=== PATIENT | male | born 1960 | race Caucasian/White ===

== ENCOUNTER 2018-01-07 03:52 | Inpatient (IN) | payer MEDICARE ==
[2018-01-07] MEDS ORDERED: IPRATROPIUM 0.5 MG/2.5 ML NEBU INHALATION STA (03:54)
[2018-01-07] MEDS ORDERED: SODIUM CHLORIDE 0.9% 1,000 ML IV STA ×2 (03:54)
[2018-01-07] MEDS ORDERED: ALBUTEROL NEBULIZED 2.5 MG/3 ML INHALATION STA (03:54)
[2018-01-07] MEDS ORDERED: methylPREDNISolone SOD SUCCI 125 MG/2 ML VIAL IV STA (03:54)
--- NOTE | 2018-01-07 03:56 | ED ---
General Adult HPI - General Stated complaint: PIPE Time Seen by Provider: 01/07/18 03:54 Source: RN notes reviewed, old records reviewed - History of Present Illness Initial comments: This is a 57-year-old male to the ER for evaluation. Presents today for evaluation regards to severe shortness of breath. Patient comes from home today. EMS was called patient cannot breathe worsening felt the night. Oxygen sats below upon EMS arrival, patient poor strain secondary to clinical condition. EMS presented story. This is a hard time patient's oxygen levels. Nose remained low despite oxygen therapy, patient's placed on CPAP. Patient having hard time tolerating CPAP secondary severe shortness of breath - Related Data Previous Rx's Medication Instructions Recorded Naproxen [Naprosyn] 500 mg PO Q12HR #24 tab 11/02/14 traMADol HCl [Ultram] 50 mg PO Q4H PRN #20 tab 11/02/14 Allergies Allergy/AdvReac Type Severity Reaction Status Date / Time codeine Allergy Anaphylaxis Verified 01/07/18 04:01 Review of Systems ROS Statement: Those systems with pertinent positive or pertinent negative responses have been documented in the HPI. ROS Other: All systems not noted in ROS Statement are negative. Past Medical History Past Medical History: Myocardial Infarction ([place]) History of Any Multi-Drug Resistant Organisms: None Reported Additional Past Surgical History / Comment(s): HEART CATH WITH STENTS Past Psychological History: No Psychological Hx Reported Smoking Status: Former smoker Past Alcohol Use History: None Reported Past Drug Use History: None Reported General Exam General appearance: alert, anxious, in distress Head exam: Present: atraumatic, normocephalic, normal inspection Eye exam: Present: normal appearance, PERRL, EOMI. Absent: scleral icterus, conjunctival injection, periorbital swelling ENT exam: Present: normal exam, mucous membranes moist Neck exam: Present: normal inspection. Absent: tenderness, meningismus, lymphadenopathy Respiratory exam: Present: respiratory distress, wheezes, accessory muscle use. Absent: normal lung sounds bilaterally, rales, rhonchi, stridor Cardiovascular Exam: Present: normal rhythm, tachycardia, normal heart sounds. Absent: systolic murmur, diastolic murmur, rubs, gallop, clicks GI/Abdominal exam: Present: soft, normal bowel sounds. Absent: distended, tenderness, guarding, rebound, rigid Extremities exam: Present: normal inspection, full ROM, normal capillary refill. Absent: tenderness, pedal edema, joint swelling, calf tenderness Back exam: Present: normal inspection Neurological exam: Present: alert, oriented X3, CN II-XII intact Psychiatric exam: Present: normal affect, normal mood Skin exam: Present: warm, dry, intact, normal color. Absent: rash Course Vital Signs 01/07/18 01/07/18 01/07/18 03:57 04:00 04:12 Temperature 98.5 F Pulse Rate 104 H 93 99 Respiratory 40 H 24 Rate Blood Pressure 185/127 169/101 O2 Sat by Pulse 96 100 Oximetry 01/07/18 01/07/18 01/07/18 04:28 04:45 05:14 Temperature Pulse Rate 96 96 93 Respiratory Rate Blood Pressure O2 Sat by Pulse Oximetry 01/07/18 01/07/18 05:17 06:40 Temperature Pulse Rate 94 80 Respiratory 20 20 Rate Blood Pressure 144/75 149/77 O2 Sat by Pulse 98 98 Oximetry - Reevaluation(s) Reevaluation #1: 01/07/18 07:07 Significant improvement on BiPAP, diuresis for anxiolysis and prolonged breathing treatment EKG Findings - EKG Comments: EKG Findings:: EKG shows sinus tachycardia rate of 104, TX 134, QRS 100, QTC 489 Medical Decision Making - Medical Decision Making 57 male the ER for evaluation severe shortness of breath COPD exacerbation At bedtime. to be admitted to continue on BiPAP breathing treatments and diuresis - Lab Data Result diagrams: 01/07/18 03:54 01/07/18 03:54 Lab Results 01/07/18 01/07/18 01/07/18 Range/Units 03:54 03:54 03:54 WBC 7.2 (3.8-10.6) k/uL RBC 5.27 (4.30-5.90) m/uL Hgb 15.0 (13.0-17.5) gm/dL Hct 46.1 (39.0-53.0) % MCV 87.5 (80.0-100.0) fL MCH 28.5 (25.0-35.0) pg MCHC 32.6 (31.0-37.0) g/dL RDW 14.1 (11.5-15.5) % Plt Count 255 (150-450) k/uL Neutrophils % 39 % Lymphocytes % 44 % Monocytes % 8 % Eosinophils % 6 % Basophils % 1 % Neutrophils # 2.8 (1.3-7.7) k/uL Lymphocytes # 3.1 (1.0-4.8) k/uL Monocytes # 0.5 (0-1.0) k/uL Eosinophils # 0.4 (0-0.7) k/uL Basophils # 0.1 (0-0.2) k/uL PT (9.0-12.0) sec INR (<1.2) APTT (22.0-30.0) sec D-Dimer (<0.60) mg/L FEU Sodium 150 H (137-145) mmol/L Potassium 4.5 (3.5-5.1) mmol/L Chloride 109 H (98-107) mmol/L Carbon Dioxide 24 (22-30) mmol/L Anion Gap 17 mmol/L BUN 14 (9-20) mg/dL Creatinine 1.10 (0.66-1.25) mg/dL Est GFR (CKD-EPI)AfAm 86 (>60 ml/min/1.73 sqM) Est GFR (CKD-EPI)NonAf 74 (>60 ml/min/1.73 sqM) Glucose 110 H (74-99) mg/dL POC Glucose (mg/dL) (75-99) mg/dL POC Glu [employer] Supervisor ID Calcium 9.6 (8.4-10.2) mg/dL Magnesium 2.2 (1.6-2.3) mg/dL Total Bilirubin 0.4 (0.2-1.3) mg/dL AST 20 (17-59) U/L ALT 22 (21-72) U/L Alkaline Phosphatase 77 (38-126) U/L Total Creatine Kinase 81 (55-170) U/L CK-MB (CK-2) 0.6 (0.0-2.4) ng/mL CK-MB (CK-2) Rel Index 0.7 Troponin I <0.012 (0.000-0.034) ng/mL NT-Pro-B Natriuret Pep pg/mL Total Protein 7.8 (6.3-8.2) g/dL Albumin 4.6 (3.5-5.0) g/dL 0501/07/18 01/07/18 Range/Units 03:54 03:54 03:58 WBC (3.8-10.6) k/uL RBC (4.30-5.90) m/uL Hgb (13.0-17.5) gm/dL Hct (39.0-53.0) % MCV (80.0-100.0) fL MCH (25.0-35.0) pg MCHC (31.0-37.0) g/dL RDW (11.5-15.5) % Plt Count (150-450) k/uL Neutrophils % % Lymphocytes % % Monocytes % % Eosinophils % % Basophils % % Neutrophils # (1.3-7.7) k/uL Lymphocytes # (1.0-4.8) k/uL Monocytes # (0-1.0) k/uL Eosinophils # (0-0.7) k/uL Basophils # (0-0.2) k/uL PT 10.8 (9.0-12.0) sec INR 1.1 (<1.2) APTT 23.3 (22.0-30.0) sec D-Dimer 0.67 H (<0.60) mg/L FEU Sodium (137-145) mmol/L Potassium (3.5-5.1) mmol/L Chloride (98-107) mmol/L Carbon Dioxide (22-30) mmol/L Anion Gap mmol/L BUN (9-20) mg/dL Creatinine (0.66-1.25) mg/dL Est GFR (CKD-EPI)AfAm (>60 ml/min/1.73 sqM) Est GFR (CKD-EPI)NonAf (>60 ml/min/1.73 sqM) Glucose (74-99) mg/dL POC Glucose (mg/dL) 107 H (75-99) mg/dL POC Glu [employer] Supervisor ID Samantha Appiah Calcium (8.4-10.2) mg/dL Magnesium (1.6-2.3) mg/dL Total Bilirubin (0.2-1.3) mg/dL AST (17-59) U/L ALT (21-72) U/L Alkaline Phosphatase (38-126) U/L Total Creatine Kinase (55-170) U/L CK-MB (CK-2) (0.0-2.4) ng/mL CK-MB (CK-2) Rel Index Troponin I (0.000-0.034) ng/mL NT-Pro-B Natriuret Pep 1480 pg/mL Total Protein (6.3-8.2) g/dL Albumin (3.5-5.0) g/dL - Radiology Data Radiology results: report reviewed (Chest x-ray significant for diffuse pulmonary edema), image reviewed Critical Care Time Critical Care Time: Yes Total Critical Care Time: 31 Disposition Clinical Impression: Congestive heart failure, Acute pulmonary edema, Acute exacerbation of chronic obstructive airways disease Disposition: ADMITTED IP TO THIS [facility] Condition: Serious Is patient prescribed a controlled substance at d/c from ED?: No Referrals: None,Stated [Primary Care Provider] - 1-2 days
[2018-01-07] MEDS: LORazepam 2 MG/ML INJ IV STA ×2 (04:03→08:07)
[2018-01-07] MEDS ORDERED: MORPHINE SULFATE 4 MG/ML SYRINGE IVP STA (04:03)
[2018-01-07 04:09] LABS: Glucose,Whole Blood 107 mg/dL (75-99)
[2018-01-07 04:14] LABS: Basophils # (A) 0.1 k/uL (0-0.2); Basophils % (A) 1 %; Eosinophils # (A) 0.4 k/uL (0-0.7); Eosinophils % (A) 6 %; HCT 46.1 % (39.0-53.0); Lymphocytes # (A) 3.1 k/uL (1.0-4.8); Lymphocytes % (A) 44 %; MCH 28.5 pg (25.0-35.0); MCHC 32.6 g/dL (31.0-37.0); MCV 87.5 fL (80.0-100.0); Mean Platelet Volume 8.2; Monocytes # (A) 0.5 k/uL (0-1.0); Monocytes % (A) 8 %; Neutrophils # (A) 2.8 k/uL (1.3-7.7); Neutrophils % (A) 39 %; Platelet Count 255 k/uL (150-450); RBC 5.27 m/uL (4.30-5.90); RDW 14.1 % (11.5-15.5); WBC 7.2 k/uL (3.8-10.6)
[2018-01-07 04:25] LABS: Albumin 4.6 g/dL (3.5-5.0); Calcium 9.6 mg/dL (8.4-10.2); Magnesium 2.2 mg/dL (1.6-2.3); Potassium 4.5 mmol/L (3.5-5.1); Total Bilirubin 0.4 mg/dL (0.2-1.3); Total Protein 7.8 g/dL (6.3-8.2)
[2018-01-07 04:27] LABS: Creatine Kinase 81 U/L (55-170)
--- NOTE | 2018-01-07 04:27 | XR ---
EXAM: XR Chest, 1 View CLINICAL HISTORY: Shortness of breath TECHNIQUE: Frontal view of the chest. COMPARISON: No relevant prior studies available. FINDINGS: Lungs: Diffuse bilateral interstitial opacities. No consolidation. Pleural space: Unremarkable. No pneumothorax. Heart: Borderline sized cardiomediastinal silhouette. Mediastinum: See above. Bones/joints: No acute osseous abnormality. IMPRESSION: Diffuse bilateral interstitial opacities are concerning for interstitial edema.
[2018-01-07 04:30] LABS: INR 1.1 (<1.2); Partial Thromboplastin Time 23.3 sec (22.0-30.0); Prothrombin Time 10.8 sec (9.0-12.0)
[2018-01-07 04:35] LABS: D-Dimer 0.67 mg/L FEU (<0.60)
[2018-01-07 04:41] LABS: Creatine Kinase MB 0.6 ng/mL (0.0-2.4); Troponin I <0.012 ng/mL (0.000-0.034)
[2018-01-07] MEDS ORDERED: FUROSEMIDE 10 MG/ML 4 ML VIAL IV STA (05:54)
[2018-01-07] MEDS: IPRATROPIUM-ALBUTEROL 3 ML NEB INHALATION SCH ×5 (07:51→18:58)
[2018-01-07] MEDS: FUROSEMIDE 10 MG/ML 4 ML VIAL IV SCH ×2 (08:01→20:51)
[2018-01-07 09:53] VITALS: BMI 25.7
[2018-01-07] MEDS ORDERED: RX INFO: IV CONTRAST WAS GIVEN 1 EACH MISC MISCELLANE PRN (11:02)
--- NOTE | 2018-01-07 11:02 | P.CRDCN ---
History of Present Illness Consult date: 01/07/18 Requesting physician: Whit Mendiola Consult reason: congestive heart failure Chief complaint: Shortness of breath History of present illness: This is a 57-year-old gentleman who appears older than his stated age , he follows with Dr. Woods in the office. Patient has history of hypertension, hyperlipidemia, diabetes, complains of significant severe diabetic neuropathy, patient also has history of coronary artery disease with prior multivessel angioplasty, history of mitral regurgitation and also history of noncompliance with taking his medications. The last time he was seen by Dr. Espinoza was in December of last year. He presents to the hospital on this occasion with symptoms of one week duration of worsening shortness of breath, he also states that he has been coughing a significant amount at home, sometimes clear sometimes yellow in color. Chest x-ray on admission reveals severe bilateral interstitial [place] concerning for interstitial edema. EKG on admission showed sinus tachycardia with no acute changes. Blood pressure on admission 185/127, heart rate in the 100s, respiratory rate 40, 96% on BiPAP. CBC is normal, d-dimer 0.67, sodium 150, potassium 4.5, BUN 14, creatinine 1.1. Magnesium level 2.2. Troponin 0.012. BNP level 1480. Patient was initiated on IV Lasix in the emergency room , he states that he's been putting out a significant amount of urine through the night last night. This morning the patient still complains of some shortness of breath, however improved from his admission. His main complaint is pain from his feet up to his neck with sharp pains and at times jerking pains , which she attributes to his neuropathy. Past Medical History Past Medical History: Myocardial Infarction ([place]) History of Any Multi-Drug Resistant Organisms: None Reported Additional Past Surgical History / Comment(s): HEART CATH WITH STENTS Past Psychological History: No Psychological Hx Reported Smoking Status: Former smoker Past Alcohol Use History: None Reported Past Drug Use History: None Reported Medications and Allergies Home Medications Medication Instructions Recorded Confirmed Type Lisinopril(Unknown Dose) 1 tab PO DAILY 01/07/18 01/07/18 History Ranitidine HCl [Zantac] 150 mg PO QID 01/07/18 01/07/18 History Allergies Allergy/AdvReac Type Severity Reaction Status Date / Time codeine Allergy Anaphylaxis Verified 01/07/18 07:12 Physical Exam Vitals: Vital Signs Temp Pulse Pulse Resp BP BP Pulse Ox 01/07/18 08:35 96.9 F L 90 30 H 162/112 97 01/07/18 08:10 94 01/07/18 08:00 98.9 F 81 24 160/92 100 01/07/18 07:51 94 01/07/18 07:26 97.9 F 81 24 152/87 99 01/07/18 06:40 80 20 149/77 98 01/07/18 05:17 94 20 144/75 98 01/07/18 05:14 93 01/07/18 04:45 96 01/07/18 04:28 96 01/07/18 04:12 98.5 F 99 24 169/101 100 01/07/18 04:00 93 01/07/18 03:57 104 H 40 H 185/127 96 Intake and Output 01/06/18 01/07/18 01/07/18 22:59 06:59 14:59 Output Total 700 Balance -700 Output: Urine 700 Other: Weight 90.718 kg 90.718 kg PHYSICAL EXAMINATION: HEENT: Head is atraumatic, normocephalic. Pupils equal, round. Neck is supple. There is no elevated jugular venous pressure. HEART EXAMINATION: Heart S1 and S2 systolic murmur is heard. CHEST EXAMINATION: And circumflex clear with diminished air entry to bilateral bases. ABDOMEN: Soft, nontender. Bowel sounds are heard. No organomegaly noted. EXTREMITIES: 2+ peripheral pulses with no evidence of peripheral edema and no calf tenderness noted. NEUROLOGIC patient is awake, alert and oriented -3. . Results 01/07/18 03:54 01/07/18 03:54 Cardiac Enzymes 01/07/18 01/07/18 Range/Units 03:54 03:54 AST 20 (17-59) U/L CK-MB (CK-2) 0.6 (0.0-2.4) ng/mL Troponin I <0.012 (0.000-0.034) ng/mL Coagulation 01/07/18 Range/Units 03:54 PT 10.8 (9.0-12.0) sec APTT 23.3 (22.0-30.0) sec CBC 01/07/18 Range/Units 03:54 WBC 7.2 (3.8-10.6) k/uL RBC 5.27 (4.30-5.90) m/uL Hgb 15.0 (13.0-17.5) gm/dL Hct 46.1 (39.0-53.0) % Plt Count 255 (150-450) k/uL Comprehensive Metabolic Panel 01/07/18 Range/Units 03:54 Sodium 150 H (137-145) mmol/L Potassium 4.5 (3.5-5.1) mmol/L Chloride 109 H (98-107) mmol/L Carbon Dioxide 24 (22-30) mmol/L BUN 14 (9-20) mg/dL Creatinine 1.10 (0.66-1.25) mg/dL Glucose 110 H (74-99) mg/dL Calcium 9.6 (8.4-10.2) mg/dL AST 20 (17-59) U/L ALT 22 (21-72) U/L Alkaline Phosphatase 77 (38-126) U/L Total Protein 7.8 (6.3-8.2) g/dL Albumin 4.6 (3.5-5.0) g/dL Current Medications Generic Name Dose Route Start Last Admin Trade Name Freq PRN Reason Stop Dose Admin Albuterol/Ipratropium 3 ml 01/07/18 08:00 01/07/18 07:51 Duoneb 0.5 Mg-3 Mg/3 Ml Soln INHALATION 3 ml RT-QID EVETTE Administration Furosemide 40 mg 01/07/18 08:00 01/07/18 08:01 Lasix IV Not Given Q12H EVETTE Sodium Chloride 1,000 mls @ 100 mls/hr 01/07/18 03:54 01/07/18 04:05 Saline 0.9% IV 01/07/18 13:53 100 mls/hr .Q10H STA Administration Methylprednisolone Sodium Succinate 60 mg 01/07/18 12:00 Solu-Medrol IV Q6HR EVETTE Intake and Output 01/06/18 01/07/18 01/07/18 22:59 06:59 14:59 Output Total 700 Balance -700 Output: Urine 700 Other: Weight 90.718 kg 90.718 kg Patient Weight 01/08/18 06:59 Weight 90.718 kg 01/07/18 03:54 01/07/18 03:54 EKG Interpretations (text) EKG on admission shows a sinus tachycardia Assessment and Plan Plan: Assessment and plan #1 symptoms of progressively worsening shortness of breath, significant hypoxia , secondary to mild congestive cardiac failure, systolic acute on chronic. Abnormal d-dimer. #2 known history of coronary artery disease with prior PTCA #3 hypertension #4 hyperlipidemia #5 diabetes #6 prior history of smoking Plan We will obtain an echocardiogram with Doppler study. Continue current dose of IV Lasix. Presentation, patient was quite hypoxic, tachycardic, d-dimer mildly abnormal, we would recommend CTA of the chest to rule out the possibility of pulmonary embolism. We will also start the patient on a low-dose of beta jewels and CHAN inhibitor. He has not been taking any medications at home and is quite hypertensive with a blood pressure this morning of 162/112. Further recommendations will be based on these findings and patient's clinical course. DNP note has been reviewed, I agree with a documented findings and plan of care. Patient was seen and examined.
[2018-01-07] MEDS: LISINOPRIL 5 MG TAB PO SCH (12:23)
[2018-01-07] MEDS: methylPREDNISolone SOD SUCCI 125 MG/2 ML VIAL IV SCH ×3 (12:23→23:13)
[2018-01-07] MEDS: METOPROLOL TARTRATE 25 MG TAB PO SCH ×2 (12:23→20:52)
[2018-01-07 12:28] LABS: Glucose,Whole Blood 143 mg/dL (75-99)
--- NOTE | 2018-01-07 12:33 | CT ---
EXAMINATION TYPE: CT angio chest DATE OF EXAM: 01/07/2018 COMPARISON: NONE HISTORY: Hypoxia and CHF CT DLP: 313.10 mGycm CONTRAST: CT chest with contrast and 3D reconstruction with MIP imaging is performed with IV Contrast, patient injected with 100 ml mL of Isovue 370. Contrast-enhanced CT of the chest was performed through the course of the pulmonary arteries with isabel g and mediastinal window settings submitted. 3D reconstruction with MIP imaging was also performed. PULMONARY ARTERIES: The pulmonary arteries and their major tributaries are patent. I do not see bessy dence for sizable filling defect to suggest pulmonary embolic process. LUNGS: Small basilar effusions and compressive atelectasis. MEDIASTINUM: Thoracic aorta is of normal caliber,however, evaluation is limited given timing of the contrast bolus. If there is concern for thoracic aortic pathology consider CORDELL. Correlate clinicall y . The heart is not enlarged. No evidence for mediastinal mass. No mediastinal lymph nodes greater than 1cm. HILAR STRUCTURES: No evidence for mass. No hilar lymph nodes greater than 1 cm. UPPER ABDOMEN: No significant abnormality is seen. IMPRESSION: 1. No evidence for Pulmonary embolism at this time.
--- NOTE | 2018-01-07 12:44 | P.HPIM ---
History of Present Illness This is a pleasant 57 years old male with past medical history of [place], hypertension, hyperlipidemia, DM, diabetic neuropathy, status post cardiac cath and stents, mitral regurgitation, nonadherence to treatment who presents with dyspnea for 1 week and duration which was progressively worse associated with mild intermittent coughing with no phlegm. On admission he has some chest pain which is resolved now. 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 Espinoza, he doesn't have primary care doctor to follow up with for financial reasons although he confirmed to me have insurance. Patient complaining of from abdominal wall lump which she says it's getting Review of Systems REVIEW OF SYSTEMS: CONSTITUTIONAL: No fever, no malaise, no fatigue. HEENT: No recent visual problems or hearing problems. Denied any sore throat. CARDIOVASCULAR: No orthopnea, PND, no palpitations, no syncope. PULMONARY: No shortness of breath, no cough, no hemoptysis. GASTROINTESTINAL: No diarrhea, no nausea, no vomiting, no abdominal pain. Normoactive bowel sounds. NEUROLOGICAL: No headaches, no weakness, no numbness. HEMATOLOGICAL: Denies any bleeding or petechiae. GENITOURINARY: Denies any burning micturition, frequency, or urgency. MUSCULOSKELETAL/RHEUMATOLOGICAL: Denies any joint pain, swelling, or any muscle pain. ENDOCRINE: Denies any polyuria or polydipsia. Past Medical History Past Medical History: Myocardial Infarction ([place]) History of Any Multi-Drug Resistant Organisms: None Reported Additional Past Surgical History / Comment(s): HEART CATH WITH STENTS Past Psychological History: No Psychological Hx Reported Smoking Status: Former smoker Past Alcohol Use History: None Reported Past Drug Use History: None Reported Medications and Allergies Home Medications Medication Instructions Recorded Confirmed Type Lisinopril [Zestril] 20 mg PO DIRECTED 01/07/18 01/07/18 History Ranitidine HCl [Zantac] 150 mg PO QID 01/07/18 01/07/18 History Allergies Allergy/AdvReac Type Severity Reaction Status Date / Time codeine Allergy Anaphylaxis Verified 01/07/18 07:12 Physical Exam Vitals: Vital Signs Temp Pulse Pulse Resp BP BP Pulse Ox 01/07/18 08:35 96.9 F L 90 30 H 162/112 97 01/07/18 08:10 94 01/07/18 08:00 98.9 F 81 24 160/92 100 01/07/18 07:51 94 01/07/18 07:26 97.9 F 81 24 152/87 99 01/07/18 06:40 80 20 149/77 98 01/07/18 05:17 94 20 144/75 98 01/07/18 05:14 93 01/07/18 04:45 96 01/07/18 04:28 96 01/07/18 04:12 98.5 F 99 24 169/101 100 01/07/18 04:00 93 01/07/18 03:57 104 H 40 H 185/127 96 Intake and Output 01/06/18 01/07/18 01/07/18 22:59 06:59 14:59 Output Total 700 Balance -700 Output: Urine 700 Other: Weight 90.718 kg 90.718 kg GENERAL: The patient is alert and oriented x3, not in any acute distress. Well developed, well nourished. HEENT: Pupils are round and equally reacting to light. EOMI. No scleral icterus. No conjunctival pallor. Normocephalic, atraumatic. No pharyngeal erythema. No thyromegaly. CARDIOVASCULAR: S1 and S2 present. No murmurs, rubs, or gallops. PULMONARY: Chest is clear to auscultation, no wheezing or crackles. ABDOMEN: Soft, nontender, nondistended, normoactive bowel sounds. No palpable organomegaly. Small abdominal wall lump close to the umbilicus with a smooth borders and mobile, nontender MUSCULOSKELETAL: No joint swelling or deformity. EXTREMITIES: No cyanosis, clubbing, or pedal edema. NEUROLOGICAL: Gross neurological examination did not reveal any focal deficits. SKIN: No rashes. Results CBC & Chem 7: 01/07/18 03:54 01/07/18 03:54 Labs: Abnormal Lab Results - Last 24 Hours (Table) 01/07/18 01/07/18 01/07/18 Range/Units 03:54 03:54 03:58 D-Dimer 0.67 H (<0.60) mg/L FEU Sodium 150 H (137-145) mmol/L Chloride 109 H (98-107) mmol/L Glucose 110 H (74-99) mg/dL POC Glucose (mg/dL) 107 H (75-99) mg/dL Assessment and Plan Plan: -Acute and systolic chronic CHF, cardiology evaluation is appreciated, continue with IV Lasix, lisinopril, and metoprolol. Positive troponin -Positive d-dimer, CTPA was done and result is negative for PE -Hypertension, continue with same medication -Hyperlipidemia, continue with same medication -Hypernatremia,, encourage hydration DVT prophylaxis on heparin GI prophylaxis on Pepcid Patient is counseled about compliance medication and follow up with physician. Patient states he is going to try to find a new PCP
[2018-01-07 17:02] LABS: Glucose,Whole Blood 168 mg/dL (75-99)
[2018-01-07 20:08] LABS: Hemoglobin A1C 5.3 % (4.0-6.0)
[2018-01-07 20:45] LABS: Glucose,Whole Blood 188 mg/dL (75-99)
[2018-01-07] MEDS: HEPARIN SODIUM,PORCINE 5,000 UNIT/ML 1 ML VIAL SQ SCH (20:52)
[2018-01-07] MEDS: FAMOTIDINE 20 MG/2 ML VIAL IV SCH (20:52)
[2018-01-08 06:20] LABS: Anion Gap 17 mmol/L; Blood Urea Nitrogen 18 mg/dL (9-20); Calcium 9.5 mg/dL (8.4-10.2); Carbon Dioxide 21 mmol/L (22-30); Chloride 106 mmol/L (98-107); Glucose 141 mg/dL (74-99); Sodium 144 mmol/L (137-145)
[2018-01-08] MEDS: INSULIN ASPART 100 UNIT/ML 1 ML 10 ML VIAL SQ SCH ×2 (06:30→12:03)
[2018-01-08 06:31] LABS: Glucose,Whole Blood 145 mg/dL (75-99)
[2018-01-08] MEDS: methylPREDNISolone SOD SUCCI 125 MG/2 ML VIAL IV SCH ×2 (06:31→12:03)
[2018-01-08] MEDS: METOPROLOL TARTRATE 25 MG TAB PO SCH (07:48)
[2018-01-08] MEDS: FUROSEMIDE 10 MG/ML 4 ML VIAL IV SCH (07:48)
[2018-01-08] MEDS: FAMOTIDINE 20 MG/2 ML VIAL IV SCH (07:48)
[2018-01-08] MEDS: LISINOPRIL 5 MG TAB PO SCH (07:48)
[2018-01-08] MEDS: HEPARIN SODIUM,PORCINE 5,000 UNIT/ML 1 ML VIAL SQ SCH (07:49)
[2018-01-08] MEDS: IPRATROPIUM-ALBUTEROL 3 ML NEB INHALATION SCH ×3 (07:50→15:40)
[2018-01-08 08:33] VITALS: TEMP 97
[2018-01-08 11:46] VITALS: BP 167/73; PULSE 84; RESP 16
[2018-01-08 12:17] LABS: Glucose,Whole Blood 153 mg/dL (75-99)
--- NOTE | 2018-01-08 13:48 | P.PN ---
Subjective Progress Note Date: 01/08/18 This is a 57-year-old gentleman who appears older than his stated age , he follows with Dr. Woods in the office. Patient has history of hypertension, hyperlipidemia, diabetes, complains of significant severe diabetic neuropathy, patient also has history of coronary artery disease with prior multivessel angioplasty, history of mitral regurgitation and also history of noncompliance with taking his medications. The last time he was seen by Dr. Espinoza was in December of last year. He presents to the hospital on this occasion with symptoms of one week duration of worsening shortness of breath, he also states that he has been coughing a significant amount at home, sometimes clear sometimes yellow in color. Chest x-ray on admission reveals severe bilateral interstitial [place] concerning for interstitial edema. EKG on admission showed sinus tachycardia with no acute changes. Blood pressure on admission 185/127, heart rate in the 100s, respiratory rate 40, 96% on BiPAP. CBC is normal, d-dimer 0.67, sodium 150, potassium 4.5, BUN 14, creatinine 1.1. Magnesium level 2.2. Troponin 0.012. BNP level 1480. Patient was initiated on IV Lasix in the emergency room , he states that he's been putting out a significant amount of urine through the night last night. This morning the patient still complains of some shortness of breath, however improved from his admission. His main complaint is pain from his feet up to his neck with sharp pains and at times jerking pains , which she attributes to his neuropathy. 01/08/2018 Patient was seen and examined this morning, diuresed well with IV Lasix through the night, his weight is down 4 kg today. He has been ambulating in the hallway most of the morning without any symptoms. Let pressure 158/60 with a heart rate in the 80s, 97% on room air. Sodium 144, potassium 4.0, BUN 18, creatinine 0.9. We will discontinue his IV Lasix and start him on oral diuretics today. Objective - Vital Signs Vital signs: Vital Signs Temp 97.0 F L 01/08/18 08:00 Pulse 84 01/08/18 11:45 Resp 16 01/08/18 11:45 BP 167/73 01/08/18 11:45 Pulse Ox 97 01/08/18 11:45 Intake & Output 01/07/18 01/08/18 01/08/18 18:59 06:59 18:59 Intake Total 960 240 Output Total 1500 700 Balance -1500 260 240 Weight 90.718 kg 86.4 kg Intake: Intake, IV Titration 960 Amount Sodium Chloride 0.9% 1, 960 000 ml @ 100 mls/hr IV . Q10H STA Rx#:[id number] Oral 240 Output: Urine 1500 700 Other: Voiding Method Urinal - Exam PHYSICAL EXAMINATION: GENERAL: HEENT: Head is atraumatic, normocephalic. Pupils equal, round. Sclera anicteric. Conjunctiva are clear. Mucous membranes of the mouth are moist. Neck is supple. There is no elevated jugular venous pressure.] bruit is heard. HEART EXAMINATION: Heart S1, S2 systolic murmur heard. CHEST EXAMINATION: Lungs are clear to auscultation and precussion. No chest wall tenderness is noted on palpation or with deep breathing. ABDOMEN: Soft, nontender. Bowel sounds are heard. No organomegaly noted. EXTREMITIES: 2+ peripheral pulses with no evidence of peripheral edema and no calf tenderness noted. NEUROLOGIC patient is awake, alert and oriented -3. . - Labs CBC & Chem 7: 01/07/18 03:54 01/08/18 05:39 Labs: Abnormal Lab Results - Last 24 Hours (Table) 01/07/18 01/07/18 01/07/18 Range/Units 15:04 16:56 20:34 Carbon Dioxide (22-30) mmol/L Glucose (74-99) mg/dL POC Glucose (mg/dL) 168 H 188 H (75-99) mg/dL Troponin I 0.620 H* (0.000-0.034) ng/mL 01/08/18 01/08/18 01/08/18 Range/Units 05:39 06:28 11:57 Carbon Dioxide 21 L (22-30) mmol/L Glucose 141 H (74-99) mg/dL POC Glucose (mg/dL) 145 H 153 H (75-99) mg/dL Troponin I (0.000-0.034) ng/mL Assessment and Plan Plan: Assessment and plan #1 symptoms of progressively worsening shortness of breath, significant hypoxia , secondary to mild congestive cardiac failure, systolic acute on chronic. Abnormal d-dimer. CTA of the chest negative for pulmonary embolism #2 known history of coronary artery disease with prior PTCA #3 hypertension #4 hyperlipidemia #5 diabetes #6 prior history of smoking Plan From cardiology's perspective we will discontinue the IV Lasix today and start the patient on oral diuretics. He may be able to be discharged home once cleared by primary and we'll make him a follow-up appointment in the office post discharge. DNP note has been reviewed, I agree with a documented findings and plan of care. Patient was seen and examined.
[2018-01-08] MEDS ORDERED: FUROSEMIDE 40 MG TAB PO SCH (16:00)
--- NOTE | 2018-01-08 17:56 | P.DS ---
Providers Date of admission: 01/07/18 07:07 This is a pleasant 57 years old male with past medical history of ND, hypertension, hyperlipidemia, DM, diabetic neuropathy, status post cardiac cath and stents, mitral regurgitation, nonadherence to treatment who presents with dyspnea for 1 week and duration which was progressively worse associated with mild intermittent coughing with no phlegm. In the ED patient has chest x-ray which was suspicious for interstitial edema, patient had mildly elevated troponin patient was evaluated by minor league baseball player, mostly the patient with hypoxia secondary to mild acute on chronic systolic congestive heart failure, patient also found to have abnormal D-dimer, CTPA was negative for PE. Patient was treated with IV Lasix and he showed interval improvement in his symptoms, his weight is down 4 kg on discharge day. He has been ambulating in the hallway most of the morning without any symptoms. Patient was cleared by cardiology for discharge with outpatient follow-up. Patient sees Dr. Espinoza as his minor league baseball player, I called the office and to make appointment for the patient upon his request. The office informed name the going to call the patient to make appointment. Patient provided phone #[phone] provided to the cardiology office staff. Patient was starts on new medication for his hypertension. His hemoglobin A1c is 5.3%, patient informed Patient also complaining of from a chronic nodule in the abdominal wall close to the umbilicus, the nodules is mobile with a small surface and no tenderness and no signs symptoms of inflammation. Patient refused to wait for surgical evaluation. Risks benefits and alternatives are explained for the patient including but not limited to the risk of cancer and he verbalized understanding and he agreed to alternatives to make an appointment with the surgeon office. Originally appointment was made on January 14, 2018 however patient doesn't want this appointment and referred with till after 03 of February. Appointment was made on 02/04/2018 and patient he verbalized understanding and agreement with this appointment said he will do the follow-up Also I counseled patient to follow-up with his PCP in one week and repeat his blood test, patient informed me that he doesn't have PCP, however he wants to follow up with Dr. Sheehan, the office todays closed, patient informed and he told me he is going to make Make appointment in one week as recommended Problem list and management plan was discussed with the patient and he verbalized understanding and acceptance Patient health information was not discussed with family as per patient's request Patient is found stable and can be discharged home however he needs follow-up as an outpatient. Patient has capacity to make medical decision upon my evaluation Physical examination Gen. AAOX3, not in distress CVS: S1-S2, RRR, no murmur Lungs: B/L CTA, no wheezing, not in respiratory distress Abdomen: soft, no distention, no tenderness, positive bowel sounds. Abdominal nodule on the superior part of the umbilicus, with a small margin and about 1 inch in diameter, with smooth surface and mobile. No signs symptoms of inflammation Extremities: no edema or induration, palpable peripheral pulses Attending physician: Whit Mendiola Consults: 01/07/18 07:04 Consult Physician Routine Consulting Provider: Sonia Hubbard Consult Reason/Comments: chf Do you want consulting provider notified?: Yes 01/08/18 14:00 Consult Physician Routine Consulting Provider: Farhat Brice Consult Reason/Comments: abd mass Do you want consulting provider notified?: Yes Primary care physician: Stated None Patient Condition at Discharge: Serious Plan - Discharge Summary Discharge Rx Participant: Yes New Discharge Prescriptions: New Furosemide [Lasix] 40 mg PO BID@0900,1600 #30 tab Lisinopril [Zestril] 5 mg PO DAILY #30 tab Metoprolol Tartrate [Lopressor] 25 mg PO BID #30 tab Continue Ranitidine HCl [Zantac] 150 mg PO QID Lisinopril [Zestril] 20 mg PO DIRECTED Discharge Medication List Lisinopril [Zestril] 20 mg PO DIRECTED 01/07/18 [History] Ranitidine HCl [Zantac] 150 mg PO QID 01/07/18 [History] Furosemide [Lasix] 40 mg PO BID@0900,1600 #30 tab 01/08/18 [Rx] Lisinopril [Zestril] 5 mg PO DAILY #30 tab 01/08/18 [Rx] Metoprolol Tartrate [Lopressor] 25 mg PO BID #30 tab 01/08/18 [Rx] Follow up Appointment(s)/Referral(s): Albert Sheehan MD [STAFF PHYSICIAN] - 1 Week (for all your health problems we recommend you check your blood test with your doctor in 1 week ) Braulio Espinoza MD [STAFF PHYSICIAN] - 1 Week (for your heart disease they will call you on your phone ) Farhat Brice MD [STAFF PHYSICIAN] - 02/04/18 1:45 pm (for your abdominal nodule/mass ) Patient Instructions/Handouts: Heart Failure (DC), Heart Healthy Diet (DC) Activity/Diet/Wound Care/Special Instructions: diet: cardiac diet activity: as tolerated Discharge Disposition: HOME SELF-CARE
== END 2018-01-08 16:46 | disposition home or self-care (01) | DRG 292 ==
LOC: EC 03:52 → 6SEL 07:07
PROVIDERS: ADMIT Hospitalist; ATTEND Hospitalist
DX: I11.0 Hypertensive heart disease with heart failure (principal); E87.0 Hyperosmolality and hypernatremia; J44.1 Chronic obstructive pulmonary disease with (acute) exacerbation; E11.40 Type 2 diabetes mellitus with diabetic neuropathy, unspecified; E78.5 Hyperlipidemia, unspecified; I25.10 Atherosclerotic heart disease of native coronary artery without angina pectoris; I25.2 Old myocardial infarction; I34.0 Nonrheumatic mitral (valve) insufficiency; I50.23 Acute on chronic systolic (congestive) heart failure; R09.02 Hypoxemia; R79.1 Abnormal coagulation profile; R19.00 Intra-abdominal and pelvic swelling, mass and lump, unspecified site; R77.9 Abnormality of plasma protein, unspecified; Z79.899 Other long term (current) drug therapy; Z87.891 Personal history of nicotine dependence; Z98.61 Coronary angioplasty status; Z91.19 Patient's noncompliance with other medical treatment and regimen; Z88.5 Allergy status to narcotic agent
CPT/HCPCS: 36415; 71045; 71275; 80048; 80053; 82550; 82553; 83036; 83735; 83880; 84484; 85025; 85379; 85610; 85730; 93005; 94640; 94645; 94660; 96361; 96374; 96375; 99291

== ENCOUNTER 2018-01-11 08:09 | Inpatient (IN) | payer MEDICARE ==
[2018-01-11] MEDS ORDERED: IPRATROPIUM-ALBUTEROL 3 ML NEB INHALATION STA ×2 (08:25→08:40)
[2018-01-11] MEDS ORDERED: FUROSEMIDE 10 MG/ML 4 ML VIAL IV STA (08:25)
[2018-01-11] MEDS ORDERED: NITROGLYCERIN OINT 1 INCH/GM PACKET TOPICAL STA (08:25)
--- NOTE | 2018-01-11 08:28 | ED ---
General Adult HPI - General Chief complaint: Shortness of Breath Stated complaint: Dyspnea Time Seen by Provider: 01/11/18 08:18 Source: patient, RN notes reviewed Mode of arrival: wheelchair Limitations: no limitations - History of Present Illness Initial comments: Patient is a pleasant 57-year-old male presenting to the emergency Department with shortness of breath. Patient is anxious and has a difficult time helping provide history. Patient states his difficulty breathing just started. Patient does have some chest discomfort as well. Patient states the discomfort does radiate to his left arm. Patient unable to further describe discomfort. Symptoms are similar to previous admission several days ago where he had fluid on his lungs. Patient is unclear if he has any history of prior lung disease. Patient does have a history of prior cardiac disease. - Related Data Home Medications Medication Instructions Recorded Confirmed Lisinopril [Zestril] 20 mg PO DIRECTED 01/07/18 01/07/18 Ranitidine HCl [Zantac] 150 mg PO QID 01/07/18 01/07/18 Previous Rx's Medication Instructions Recorded Furosemide [Lasix] 40 mg PO BID@0900,1600 #30 tab 01/08/18 Lisinopril [Zestril] 5 mg PO DAILY #30 tab 01/08/18 Metoprolol Tartrate [Lopressor] 25 mg PO BID #30 tab 01/08/18 Allergies Allergy/AdvReac Type Severity Reaction Status Date / Time codeine Allergy Anaphylaxis Verified 01/11/18 08:16 Review of Systems ROS Statement: Those systems with pertinent positive or pertinent negative responses have been documented in the HPI. ROS Other: All systems not noted in ROS Statement are negative. Constitutional: Denies: fever Eyes: Denies: eye pain ENT: Denies: ear pain Respiratory: Reports: dyspnea Cardiovascular: Reports: chest pain Endocrine: Reports: fatigue Gastrointestinal: Denies: abdominal pain Genitourinary: Denies: dysuria Musculoskeletal: Denies: back pain Skin: Denies: rash Neurological: Denies: weakness Past Medical History Past Medical History: Myocardial Infarction (NM) Additional Past Medical History / Comment(s): Multiple NM's History of Any Multi-Drug Resistant Organisms: None Reported Additional Past Surgical History / Comment(s): HEART CATH WITH STENTS Past Anesthesia/Blood Transfusion Reactions: No Reported Reaction Past Psychological History: No Psychological Hx Reported Smoking Status: Former smoker Past Alcohol Use History: None Reported Past Drug Use History: None Reported - Past Family History Father Additional Family Medical History / Comment(s): tumor in stomach Mother Family Medical History: CVA/TIA General Exam Limitations: no limitations General appearance: alert, anxious, other (Patient does appear short of breath however speaks in full sentences) Head exam: Present: atraumatic Eye exam: Present: normal appearance, PERRL ENT exam: Present: normal oropharynx Neck exam: Present: normal inspection Respiratory exam: Present: respiratory distress (Patient is in mild respiratory distress), rales, accessory muscle use Cardiovascular Exam: Present: tachycardia GI/Abdominal exam: Present: soft. Absent: tenderness Extremities exam: Present: normal inspection. Absent: pedal edema, calf tenderness Neurological exam: Present: alert Psychiatric exam: Present: anxious Skin exam: Present: normal color Course Vital Signs 01/11/18 01/11/18 01/11/18 08:13 08:42 08:51 Temperature 97.0 F L Pulse Rate 111 H 118 H 99 Respiratory 30 H Rate Blood Pressure 232/120 O2 Sat by Pulse 90 L Oximetry 01/11/18 09:04 Temperature Pulse Rate Respiratory 20 Rate Blood Pressure O2 Sat by Pulse Oximetry EKG Findings - EKG Comments: EKG Findings:: Sinus tachycardia 108. [place] 158. QRS 100. QT 340. QTc 455. Normal axis. LVH with repolarization change. Medical Decision Making - Medical Decision Making Patient reevaluated and significantly improved with BiPAP. Patient updated on results and plan. Case was discussed with Dr. brink, who will admit patient was recently discharged from their service. - Lab Data Result diagrams: 01/11/18 08:28 01/11/18 08:28 Lab Results 01/11/18 01/11/18 01/11/18 Range/Units 08:28 08:28 08:28 WBC 8.2 (3.8-10.6) k/uL RBC 4.72 (4.30-5.90) m/uL Hgb 13.8 (13.0-17.5) gm/dL Hct 42.2 (39.0-53.0) % MCV 89.3 (80.0-100.0) fL MCH 29.2 (25.0-35.0) pg MCHC 32.7 (31.0-37.0) g/dL RDW 13.9 (11.5-15.5) % Plt Count 208 (150-450) k/uL PT (9.0-12.0) sec INR (<1.2) APTT (22.0-30.0) sec Sodium 147 H (137-145) mmol/L Potassium 4.6 (3.5-5.1) mmol/L Chloride 109 H (98-107) mmol/L Carbon Dioxide 22 (22-30) mmol/L Anion Gap 16 mmol/L BUN 20 (9-20) mg/dL Creatinine 0.90 (0.66-1.25) mg/dL Est GFR (CKD-EPI)AfAm >90 (>60 ml/min/1.73 sqM) Est GFR (CKD-EPI)NonAf >90 (>60 ml/min/1.73 sqM) Glucose 103 H (74-99) mg/dL Calcium 8.5 (8.4-10.2) mg/dL Total Bilirubin 0.5 (0.2-1.3) mg/dL AST 26 (17-59) U/L ALT 28 (21-72) U/L Alkaline Phosphatase 73 (38-126) U/L Total Creatine Kinase 131 (55-170) U/L CK-MB (CK-2) 0.9 (0.0-2.4) ng/mL CK-MB (CK-2) Rel Index 0.7 Troponin I 0.064 H* (0.000-0.034) ng/mL NT-Pro-B Natriuret Pep pg/mL Total Protein 7.2 (6.3-8.2) g/dL Albumin 4.3 (3.5-5.0) g/dL 01/11/18 01/11/18 Range/Units 08:28 08:28 WBC (3.8-10.6) k/uL RBC (4.30-5.90) m/uL Hgb (13.0-17.5) gm/dL Hct (39.0-53.0) % MCV (80.0-100.0) fL MCH (25.0-35.0) pg MCHC (31.0-37.0) g/dL RDW (11.5-15.5) % Plt Count (150-450) k/uL PT 10.4 (9.0-12.0) sec INR 1.1 (<1.2) APTT 23.4 (22.0-30.0) sec Sodium (137-145) mmol/L Potassium (3.5-5.1) mmol/L Chloride (98-107) mmol/L Carbon Dioxide (22-30) mmol/L Anion Gap mmol/L BUN (9-20) mg/dL Creatinine (0.66-1.25) mg/dL Est GFR (CKD-EPI)AfAm (>60 ml/min/1.73 sqM) Est GFR (CKD-EPI)NonAf (>60 ml/min/1.73 sqM) Glucose (74-99) mg/dL Calcium (8.4-10.2) mg/dL Total Bilirubin (0.2-1.3) mg/dL AST (17-59) U/L ALT (21-72) U/L Alkaline Phosphatase (38-126) U/L Total Creatine Kinase (55-170) U/L CK-MB (CK-2) (0.0-2.4) ng/mL CK-MB (CK-2) Rel Index Troponin I (0.000-0.034) ng/mL NT-Pro-B Natriuret Pep 927 pg/mL Total Protein (6.3-8.2) g/dL Albumin (3.5-5.0) g/dL - Radiology Data Radiology results: image reviewed (Chest x-ray has concern for pulmonary edema) Disposition Clinical Impression: Acute pulmonary edema Disposition: ADMITTED IP TO THIS HOSP Is patient prescribed a controlled substance at d/c from ED?: No Referrals: Nonstaff,Physician [Primary Care Provider] - 1-2 days Decision Time: 10:00
[2018-01-11 08:44] LABS: HCT 42.2 % (39.0-53.0); HGB 13.8 gm/dL (13.0-17.5); MCH 29.2 pg (25.0-35.0); MCHC 32.7 g/dL (31.0-37.0); MCV 89.3 fL (80.0-100.0); Mean Platelet Volume 8.6; Platelet Count 208 k/uL (150-450); RBC 4.72 m/uL (4.30-5.90); RDW 13.9 % (11.5-15.5); WBC 8.2 k/uL (3.8-10.6)
[2018-01-11] MEDS ORDERED: FUROSEMIDE 10 MG/ML 4 ML VIAL ONE (08:50)
[2018-01-11] MEDS ORDERED: NITROGLYCERIN OINT 1 INCH/GM PACKET TOPICAL ONE (08:50)
[2018-01-11] MEDS ORDERED: IPRATROPIUM-ALBUTEROL 3 ML NEB ONE (08:50)
[2018-01-11 08:53] LABS: INR 1.1 (<1.2); Partial Thromboplastin Time 23.4 sec (22.0-30.0); Prothrombin Time 10.4 sec (9.0-12.0)
[2018-01-11 08:55] LABS: ALT 28 U/L (21-72); AST 26 U/L (17-59); Albumin 4.3 g/dL (3.5-5.0); Alkaline Phosphatase 73 U/L (38-126); Anion Gap 16 mmol/L; Blood Urea Nitrogen 20 mg/dL (9-20); Calcium 8.5 mg/dL (8.4-10.2); Carbon Dioxide 22 mmol/L (22-30); Chloride 109 mmol/L (98-107); Glucose 103 mg/dL (74-99); Potassium 4.6 mmol/L (3.5-5.1); Sodium 147 mmol/L (137-145); Total Bilirubin 0.5 mg/dL (0.2-1.3); Total Protein 7.2 g/dL (6.3-8.2)
[2018-01-11 09:16] LABS: Creatine Kinase MB 0.9 ng/mL (0.0-2.4)
--- NOTE | 2018-01-11 09:16 | XR ---
EXAMINATION TYPE: XR chest 1V portable DATE OF EXAM: 01/11/2018 COMPARISON: 01/07/2018 HISTORY: Shortness of breath with history of COPD. TECHNIQUE: Single frontal view of the chest is obtained. FINDINGS: There is a new right basilar opacity in comparison to the prior exams. Remainder the lungs are clear other than scattered areas of linear platelike subsegmental atelectasis and Ana B lines . Heart is enlarged. Lung apices are well aerated. Osseous structures are intact. No sizable pneumoth orax or pleural effusion. IMPRESSION: New right basilar opacity is seen, however additionally there is cardiomegaly and Ana B lines suggesting pulmonary edema on a cardiogenic basis rather than pneumonia. Pneumonia remains a possibility in the appropriate clinical setting.
[2018-01-11 09:17] LABS: Troponin I 0.064 ng/mL (0.000-0.034)
[2018-01-11] MEDS ORDERED: ASPIRIN 325 MG TAB PO STA (10:00)
[2018-01-11] MEDS ORDERED: LISINOPRIL 20 MG TAB PO SCH (10:30)
[2018-01-11] MEDS ORDERED: ASPIRIN 325 MG TAB ONE (13:37)
[2018-01-11] MEDS: NITROGLYCERIN OINT 1 INCH/GM PACKET TOPICAL SCH ×3 (13:53→19:59)
[2018-01-11] MEDS: FUROSEMIDE 10 MG/ML 4 ML VIAL IV SCH ×2 (13:53→21:02)
[2018-01-11] MEDS: PANTOPRAZOLE 40 MG/10 ML VIAL IVP SCH ×2 (14:57→20:07)
[2018-01-11 15:59] LABS: Creatine Kinase MB 1.2 ng/mL (0.0-2.4)
[2018-01-11 16:15] LABS: Troponin I 0.122 ng/mL (0.000-0.034)
[2018-01-11] MEDS ORDERED: IBUPROFEN 600 MG TAB PO PRN (17:54)
[2018-01-11] MEDS: METOPROLOL TARTRATE 25 MG TAB PO SCH (20:09)
[2018-01-11] MEDS: HEPARIN SODIUM,PORCINE 5,000 UNIT/ML 1 ML VIAL SQ SCH (20:09)
[2018-01-11 20:25] LABS: Troponin I 0.123 ng/mL (0.000-0.034)
--- NOTE | 2018-01-11 20:57 | HP ---
HISTORY AND PHYSICAL DATE OF SERVICE: 01/11/2018 CHIEF COMPLAINT: Shortness of breath. HISTORY OF PRESENT ILLNESS: This 57-year-old gentleman with a past history of GERD, hypertension, history of pneumonia, multiple myocardial infarctions, peripheral neuropathy is now being followed by no primary care physician in the outpatient setting. The patient was recently admitted with shortness of breath and was treated for CHF acute exacerbation. The patient apparently because of increased shortness the patient came back to [facility] and admitted for further evaluation and treatment. A chest x-ray was done from the ER which showed bilateral opacities suggestive of CHF and EKG showed sinus tachycardia with ST-T changes. There is no history of any fever, rigors or chills. No history of headache, loss of consciousness or seizures at this time. PAST MEDICAL HISTORY: History of CHF, hypertension, history of DJD, history of pneumonia, multiple myocardial infarctions. MEDICATIONS ARE: 1. Zantac 150 mg q.i.d. p.r.n. 2. Motrin 200-400 mg q.6h p.r.n. 3. Lasix 40 mg p.o. b.i.d. 4. Lopressor 25 mg p.o. b.i.d. 5. Zestril 5 mg p.o. daily. ALLERGIES: CODEINE. FAMILY HISTORY: History of CVA, TIA, history of tumor in the stomach. SOCIAL HISTORY: Previous history of smoking. No history of alcohol intake. REVIEW OF SYSTEMS: ENT: Diminished vision, diminished hearing. Cardiovascular: As mentioned earlier. Respiratory: As mentioned earlier. GI no nausea or vomiting. : No dysuria or retention. Nervous system: No numbness or weakness. Allergy/Immunology: No asthma or hayfever. Musculoskeletal as mentioned earlier. Hematology/Oncology: No history of anemia. Endocrine: No history of diabetes or hypothyroidism. Constitutional: As mentioned earlier. Dermatology negative. Rheumatology Negative. Psychiatric: As mentioned earlier. PHYSICAL EXAMINATION: Alert oriented x3. Pulse 84, blood pressure 130/91, respirations 16, temperature 98.4, pulse ox 98% on 2 L. HEENT: Conjunctivae normal. Oral mucosa moist. NECK is no jugular venous distention. No carotid bruit. No lymph node enlargement. CARDIOVASCULAR SYSTEM: S1, S2. No S3, no S4. RESPIRATORY: Breath sounds diminished in the bases. A few scattered rhonchi and basal crackles. ABDOMEN: Soft, nontender. LEGS: Minimal edema NERVOUS SYSTEM: Higher functions as mentioned earlier. Moves all 4 limbs. No focal motor or sensory deficits. LYMPHATICS: No lymph nodes palpable in the neck, axillae or groin. SKIN no ulcer, rashes or bleeding. LABS: CBC within normal limits. Sodium 147, glucose 103. Troponin 0.064 and 0.122. ASSESSMENT: 1. Congestive heart failure acute exacerbation. 2. Troponin 0.[address] elevation myocardial infarction. 3. History of gastroesophageal reflux disease. 4. Hypertension. 5. History of myocardial infarction, coronary artery disease. 6. History of peripheral neuropathy. 7. History of hernia. 8. History of anxiety. 9. Remote history of nicotine dependence. RECOMMENDATIONS AND DISCUSSION: In this 57-year-old gentleman who presented with multiple complex medical issues, we will monitor the patient closely. Continue the current medications, management and symptomatic treatment. IV diuretics. Otherwise 2D echo will be requested and repeat labs. Resume the home medications. Monitor fluid and electrolytes balance closely and fluid restriction 1500 mL. Guarded prognosis because of the multiple complex medical issues and further recommendations to follow. Pulmonary consultation also has been sought. The medication reconciliation has been done. I would also recommend DVT prophylaxis also and proton pump inhibitors as well. The prognosis is extremely guarded because of multiple complex medical issues. No added salt and cardiac diet is also being recommended. MMODL / IJN: [id number] /
[2018-01-12 04:36] LABS: Basophils % (A) 0 %; Eosinophils # (A) 0.5 k/uL (0-0.7); Eosinophils % (A) 7 %; HCT 45.9 % (39.0-53.0); Lymphocytes # (A) 2.6 k/uL (1.0-4.8); Lymphocytes % (A) 34 %; MCH 28.9 pg (25.0-35.0); MCHC 32.6 g/dL (31.0-37.0); MCV 88.7 fL (80.0-100.0); Mean Platelet Volume 8.1; Monocytes # (A) 0.4 k/uL (0-1.0); Monocytes % (A) 6 %; Neutrophils % (A) 52 %; Platelet Count 211 k/uL (150-450); RBC 5.18 m/uL (4.30-5.90); RDW 13.8 % (11.5-15.5); WBC 7.8 k/uL (3.8-10.6)
[2018-01-12 04:47] LABS: Potassium 3.9 mmol/L (3.5-5.1)
[2018-01-12] MEDS: FUROSEMIDE 10 MG/ML 4 ML VIAL IV SCH ×2 (06:11→20:03)
[2018-01-12] MEDS: METOPROLOL TARTRATE 25 MG TAB PO SCH ×2 (09:39→20:04)
[2018-01-12] MEDS: LISINOPRIL 5 MG TAB PO SCH (09:39)
[2018-01-12] MEDS: ASPIRIN 325 MG TAB PO SCH (09:39)
[2018-01-12] MEDS: PANTOPRAZOLE 40 MG/10 ML VIAL IVP SCH ×2 (09:39→20:04)
[2018-01-12] MEDS: NITROGLYCERIN OINT 1 INCH/GM PACKET TOPICAL SCH ×4 (09:40→22:33)
[2018-01-12] MEDS: HEPARIN SODIUM,PORCINE 5,000 UNIT/ML 1 ML VIAL SQ SCH ×2 (09:40→20:04)
[2018-01-12] MEDS: SPIRONOLACTONE 25 MG TAB PO SCH (10:17)
[2018-01-12] MEDS ORDERED: RX INFO: IV CONTRAST WAS GIVEN 1 EACH MISC MISCELLANE PRN (10:52)
[2018-01-12] MEDS: IOPAMIDOL-300 CONTRAST 30 ML VIAL (ORAL USE) PO PRN ×2 (11:35→12:28)
--- NOTE | 2018-01-12 12:03 | ECHOF ---
Referral Reason:chf MEASUREMENTS -------- HEIGHT: 188.0 cm WEIGHT: 83.9 kg BP: 127/74 RVIDd: 2.8 cm (< 3.3) IVSd: 1.2 cm (0.6 - 1.1) LVIDd: 5.6 cm (3.9 - 5.3) LVPWd: 1.3 cm (0.6 - 1.1) IVSs: 1.4 cm LVIDs: 4.6 cm LVPWs: 1.4 cm LAESV Index (A-L): 30.01 ml/m Ao Diam: 2.8 cm (2.0 - 3.7) AV Cusp: 1.7 cm (1.5 - 2.6) LA Diam: 4.0 cm (2.7 - 3.8) EPSS: 0.9 cm MV E Malcom: 0.85 m/s MV DecT: 178 ms MV A Malcom: 0.58 m/s MV E/A Ratio: 1.46 RAP: 5.00 mmHg RVSP: 7.72 mmHg MV EF SLOPE: 115.73 mm/s (70 - 150) MV EXCURSION: 1.47 cm (> 18.000) FINDINGS -------- Sinus rhythm. This was a technically adequate study. The left ventricular size is normal. There is mild concentric left ventricular hypertrophy. There is moderate global hypokinesis of LV . Overall left ventricular systolic function is moderately im paired with, an EF between 35 - 40 %. Inferior Hypokinesis The right ventricle is normal in size and function. LA is midly dilated 29-33ml/m2. The right atrium is normal in size. Aortic valve is trileaflet and is mildly thickened. There is no evidence of aortic regurgitation. There is no evidence of aortic stenosis. The mitral valve leaflets are mildly thickened. Moderate mitral regurgitation is present. Trace tricuspid regurgitation present. Right ventricular systolic pressure is normal at < 35 mmHg. There is no evidence of pulmonary hypertension. The pulmonic valve was not well visualized. The aortic root size is normal. Normal inferior vena cava with normal inspiratory collapse consistent with estimated right atrial pre ssure of 5 mmHg. There is no pericardial effusion. CONCLUSIONS -------- 1. Sinus rhythm. 2. This was a technically adequate study. 3. The left ventricular size is normal. 4. There is mild concentric left ventricular hypertrophy. 5. There is moderate global hypokinesis of LV . 6. Overall left ventricular systolic function is moderately impaired with, an EF between 35 - 40 %. 7. Inferior Hypokinesis 8. LA is midly dilated 29-33ml/m2. 9. Aortic valve is trileaflet and is mildly thickened. 10. The mitral valve leaflets are mildly thickened. 11. Moderate mitral regurgitation is present. 12. Trace tricuspid regurgitation present. 13. Right ventricular systolic pressure is normal at < 35 mmHg. 14. There is no evidence of pulmonary hypertension. 15. The pulmonic valve was not well visualized. 16. The aortic root size is normal. 17. There is no pericardial effusion. COMPENSATION SPECIALIST: Prince Ochoa RDCS
--- NOTE | 2018-01-12 12:48 | P.CNPUL ---
History of Present Illness Consult date: 01/12/18 Reason for consult: dyspnea, chest pain History of present illness: A pleasant 57-year-old male patient was brought into the hospital yesterday because of shortness of breath and pain across the anterior chest moving to his shoulder and neck area since with some sweating. This patient is known to have coronary artery disease. He has undergone previous cardiac catheterization and stenting in the past. His previous echocardiogram also showed mitral regurgitation. He has also multiple medical problems including hypertension, hyperlipidemia, diabetes mellitus, diabetic neuropathy and a painful growth over the periumbilical area which was supposed to be followed up on outpatient basis and the patient was given appropriate surgical follow-up yet he did not have the chance to make this appointment. The patient was hospitalized for the above-mentioned reasons. Note that his recent echocardiogram shows also congestion heart failure with an ejection fraction of 35-40%, inferior hypokinesis, mild concentric left ventricular hypertrophy, moderate degree of mitral regurgitation, no evidence of any significant pulmonary hypertension. The patient is free of any chest pain for now. He was diuresed during his most hospitalization and he has limited edema in his lower extremity. He has some limited troponin leak during this current admission. His troponins have been 0.06, 0.12 and 0.12 respectively 3. Renal function is within normal limits. His EKG showing sinus tachycardia with LVH changes. In regards to the painful abdomen, the patient has a bulge/periumbilical growth which is quite tender to palpation. This may potentially represent an incarcerated hernia. He is still having regular bowel movements. No melanotic stools. No nausea vomiting. Chest x-ray from this current admission shows a new right basilar opacity with some cardiomegaly and curly B-lines to suggest CHF. Review of Systems Constitutional: Denies chills, Denies fever Eyes: denies blurred vision, denies bulging eye, denies decreased vision Ears: deny: decreased hearing, ear discharge, earache, tinnitus Ears, nose, mouth and throat: Denies headache, Denies sore throat Cardiovascular: Reports chest pain, Reports dyspnea on exertion Respiratory: Reports dyspnea, Denies cough Gastrointestinal: Reports abdominal pain Genitourinary: Reports as per HPI Musculoskeletal: Reports as per HPI Musculoskeletal: absent: ankle pain, ankle stiffness, ankle swelling Integumentary: Denies pruritus, Denies rash Neurological: Reports as per HPI Psychiatric: Denies anxiety, Denies depression Endocrine: Denies fatigue, Denies weight change Hematologic/Lymphatic: Reports as per HPI Allergic/Immunologic: Reports as per HPI Past Medical History Past Medical History: Heart Failure, GERD/Reflux, Hypertension, Myocardial Infarction ([place]), Osteoarthritis (OA), Pneumonia Additional Past Medical History / Comment(s): Coronary artery disease, previous myocardial infarction, previous coronary intervention and stenting, congestion heart failure with an ejection fraction of 35-40%, moderate global hypokinesis, mild concentric LVH, moderate degree of mitral regurgitation, peripheral neuropathy, hypertension, osteoarthritis Last Myocardial Infarction Date:: unk History of Any Multi-Drug Resistant Organisms: None Reported Additional Past Surgical History / Comment(s): HEART CATH WITH STENTS Past Anesthesia/Blood Transfusion Reactions: No Reported Reaction Past Psychological History: Anxiety Smoking Status: Former smoker Past Alcohol Use History: None Reported Past Drug Use History: None Reported - Past Family History Father Additional Family Medical History / Comment(s): tumor in stomach Mother Family Medical History: CVA/TIA Medications and Allergies Home Medications Medication Instructions Recorded Confirmed Type Ranitidine HCl [Zantac] 150 mg PO QID PRN 01/07/18 01/11/18 History Furosemide [Lasix] 40 mg PO BID@0900,1600 #30 tab 01/08/18 01/11/18 Rx Lisinopril [Zestril] 5 mg PO DAILY #30 tab 01/08/18 01/11/18 Rx Metoprolol Tartrate [Lopressor] 25 mg PO BID #30 tab 01/08/18 01/11/18 Rx Ibuprofen [Motrin Ib] 200 - 400 mg PO Q6H PRN 01/11/18 01/11/18 History Allergies Allergy/AdvReac Type Severity Reaction Status Date / Time codeine Allergy Anaphylaxis Verified 01/11/18 11:17 Physical Exam Vitals: Vital Signs Temp Pulse Pulse Resp BP BP Pulse Ox 01/12/18 12:00 98.2 F 77 18 121/73 94 L 01/12/18 08:00 91 18 120/81 97 01/12/18 03:41 71 18 01/12/18 03:37 97.8 F 71 18 127/74 01/11/18 23:36 74 17 01/11/18 23:33 97.9 F 74 17 111/65 01/11/18 20:00 98.3 F 88 18 126/81 97 01/11/18 16:00 16 01/11/18 14:58 98.4 F 84 16 138/91 96 01/11/18 13:13 97.5 F L 78 16 167/97 100 01/11/18 12:45 98 16 164/87 100 Intake and Output 01/11/18 01/12/18 01/12/18 22:59 06:59 14:59 Intake Total 240 Output Total 578 [id number] [id number] Balance -900 -550 -760 Intake: Oral 240 Output: Urine [phone] Other: Voiding Method Toilet # Voids 2 # Bowel Movements 0 Weight 81.647 kg 84.3 kg Appearance the patient is calm comfortable likely distress. Head exam was generally normal. There was no scleral icterus or corneal arcus. Mucous membranes were moist. Neck was supple and without jugular venous distension, thyromegaly, or carotid bruits. Carotids were easily palpable bilaterally. There was no adenopathy. Lungs were clear to auscultation and percussion, and with normal diaphragmatic excursion. No wheezes or rales were noted. Breath sounds are diminished in lung bases bilaterally. Cardiac exam revealed the PMI to be normally situated and sized. The rhythm was regular and no extrasystoles were noted during several minutes of auscultation. The first and second heart sounds were normal and physiologic splitting of the second heart sound was noted. There were no murmurs, rubs, clicks, or gallops. Abdomen shows a small bulge approximately 1 x 2 cm in size in the right periumbilical area which is extremely tender to palpation. Unable to reduce this fracture because of the pain. When on touch, the patient is not experiencing any pain. Abdomen itself is soft. No hepatomegaly. No splenomegaly. Bowel sounds are hypoactive at the present. Extremities shows trace edema and there is no cyanosis or clubbing. Examination of the skin revealed no evidence of significant rashes, suspicious appearing nevi or other concerning lesions. Neurologically patient is awake and alert and is no focal neurological deficit. Results - Laboratory Findings CBC and BMP: 01/12/18 04:21 01/12/18 04:21 PT/INR, D-dimer PT 10.4 sec (9.0-12.0) 01/11/18 08:28 INR 1.1 (<1.2) 01/11/18 08:28 Abnormal lab findings: Abnormal Labs 01/11/18 01/11/18 01/11/18 08:28 08:28 14:55 Sodium 147 H Chloride 109 H BUN Glucose 103 H Troponin I 0.064 H* 0.122 H* 01/11/18 01/12/18 19:37 04:21 Sodium Chloride BUN 24 H Glucose 112 H Troponin I 0.123 H* - Diagnostic Findings Chest x-ray: image reviewed Assessment and Plan Plan: Assessment 1 shortness of breath, likely secondary to CHF. Patient is an ejection fraction of 35% along with mitral regurgitation which is moderate in severity 2 acute non-ST segment elevation myocardial infarctions/troponin leak 3 coronary artery disease with previous coronary intervention and stenting 4 hypertension 5 hyperlipidemia 6 diabetes mellitus 7 incarcerated abdominal wall hernia, periumbilical that needs surgical evaluation 8 concentric left ventricular hypertrophy based on EKG findings Plan Patient is currently on diuretics and the patient is sitting for any grams IV Lasix every 12 hours. Repeat chest x-ray in the morning to make sure the CHF findings have improved and subsided. Patient is also on metoprolol and Aldactone which will be continued. Meanwhile, the patient will need a CAT scan of the abdomen and pelvis, contrast-enhanced to investigate the right abdominal pain and the growth. We'll obtain a surgical consultation. Suspecting incarcerated abdominal wall hernia. We'll continue to follow.
--- NOTE | 2018-01-12 14:27 | CT ---
EXAMINATION TYPE: CT abdomen pelvis w con DATE OF EXAM: 01/12/2018 COMPARISON: CT abdomen pelvis April 26, 2012 HISTORY: Abdominal pain, painful bulge right periumbilical region. CT DLP: 1536 mGycm, Automated Exposure Control for Dose Reduction was Utilized. CONTRAST: CT scan of the abdomen and pelvis is performed with oral and with IV Contrast, patient injected with 100 mL of Isovue 300. FINDINGS: LUNG BASES: Coronary artery calcification is present left circumflex distribution which is noted guadalupe er for coronary artery disease. There is small fat-containing hiatal hernia redemonstrated with small mesenteric vessels again seen. LIVER/GB: Liver remains low dense relative to spleen suggesting fatty infiltration. There are subcent imeter low dense lesion right hepatic lobe axial image 36 too small to further characterize but presu med benign. PANCREAS: No significant abnormality is seen. SPLEEN: Subcentimeter splenule posterior to spleen seen best coronal image 85 is unchanged from prior . ADRENALS: No significant abnormality is seen. KIDNEYS: Some new cortical thinning medially in right kidney could reflect areas of infarct. There is symmetric cortical medullary uptake and excretion from both kidneys without hydronephrosis seen bila terally. BOWEL: The oral contrast reaches level of cecum. There is no suspicious small or large bowel dilatati on there are diverticula in the colon most prominent in the sigmoid colon. There is no CT evidence fo r acute diverticulitis. Gas prominence and rectum is incidentally seen on current study. PROSTATE/SEMINAL VESICLES: No gross abnormality seen. LYMPH NODES: No greater than 1cm abdominal or pelvic lymph nodes are appreciated. OSSEOUS STRUCTURES: There is multilevel facet arthropathy lower lumbar spine. Slight scoliotic curvat ure thoracolumbar spine is seen. OTHER: There is further progression in abdominal aortic aneurysm measuring up to 4.4 cm transversely by 5.1 cm AP diameter axial image 48. There is moderate to severe noncalcified and calcified plaque i n the abdominal aorta with more prominent noncalcified plaque seen distally axial image 50. No aneury smal extension into common iliac arteries is seen. Length of aneurysm is roughly 11 cm. There is small fat-containing umbilical hernia. Subcutaneous air left midabdomen anterior abdominal w all axial image 56 is likely product of subcutaneous medicine injection. Correlate clinically. There is suspected scarring anterior abdominal wall above the umbilicus axial image 45. IMPRESSION: 1. No suspicious new or acute finding is seen to account for patient's symptoms of painful right chandni umbilical bulge. 2. Interval progression of abdominal aortic aneurysm now measuring up to 5.1 cm in size. At minimum c ontinued imaging follow-up in 3-6 months time is advised. Also consider surgical or endovascular refe rral.
--- NOTE | 2018-01-12 15:12 | P.GSCN ---
History of Present Illness Consult date: 01/12/18 Reason for Consult: Abdominal pain History of present illness: 57-year-old male being seen at the request of the attending for a surgical eval in a patient who is experiencing painful lower abdominal pain. Patient is very talkative states that he was just discharged from the hospital last Thursday got home states that he developed pain in his abdomen. Patient points to the lower abdominal wall which is tender to the touch. Patient states he noted that he had a bulge in the Umbilical area. "It's been like that for at least 6 months seems to be getting larger in size stated this area was tender to the touch last week when he was hospitalized patient reports that when he was discharged last Thursday he was to follow-up with Dr. faustin in the outpatient setting to have eval for possible surgery on this area he stated that he was not able to make the appointment yet returned to the hospital with similar symptoms that he was experiencing last week it's noted that the patient stands up or bears down there is a soft bulge mid abdomen Patient had a CAT scan this admission in the emergency room report reviewed indicated no suspicious new or acute findings to explain patient's clinical presentation of experiencing pain in the right periUmbilical area. Additionally abdominal aortic aneurysm measuring 5.1 cm. was noted Review of Systems Essentially unremarkable except as mentioned in the present Past Medical History Past Medical History: Heart Failure, GERD/Reflux, Hypertension, Myocardial Infarction ([place]), Osteoarthritis (OA), Pneumonia Additional Past Medical History / Comment(s): Coronary artery disease, previous myocardial infarction, previous coronary intervention and stenting, congestion heart failure with an ejection fraction of 35-40%, moderate global hypokinesis, mild concentric LVH, moderate degree of mitral regurgitation, peripheral neuropathy, hypertension, osteoarthritis Last Myocardial Infarction Date:: unk History of Any Multi-Drug Resistant Organisms: None Reported Additional Past Surgical History / Comment(s): HEART CATH WITH STENTS Past Anesthesia/Blood Transfusion Reactions: No Reported Reaction Past Psychological History: Anxiety Smoking Status: Former smoker Past Alcohol Use History: None Reported Past Drug Use History: None Reported - Past Family History Father Additional Family Medical History / Comment(s): tumor in stomach Mother Family Medical History: CVA/TIA Medications and Allergies Home Medications Medication Instructions Recorded Confirmed Type Ranitidine HCl [Zantac] 150 mg PO QID PRN 01/07/18 01/11/18 History Furosemide [Lasix] 40 mg PO BID@0900,1600 #30 tab 01/08/18 01/11/18 Rx Lisinopril [Zestril] 5 mg PO DAILY #30 tab 01/08/18 01/11/18 Rx Metoprolol Tartrate [Lopressor] 25 mg PO BID #30 tab 01/08/18 01/11/18 Rx Ibuprofen [Motrin Ib] 200 - 400 mg PO Q6H PRN 01/11/18 01/11/18 History Allergies Allergy/AdvReac Type Severity Reaction Status Date / Time codeine Allergy Anaphylaxis Verified 01/11/18 11:17 Surgical - Exam Vital Signs Temp Pulse Resp BP Pulse Ox 97.0 F L 111 H 30 H 232/120 90 L 01/11/18 08:13 01/11/18 08:13 01/11/18 08:13 01/11/18 08:13 01/11/18 08:13 GENERAL APPEARANCE: Talkative 57-year-old male patient is alert, oriented, in no acute distress. VITAL SIGNS: Reviewed HEENT: Head is normocephalic and atraumatic. Pupils are equal and reactive. The nares are patent. Oropharynx is clear without lesions. NECK: Supple without lymphadenopathy. Traches midline. HEART: S1, S2. Regular rate and rhythm. No murmur noted LUNGS: No crackles or wheezes are heard. Adequate air movement bilaterally on room air ABDOMEN: Soft, flat with a small palpable nodule in the right periumbilical area positive tenderness to the touch nondistended few hypoactive bowel sounds. No peritoneal signs. No palpable organomegaly or masses states had a bowel movement this morning no blood noted in stool urinating no difficulty reports no nausea vomiting reports that the tenderness to the right Umbilical area unchanged from last week EXTREMITIES: Normal skin color and turgor. No cyanosis, rash, ulceration, clubbing or edema. Radial pedal pulses are 2/4 bilaterally. NEUROLOGICAL: No focal deficits. Strength and sensation are grossly intact. Results - Labs 01/13/18 05:50 01/13/18 05:50 Abnormal Lab Results - Last 24 Hours (Table) 01/11/18 01/11/18 01/12/18 Range/Units 14:55 19:37 04:21 BUN 24 H (9-20) mg/dL Glucose 112 H (74-99) mg/dL Troponin I 0.122 H* 0.123 H* (0.000-0.034) ng/mL Diabetes panel 01/12/18 Range/Units 04:21 Sodium 143 (137-145) mmol/L Potassium 3.9 (3.5-5.1) mmol/L Chloride 100 (98-107) mmol/L Carbon Dioxide 28 (22-30) mmol/L BUN 24 H (9-20) mg/dL Creatinine 1.07 (0.66-1.25) mg/dL Glucose 112 H (74-99) mg/dL Calcium 9.0 (8.4-10.2) mg/dL Calcium panel 01/12/18 Range/Units 04:21 Calcium 9.0 (8.4-10.2) mg/dL Pituitary panel 01/12/18 Range/Units 04:21 Sodium 143 (137-145) mmol/L Potassium 3.9 (3.5-5.1) mmol/L Chloride 100 (98-107) mmol/L Carbon Dioxide 28 (22-30) mmol/L BUN 24 H (9-20) mg/dL Creatinine 1.07 (0.66-1.25) mg/dL Glucose 112 H (74-99) mg/dL Calcium 9.0 (8.4-10.2) mg/dL Adrenal panel 01/12/18 Range/Units 04:21 Sodium 143 (137-145) mmol/L Potassium 3.9 (3.5-5.1) mmol/L Chloride 100 (98-107) mmol/L Carbon Dioxide 28 (22-30) mmol/L BUN 24 H (9-20) mg/dL Creatinine 1.07 (0.66-1.25) mg/dL Glucose 112 H (74-99) mg/dL Calcium 9.0 (8.4-10.2) mg/dL Assessment and Plan Assessment: Impression Present on admission abdominal discomfort with a small palpable bulge in the periumbilical area Known coronary artery disease with prior coronary stenting Computed tomography scan abdomen pelvis show no suspicious new or acute findings CAT scan abdomen and pelvis show progression abdominal aortic aneurysm measuring 5.1 Acute non-ST elevated myocardial infarction with a troponin leak Echocardiogram shows an ejection fraction 35% Plan No evidence of an acute surgical abdomen at this time Will have patient follow-up in the outpatient setting to address the umbilical wall hernia in the periumbilical area once patient is medically stable Will follow with you Defer to the attending and cardiology for further medical issues Surgical consultation note dictated for The above impression and plan of care have been discussed and directed by signing physician. Talita Alas nurse practitioner acting as scribe for signing physician.
--- NOTE | 2018-01-12 17:55 | PN ---
PROGRESS NOTE DATE OF SERVICE: 01/12/2018 This 57-year-old gentleman who was admitted with CHF acute exacerbation also had elevated troponin. Cardiology is following the patient closely. The patient also had an abdominal-pelvis CAT scan which showed some progression of the abdominal aortic aneurysm measuring up to 5.1 cm in size. Continued imaging was advised and a 2D echo with Doppler showed ejection fraction of 35%-40%. The patient is being closely monitored. PAST MEDICAL HISTORY: Reviewed. REVIEW OF SYSTEMS: CARDIOVASCULAR: No angina. Otherwise as mentioned earlier. RESPIRATORY: As mentioned earlier. GI: No nausea or vomiting. : No dysuria. NERVOUS: No numbness or weakness. ALLERGY/IMMUNOLOGY: No asthma or hay fever. MUSCULOSKELETAL: As mentioned earlier. HEMATOLOGY/ONCOLOGY: No history of anemia. ENDOCRINE: As mentioned earlier. CONSTITUTIONAL: As mentioned earlier. CURRENT MEDICATIONS: Reviewed, include: 1. Aspirin 320 mg. 2. Lasix 40 mg IV b.i.d. 3. Heparin 5 subcu b.i.d. 4. Zestril,. 5. Lopressor. 6. Nitro-Bid ointment. 7. Aldactone. PHYSICAL EXAM: Patient is alert and oriented x3. Pulse 77, blood pressure 131/70, respirations 18, temperature 98.2, pulse ox 94% on room air. HEENT: Conjunctivae normal. Oral mucosa moist. NECK: No jugular venous distention. No carotid bruits. No lymph node enlargement. CARDIOVASCULAR: S1, S2 muffled. RESPIRATORY: Breath sounds diminished in the bases. No rhonchi. No crackles. ABDOMEN: Soft, nontender. No mass palpable. LEGS: No edema. No swelling. NERVOUS SYSTEM: Nonfocal. LABS: CBC within normal limits and glucose 112. Troponin 0.123. ASSESSMENT: 1. Congestive heart failure acute exacerbation with acute on chronic systolic dysfunction, ejection fraction 30%-35%. 2. Troponin 0.122, possibly acute non ST elevation myocardial infarction. 3. Abdominal aortic aneurysm up to 5.1 cm. 4. History of gastroesophageal reflux disease. 5. Hypertension. 6. History of myocardial infarction, coronary artery disease. 7. History of peripheral neuropathy. 8. History of hernia. 9. History of anxiety. 10.Remote history of nicotine dependence. RECOMMENDATIONS AND DISCUSSION: Recommend to continue current medication, continue to monitor, symptomatic treatment. Otherwise at this time, I would recommend continue with the diuretics, monitor fluid- electrolyte balance closely. Continue with evaluation by Cardiology and Pulmonology. Guarded prognosis because of multiple complex medical issues. Further recommendations to follow. MMODL / IJN: [id number] /
--- NOTE | 2018-01-12 23:00 | CONS ---
CONSULTATION This is a 57-year-old gentleman with a known history of ischemic cardiomyopathy. He has had previous PCI's details of which are not available at this time. He came into the hospital with shortness of breath and discomfort across his chest and shoulder. The quality of the pain raises the possibility of angina. His troponins are elevated at 0.06, 0.12 and 0.12. He is known to have a decreased ejection fraction in the 40% range. He usually sees Dr. Espinoza in the outpatient setting. After arrival to the hospital, he is more comfortable. Denies any chest discomfort at the time of my evaluation, and he feels somewhat better. He did receive a dose of Lasix. He has no chest pain at this time. PAST MEDICAL HISTORY: 1. Ischemic cardiomyopathy with PCI details are unavailable. 2. Hypertension. 3. Osteoarthritis. 4. Pneumonia. 5. Patient has noticed some pain and swelling above his umbilical area with an area of tenderness and probably could be a localized hematoma are an infected cyst. It is warm, but there is evidence of some inflammation. 6. The patient is status post PCI details unavailable. MEDICATIONS: At home include Zantac, Lasix, lisinopril metoprolol, ibuprofen. ALLERGIES: HE IS ALLERGIC TO CODEINE. EXAMINATION: Blood pressure is 120/70, pulse rate is 80 per minute and regular. HEENT: Unremarkable. Fundus was not examined by me. NECK: Supple. There is JVD of 1 cm. No carotid bruit. Heart exam reveals S1, S2 heard normally. There is a short systolic murmur. LUNGS reveal decent air entry. ABDOMEN is soft. There is exquisitely tender area just above his umbilicus with possibility of this being either an infected cyst or a small hematoma. No organomegaly. EXTREMITIES: Lower extremities revealed diminished pulses. No edema. CENTRAL NERVOUS SYSTEM: Normal. EKG revealed a sinus mechanism with a voltage criteria for LVH. Nonspecific ST changes. LABORATORY DATA: Lab data suggests the troponin is elevated from 0.06 to 0.122 and 0.123. BNP is mildly elevated. Rest of the labs are within normal limits. IMPRESSION: 1. Chest pain syndrome cannot exclude angina in a patient with known coronary artery disease. 2. Mild congestive heart failure with known ischemic cardiomyopathy, but no overt heart failure. 3. Elevated troponin suggestive of a mild non-ST elevation myocardial infarction. 4. Hypertension. 5. Hyperlipidemia. 6. Type 2 diabetes mellitus. 7. Evidence of an abdominal wall periumbilical area of tenderness. RECOMMENDATIONS: I am recommending that we obtain a surgical consult to evaluate his periumbilical area before we give him any heparin or antiplatelet agents. We will obtain echocardiogram to assess LV function. Based on clinical course, I will make further recommendations and we will review the old chart in the interim. I will initiate him on Lasix 40 mg q.12 hours, Aldactone and seek a surgical evaluation as well. Discussed my thoughts in detail with the patient. Thank you very much for the consult. MMODL / IJN: [id number] /
[2018-01-13 06:35] LABS: Basophils % (A) 1 %; Eosinophils # (A) 0.4 k/uL (0-0.7); Eosinophils % (A) 6 %; HGB 14.2 gm/dL (13.0-17.5); Lymphocytes % (A) 28 %; MCH 28.8 pg (25.0-35.0); MCHC 32.3 g/dL (31.0-37.0); MCV 89.2 fL (80.0-100.0); Mean Platelet Volume 8.3; Monocytes # (A) 0.6 k/uL (0-1.0); Monocytes % (A) 8 %; Neutrophils # (A) 3.8 k/uL (1.3-7.7); Neutrophils % (A) 54 %; Platelet Count 205 k/uL (150-450); RBC 4.93 m/uL (4.30-5.90); RDW 13.8 % (11.5-15.5)
[2018-01-13 06:48] LABS: Calcium 9.4 mg/dL (8.4-10.2); Potassium 4.3 mmol/L (3.5-5.1)
[2018-01-13] MEDS: LISINOPRIL 5 MG TAB PO SCH (08:01)
[2018-01-13] MEDS: ASPIRIN 325 MG TAB PO SCH (08:01)
[2018-01-13] MEDS: METOPROLOL TARTRATE 25 MG TAB PO SCH ×2 (08:01→20:10)
[2018-01-13] MEDS: NITROGLYCERIN OINT 1 INCH/GM PACKET TOPICAL SCH ×4 (08:01→21:02)
[2018-01-13] MEDS: SPIRONOLACTONE 25 MG TAB PO SCH (08:02)
[2018-01-13] MEDS: PANTOPRAZOLE 40 MG/10 ML VIAL IVP SCH (08:05)
[2018-01-13] MEDS: FUROSEMIDE 10 MG/ML 4 ML VIAL IV SCH ×2 (08:05→20:10)
[2018-01-13] MEDS: HEPARIN SODIUM,PORCINE 5,000 UNIT/ML 1 ML VIAL SQ SCH ×2 (08:06→20:10)
[2018-01-13] MEDS ORDERED: SODIUM CHLORIDE 0.9% 1,000 ML in EMPTY BAG 1 BAG IV ONE (11:24)
[2018-01-13] MEDS ORDERED: ASPIRIN 325 MG TAB PO STA (11:24)
[2018-01-13] MEDS ORDERED: ATORVASTATIN 80 MG TAB PO STA (11:24)
[2018-01-13] MEDS ORDERED: NITROGLYCERIN SL TABS 0.4 MG TAB SUBLINGUAL PRN (11:24)
[2018-01-13] MEDS ORDERED: ALPRAZolam 0.25 MG TAB PO PRN (11:24)
[2018-01-13] MEDS ORDERED: ALPRAZolam 0.5 MG TAB PO PRN (11:24)
--- NOTE | 2018-01-13 14:41 | P.PN ---
Subjective Progress Note Date: 01/13/18 57-year-old male ambulatory in the room patient states he is scheduled tomorrow to have a heart catheterization. Continues to report having tenderness to the lower mid abdomen below the umbilical area. Patient continues to have soft bulge to the mid lower abdomen when standing upright according to the patient he has had this "for at least 6 months concerned that it seems to be getting bigger" Objective - Vital Signs Vital signs: Vital Signs Temp 98.2 F 01/13/18 12:00 Pulse 71 01/13/18 12:00 Resp 18 01/13/18 12:00 BP 101/67 01/13/18 12:00 Pulse Ox 96 01/13/18 12:00 Intake & Output 01/12/18 01/13/18 01/13/18 18:59 06:59 18:59 Intake Total 480 240 Output Total 1000 625 Balance -520 -385 Weight 85.1 kg Intake: Oral 480 240 Output: Urine 1000 625 Other: Voiding Method Toilet Urinal # Voids 300 1 3 # Bowel Movements 0 - Exam Physical exam 57-year-old male up ambulating on the unit oriented 3 appears in no acute distress Lungs adequate air movement bilaterally no wheezing noted on room air no shortness of breath Heart S1-S2 audible regular denying chest pain no murmur Abdomen flat tenderness with a palpable firm area noted distal to the umbilicus. With standing notable soft bulge distal to the umbilicus area states urinating no difficulty stooling no difficulty no nausea no vomiting and tolerating Extremities no edema noted - Labs CBC & Chem 7: 01/13/18 05:50 01/13/18 05:50 Labs: Abnormal Lab Results - Last 24 Hours (Table) 01/13/18 Range/Units 05:50 Chloride 97 L (98-107) mmol/L Carbon Dioxide 31 H (22-30) mmol/L BUN 29 H (9-20) mg/dL Glucose 116 H (74-99) mg/dL Assessment and Plan Assessment: Impression Present on admission abdominal discomfort with a small palpable bulge in the periumbilical area Known coronary artery disease with prior coronary stenting Computed tomography scan abdomen pelvis show no suspicious new or acute findings CAT scan abdomen and pelvis show progression abdominal aortic aneurysm measuring 5.1 Acute non-ST elevated myocardial infarction with a troponin leak Echocardiogram shows an ejection fraction 35% Present on admission distal to the umbilicus pinpoint size firm area likely cyst Plan Continue recommendations by cardiology patient is scheduled tomorrow for heart catheterization No evidence of an acute surgical abdomen at this time Will have patient follow-up in the outpatient setting to address the umbilical wall tenderness pinpoint cyst in the periumbilical area once patient is medically stable Will follow with you The above impression and plan of care have been discussed and directed by signing physician. Talita Alas nurse practitioner acting as scribe for signing physician.
--- NOTE | 2018-01-13 14:59 | P.PN ---
Subjective Progress Note Date: 01/13/18 Principal diagnosis: Chest pain A pleasant 57-year-old male patient was brought into the hospital yesterday because of shortness of breath and pain across the anterior chest moving to his shoulder and neck area since with some sweating. This patient is known to have coronary artery disease. He has undergone previous cardiac catheterization and stenting in the past. His previous echocardiogram also showed mitral regurgitation. He has also multiple medical problems including hypertension, hyperlipidemia, diabetes mellitus, diabetic neuropathy and a painful growth over the periumbilical area which was supposed to be followed up on outpatient basis and the patient was given appropriate surgical follow-up yet he did not have the chance to make this appointment. The patient was hospitalized for the above-mentioned reasons. Note that his recent echocardiogram shows also congestion heart failure with an ejection fraction of 35-40%, inferior hypokinesis, mild concentric left ventricular hypertrophy, moderate degree of mitral regurgitation, no evidence of any significant pulmonary hypertension. The patient is free of any chest pain for now. He was diuresed during his most hospitalization and he has limited edema in his lower extremity. He has some limited troponin leak during this current admission. His troponins have been 0.06, 0.12 and 0.12 respectively 3. Renal function is within normal limits. His EKG showing sinus tachycardia with LVH changes. In regards to the painful abdomen, the patient has a bulge/periumbilical growth which is quite tender to palpation. This may potentially represent an incarcerated hernia. He is still having regular bowel movements. No melanotic stools. No nausea vomiting. Chest x-ray from this current admission shows a new right basilar opacity with some cardiomegaly and curly B-lines to suggest CHF. The patient is seen again today 01/13/2018 in follow-up on the selective care unit. He is currently up ambulating in his room. He is awake and alert in no acute distress. He denies any shortness of breath, cough or congestion. He admits to some lingering chest pressure that's been going on and off. Since his stay. He also has some continued soft tissue swelling and pain around his umbilicus. Surgical services if no plans for any surgical interventions in this regard. Radiology is on the case and is planning for cardiac catheterization in the morning. He is maintaining good O2 saturations in the 90s on room air. He's been afebrile. Hemodynamically stable. Objective - Vital Signs Vital signs: Vital Signs Temp 98.2 F 01/13/18 12:00 Pulse 71 01/13/18 12:00 Resp 18 01/13/18 12:00 BP 101/67 01/13/18 12:00 Pulse Ox 96 01/13/18 12:00 Intake & Output 01/12/18 01/13/18 01/13/18 18:59 06:59 18:59 Intake Total 480 240 Output Total 1000 625 Balance -520 -385 Weight 85.1 kg Intake: Oral 480 240 Output: Urine 1000 625 Other: Voiding Method Toilet Urinal # Voids 300 1 3 # Bowel Movements 0 - Exam Appearance the patient is calm comfortable likely distress. Head exam was generally normal. There was no scleral icterus or corneal arcus. Mucous membranes were moist. Neck was supple and without jugular venous distension, thyromegaly, or carotid bruits. Carotids were easily palpable bilaterally. There was no adenopathy. Lungs were clear to auscultation and percussion, and with normal diaphragmatic excursion. No wheezes or rales were noted. Breath sounds are diminished in lung bases bilaterally. Cardiac exam revealed the PMI to be normally situated and sized. The rhythm was regular and no extrasystoles were noted during several minutes of auscultation. The first and second heart sounds were normal and physiologic splitting of the second heart sound was noted. There were no murmurs, rubs, clicks, or gallops. Abdomen shows a small bulge approximately 1 x 2 cm in size in the right periumbilical area which is extremely tender to palpation. Unable to reduce this fracture because of the pain. When on touch, the patient is not experiencing any pain. Abdomen itself is soft. No hepatomegaly. No splenomegaly. Bowel sounds are hypoactive at the present. Extremities shows trace edema and there is no cyanosis or clubbing. Examination of the skin revealed no evidence of significant rashes, suspicious appearing nevi or other concerning lesions. Neurologically patient is awake and alert and is no focal neurological deficit. - Labs CBC & Chem 7: 01/13/18 05:50 01/13/18 05:50 Labs: Abnormal Lab Results - Last 24 Hours (Table) 01/13/18 Range/Units 05:50 Chloride 97 L (98-107) mmol/L Carbon Dioxide 31 H (22-30) mmol/L BUN 29 H (9-20) mg/dL Glucose 116 H (74-99) mg/dL Assessment and Plan Assessment: Assessment 1 shortness of breath, likely secondary to CHF. Patient is an ejection fraction of 35% along with mitral regurgitation which is moderate in severity 2 acute non-ST segment elevation myocardial infarctions/troponin leak 3 coronary artery disease with previous coronary intervention and stenting 4 hypertension 5 hyperlipidemia 6 diabetes mellitus 7 incarcerated abdominal wall hernia, periumbilical that needs surgical evaluation 8 concentric left ventricular hypertrophy based on EKG findings Plan: The patient was seen and evaluated by Dr. Peterson. He is stable from the pulmonary standpoint. Maintaining good O2 saturations in the 90s on room air. He continues to diurese well. The plan is for cardiac catheterization in the a.m. No plans for surgical interventions regarding the umbilical wall tenderness at this time. We will increase his activity as tolerated. We'll continue to follow. I, the cosigning physician, performed a history & physical examination of the patient. Lungs sounds are clear. Maintaining good O2 saturations in the 90s on room air. I discussed the assessment and plan of care with my nurse practitioner, Deborah Way. I attest to the above note as dictated by her.
--- NOTE | 2018-01-13 15:53 | P.PN ---
Progress Note - Text Progress Note Date: 01/13/18 The patient's abdomen was examined. Patient has a small umbilical hernia. Above this is a small subcutaneous bruise. On exam the patient's vital signs are stable. His abdomen is soft. There is some mild tenderness at the bruise above his umbilicus. The umbilical hernia small and reducible. The patient will follow-up as an outpatient for repair of his small umbilical hernia. He can undergo his cardiac cath tomorrow as planned. No surgical intervention is planned at this time.
--- NOTE | 2018-01-13 16:04 | P.PN ---
Subjective 57-year-old the male admitted for congestive heart failure exacerbation, patient was comparing of chest pain with minimally elevated troponin of 0.123 because of which cartilages recommending cardiac catheterization. Patient is presently fairly euvolemic. Patient has was in creatinine because of which I discontinued nonsteroidal antiplatelet medication patient also is on lisinopril and the Lasix which will be continued with close monitoring of kidney function. Patient will undergo a catheterization tomorrow. Patient can use to complain of chest pressure Constitutional: Denied any fatigue denied any fever. Cardio vascular: denied any palpitations Gastrointestinal denied any nausea vomiting Pulmonary: Denied any shortness of breath cough Neurologic denied any new focal deficits Objective - Vital Signs Vital signs: Vital Signs Temp 96.1 F L 01/13/18 15:30 Pulse 71 01/13/18 15:30 Resp 18 01/13/18 15:30 BP 102/63 01/13/18 15:30 Pulse Ox 95 01/13/18 15:30 Intake & Output 01/12/18 01/13/18 01/13/18 18:59 06:59 18:59 Intake Total 480 240 Output Total 1000 625 Balance -520 -385 Weight 85.1 kg Intake: Oral 480 240 Output: Urine 1000 625 Other: Voiding Method Toilet Urinal # Voids 300 1 3 # Bowel Movements 0 - Exam PHYSICAL EXAMINATION: GENERAL: The patient is alert and oriented x3, not in any acute distress. Well developed, well nourished. HEENT: Pupils are round and equally reacting to light. EOMI. No scleral icterus. No conjunctival pallor. Normocephalic, atraumatic. No pharyngeal erythema. No thyromegaly. CARDIOVASCULAR: S1 and S2 present. No murmurs, rubs, or gallops. PULMONARY: Chest is clear to auscultation, no wheezing or crackles. ABDOMEN: Soft, nontender, nondistended, normoactive bowel sounds. No palpable organomegaly. MUSCULOSKELETAL: No joint swelling or deformity. EXTREMITIES: No cyanosis, clubbing, or pedal edema. NEUROLOGICAL: Gross neurological examination did not reveal any focal deficits. SKIN: No rashes. - Labs CBC & Chem 7: 01/13/18 05:50 01/13/18 05:50 Labs: Abnormal Lab Results - Last 24 Hours (Table) 01/13/18 Range/Units 05:50 Chloride 97 L (98-107) mmol/L Carbon Dioxide 31 H (22-30) mmol/L BUN 29 H (9-20) mg/dL Glucose 116 H (74-99) mg/dL Assessment and Plan Plan: Assessment and Plan Assessment: Assessment 1 shortness of breath, likely secondary to CHF. Patient is an ejection fraction of 35% along with mitral regurgitation which is moderate in severity, patient is presently euvolemic is on IV Lasix which will be continued 2 acute non-ST segment elevation myocardial infarctions/troponin leak: Patient will undergo cardiac catheterization tomorrow 3 coronary artery disease with previous coronary intervention and stenting 4 hypertension 5 hyperlipidemia 6 diabetes mellitus 7 up little hernia which is not incarcerated surgery evaluated the patient.
--- NOTE | 2018-01-13 16:10 | PN ---
PROGRESS NOTE ADDENDUM: Mr. Calderon had a CT scan of the abdomen and there is evidence of a 5.1 cm abdominal aortic aneurysm. This appears to be a fairly long aneurysm. There is no extension into the iliac arteries. On reviewing the old record, apparently in 2011, his aneurysm size was 4.4 cm and now it has increased to 5.1. This needs to be followed noninvasively. His blood pressure control seems to be fairly optimal. I would recommend that we repeat another CT scan this time with an angiography in the next 3-4 months or so. I discussed this with the patient as well. MMODL / IJN: [id number] /
[2018-01-13] MEDS: PANTOPRAZOLE 40 MG TABLET PO SCH (17:13)
--- NOTE | 2018-01-13 17:55 | PN ---
PROGRESS NOTE Mr. Calderon is a gentleman with ischemic cardiomyopathy, known RCA occlusion, stenting of LAD and circumflex in 2006 and 2010. He came into the hospital yesterday with chest pain and troponin elevation. He also had tenderness over the abdominal area. The abdominal area tenderness appears to be more or less an inflammatory process and I am awaiting input from Dr. Brice. Coronary disease-dutton, given his known CAD, multivessel PCI and elevated troponin, I am recommending coronary angiography. Rationale, risks, benefits and options were explained to the patient. He understands all details and wishes to proceed with catheter and possible PCI and Dr. Espinoza will perform the procedure tomorrow. The patient understands all details and wishes to proceed. MMODL / IJN: [id number] /
[2018-01-14 06:05] LABS: Basophils # (A) 0.1 k/uL (0-0.2); Basophils % (A) 1 %; Eosinophils # (A) 0.4 k/uL (0-0.7); Eosinophils % (A) 6 %; HCT 44.1 % (39.0-53.0); HGB 14.6 gm/dL (13.0-17.5); Lymphocytes # (A) 2.3 k/uL (1.0-4.8); Lymphocytes % (A) 33 %; MCH 29.4 pg (25.0-35.0); MCHC 33.1 g/dL (31.0-37.0); Mean Platelet Volume 8.2; Monocytes # (A) 0.6 k/uL (0-1.0); Monocytes % (A) 8 %; Neutrophils # (A) 3.4 k/uL (1.3-7.7); Neutrophils % (A) 49 %; Platelet Count 213 k/uL (150-450); RBC 4.95 m/uL (4.30-5.90); RDW 13.9 % (11.5-15.5); WBC 6.9 k/uL (3.8-10.6)
[2018-01-14 06:19] LABS: Glucose,Whole Blood 107 mg/dL (75-99)
[2018-01-14 06:26] LABS: Calcium 9.4 mg/dL (8.4-10.2); Potassium 4.7 mmol/L (3.5-5.1)
[2018-01-14] MEDS: ASPIRIN 325 MG TAB PO SCH (06:30)
[2018-01-14] MEDS: PANTOPRAZOLE 40 MG TABLET PO SCH ×2 (06:30→17:25)
[2018-01-14] MEDS: NITROGLYCERIN OINT 1 INCH/GM PACKET TOPICAL SCH (06:31)
[2018-01-14] MEDS: METOPROLOL TARTRATE 25 MG TAB PO SCH ×2 (06:31→20:29)
[2018-01-14] MEDS: LISINOPRIL 5 MG TAB PO SCH (06:31)
[2018-01-14] MEDS ORDERED: LIDOCAINE 2% INJ 20 MG/ML (20 ML MDV) ONE ×2 (07:18→08:53)
[2018-01-14] MEDS ORDERED: IV FLUID CONTINUATION 1,000 ML IV ONE (07:31)
[2018-01-14] MEDS ORDERED: MIDAZOLAM 2 MG/2 ML VIAL ONE (07:40)
[2018-01-14] MEDS: MIDAZOLAM 2 MG/2 ML VIAL IV ONE ×2 (07:43→08:25)
[2018-01-14] MEDS ORDERED: fentaNYL (PF) 50 MCG/ML 2 ML AMP ONE (07:45)
[2018-01-14] MEDS ORDERED: LIDOCAINE 2% INJ 20 MG/ML SQ ONE (07:45)
[2018-01-14] MEDS: HEPARIN SODIUM,PORCINE 5,000 UNIT/ML 1 ML VIAL SQ SCH ×2 (07:46→20:29)
[2018-01-14] MEDS ORDERED: fentaNYL (PF) 50 MCG/ML 2 ML AMP IV ONE (07:47)
[2018-01-14] MEDS ORDERED: BIVALIRUDIN BOLUS 250 MG/50 ML IV ONE (08:09)
[2018-01-14] MEDS ORDERED: BIVALIRUDIN 250 MG in SODIUM CHLORIDE 0.9% 50 ML IV ONE (08:15)
[2018-01-14] MEDS: NITROGLYCERIN 1000MCG/10ML SYRINGE INTRACORON ONE ×2 (08:40→08:48)
[2018-01-14] MEDS ORDERED: IOPAMIDOL-370 125ML BTL INJ ONE (08:46)
[2018-01-14] MEDS ORDERED: MORPHINE SULFATE 4 MG/ML SYRINGE ONE (08:54)
[2018-01-14] MEDS ORDERED: IOPAMIDOL-370 50ML BTL INJ ONE (08:58)
[2018-01-14] MEDS ORDERED: MORPHINE SULFATE 4MG/4ML SYRG IV ONE (09:00)
[2018-01-14] MEDS ORDERED: TICAGRELOR 90 MG TAB ONE (09:01)
[2018-01-14] MEDS ORDERED: TICAGRELOR 90 MG TAB PO ONE (09:03)
[2018-01-14] MEDS ORDERED: MAG HYDROX/AL HYDROX/SIMETH 30 ML CUP PO PRN (09:12)
[2018-01-14] MEDS ORDERED: NITROGLYCERIN SL TABS 0.4 MG TAB SUBLINGUAL PRN (09:12)
[2018-01-14] MEDS ORDERED: ZOLPIDEM 5 MG TAB PO PRN (09:12)
[2018-01-14] MEDS ORDERED: RX INFO: IV CONTRAST WAS GIVEN 1 EACH MISC MISCELLANE PRN (09:12)
[2018-01-14] MEDS ORDERED: ATROPINE SULFATE 0.1 MG/ML 10ML SYRINGE IV PRN (09:12)
[2018-01-14] MEDS: SPIRONOLACTONE 25 MG TAB PO SCH (09:27)
[2018-01-14] MEDS: FUROSEMIDE 10 MG/ML 4 ML VIAL IV SCH (09:27)
[2018-01-14] MEDS: SODIUM CHLORIDE 0.9% 1,000 ML IV SCH ×2 (09:28→23:52)
[2018-01-14 09:33] VITALS: BMI 23.8
--- NOTE | 2018-01-14 09:47 | CC ---
CARDIAC CATHETERIZATION REPORT INDICATION: Non ST-segment elevation [place] in a patient with known CAD, status post multiple prior angioplasties. The patient has chronic renal insufficiency and understands the risk of contrast induced nephropathy. The patient has had elevated troponin and episodes of chest discomfort. PROCEDURE NOTE: After obtaining informed consent, left heart catheterization and coronary angiogram were performed via the right femoral artery using standard Suzie catheters. The patient tolerated the procedure well without any obvious immediate complications. A femoral angiogram was performed at the end of the procedure. Patient received moderate conscious sedation. Total sedation time was 15 minutes. We used a Glidewire to take the pigtail catheter across the aorta. Conscious sedation time was 15 minutes. FINDINGS: 1. HEMODYNAMICS: Left ventricular end-diastolic pressure is 6-8 mm. There is no significant gradient across the aortic valve. 2. LEFT VENTRICULOGRAM: Left ventriculogram is not performed. 3. ANGIOGRAPHIC DATA: Right Coronary Artery: Right coronary artery is chronically occluded in its midportion with [id number] and right to right collaterals. Left main coronary artery appears calcified but is free of significant stenosis. Divides into left anterior descending coronary artery and circumflex coronary artery. Circumflex coronary artery does not show significant stenosis. LAD was previously stented from proximal to midportion. In the mid LAD, there is in- stent restenoses which at its worst seems to be a 70% to 80% stenosis. CONCLUSIONS: 1. [place] 3-vessel coronary artery disease with patent stent within the circumflex coronary artery. 2. Chronic occlusion of the right coronary artery with [id number] and right to right collaterals. 3. In-stent restenosis within the left anterior descending artery. PLAN: Angiographic data was reviewed by Dr. Gasper Avila the on-call computer network and systems engineer, who will attempt angioplasty of the LAD. MMODL / IJN: [id number] /
--- NOTE | 2018-01-14 09:56 | PTCA ---
PERCUTANEOUSTRANS CORORONARY ANGIOGRAPHY DATE OF SERVICE: 01/14/2018. PROCEDURE: PTCA and stenting of mid left anterior descending coronary artery within a previously placed stent with in-stent restenosis. Two drug-eluting stents were used. PERFORMED BY: Dr. Gasper Avila. Moderate conscious sedation time was 39 minutes. The patient was administered Versed, morphine and Benadryl and he was monitored closely with oxygen saturation, hemodynamics and EKG. CLINICAL INFORMATION: Mr. Deborah Calderon is a 57-year-old gentleman with a known ischemic cardiomyopathy. He is known to have a total occlusion of RCA with collateralization of the left system. He has had stenting of proximal and mid LAD performed in 2004 and 2006 and in 2010, he had a complex circumflex stenting performed. He sees Dr. Espinoza in the outpatient setting. He came into the hospital with a [id number] [place], underwent cardiac cath which revealed that his LAD in the distal two-thirds of the stented segment had restenosis of nearly 70% or more. There was also some disease beyond the stented segment as well. Distally, also there was an additional 40% narrowing. Circumflex stent was widely patent with good flow. He was advised intervention of the LAD stent that was performed in the same setting. PROCEDURE NOTE: The existing 6-Syrian introducer in the right femoral artery was used to perform the procedure. I used a standard left Suzie type guide catheter to cannulate the left coronary artery. Using a Whisper wire I crossed the lesion in the LAD and wire was kept distally. Predilatation of the in-stent restenosis was performed using a 2.5 caliber 20 mm long NC Trek balloon. I then deployed a 23 mm long 3.0 caliber Xience stent into the distal two-thirds of the previously stented segment. Excellent angiographic result was achieved. Distal to it, there was an area of disease and this was addressed with a 2.75 caliber 15 mm long Xience stent that was telescoped into the previously placed stent distally. Excellent angiographic result was achieved. Patient had chest pain and anterior ST elevation. Excellent angiographic result without complication was achieved. He received Angiomax bolus and infusion as per protocol and he also received 180 mg of Brilinta. The sheath was taken out and a Perclose device used to secure hemostasis and he was sent to the room in a stable condition. Results were discussed with the patient and I spoke to his sister who works here at the hospital by phone. He should be on dual antiplatelet therapy for at least one year. He also has a 5.1 cm abdominal aortic aneurysm, which will be addressed by Dr. Morse at a later date. MMODL / IJN: [id number] /
--- NOTE | 2018-01-14 12:33 | P.PN ---
Subjective 57-year-old the male admitted for congestive heart failure exacerbation, patient was comparing of chest pain with minimally elevated troponin of 0.123 because of which cartilages recommending cardiac catheterization. Patient is presently fairly euvolemic. Patient has was in creatinine because of which I discontinued nonsteroidal antiplatelet medication patient also is on lisinopril and the Lasix which will be continued with close monitoring of kidney function. Patient will undergo a catheterization tomorrow. Patient can use to complain of chest pressure 01/14/2018 Patient had a cardiac catheterization and stenting of LAD Constitutional: Denied any fatigue denied any fever. Cardio vascular: denied any palpitations Gastrointestinal denied any nausea vomiting Pulmonary: Denied any shortness of breath cough Neurologic denied any new focal deficits Objective - Vital Signs Vital signs: Vital Signs Temp 97.4 F L 01/14/18 06:00 Pulse 61 01/14/18 11:59 Resp 18 01/14/18 11:59 BP 102/60 01/14/18 11:59 Pulse Ox 97 01/14/18 11:59 Intake & Output 01/13/18 01/14/18 01/14/18 18:59 06:59 18:59 Intake Total 180 720 182.8 Balance 180 720 182.8 Weight 84.2 kg 84.2 kg Intake: IV 182.8 Intake, IV Titration 480 Amount Sodium Chloride 0.9% 1, 480 000 ml In Empty Bag 1 bag @ 1 ML/KG/HR 85.1 mls/hr IV .[id number] ONE Rx#: [id number] Oral 180 240 Other: Voiding Method Toilet Urinal # Voids 3 2 - Exam PHYSICAL EXAMINATION: GENERAL: The patient is alert and oriented x3, not in any acute distress. Well developed, well nourished. HEENT: Pupils are round and equally reacting to light. EOMI. No scleral icterus. No conjunctival pallor. Normocephalic, atraumatic. No pharyngeal erythema. No thyromegaly. CARDIOVASCULAR: S1 and S2 present. No murmurs, rubs, or gallops. PULMONARY: Chest is clear to auscultation, no wheezing or crackles. ABDOMEN: Soft, nontender, nondistended, normoactive bowel sounds. No palpable organomegaly. MUSCULOSKELETAL: No joint swelling or deformity. EXTREMITIES: No cyanosis, clubbing, or pedal edema. NEUROLOGICAL: Gross neurological examination did not reveal any focal deficits. SKIN: No rashes. - Labs CBC & Chem 7: 01/14/18 05:50 01/14/18 05:50 Labs: Abnormal Lab Results - Last 24 Hours (Table) 01/14/18 01/14/18 Range/Units 05:50 06:17 BUN 36 H (9-20) mg/dL Creatinine 1.35 H (0.66-1.25) mg/dL Glucose 101 H (74-99) mg/dL POC Glucose (mg/dL) 107 H (75-99) mg/dL Assessment and Plan Plan: Assessment and Plan Assessment: Assessment 1 shortness of breath, likely secondary to CHF. Patient is an ejection fraction of 35% along with mitral regurgitation which is moderate in severity, patient is presently euvolemic is on IV Lasix which will be continued 2 acute non-ST segment elevation myocardial infarctions/troponin leak: Patient underwent cardiac catheterization and stenting of LAD today. 3 coronary artery disease with previous coronary intervention and stenting 4 hypertension 5 hyperlipidemia 6 diabetes mellitus 7 up little hernia which is not incarcerated surgery evaluated the patient.
--- NOTE | 2018-01-14 14:53 | P.PN ---
Subjective Progress Note Date: 01/14/18 57-year-old male seen at bedside currently had just undergone a heart catheterization with a drug-eluting stent placed to the LAD per Dr. Avila. Patient is awake and alert sitting up taking a diet. Discussed with the patient can be seen in the outpatient setting with Dr. faustin in the next couple weeks discuss with the patient since a drug-eluting stent was used patient would need to be on Plavix for at least a year. Cardiology indicated no surgical procedures for at least 4 months. Objective - Vital Signs Vital signs: Vital Signs Temp 97.4 F L 01/14/18 06:00 Pulse 61 01/14/18 11:59 Resp 18 01/14/18 11:59 BP 102/60 01/14/18 11:59 Pulse Ox 97 01/14/18 11:59 Intake & Output 01/13/18 01/14/18 01/14/18 18:59 06:59 18:59 Intake Total 180 720 182.8 Balance 180 720 182.8 Weight 84.2 kg 84.2 kg Intake: IV 182.8 Intake, IV Titration 480 Amount Sodium Chloride 0.9% 1, 480 000 ml In Empty Bag 1 bag @ 1 ML/KG/HR 85.1 mls/hr IV .[id number] ONE Rx#: [id number] Oral 180 240 Other: Voiding Method Toilet Urinal # Voids 3 2 - Exam Physical exam 57-year-old resting comfortably in bed just underwent a heart catheterization Lungs adequate air movement bilaterally on room air Heart S1-S2 audible regular Abdomen flat nondistended small umbilical hernia noted no nausea no vomiting Extremities no edema - Labs CBC & Chem 7: 01/14/18 05:50 01/14/18 05:50 Labs: Abnormal Lab Results - Last 24 Hours (Table) 01/14/18 01/14/18 Range/Units 05:50 06:17 BUN 36 H (9-20) mg/dL Creatinine 1.35 H (0.66-1.25) mg/dL Glucose 101 H (74-99) mg/dL POC Glucose (mg/dL) 107 H (75-99) mg/dL Assessment and Plan Assessment: Impression Present on admission abdominal discomfort with a small umbilical area Known coronary artery disease with prior coronary stenting Computed tomography scan abdomen pelvis show no suspicious new or acute findings CAT scan abdomen and pelvis show progression abdominal aortic aneurysm measuring 5.1 Acute non-ST elevated myocardial infarction with a troponin leak Echocardiogram shows an ejection fraction 35% Present on admission distal to the umbilicus pinpoint size firm area likely cyst Status post left heart catheterization drug-eluting stent 2 to the mid LAD on Plavix for 1 year Plan No surgical procedure while on Plavix for at least 4 months No evidence of an acute surgical abdomen at this time Will have patient follow-up in the outpatient setting to address the small umbilical hernia No surgical intervention planned at this time from a surgical perspective could be discharged and followed in the outpatient setting The above impression and plan of care have been discussed and directed by signing physician. Talita Alas nurse practitioner acting as scribe for signing physician.
--- NOTE | 2018-01-14 15:55 | P.PN ---
Subjective Progress Note Date: 01/14/18 A pleasant 57-year-old male patient was brought into the hospital yesterday because of shortness of breath and pain across the anterior chest moving to his shoulder and neck area since with some sweating. This patient is known to have coronary artery disease. He has undergone previous cardiac catheterization and stenting in the past. His previous echocardiogram also showed mitral regurgitation. He has also multiple medical problems including hypertension, hyperlipidemia, diabetes mellitus, diabetic neuropathy and a painful growth over the periumbilical area which was supposed to be followed up on outpatient basis and the patient was given appropriate surgical follow-up yet he did not have the chance to make this appointment. The patient was hospitalized for the above-mentioned reasons. Note that his recent echocardiogram shows also congestion heart failure with an ejection fraction of 35-40%, inferior hypokinesis, mild concentric left ventricular hypertrophy, moderate degree of mitral regurgitation, no evidence of any significant pulmonary hypertension. The patient is free of any chest pain for now. He was diuresed during his most hospitalization and he has limited edema in his lower extremity. He has some limited troponin leak during this current admission. His troponins have been 0.06, 0.12 and 0.12 respectively 3. Renal function is within normal limits. His EKG showing sinus tachycardia with LVH changes. In regards to the painful abdomen, the patient has a bulge/periumbilical growth which is quite tender to palpation. This may potentially represent an incarcerated hernia. He is still having regular bowel movements. No melanotic stools. No nausea vomiting. Chest x-ray from this current admission shows a new right basilar opacity with some cardiomegaly and curly B-lines to suggest CHF. The patient is seen again today 01/13/2018 in follow-up on the selective care unit. He is currently up ambulating in his room. He is awake and alert in no acute distress. He denies any shortness of breath, cough or congestion. He admits to some lingering chest pressure that's been going on and off. Since his stay. He also has some continued soft tissue swelling and pain around his umbilicus. Surgical services if no plans for any surgical interventions in this regard. Radiology is on the case and is planning for cardiac catheterization in the morning. He is maintaining good O2 saturations in the 90s on room air. He's been afebrile. Hemodynamically stable. On 01/14/2018, I'm seeing this patient for a follow-up. The patient's history of any chest pain he is laying down comfortably in bed. The patient was seen by cardiology again. The patient was taken to [facility] earlier this morning and the patient was found to have a in-stent stenosis. Note that he initially presented with non-ST segment elevation myocardial infarction. He was advised to undergo intervention to the LAD stent and he had 2 drug-eluting stents placed in the LAD successfully with good angiographic results. Currently is not having any chest pain. His hemodynamics is stable. Hemoglobin is stable at 14.6. The renal function is to be further monitored. Note that the morning creatinine was up to 1.35. The patient was also seen by general surgery regarding the painful small umbilical growth needs to be taking care of at a later stage on outpatient basis. No active respirator distress. No chest pain. No other complaints otherwise. Neurovascularly intact in lower extremities post cardiac catheterization. Objective - Vital Signs Vital signs: Vital Signs Temp 97.4 F L 01/14/18 06:00 Pulse 61 01/14/18 11:59 Resp 18 01/14/18 11:59 BP 102/60 01/14/18 11:59 Pulse Ox 97 01/14/18 11:59 Intake & Output 01/13/18 01/14/18 01/14/18 18:59 06:59 18:59 Intake Total 180 720 182.8 Balance 180 720 182.8 Weight 84.2 kg 84.2 kg Intake: IV 182.8 Intake, IV Titration 480 Amount Sodium Chloride 0.9% 1, 480 000 ml In Empty Bag 1 bag @ 1 ML/KG/HR 85.1 mls/hr IV .[id number] [facility] Rx#: [id number] Oral 180 240 Other: Voiding Method Toilet Urinal # Voids 3 2 - Exam Appearance the patient is calm comfortable likely distress. Head exam was generally normal. There was no scleral icterus or corneal arcus. Mucous membranes were moist. Neck was supple and without jugular venous distension, thyromegaly, or carotid bruits. Carotids were easily palpable bilaterally. There was no adenopathy. Lungs were clear to auscultation and percussion, and with normal diaphragmatic excursion. No wheezes or rales were noted. Breath sounds are diminished in lung bases bilaterally. Cardiac exam revealed the PMI to be normally situated and sized. The rhythm was regular and no extrasystoles were noted during several minutes of auscultation. The first and second heart sounds were normal and physiologic splitting of the second heart sound was noted. There were no murmurs, rubs, clicks, or gallops. Abdomen shows a small bulge approximately 1 x 2 cm in size in the right periumbilical area which is extremely tender to palpation. Unable to reduce this fracture because of the pain. When on touch, the patient is not experiencing any pain. Abdomen itself is soft. No hepatomegaly. No splenomegaly. Bowel sounds are hypoactive at the present. Extremities shows trace edema and there is no cyanosis or clubbing. Examination of the skin revealed no evidence of significant rashes, suspicious appearing nevi or other concerning lesions. Neurologically patient is awake and alert and is no focal neurological deficit. - Labs CBC & Chem 7: 01/14/18 05:50 01/14/18 05:50 Labs: Abnormal Lab Results - Last 24 Hours (Table) 01/14/18 01/14/18 Range/Units 05:50 06:17 BUN 36 H (9-20) mg/dL Creatinine 1.35 H (0.66-1.25) mg/dL Glucose 101 H (74-99) mg/dL POC Glucose (mg/dL) 107 H (75-99) mg/dL Assessment and Plan Plan: Assessment 1 shortness of breath, likely secondary to CHF. Patient is an ejection fraction of 35% along with mitral regurgitation which is moderate in severity. The patient is back to his baseline. No significant respiratory distress at this point in time. 2 acute non-ST segment elevation myocardial infarctions/troponin leak, status post cardiac catheterization the patient underwent coronary intervention and stenting of the LAD with 2 drug-eluting stents were placed. The patient in stent stenosis involving the LAD. 3 coronary artery disease with previous coronary intervention and stenting, please refer to results of the cardiac catheterization was done earlier this morning. 4 hypertension 5 hyperlipidemia 6 diabetes mellitus 7 incarcerated abdominal wall hernia, periumbilical that needs surgical evaluation 8 concentric left ventricular hypertrophy based on EKG findings 9 acute kidney injury, look for any contrast nephropathy post cardiac catheterization. Plan Stop the IV Lasix. Monitor renal function and watch for any contrast nephropathy. IV fluids with normal state rate of 75 mL an hour. Repeat chest x -ray in the morning. The patient's free of any chest pain. We'll continue to follow make further recommendations based on his progress.
--- NOTE | 2018-01-14 16:23 | PN ---
PROGRESS NOTE DATE OF SERVICE: 01/14/2018. HISTORY: Deborah Calderon is a gentleman who underwent cardiac cath by Dr. Espinoza and I went on to perform stenting of in-stent restenosis within the LAD with 2 drug-eluting stents. His vital signs are stable. He was doing well. 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 He had a vasovagal reaction, but the stimulus for vasovagal reaction is somewhat unclear except that he moved around in the bed and felt uncomfortable feeling in the groin. Groin is clean and dry. Pulse is good. He was given IV fluids and his pressure came back up. He feels well, has no symptoms. EKG was unremarkable. I came back and saw the patient a couple of times. He is doing well. We will keep him in the hospital until tomorrow and see how he does. Will perform the usual labs and then go from there. His right groin is clear. Blood pressure is back to 110/70. Patient is asymptomatic. Physical exam is unchanged. MMODL / IJN: [id number] /
[2018-01-14] MEDS ORDERED: traMADol 50 MG TAB PO PRN (20:25)
[2018-01-14] MEDS ORDERED: ATORVASTATIN 80 MG TAB PO SCH (21:00)
[2018-01-14] MEDS ORDERED: traMADol 50 MG TAB PO SCH (22:00)
[2018-01-14 23:46] VITALS: RESP 18
[2018-01-15 06:05] LABS: Basophils % (A) 0 %; Eosinophils # (A) 0.3 k/uL (0-0.7); Eosinophils % (A) 4 %; HCT 42.2 % (39.0-53.0); HGB 13.8 gm/dL (13.0-17.5); Lymphocytes % (A) 28 %; MCH 28.8 pg (25.0-35.0); MCHC 32.7 g/dL (31.0-37.0); MCV 88.2 fL (80.0-100.0); Mean Platelet Volume 8.6; Monocytes # (A) 0.6 k/uL (0-1.0); Monocytes % (A) 9 %; Neutrophils % (A) 56 %; Platelet Count 221 k/uL (150-450); RBC 4.79 m/uL (4.30-5.90); WBC 7.2 k/uL (3.8-10.6)
[2018-01-15 06:26] LABS: Calcium 9.2 mg/dL (8.4-10.2); Potassium 4.5 mmol/L (3.5-5.1)
[2018-01-15] MEDS: PANTOPRAZOLE 40 MG TABLET PO SCH (06:26)
[2018-01-15] MEDS: LISINOPRIL 5 MG TAB PO SCH (08:02)
[2018-01-15] MEDS: METOPROLOL TARTRATE 25 MG TAB PO SCH (08:02)
[2018-01-15] MEDS: SPIRONOLACTONE 25 MG TAB PO SCH (08:02)
[2018-01-15] MEDS: HEPARIN SODIUM,PORCINE 5,000 UNIT/ML 1 ML VIAL SQ SCH (08:02)
[2018-01-15 08:07] VITALS: TEMP 98
[2018-01-15] MEDS ORDERED: ASPIRIN 81 MG PO SCH (09:00)
[2018-01-15] MEDS ORDERED: TICAGRELOR 90 MG TAB PO SCH (09:00)
--- NOTE | 2018-01-15 09:12 | XR ---
EXAMINATION TYPE: XR chest 1V DATE OF EXAM: 01/15/2018 COMPARISON: Prior chest 01/11/2018 HISTORY: Congestive heart failure TECHNIQUE: Single frontal view of the chest is obtained. FINDINGS: There is no focal air space opacity, pleural effusion, or pneumothorax seen. The cardiac silhouette size is stable. There is improvement in aeration. Patient is rotated. The osseous structu res are intact. IMPRESSION: Improved volume status, aeration compared to prior
--- NOTE | 2018-01-15 12:41 | P.PN ---
Subjective Progress Note Date: 01/15/18 Principal diagnosis: Chest pain A pleasant 57-year-old male patient was brought into the hospital yesterday because of shortness of breath and pain across the anterior chest moving to his shoulder and neck area since with some sweating. This patient is known to have coronary artery disease. He has undergone previous cardiac catheterization and stenting in the past. His previous echocardiogram also showed mitral regurgitation. He has also multiple medical problems including hypertension, hyperlipidemia, diabetes mellitus, diabetic neuropathy and a painful growth over the periumbilical area which was supposed to be followed up on outpatient basis and the patient was given appropriate surgical follow-up yet he did not have the chance to make this appointment. The patient was hospitalized for the above-mentioned reasons. Note that his recent echocardiogram shows also congestion heart failure with an ejection fraction of 35-40%, inferior hypokinesis, mild concentric left ventricular hypertrophy, moderate degree of mitral regurgitation, no evidence of any significant pulmonary hypertension. The patient is free of any chest pain for now. He was diuresed during his most hospitalization and he has limited edema in his lower extremity. He has some limited troponin leak during this current admission. His troponins have been 0.06, 0.12 and 0.12 respectively 3. Renal function is within normal limits. His EKG showing sinus tachycardia with LVH changes. In regards to the painful abdomen, the patient has a bulge/periumbilical growth which is quite tender to palpation. This may potentially represent an incarcerated hernia. He is still having regular bowel movements. No melanotic stools. No nausea vomiting. Chest x-ray from this current admission shows a new right basilar opacity with some cardiomegaly and curly B-lines to suggest CHF. The patient is seen again today 01/13/2018 in follow-up on the selective care unit. He is currently up ambulating in his room. He is awake and alert in no acute distress. He denies any shortness of breath, cough or congestion. He admits to some lingering chest pressure that's been going on and off. Since his stay. He also has some continued soft tissue swelling and pain around his umbilicus. Surgical services if no plans for any surgical interventions in this regard. Radiology is on the case and is planning for cardiac catheterization in the morning. He is maintaining good O2 saturations in the 90s on room air. He's been afebrile. Hemodynamically stable. On 01/14/2018, I'm seeing this patient for a follow-up. The patient's history of any chest pain he is laying down comfortably in bed. The patient was seen by cardiology again. The patient was taken to [facility] earlier this morning and the patient was found to have a in-stent stenosis. Note that he initially presented with non-ST segment elevation myocardial infarction. He was advised to undergo intervention to the LAD stent and he had 2 drug-eluting stents placed in the LAD successfully with good angiographic results. Currently is not having any chest pain. His hemodynamics is stable. Hemoglobin is stable at 14.6. The renal function is to be further monitored. Note that the morning creatinine was up to 1.35. The patient was also seen by general surgery regarding the painful small umbilical growth needs to be taking care of at a later stage on outpatient basis. No active respirator distress. No chest pain. No other complaints otherwise. Neurovascularly intact in lower extremities post cardiac catheterization. Patient seen again today 01/15/2018 in follow-up on the selective care unit. He is currently up ambulating in the hallway. He is awake and alert in no acute distress. He denies any further chest discomfort, palpitations, lightheadedness or dizziness. No shortness of breath, cough or congestion. Maintaining good O2 saturations in the 90s on room air. His been afebrile. Hemodynamically stable. Objective - Vital Signs Vital signs: Vital Signs Temp 98 F 01/15/18 08:00 Pulse 77 01/15/18 08:00 Resp 18 01/15/18 08:00 BP 126/72 01/15/18 08:00 Pulse Ox 94 L 01/15/18 08:00 Intake & Output 01/14/18 01/15/18 01/15/18 18:59 06:59 18:59 Intake Total 642.8 300 240 Output Total 1600 Balance -957.2 300 240 Weight 84.2 kg 84.2 kg Intake: IV 182.8 300 Sodium Chloride 0.9% 1, 300 000 ml @ 75 mls/hr IV . [id number] [facility] Rx#:[id number] Oral 460 240 Output: Urine 1600 Other: # Voids 2 1 # Bowel Movements 0 - Exam Appearance the patient is calm comfortable likely distress. Head exam was generally normal. There was no scleral icterus or corneal arcus. Mucous membranes were moist. Neck was supple and without jugular venous distension, thyromegaly, or carotid bruits. Carotids were easily palpable bilaterally. There was no adenopathy. Lungs were clear to auscultation and percussion, and with normal diaphragmatic excursion. No wheezes or rales were noted. Breath sounds are diminished in lung bases bilaterally. Cardiac exam revealed the PMI to be normally situated and sized. The rhythm was regular and no extrasystoles were noted during several minutes of auscultation. The first and second heart sounds were normal and physiologic splitting of the second heart sound was noted. There were no murmurs, rubs, clicks, or gallops. Abdomen shows a small bulge approximately 1 x 2 cm in size in the right periumbilical area which is extremely tender to palpation. Unable to reduce this fracture because of the pain. When on touch, the patient is not experiencing any pain. Abdomen itself is soft. No hepatomegaly. No splenomegaly. Bowel sounds are hypoactive at the present. Extremities shows trace edema and there is no cyanosis or clubbing. Examination of the skin revealed no evidence of significant rashes, suspicious appearing nevi or other concerning lesions. Neurologically patient is awake and alert and is no focal neurological deficit. - Labs CBC & Chem 7: 01/15/18 05:33 01/15/18 05:33 Labs: Abnormal Lab Results - Last 24 Hours (Table) 01/15/18 Range/Units 05:33 Carbon Dioxide 21 L (22-30) mmol/L BUN 31 H (9-20) mg/dL Glucose 107 H (74-99) mg/dL Assessment and Plan Assessment: Assessment 1 shortness of breath, likely secondary to CHF. Patient is an ejection fraction of 35% along with mitral regurgitation which is moderate in severity. Chest x-ray improved. Clinically improved. 2 acute non-ST segment elevation myocardial infarction status post stenting of the mid LAD within the previously placed stent with in-stent restenosis. 2 drug -eluting stents were used. 3 coronary artery disease with previous coronary intervention and stenting to the LAD. 4 hypertension 5 hyperlipidemia 6 diabetes mellitus 7 incarcerated abdominal wall hernia, periumbilical that needs surgical evaluation 8 concentric left ventricular hypertrophy based on EKG findings Plan: The patient was seen and evaluated by Dr. Peterson. He is stable from the pulmonary standpoint. Maintaining good O2 saturations in the 90s on room air. Probable home today. I, the cosigning physician, performed a history & physical examination of the patient. Lungs sounds are clear. Maintaining good O2 saturations in the 90s on room air. I discussed the assessment and plan of care with my nurse practitioner, Deborah Way. I attest to the above note as dictated by her.
[2018-01-15 13:55] VITALS: BP 117/69; PULSE 79
--- NOTE | 2018-01-15 15:03 | PN ---
PROGRESS NOTE Mr. Calderon is a gentleman who underwent stenting of LAD yesterday in a restenotic lesion. He is doing well. Has no symptoms. EKG and labs are good. Right groin is clean and dry. Pulses are excellent. He has had no further issues after 1 vasovagal phenomena. Vital signs are stable. S1-S2 heard normally. Short systolic murmur noted. Lungs are clear. Abdomen and lower extremity exam is unchanged. Plan is to discharge the patient and he will see Dr. Espinoza in one week. MMODL / IJN: [id number] /
--- NOTE | 2018-01-15 16:50 | P.DS ---
Providers Date of admission: 01/11/18 10:01 Expected date of discharge: 01/15/18 Attending physician: MD Dr. Henrik Conti Consults: 01/11/18 10:02 Consult Physician Urgent Consulting Provider: Jennifer Avila Consult Reason/Comments: pulmonary edema Do you want consulting provider notified?: Yes 01/11/18 10:03 Consult Physician Urgent Consulting Provider: Eulogio Sarah Consult Reason/Comments: pulmonary edema Do you want consulting provider notified?: Yes 01/12/18 09:22 Consult Physician Urgent Consulting Provider: Farhat Brice Consult Reason/Comments: abdominal wall hematoma Do you want consulting provider notified?: Already Contacted 01/14/18 09:14 Consult Physician Routine Consulting Provider: [facility] Consult Reason/Comments: Post Interventional patient Do you want consulting provider notified?: Already Contacted Primary care physician: Physician Lordtafredrick good Hospital Course: Final Diagnoses: 1 shortness of breath, likely secondary to CHF. Patient is an ejection fraction of 35% along with mitral regurgitation which is moderate in severity, patient is presently euvolemic is on IV Lasix which will be continued 2 acute non-ST segment elevation myocardial infarctions/troponin leak: Patient underwent cardiac catheterization and stenting of LAD. 3 coronary artery disease with previous coronary intervention and stenting 4 hypertension 5 hyperlipidemia 6 diabetes mellitus 7 small abdominal hernia which is not incarcerated surgery evaluated the patient. 8. Abdominal aortic aneurysm, 5.1 cm Hospital COurse: This is a 57-year-old gentleman admitted with congestive heart failure exacerbation, chest pain with minimally elevated troponin of 0.123. Evaluated by cardiology, underwent cardiac catheterization with stenting of LAD. Tolerated procedure well. Significant clinical improvement. Denies chest pain, palpitations or increasing shortness of breath. Denies lightheadedness dizziness or focal deficits. Patient has been cleared for discharge by cardiology. Patient is being discharged home in stable condition with guarded prognosis. PHYSICAL EXAMINATION: GENERAL: alert and oriented x3, not in any acute distress CARDIOVASCULAR: S1 and S2 present. No murmurs, rubs, or gallops. PULMONARY: Chest is clear to auscultation, no wheezing or crackles. ABDOMEN: Soft, nontender, nondistended, normoactive bowel sounds. No palpable organomegaly. NEUROLOGICAL: Gross neurological examination did not reveal any focal deficits. The impression and plan of care has been dictated as directed. : I performed a history and examination of this patient, discussed the same with the dictator. I agree with the dictator's note ,documented as a scribe. Any additional findings or plans will be noted. Time taken: 35 minutes Patient Condition at Discharge: Stable Plan - Discharge Summary Discharge Rx Participant: Yes New Discharge Prescriptions: New Nitroglycerin Sl Tabs [Nitrostat] 0.4 mg SUBLINGUAL Q5M PRN #100 tab PRN Reason: Chest Pain Continue Furosemide [Lasix] 40 mg PO BID@0900,1600 #30 tab Lisinopril [Zestril] 5 mg PO DAILY #30 tab Metoprolol Tartrate [Lopressor] 25 mg PO BID #30 tab Aspirin 81 mg PO DAILY #30 chew Atorvastatin [Lipitor] 80 mg PO DAILY #30 tab Pantoprazole Sodium [Protonix] 40 mg PO DAILY #30 tablet. Spironolactone [Aldactone] 12.5 mg PO DAILY #30 tab Ticagrelor [Brilinta] 90 mg PO BID #60 tab Discontinued Ibuprofen [Motrin Ib] 200 - 400 mg PO Q6H PRN PRN Reason: Pain Discharge Medication List Furosemide [Lasix] 40 mg PO BID@0900,1600 #30 tab 01/08/18 [Rx] Lisinopril [Zestril] 5 mg PO DAILY #30 tab 01/08/18 [Rx] Metoprolol Tartrate [Lopressor] 25 mg PO BID #30 tab 01/08/18 [Rx] Aspirin 81 mg PO DAILY #30 chew 01/15/18 [Rx] Atorvastatin [Lipitor] 80 mg PO DAILY #30 tab 01/15/18 [Rx] Nitroglycerin Sl Tabs [Nitrostat] 0.4 mg SUBLINGUAL Q5M PRN #100 tab 01/15/18 [ Rx] Pantoprazole Sodium [Protonix] 40 mg PO DAILY #30 tablet. 01/15/18 [Rx] Spironolactone [Aldactone] 12.5 mg PO DAILY #30 tab 01/15/18 [Rx] Ticagrelor [Brilinta] 90 mg PO BID #60 tab 01/15/18 [Rx] Follow up Appointment(s)/Referral(s): Omid Good MD [STAFF PHYSICIAN] - 3 Days (Please call to make appointment) Braulio Espinoza MD [STAFF PHYSICIAN] - 1 Week (Please call to make appointment) Meghna Peterson MD [STAFF PHYSICIAN] - 2 Weeks (Please call to schedule appointment) Farhat Brice MD [STAFF PHYSICIAN] - 3 Weeks (Please call to schedule appopintment) Ambulatory/Diagnostic Orders: Complete Blood Count w/diff [LAB.AMB] Time Frame: 3 Days, Location: Determined By Patient Patient Instructions/Handouts: *Surgery [facility] - After Heart Catheterization - Video Editing Intern Instructions, Left Heart Catheterization (DC) Activity/Diet/Wound Care/Special Instructions: FREE 30 DAYS OF BRILINTA SUPPLIED. THIS WILL NEED TO BE SWITCHED TO PLAVIX AT CARDIOLOGY OFFICE PRIOR TO RUNNING OUT OF BRILINTA
== END 2018-01-15 17:31 | disposition home or self-care (01) | DRG 246 ==
LOC: EC 08:09 → 6SEL 10:01
PROVIDERS: ADMIT Internal Medicine; ATTEND Internal Medicine
PROC: B2111ZZ Fluoroscopy of Multiple Coronary Arteries using Low Osmolar Contrast (ICD-10-PCS; principal; 2018-01-14 07:30)
PROC: 4A023N7 Measurement of Cardiac Sampling and Pressure, Left Heart, Percutaneous Approach (ICD-10-PCS; principal; 2018-01-14 07:30)
PROC: 027035Z Dilation of Coronary Artery, One Artery with Two Drug-eluting Intraluminal Devices, Percutaneous Approach (ICD-10-PCS; principal; 2018-01-14 07:30)
DX: I13.0 Hypertensive heart and chronic kidney disease with heart failure and stage 1 through stage 4 chronic kidney disease, or unspecified chronic kidney disease (principal); I21.4 Non-ST elevation (NSTEMI) myocardial infarction; I50.23 Acute on chronic systolic (congestive) heart failure; T82.855A Stenosis of coronary artery stent, initial encounter; N17.9 Acute kidney failure, unspecified; E11.22 Type 2 diabetes mellitus with diabetic chronic kidney disease; E78.5 Hyperlipidemia, unspecified; I25.10 Atherosclerotic heart disease of native coronary artery without angina pectoris; I25.5 Ischemic cardiomyopathy; I34.0 Nonrheumatic mitral (valve) insufficiency; I71.4 Abdominal aortic aneurysm, without rupture; K21.9 Gastro-esophageal reflux disease without esophagitis; K42.9 Umbilical hernia without obstruction or gangrene; N18.9 Chronic kidney disease, unspecified; Y83.1 Surgical operation with implant of artificial internal device as the cause of abnormal reaction of the patient, or of later complication, without mention of misadventure at the time of the procedure; Z79.899 Other long term (current) drug therapy; Z87.01 Personal history of pneumonia (recurrent); Z87.891 Personal history of nicotine dependence; Z88.5 Allergy status to narcotic agent; E11.42 Type 2 diabetes mellitus with diabetic polyneuropathy
CPT/HCPCS: 36415; 71045; 74177; 80048; 80053; 82550; 82553; 83880; 84484; 85025; 85027; 85610; 85730; 93005; 93306; 93458; 94640; 94660; 99291

== ENCOUNTER → 2018-03-05 | Outpatient (CLI) | payer MEDICARE ==
[2018-03-05 11:51] LABS: HCT 39.9 % (39.0-53.0); HGB 13.3 gm/dL (13.0-17.5); MCHC 33.2 g/dL (31.0-37.0); MCV 87.4 fL (80.0-100.0); Mean Platelet Volume 7.2; Platelet Count 217 k/uL (150-450); RBC 4.57 m/uL (4.30-5.90); RDW 14.5 % (11.5-15.5); WBC 4.9 k/uL (3.8-10.6)
[2018-03-05 12:04] LABS: Anion Gap 9 mmol/L; Blood Urea Nitrogen 18 mg/dL (9-20); Carbon Dioxide 26 mmol/L (22-30); Chloride 105 mmol/L (98-107); Potassium 4.5 mmol/L (3.5-5.1); Sodium 140 mmol/L (137-145)
== END | disposition home or self-care (01) ==
LOC: LABWHC1 11:14
PROVIDERS: ATTEND Internal Medicine Cardiovascular Disease
DX: I22.2 Subsequent non-ST elevation (NSTEMI) myocardial infarction (principal)
CPT/HCPCS: 36415; 80051; 82565; 84520; 85027

== ENCOUNTER 2019-01-12 18:12 | Inpatient (IN) | payer MEDICARE ==
[2019-01-12] MEDS ORDERED: ASPIRIN 81 MG PO STA (18:28)
[2019-01-12] MEDS ORDERED: SODIUM CHLORIDE 0.9% 1,000 ML IV STA (18:28)
[2019-01-12] MEDS ORDERED: NITROGLYCERIN SL TABS 0.4 MG TAB SUBLINGUAL STA ×3 (18:28)
--- NOTE | 2019-01-12 18:30 | ED ---
General Adult HPI - General Chief complaint: Chest Pain Stated complaint: Chest pain Time Seen by Provider: 01/12/19 18:23 Source: patient, family, RN notes reviewed Mode of arrival: wheelchair Limitations: no limitations - History of Present Illness Initial comments: Patient is a pleasant 58-year-old male presenting to the emergency Department with chest discomfort. Onset was around a half an hour ago. Patient has pressure in his chest without radiation. Patient does have associated dyspnea and nausea and diaphoresis. Symptoms are similar to previous cardiac problems. Patient has had previous cardiac stents, last was one year ago. Discomfort is severe at this time. No leg pain or leg swelling. - Related Data Home Medications Medication Instructions Recorded Confirmed Ibuprofen [Motrin Ib] 600 mg PO Q6H PRN 01/12/19 01/12/19 Lisinopril [Zestril] 10 mg PO HS 01/12/19 01/12/19 Ranitidine HCl [Zantac] 150 mg PO TID 01/12/19 01/12/19 Previous Rx's Medication Instructions Recorded Aspirin 81 mg PO DAILY #30 chew 01/15/18 Atorvastatin [Lipitor] 80 mg PO DAILY #30 tab 01/15/18 Nitroglycerin Sl Tabs [Nitrostat] 0.4 mg SUBLINGUAL Q5M PRN #100 tab 01/15/18 Allergies Allergy/AdvReac Type Severity Reaction Status Date / Time codeine Allergy Anaphylaxis Verified 01/12/19 18:54 Review of Systems ROS Statement: Those systems with pertinent positive or pertinent negative responses have been documented in the HPI. ROS Other: All systems not noted in ROS Statement are negative. Constitutional: Denies: fever Eyes: Denies: eye pain ENT: Denies: ear pain Respiratory: Reports: dyspnea Cardiovascular: Reports: chest pain Endocrine: Denies: fatigue Gastrointestinal: Reports: nausea, vomiting. Denies: abdominal pain Genitourinary: Denies: dysuria Musculoskeletal: Denies: back pain Skin: Denies: rash Neurological: Denies: weakness Past Medical History Past Medical History: Heart Failure, GERD/Reflux, Hypertension, Myocardial Infarction ([place]), Osteoarthritis (OA), Pneumonia Additional Past Medical History / Comment(s): Coronary artery disease, previous myocardial infarction, previous coronary intervention and stenting, congestion heart failure with an ejection fraction of 35-40%, moderate global hypokinesis, mild concentric LVH, moderate degree of mitral regurgitation, peripheral neuropathy, hypertension, osteoarthritis Last Myocardial Infarction Date:: unk History of Any Multi-Drug Resistant Organisms: None Reported Past Surgical History: Heart Catheterization With Stent Additional Past Surgical History / Comment(s): HEART CATH WITH STENTS Past Anesthesia/Blood Transfusion Reactions: No Reported Reaction Past Psychological History: Anxiety Smoking Status: Former smoker Past Alcohol Use History: None Reported Past Drug Use History: None Reported - Past Family History Father Additional Family Medical History / Comment(s): tumor in stomach Mother Family Medical History: CVA/TIA General Exam Limitations: no limitations General appearance: alert, anxious Head exam: Present: atraumatic Eye exam: Present: normal appearance, PERRL ENT exam: Present: normal oropharynx Neck exam: Present: normal inspection Respiratory exam: Present: normal lung sounds bilaterally, other (Patient is hyperventilating) Cardiovascular Exam: Present: regular rate, normal rhythm Expanded Peripheral pulses: 2+: Radial (R), Radial (L), Posterior Tibialis (R), Posterior Tibialis (L) GI/Abdominal exam: Present: soft. Absent: tenderness Extremities exam: Present: normal inspection. Absent: pedal edema, calf tende rness Neurological exam: Present: alert Psychiatric exam: Present: anxious Skin exam: Present: diaphoretic Course Vital Signs 01/12/19 01/12/19 01/12/19 18:17 18:58 19:10 Temperature 98.4 F Pulse Rate 95 98 Pulse Rate [ 82 Bilateral Repairer And Checker ] Respiratory 22 18 Rate Blood Pressure 190/107 144/96 O2 Sat by Pulse 99 93 L Oximetry 01/12/19 21:05 Temperature Pulse Rate 88 Pulse Rate [ Bilateral Repairer And Checker ] Respiratory 18 Rate Blood Pressure 156/102 O2 Sat by Pulse 98 Oximetry EKG Findings - EKG Comments: EKG Findings:: Normal sinus rhythm 97. AK 140. QRS 102. QT 382. QTC 45. Normal axis. Normal QRS. ST depression V5 V6. Borderline inferior ST depression. Medical Decision Making - Medical Decision Making Patient reevaluated and improved. Discomfort is only mild at this time. Patient and family updated on results and plan. Case was thus in detail with Dr. Avina, covering for hospital call, who will admit. - Lab Data Result diagrams: 01/12/19 18:50 01/12/19 18:50 Lab Results 01/12/19 01/12/19 01/12/19 Range/Units 18:50 18:50 18:50 WBC 5.9 (3.8-10.6) k/uL RBC 4.70 (4.30-5.90) m/uL Hgb 12.9 L (13.0-17.5) gm/dL Hct 39.9 (39.0-53.0) % MCV 84.9 (80.0-100.0) fL MCH 27.4 (25.0-35.0) pg MCHC 32.2 (31.0-37.0) g/dL RDW 14.4 (11.5-15.5) % Plt Count 280 (150-450) k/uL Neutrophils % 45 % Lymphocytes % 38 % Monocytes % 7 % Eosinophils % 5 % Basophils % 1 % Neutrophils # 2.7 (1.3-7.7) k/uL Lymphocytes # 2.2 (1.0-4.8) k/uL Monocytes # 0.4 (0-1.0) k/uL Eosinophils # 0.3 (0-0.7) k/uL Basophils # 0.0 (0-0.2) k/uL PT (9.0-12.0) sec INR (<1.2) APTT (22.0-30.0) sec D-Dimer (<0.60) mg/L FEU Sodium 144 (137-145) mmol/L Potassium 3.7 (3.5-5.1) mmol/L Chloride 108 H (98-107) mmol/L Carbon Dioxide 23 (22-30) mmol/L Anion Gap 13 mmol/L BUN 17 (9-20) mg/dL Creatinine 1.24 (0.66-1.25) mg/dL Est GFR (CKD-EPI)AfAm 74 (>60 ml/min/1.73 sqM) Est GFR (CKD-EPI)NonAf 64 (>60 ml/min/1.73 sqM) Glucose 113 H (74-99) mg/dL Calcium 9.6 (8.4-10.2) mg/dL Magnesium 2.2 (1.6-2.3) mg/dL Total Bilirubin 0.6 (0.2-1.3) mg/dL AST 21 (17-59) U/L ALT 14 L (21-72) U/L Alkaline Phosphatase 102 (38-126) U/L Troponin I (0.000-0.034) ng/mL NT-Pro-B Natriuret Pep 1670 pg/mL Total Protein 8.0 (6.3-8.2) g/dL Albumin 4.6 (3.5-5.0) g/dL 01/12/19 01/12/19 Range/Units 18:50 18:50 WBC (3.8-10.6) k/uL RBC (4.30-5.90) m/uL Hgb (13.0-17.5) gm/dL Hct (39.0-53.0) % MCV (80.0-100.0) fL MCH (25.0-35.0) pg MCHC (31.0-37.0) g/dL RDW (11.5-15.5) % Plt Count (150-450) k/uL Neutrophils % % Lymphocytes % % Monocytes % % Eosinophils % % Basophils % % Neutrophils # (1.3-7.7) k/uL Lymphocytes # (1.0-4.8) k/uL Monocytes # (0-1.0) k/uL Eosinophils # (0-0.7) k/uL Basophils # (0-0.2) k/uL PT 10.3 (9.0-12.0) sec INR 1.0 (<1.2) APTT 24.8 (22.0-30.0) sec D-Dimer 0.97 H (<0.60) mg/L FEU Sodium (137-145) mmol/L Potassium (3.5-5.1) mmol/L Chloride (98-107) mmol/L Carbon Dioxide (22-30) mmol/L Anion Gap mmol/L BUN (9-20) mg/dL Creatinine (0.66-1.25) mg/dL Est GFR (CKD-EPI)AfAm (>60 ml/min/1.73 sqM) Est GFR (CKD-EPI)NonAf (>60 ml/min/1.73 sqM) Glucose (74-99) mg/dL Calcium (8.4-10.2) mg/dL Magnesium (1.6-2.3) mg/dL Total Bilirubin (0.2-1.3) mg/dL AST (17-59) U/L ALT (21-72) U/L Alkaline Phosphatase (38-126) U/L Troponin I 0.014 (0.000-0.034) ng/mL NT-Pro-B Natriuret Pep pg/mL Total Protein (6.3-8.2) g/dL Albumin (3.5-5.0) g/dL - Radiology Data Radiology results: report reviewed (Computed tomography scan of chest shows no acute process), image reviewed (This x-ray shows no acute process) Disposition Clinical Impression: Chest pain Disposition: ADMITTED IP TO THIS HOSP Is patient prescribed a controlled substance at d/c from ED?: No Referrals: None,Stated [Primary Care Provider] - 1-2 days Decision Time: 21:10
[2019-01-12] MEDS ORDERED: LORazepam 2 MG/ML INJ IV STA (18:31)
[2019-01-12 19:15] LABS: Albumin 4.6 g/dL (3.5-5.0); Calcium 9.6 mg/dL (8.4-10.2); Magnesium 2.2 mg/dL (1.6-2.3); Potassium 3.7 mmol/L (3.5-5.1); Total Bilirubin 0.6 mg/dL (0.2-1.3)
[2019-01-12 19:17] LABS: Partial Thromboplastin Time 24.8 sec (22.0-30.0); Prothrombin Time 10.3 sec (9.0-12.0)
[2019-01-12 19:20] LABS: Basophils % (A) 1 %; D-Dimer 0.97 mg/L FEU (<0.60); Eosinophils # (A) 0.3 k/uL (0-0.7); Eosinophils % (A) 5 %; HCT 39.9 % (39.0-53.0); HGB 12.9 gm/dL (13.0-17.5); Lymphocytes # (A) 2.2 k/uL (1.0-4.8); Lymphocytes % (A) 38 %; MCH 27.4 pg (25.0-35.0); MCHC 32.2 g/dL (31.0-37.0); MCV 84.9 fL (80.0-100.0); Mean Platelet Volume 7.4; Monocytes # (A) 0.4 k/uL (0-1.0); Monocytes % (A) 7 %; Neutrophils # (A) 2.7 k/uL (1.3-7.7); Neutrophils % (A) 45 %; Platelet Count 280 k/uL (150-450); RDW 14.4 % (11.5-15.5); WBC 5.9 k/uL (3.8-10.6)
--- NOTE | 2019-01-12 19:55 | XR ---
EXAMINATION: XR chest 1V portable DATE AND TIME: 01/12/2019 7:09 PM CLINICAL INDICATION: PHH; chest pain TECHNIQUE: AP upright portable COMPARISON: 01/15/2018 FINDINGS: The lungs are clear. The pleural spaces are negative. The cardiac silhouette is moderately enlarged, unchanged. Coronary stents noted. The remainder of the mediastinal silhouette is unremarkable. The skeletal structures and soft tissues are negative for acute findings. IMPRESSION: No acute radiographic process.
--- NOTE | 2019-01-12 20:33 | CT ---
EXAMINATION TYPE: CT angio chest with contrast and with 3-D reconstruction renderings DATE OF EXAM: 01/12/2019 7:46 PM COMPARISON: 01/07/2018 HISTORY: elevated d-dimer, weakness CT DLP: 584.2 mGycm Automated exposure control for dose reduction was used. CONTRAST: CTA scan of the thorax is performed with IV Contrast, patient injected with 80cc mL of Isov ue 370, pulmonary embolism protocol. Three-D reconstructions. FINDINGS: LUNGS: The lungs are grossly clear, there is no concerning parenchymal mass or nodule identified. The re is no pleural effusion or pneumothorax seen. The tracheobronchial tree is patent. MEDIASTINUM: There is satisfactory enhancement of the pulmonary artery and its branches, there is no CT evidence for pulmonary embolism. No acute aortic findings. There are no greater than 1 cm hilar or mediastinal lymph nodes. There is mild cardiomegaly with no pericardial effusion. Coronary stents an d calcifications are noted. OTHER: No additional significant abnormality is seen. IMPRESSION: NO ACUTE PROCESS.
[2019-01-12] MEDS ORDERED: NITROGLYCERIN SL TABS 0.4 MG TAB SUBLINGUAL PRN (21:10)
[2019-01-12] MEDS ORDERED: LISINOPRIL 10 MG TAB PO STA (21:17)
[2019-01-13] MEDS ORDERED: ALPRAZolam 1 MG TAB PO PRN (00:16)
[2019-01-13] MEDS ORDERED: HEPARIN SODIUM,PORCINE 5,000 UNIT/ML 1 ML VIAL IV PRN (00:27)
[2019-01-13] MEDS ORDERED: CLOPIDOGREL 75 MG TAB PO SCH (00:30)
--- NOTE | 2019-01-13 00:33 | P.HPIM ---
History of Present Illness H&P Date: 01/12/19 Chief Complaint: Chest pain 58-year-old male with history of systolic CHF, hypertension, CAD, hyperlipidemia. Patient presented to the hospital with 30 minutes history of central chest pain. Patient reports that he felt chest heaviness, he rates it as 10 out of 10 in severity no radiation of the pain was associated with dyspnea nausea and diaphoresis. He started chewing aspirin and took 2 nitros and helped with the pain however he got worried because the pain was similar to what he experienced a year ago when he had a heart attack and decided come to the hospital. He adds that over the past week he was having off-and-on problem with this which she felt is progressing. He also adds that he supposed take berlinta however he stopped it over a month ago due to financial reasons. And he is not currently taking any Plavix. His last stent was 1 year ago. Patient reports that pain was not associated with any activity and it can happen even at rest. Patient also admits to having panic attacks at times. He otherwise denies any fevers or chills denies any coughing or shortness of breath at this time. He denies any abdominal pain changes in his bowel or urina ry habits he denies any GI bleeding. Patient is concerned regarding abdominal hernia that he had for a while now and last year he was told that he cannot have the surgery done until 1 year after his heart attack. Patient also is concerned regarding his blood sugar and he wants to be checked for diabetes. In the ED he was found to have slightly elevated d-dimer for which CT angios the chest was performed showed no acute process. Chest x-ray was negative. EKG showed ST changes in lateral precordial leads. His most recent left ventricular ejection fraction is 3540 percent on echocardiogram done in December 2017. His troponins is currently negative. Review of Systems Pertinent positives as noted in HPI. All other systems were reviewed and are negative Past Medical History Past Medical History: Heart Failure, GERD/Reflux, Hypertension, Myocardial Infarction ([place]), Osteoarthritis (OA), Pneumonia Additional Past Medical History / Comment(s): Coronary artery disease, previous myocardial infarction, previous coronary intervention and stenting, congestion heart failure with an ejection fraction of 35-40%, moderate global hypokinesis, mild concentric LVH, moderate degree of mitral regurgitation, peripheral neuropathy, hypertension, osteoarthritis Last Myocardial Infarction Date:: unk History of Any Multi-Drug Resistant Organisms: None Reported Past Surgical History: Heart Catheterization With Stent Additional Past Surgical History / Comment(s): HEART CATH WITH STENTS X8 Past Anesthesia/Blood Transfusion Reactions: No Reported Reaction Date of Last Stent Placement:: 2017 Past Psychological History: Anxiety, Panic Disorder Smoking Status: Former smoker Past Alcohol Use History: None Reported Past Drug Use History: None Reported - Past Family History Father Additional Family Medical History / Comment(s): tumor in stomach Mother Family Medical History: CVA/TIA Medications and Allergies Home Medications Medication Instructions Recorded Confirmed Type Aspirin 81 mg PO DAILY #30 chew 01/15/18 01/12/19 Rx Nitroglycerin Sl Tabs [Nitrostat] 0.4 mg SUBLINGUAL Q5M PRN #100 tab 01/15/18 01/12/19 Rx Atorvastatin [Lipitor] 80 mg PO HS 01/12/19 01/12/19 History Clopidogrel [Plavix] 75 mg PO HS 01/12/19 01/12/19 History Ibuprofen [Motrin Ib] 600 mg PO Q6H PRN 01/12/19 01/12/19 History Lisinopril [Zestril] 10 mg PO HS 01/12/19 01/12/19 History Ranitidine HCl [Zantac] 150 mg PO TID 01/12/19 01/12/19 History Allergies Allergy/AdvReac Type Severity Reaction Status Date / Time codeine Allergy Anaphylaxis Verified 01/12/19 22:50 Physical Exam Vitals: Vital Signs Temp Pulse Pulse Resp BP BP Pulse Ox 01/12/19 23:16 16 01/12/19 23:10 98.2 F 78 16 184/95 100 01/12/19 22:11 97.9 F 82 18 151/94 98 01/12/19 21:05 88 18 156/102 98 01/12/19 19:10 98 18 144/96 93 L 01/12/19 18:58 82 01/12/19 18:17 98.4 F 95 22 190/107 99 Intake and Output 01/12/19 01/12/19 01/13/19 14:59 22:59 06:59 Other: Voiding Method Toilet Weight 90.718 kg Constitutional: No acute distress, conversant, pleasant Eyes: Anicteric sclerae, moist conjunctiva, no lid-lag Pupils equal round reactive to light ENMT: NC/AT Oropharynx clear, no erythema, or exudates Neck: Supple, FROM, no masses, or JVD No carotid bruits No thyromegaly Lungs: Clear to auscultation Clear to percussion Normal respiratory effort, no accessory muscle use Cardiovascular: Heart regular in rate and rhythm, No murmurs, gallops, or rubs No peripheral edema Abdominal: Soft Nontender, no guarding, rebound or rigidity Abdomen moving with respiration Normoactive bowel sounds No hepatomegaly, No splenomegaly No palpable mass Epigastric abdominal wall hernia reducible nontender no skin changes Skin: Normal temperature, tone, texture, turgor No induration No subcutaneous nodules No rash, lesions No ulcers Extremities: No digital cyanosis No clubbing Pedal pulses intact and symmetrical Radial pulses intact and symmetrical No calf tenderness Psychiatric: Alert and oriented to person, place and time Appropriate affect fair judgment Neuro Muscles Strength 5/5 in all 4 extremities Sensation to light touch grossly present throughout Cranial nerves II-XII grossly intact No focal sensory deficits Lymphatics: no palpable cervical or supraclavicular , or inguinal lymph nodes Results CBC & Chem 7: 01/12/19 18:50 01/12/19 18:50 Labs: Abnormal Lab Results - Last 24 Hours (Table) 01/12/19 01/12/19 01/12/19 Range/Units 18:50 18:50 18:50 Hgb 12.9 L (13.0-17.5) gm/dL D-Dimer 0.97 H (<0.60) mg/L FEU Chloride 108 H (98-107) mmol/L Glucose 113 H (74-99) mg/dL ALT 14 L (21-72) U/L Thrombosis Risk Factor Assmnt - Choose All That Apply Any of the Below Risk Factors Present?: Yes Each Factor Represents 1 point: Age 41-60 years, Varicose veins Other Risk Factors: Yes Each Risk Factor Represents 3 Points: History of DVT/PE Other congenital or acquired thrombophilia - If yes, enter type in comment: No Thrombosis Risk Factor Assessment Total Risk Factor Score: 5 Thrombosis Risk Factor Assessment Level: High Risk Assessment and Plan Assessment: 58-year-old male with history of coronary artery disease status post stenting. Systolic CHF. Hypertension and hyperlipidemia. Admitted under observation with anticipated length of stay less than 48 hours for unstable angina for further cardiology evaluation. 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 Inman CODE STATUS:*Full code Discussed with: Patient, ER, RN Anticipated discharge: Less than 48- hours Anticipated discharge place: Home A total of 60 minutes was spent on the care of this complex patient more than 50% of the time was spent in counseling and care coordination.
[2019-01-13] MEDS ORDERED: HEPARIN SODIUM,PORCINE 5,000 UNIT/ML 1 ML VIAL IV ONE (01:00)
[2019-01-13] MEDS ORDERED: HEPARIN SOD,PORK IN 0.45% NACL 25,000 UNIT in 0.45% NACL 1 250ML.BAG IV SCH (01:00)
[2019-01-13] MEDS: NITROGLYCERIN OINT 1 INCH/GM PACKET TOPICAL SCH ×5 (01:10→22:56)
[2019-01-13] MEDS: ATORVASTATIN 80 MG TAB PO SCH ×2 (01:10→19:56)
[2019-01-13 07:45] LABS: Basophils # (A) 0.1 k/uL (0-0.2); Basophils % (A) 1 %; Eosinophils # (A) 0.3 k/uL (0-0.7); Eosinophils % (A) 7 %; HGB 11.3 gm/dL (13.0-17.5); Lymphocytes # (A) 1.7 k/uL (1.0-4.8); Lymphocytes % (A) 36 %; MCH 27.9 pg (25.0-35.0); MCHC 32.2 g/dL (31.0-37.0); MCV 86.5 fL (80.0-100.0); Monocytes # (A) 0.3 k/uL (0-1.0); Monocytes % (A) 7 %; Neutrophils # (A) 2.2 k/uL (1.3-7.7); Neutrophils % (A) 46 %; Platelet Count 225 k/uL (150-450); RBC 4.05 m/uL (4.30-5.90); RDW 14.8 % (11.5-15.5); WBC 4.8 k/uL (3.8-10.6)
[2019-01-13] MEDS: IPRATROPIUM-ALBUTEROL 3 ML NEB INHALATION PRN ×3 (08:15→20:41)
[2019-01-13 08:16] LABS: Calcium 8.6 mg/dL (8.4-10.2); Potassium 4.3 mmol/L (3.5-5.1)
[2019-01-13] MEDS: METOPROLOL TARTRATE 50 MG TAB PO SCH ×2 (08:51→19:56)
[2019-01-13] MEDS ORDERED: ASPIRIN 325 MG TAB PO SCH (09:00)
[2019-01-13] MEDS ORDERED: ALPRAZolam 0.5 MG TAB PO PRN (09:11)
[2019-01-13] MEDS ORDERED: SODIUM CHLORIDE 0.9% 1,000 ML in EMPTY BAG 1 BAG IV ONE (09:11)
--- NOTE | 2019-01-13 09:28 | P.PN ---
Subjective Progress Note Date: 01/13/19 Principal diagnosis: chest pain Patient is a 58-year-old male with a past medical history of systolic congestive heart failure with an ejection fraction 35-40%, coronary artery disease status post prior stenting, dyslipidemia, and hypertension who presented to the ER with complaints of chest pain. Patient underwent stenting of the LAD with 2 drug-eluting stents on 01/11/18. Per the patient has been unable to afford his Proventil and therefore hasn't been taking anything. In the ER he underwent an extensive evaluation. On arrival his blood pressures are found be 190/107. Laboratory analysis is essentially unremarkable and troponin was negative. He was given aspirin and admitted for cardiac evaluation. Initial EKG did have some ST segment depression. His second troponin was positive at 0.96 and trended to 1.6. Cardiology was contacted. Plan is for cardiac catheterization 01/13. Patient seen and examined at bedside. He is currently chest pain-free. He denies any shortness of breath. He reports that he has been having severe heartburn at home and has been taking up to 3 Zantac daily. He also reports that he has been having chest pains and shortness of breath at different intervals throughout the year. He also reports that he feels very anxious. He has not followed with the PCP, and he has a few has not seen cardiology in over a year. Objective - Vital Signs Vital signs: Vital Signs Temp 98.5 F 01/13/19 08:00 Pulse 86 01/13/19 08:26 Resp 16 01/13/19 08:00 BP 124/76 01/13/19 08:00 Pulse Ox 97 01/13/19 08:00 Intake & Output 01/12/19 01/13/19 01/13/19 18:59 06:59 18:59 Weight 90.718 kg Other: Voiding Method Toilet Toilet # Voids 1 - Exam General: non toxic, no distress, appears at stated age Derm: warm, dry Head: atraumatic, normocephalic, symmetric Eyes: EOMI, no lid lag, anicteric sclera Mouth: no lip lesion, mucus membranes moist Cardiovascular: S1S2 reg, no murmur, positive posterior tibial pulse bilateral, Lungs: CTA bilateral, no rhonchi, no rales , no accessory muscle use Abdominal: soft, nontender to palpation, no guarding, no appreciable organomegaly Ext: no gross muscle atrophy, no edema, no contractures Neuro: CN II-XI grossly intact, no focal neuro deficits Psych: Alert, oriented, appears anxious - Labs CBC & Chem 7: 01/13/19 07:26 01/13/19 07: Labs: Abnormal Lab Results - Last 24 Hours (Table) 01/12/19 01/12/19 01/12/19 Range/Units 18:50 18:50 18:50 RBC (4.30-5.90) m/uL Hgb 12.9 L (13.0-17.5) gm/dL Hct (39.0-53.0) % APTT (22.0-30.0) sec D-Dimer 0.97 H (<0.60) mg/L FEU Chloride 108 H (98-107) mmol/L Glucose 113 H (74-99) mg/dL ALT 14 L (21-72) U/L Troponin I (0.000-0.034) ng/mL Cholesterol (<200) mg/dL LDL Cholesterol, Calc (0-99) mg/dL HDL Cholesterol (40-60) mg/dL 01/13/19 01/13/19 01/13/19 Range/Units 01:06 07:26 07:26 RBC (4.30-5.90) m/uL Hgb (13.0-17.5) gm/dL Hct (39.0-53.0) % APTT (22.0-30.0) sec D-Dimer (<0.60) mg/L FEU Chloride 110 H (98-107) mmol/L Glucose 105 H (74-99) mg/dL ALT (21-72) U/L Troponin I 0.960 H* 1.630 H* (0.000-0.034) ng/mL Cholesterol 200 H (<200) mg/dL LDL Cholesterol, Calc 141 H (0-99) mg/dL HDL Cholesterol 33 L (40-60) mg/dL 01/13/19 01/13/19 Range/Units 07:26 07:26 RBC 4.05 L (4.30-5.90) m/uL Hgb 11.3 L (13.0-17.5) gm/dL Hct 35.0 L (39.0-53.0) % APTT 38.8 H (22.0-30.0) sec D-Dimer (<0.60) mg/L FEU Chloride (98-107) mmol/L Glucose (74-99) mg/dL ALT (21-72) U/L Troponin I (0.000-0.034) ng/mL Cholesterol (<200) mg/dL LDL Cholesterol, Calc (0-99) mg/dL HDL Cholesterol (40-60) mg/dL Assessment and Plan Assessment: Non-STEMI - Lipitor, metoprolol -On heparin drip -Aspirin and Plavix -Plan is for cath today -Cardiology recommendations Compensated systolic CHF -Echo -On lisinopril and metoprolol -No signs of fluid overload Dyslipidemia -Statin -Shows elevated lipid profile GERD -Start PPI. Hypertension, urgency on arrival -Improved -Continue with metoprolol and lisinopril - follow BP Anxiety -Has been started on when necessary Xanax by cardiology -He'll need PCP as outpatient for follow-up DVT prophylaxis: Heparin gtt Discussed with: Patient, nursing Anticipated discharge: [address]: home A total of 35 minutes was spent on the care of this complex patient more than 50% of the time was spent in counseling and care coordination.
[2019-01-13] MEDS ORDERED: PANTOPRAZOLE 40 MG/10 ML VIAL IVP ONE (09:30)
--- NOTE | 2019-01-13 09:42 | P.CRDCN ---
History of Present Illness History of present illness: This is a pleasant 58-year-old male past medical history significant for coronary artery disease s/p multiple stent placements, hypertension, ischemic cardiomyopathy, chronic systolic heart failure, GERD and non- compliance. He sees Dr. Espinoza in the office. We have been asked to see him in consultation for chest pain. Most recently he suffered a non-ST elevated myocardial infarction December 2017. That catheterization revealed the RCA chronically occluded in the mid-portion with left to right collaterals, left main calcified but free of significant stenosis, LAD previously stented from the proximal to midportion. In the mid LAD there is in-stent restenosis approximately 70-80%, circumflex artery free of significant stenosis with a patent stent. At that time he underwent successful stent placement of the previously stented area of the LAD with 2 stents. Last evening while at home he started having an intense tightness sensation in the midsternal region felt like somebody was sitting on his chest. The pain was a 10 out of 10. There is no radiation to the arm, back, neck or jaw. His pain was associated with nausea and vomiting. He states initially when the pain started he took an aspirin and waited about 5 minutes. When the pain did not improve he took a sublingual nitroglycerin. Immediately upon placing the nitro and his mouth is when he became nauseated and vomited up the nitro. He waited a couple more minutes and then took a second nitro. When that did not help his pain he came to the emergency department. All in all his pain lasted approximately 40 minutes. Upon arrival to the emergency department he was continuing to have ongoing chest discomfort and was again given nitroglycerin which did seem to help his pain. Seen and examined resting comfortably in bed in no acute distress. After his pain subsided in the emergency department and has not returned. He is no longer nauseated. EKG reveals sinus mechanism heart rate is [address] depression noted in the inferior lateral leads. This is a change from previous EKGs. Chest x-ray is negative for an acute cardiopulmonary process. CTA chest reveals no evidence of pleural effusion or pneumothorax, no pulmonary embolism, mild cardiomegaly, no paracardial effusion and coronary stents and calcifications noted. Laboratory data reviewed, WBC 4.8, hemoglobin 11.3, platelets 225, d-dimer 0.97, sodium 142, potassium 4.3, creatinine 1.07 with a GFR 77, magnesium 2.2, initial troponin was negative second is 0.96, third is 1.63, and T proBNP 1670, LDL 141, HDL 33 and total cholesterol 200. Current medication profile reveals Plavix 75 mg daily, lisinopril 10 mg daily, atorvastatin 80 mg daily and aspirin 81 mg daily. However the patient states he has been out of all prescription medications not take anything other than some of his girlfriends medications. At the time of my exam: CONSTITUTIONAL: Denies fever. Denies chills. EYES: Denies blurred vision. Denies vision changes. Denies eye pain. EARS, NOSE, MOUTH & THROAT: Denies headache. Denies sore throat. Denies ear pain. CARDIOVASCULAR: Denies chest pain. Denies shortness of breath. Denies orthopnea. Denies PND. Denies palpitations. RESPIRATORY: Denies cough. GASTROINTESTINAL: Denies abdominal pain. Denies diarrhea. Denies constipation. Denies nausea. Denies vomiting. MUSCULOSKELETAL: Denies myalgias. INTEGUMENTARY: Denies pruitis. Denies rash. NEUROLOGIC: Denies numbness. Denies tingling. Denies weakness. PSYCHIATRIC: Denies anxiety. Denies depression. ENDOCRINE: Denies fatigue. Denies weight change. Denies polydipsia. Denies polyurina. GENITOURINARY: Denies burning, hematuria or urgency with micturation. HEMATOLOGIC: Denies history of anemia. Denies bleeding. Blood pressure 124/76 heart rate 73 afebrile maintaining oxygen saturation on room air GENERAL: This is a 58-year-old male in no apparent distress at the time of my examination. HEENT: Head is atraumatic, normocephalic. Pupils are equal, round. Sclerae anicteric. Conjunctivae are clear. Mucous membranes of the mouth are moist. Neck is supple. There is no jugular venous distention. No carotid bruit is heard. LUNGS: Clear to auscultation no wheezes, rales or rhonchi. No chest wall tenderness is noted on palpation or with deep breathing. HEART: Regular rate and rhythm without murmurs, rubs or gallops. S1 and S2 heard. ABDOMEN: Soft, nontender. Bowel sounds are heard. No organomegaly noted. EXTREMITIES: No evidence of peripheral edema and no calf tenderness noted. VASCULAR: Radial and dorsalis pedis pulses palpated, no evidence of clubbing. NEUROLOGIC: Patient is awake, alert and oriented x3. ASSESSMENT Non-ST elevated myocardial infarction Unstable angina History of coronary artery disease Hypertension Dyslipidemia Ischemic cardiomyopathy Chronic systolic heart failure, currently euvolemic History of noncompliance PLAN Obtain 2-D echocardiogram and Doppler study to assess cardiac structure and function. Perform cardiac catheterization to assess level of obstructive coronary artery disease. I have discussed the risks, benefits and alternative therapies for the above-mentioned procedure and for both sedation/analgesia as well as necessary blood product administration, if indicated, as they pertain to this patient. The patient has indicated understanding and acceptance of the risks and procedures discussed. Questions have been answered appropriately and he is agreeable to move forward with the above stated procedure. Initiate on Lopressor 50 mg twice a day. Continue aspirin, Plavix, atorvastatin, lisinopril and heparin infusion. Further recommendations to follow based upon clinical course. Thank you kindly for this consultation. Nurse Practitioner note has been reviewed, I agree with a documented findings and plan of care. Patient was seen and examined. Past Medical History Past Medical History: Heart Failure, GERD/Reflux, Hypertension, Myocardial Infarction (MA), Osteoarthritis (OA), Pneumonia Additional Past Medical History / Comment(s): Coronary artery disease, previous myocardial infarction, previous coronary intervention and stenting, congestion heart failure with an ejection fraction of 35-40%, moderate global hypokinesis, mild concentric LVH, moderate degree of mitral regurgitation, peripheral neuropathy, hypertension, osteoarthritis Last Myocardial Infarction Date:: unk History of Any Multi-Drug Resistant Organisms: None Reported Past Surgical History: Heart Catheterization With Stent Additional Past Surgical History / Comment(s): HEART CATH WITH STENTS X8 Past Anesthesia/Blood Transfusion Reactions: No Reported Reaction Date of Last Stent Placement:: 2017 Past Psychological History: Anxiety, Panic Disorder Smoking Status: Former smoker Past Alcohol Use History: None Reported Past Drug Use History: None Reported - Past Family History Father Additional Family Medical History / Comment(s): tumor in stomach Mother Family Medical History: CVA/TIA Medications and Allergies Home Medications Medication Instructions Recorded Confirmed Type Aspirin 81 mg PO DAILY #30 chew 01/15/18 01/12/19 Rx Nitroglycerin Sl Tabs [Nitrostat] 0.4 mg SUBLINGUAL Q5M PRN #100 tab 01/15/18 01/12/19 Rx Atorvastatin [Lipitor] 80 mg PO HS 01/12/19 01/12/19 History Clopidogrel [Plavix] 75 mg PO HS 01/12/19 01/12/19 History Ibuprofen [Motrin Ib] 600 mg PO Q6H PRN 01/12/19 01/12/19 History Lisinopril [Zestril] 10 mg PO HS 01/12/19 01/12/19 History Ranitidine HCl [Zantac] 150 mg PO TID 01/12/19 01/12/19 History Allergies Allergy/AdvReac Type Severity Reaction Status Date / Time codeine Allergy Anaphylaxis Verified 01/12/19 22:50 Physical Exam Vitals: Vital Signs Temp Pulse Pulse Pulse Resp BP BP 01/13/19 04:00 98.2 F 88 16 148/89 01/13/19 03:23 16 01/12/19 23:16 16 01/12/19 23:10 98.2 F 78 16 184/95 01/12/19 22:11 97.9 F 82 18 151/94 01/12/19 21:05 88 18 156/102 01/12/19 19:10 98 18 144/96 01/12/19 18:58 82 01/12/19 18:17 98.4 F 95 22 190/107 Pulse Ox 01/13/19 04:00 97 01/13/19 03:23 01/12/19 23:16 01/12/19 23:10 100 01/12/19 22:11 98 01/12/19 21:05 98 01/12/19 19:10 93 L 01/12/19 18:58 01/12/19 18:17 99 Intake and Output 01/12/19 01/13/19 01/13/19 22:59 06:59 14:59 Other: Voiding Method Toilet # Voids 1 Weight 90.718 kg Results 01/13/19 07:26 01/13/19 07:26 Cardiac Enzymes 01/12/19 01/12/19 01/13/19 Range/Units 18:50 18:50 01:06 AST 21 (17-59) U/L Troponin I 0.014 0.960 H* (0.000-0.034) ng/mL Coagulation 01/12/19 Range/Units 18:50 PT 10.3 (9.0-12.0) sec APTT 24.8 (22.0-30.0) sec CBC 01/12/19 Range/Units 18:50 WBC 5.9 (3.8-10.6) k/uL RBC 4.70 (4.30-5.90) m/uL Hgb 12.9 L (13.0-17.5) gm/dL Hct 39.9 (39.0-53.0) % Plt Count 280 (150-450) k/uL Comprehensive Metabolic Panel 01/12/19 Range/Units 18:50 Sodium 144 (137-145) mmol/L Potassium 3.7 (3.5-5.1) mmol/L Chloride 108 H (98-107) mmol/L Carbon Dioxide 23 (22-30) mmol/L BUN 17 (9-20) mg/dL Creatinine 1.24 (0.66-1.25) mg/dL Glucose 113 H (74-99) mg/dL Calcium 9.6 (8.4-10.2) mg/dL AST 21 (17-59) U/L ALT 14 L (21-72) U/L Alkaline Phosphatase 102 (38-126) U/L Total Protein 8.0 (6.3-8.2) g/dL Albumin 4.6 (3.5-5.0) g/dL Current Medications Generic Name Dose Route Start Last Admin Trade Name Freq PRN Reason Stop Dose Admin Acetaminophen 650 mg 01/13/19 00:27 Tylenol Tab PO Q4HR PRN Pain Albuterol/Ipratropium 3 ml 01/13/19 00:16 Duoneb 0.5 Mg-3 Mg/3 Ml Soln INHALATION RT-QID PRN Shortness Of Breath Or Wheezing Alprazolam 1 mg 01/13/19 00:16 Xanax PO TID PRN Anxiety Aspirin 325 mg 01/13/19 09:00 Aspirin PO DAILY EVETTE Atorvastatin Calcium 80 mg 01/13/19 00:15 01/13/19 01:10 Lipitor PO 80 mg HS EVETTE Administration Clopidogrel Bisulfate 75 mg 01/13/19 00:30 01/13/19 01:10 Plavix PO 75 mg HS EVETTE Administration Heparin Sodium (Porcine) 0 unit 01/13/19 00:27 Heparin IV Q6HR PRN Low PTT Protocol Heparin Sodium/Sodium Chloride 250 mls @ 10 mls/hr 01/13/19 01:00 01/13/19 01:36 25,000 unit/ Sodium Chloride IV 1,000 unit/hr .Q24H EVETTE 10 mls/hr Administration Protocol Lisinopril 10 mg 01/13/19 21:00 Zestril PO HS EVETTE Nitroglycerin 1 inch 01/13/19 00:00 01/13/19 05:10 Nitro-Bid Oint TOPICAL Not Given Q6HR [facility] Nitroglycerin 0.4 mg 01/12/19 21:10 Nitrostat SUBLINGUAL Q5M PRN Chest Pain Sodium Chloride 10 ml 01/13/19 09:00 Saline Flush IV BID [facility] Intake and Output 01/12/19 01/13/19 01/13/19 22:59 06:59 14:59 Other: Voiding Method Toilet # Voids 1 Weight 90.718 kg 01/12/19 18:50 01/12/19 18:50
[2019-01-13] MEDS: ACETAMINOPHEN TAB 325 MG TAB PO PRN ×2 (12:48→18:24)
[2019-01-13] MEDS ORDERED: SODIUM CHLORIDE 0.9% 500 ML 500 ML IV ONE (14:10)
[2019-01-13] MEDS ORDERED: LIDOCAINE 1% INJ 10MG/ML (20 ML MDV) SQ ONE (14:17)
[2019-01-13] MEDS: MIDAZOLAM (PF) 2 MG/2 ML VIAL IV ONE ×2 (14:19→14:25)
[2019-01-13] MEDS ORDERED: fentaNYL (PF) 50 MCG/ML 2 ML AMP IV ONE (14:19)
[2019-01-13] MEDS ORDERED: IOPAMIDOL-370 100ML BTL INJ ONE (14:36)
[2019-01-13] MEDS ORDERED: RX INFO: IV CONTRAST WAS GIVEN 1 EACH MISC MISCELLANE PRN (14:37)
[2019-01-13] MEDS ORDERED: MD COMMUNICATION TO PHARMACY 1 EACH MISC PO ONE (16:04)
--- NOTE | 2019-01-13 17:35 | P.GSCN ---
<Ayo Miller - Last Filed: 01/13/19 17:24> History of Present Illness Consult date: 01/13/19 Reason for Consult: Coronary artery disease, recommendations on myocardial revascularization. Requesting physician: Braulio Espinoza History of present illness: This is a 58-year-old gentleman who does not follow with a primary care physician on a regular basis. He is a past medical history significant for coronary artery disease with previous stent placements to his left anterior descending coronary artery in 2004, 2006 and 2017, history of stent placement to his circumflex coronary artery in 2010, history of non-ST elevated myocardial infarction, remote history of nicotine dependence quit 1 year ago, hypertension, hyperlipidemia, ischemic cardiomyopathy, chronic systolic heart failure, gastroesophageal reflux disease, anxiety and noncompliance. Yesterday evening 01/12/2019 the patient developed some progressive shortness of breath, c omplaints of chest tightness, numbness to his left arm, lightheadedness and diaphoresis. The patient also reports that he did have some episodes of nausea and vomiting after taking a sublingual nitroglycerin. He denied any complaints of fever, chills, syncope or palpitations. While the patient was having these above-mentioned symptoms his sister was visiting and convinced the patient to come to the emergency department here at [facility]. While in the emergency department a 12-lead EKG was completed which showed some ST depression noted to his inferior leads with a heart rate of 97 BPM. A chest x- ray was also completed which did not demonstrate any acute pulmonary process. For further evaluation and a CTA of his chest was completed which was negative for pulmonary embolism but did show some mild cardiomegaly. The patient did have some elevated troponins as high as 1.630. Due to the patient's history of coronary artery disease, presenting symptoms and elevation in his troponins he was seen and examined by Dr. Espinoza from [facility]. A heart catheter ization was completed today which demonstrated a 90% stenosis to his proximal left anterior descending coronary artery, and a 60% stenosis to his circumflex coronary artery. After the cardiac catheterization was completed a consult was placed to Dr. Jose Hope from cardiothoracic surgery for further evaluation and recommendations regarding possible myocardial revascularization surgery. Review of Systems A 14 point review of systems was completed was negative except as mentioned in the HPI. Past Medical History Past Medical History: Coronary Artery Disease (CAD), Chest Pain / Angina, Heart Failure, GERD/Reflux, Hypertension, Myocardial Infarction ([place]), Osteoarthritis (OA), Pneumonia Additional Past Medical History / Comment(s): Coronary artery disease, previous myocardial infarction, previous coronary intervention and stenting to his left anterior descending coronary artery in 2004, 2006 and 2017, and to his circumflex coronary artery in 2010, chronic systolic congestion heart failure with an ejection fraction of 35-40%, moderate global hypokinesis, mild concentric LVH, moderate degree of mitral regurgitation, peripheral neuropathy, hypertension, osteoarthritis Last Myocardial Infarction Date:: unk History of Any Multi-Drug Resistant Organisms: None Reported Past Surgical History: Heart Catheterization With Stent Additional Past Surgical History / Comment(s): HEART CATH WITH STENTS X8 Past Anesthesia/Blood Transfusion Reactions: No Reported Reaction Date of Last Stent Placement:: 2017 Past Psychological History: Anxiety, Panic Disorder Smoking Status: Former smoker (Quit smoking over a year ago.) Past Alcohol Use History: None Reported Past Drug Use History: None Reported - Past Family History Father Family Medical History: Cancer Additional Family Medical History / Comment(s): Lymphoma Mother Family Medical History: Pulmonary Embolus Medications and Allergies Home Medications Medication Instructions Recorded Confirmed Type Aspirin 81 mg PO DAILY #30 chew 01/15/18 01/12/19 Rx Nitroglycerin Sl Tabs [Nitrostat] 0.4 mg SUBLINGUAL Q5M PRN #100 tab 01/15/18 0 01/12/19 Rx Atorvastatin [Lipitor] 80 mg PO HS 01/12/19 01/12/19 History Clopidogrel [Plavix] 75 mg PO HS 01/12/19 01/12/19 History Ibuprofen [Motrin Ib] 600 mg PO Q6H PRN 01/12/19 01/12/19 History Lisinopril [Zestril] 10 mg PO HS 01/12/19 01/12/19 History Ranitidine HCl [Zantac] 150 mg PO TID 01/12/19 01/12/19 History Allergies Allergy/AdvReac Type Severity Reaction Status Date / Time codeine Allergy Anaphylaxis Verified 01/12/19 22:50 Surgical - Exam Vital Signs Temp Pulse Resp BP Pulse Ox 98.4 F 95 22 190/107 99 01/12/19 18:17 01/12/19 18:17 01/12/19 18:17 01/12/19 18:17 01/12/19 18:17 - General well developed, well nourished, no distress, no pain - Eyes PERRL, normal ocular movement - ENT normal pinna, normal nares, normal mucosa, no hearing loss, no congestion, poor penitent[facility], dentures (upper plate) - Neck No lymphadenopathy, neck is supple. no masses, no bruits, trachea midline, no venous distension - Respiratory Lungs are essentially clear throughout. Respirations are symmetrical and nonlabored. - Cardiovascular Regular rhythm and rate. S1 and S2 present, negative for S3, gallop or murmur. No edema present. - Abdomen Abdomen is soft, nontender and nondistended. Active bowel sounds all 4 abdominal quadrants. No guarding or rigidity. No organomegaly. - Genitourinary Deferred - Rectum Deferred - Integumentary no rash, no growths, no abnormal pigmentation - Neurologic normal coordination, normal sensation - Musculoskeletal normal gait, normal posture - Psychiatric oriented to time, oriented to person, oriented to place, speech is normal, memory intact Results - Labs 01/13/19 07:26 01/13/19 07:26 Abnormal Lab Results - Last 24 Hours (Table) 01/12/19 01/12/19 01/12/19 Range/Units 18:50 18:50 18:50 RBC (4.30-5.90) m/uL Hgb 12.9 L (13.0-17.5) gm/dL Hct (39.0-53.0) % APTT (22.0-30.0) sec D-Dimer 0.97 H (<0.60) mg/L FEU Chloride 108 H (98-107) mmol/L Glucose 113 H (74-99) mg/dL ALT 14 L (21-72) U/L Troponin I (0.000-0.034) ng/mL Cholesterol (<200) mg/dL LDL Cholesterol, Calc (0-99) mg/dL HDL Cholesterol (40-60) mg/dL 01/13/19 01/13/19 01/13/19 Range/Units 01:06 07:26 07:26 RBC (4.30-5.90) m/uL Hgb (13.0-17.5) gm/dL Hct (39.0-53.0) % APTT (22.0-30.0) sec D-Dimer (<0.60) mg/L FEU Chloride 110 H (98-107) mmol/L Glucose 105 H (74-99) mg/dL ALT (21-72) U/L Troponin I 0.960 H* 1.630 H* (0.000-0.034) ng/mL Cholesterol 200 H (<200) mg/dL LDL Cholesterol, Calc 141 H (0-99) mg/dL HDL Cholesterol 33 L (40-60) mg/dL 01/13/19 01/13/19 Range/Units 07:26 07:26 RBC 4.05 L (4.30-5.90) m/uL Hgb 11.3 L (13.0-17.5) gm/dL Hct 35.0 L (39.0-53.0) % APTT 38.8 H (22.0-30.0) sec D-Dimer (<0.60) mg/L FEU Chloride (98-107) mmol/L Glucose (74-99) mg/dL ALT (21-72) U/L Troponin I (0.000-0.034) ng/mL Cholesterol (<200) mg/dL LDL Cholesterol, Calc (0-99) mg/dL HDL Cholesterol (40-60) mg/dL Diabetes panel 01/12/19 01/13/19 Range/Units 18:50 07:26 Sodium 144 142 (137-145) mmol/L Potassium 3.7 4.3 (3.5-5.1) mmol/L Chloride 108 H 110 H (98-107) mmol/L Carbon Dioxide 23 25 (22-30) mmol/L BUN 17 17 (9-20) mg/dL Creatinine 1.24 1.07 (0.66-1.25) mg/dL Glucose 113 H 105 H (74-99) mg/dL Calcium 9.6 8.6 (8.4-10.2) mg/dL AST 21 (17-59) U/L ALT 14 L (21-72) U/L Alkaline Phosphatase 102 (38-126) U/L Total Protein 8.0 (6.3-8.2) g/dL Albumin 4.6 (3.5-5.0) g/dL Triglycerides 131 (<150) mg/dL HDL Cholesterol 33 L (40-60) mg/dL Calcium panel 01/12/19 01/13/19 Range/Units 18:50 07:26 Calcium 9.6 8.6 (8.4-10.2) mg/dL Albumin 4.6 (3.5-5.0) g/dL Pituitary panel 01/12/19 01/13/19 Range/Units 18:50 07:26 Sodium 144 142 (137-145) mmol/L Potassium 3.7 4.3 (3.5-5.1) mmol/L Chloride 108 H 110 H (98-107) mmol/L Carbon Dioxide 23 25 (22-30) mmol/L BUN 17 17 (9-20) mg/dL Creatinine 1.24 1.07 (0.66-1.25) mg/dL Glucose 113 H 105 H (74-99) mg/dL Calcium 9.6 8.6 (8.4-10.2) mg/dL Adrenal panel 01/12/19 01/13/19 Range/Units 18:50 07:26 Sodium 144 142 (137-145) mmol/L Potassium 3.7 4.3 (3.5-5.1) mmol/L Chloride 108 H 110 H (98-107) mmol/L Carbon Dioxide 23 25 (22-30) mmol/L BUN 17 17 (9-20) mg/dL Creatinine 1.24 1.07 (0.66-1.25) mg/dL Glucose 113 H 105 H (74-99) mg/dL Calcium 9.6 8.6 (8.4-10.2) mg/dL Total Bilirubin 0.6 (0.2-1.3) mg/dL AST 21 (17-59) U/L ALT 14 L (21-72) U/L Alkaline Phosphatase 102 (38-126) U/L Total Protein 8.0 (6.3-8.2) g/dL Albumin 4.6 (3.5-5.0) g/dL - Imaging Chest x-ray: report reviewed, image reviewed CT scan - chest: report reviewed, image reviewed EKG: image reviewed Additional studies: Heart catheterization results reviewed. Heart catheterization films were reviewed by Dr. Jose Hope. Assessment and Plan Assessment: 1. Coronary artery disease 2. Non-ST elevated myocardial infarction this admission 3. Hyperlipidemia 4. Hypertension 5. Compensated systolic congestive heart failure 6. GERD 7. Anxiety Plan: The patient was seen and examined in the extended stay unit. His chart and diagnostics were reviewed. The patient was seen and examined by Dr. Jose Hope, the patient's cardiac catheterization results were discussed with the patient. Preoperative testing and preoperative teaching has been initiated. Continue to optimize with medical management, continue aspirin, beta jewels, CHAN inhibitor and statin. Continue to hold Plavix. Once his preoperative te aching has has been completed a STS risk score will be calculated and discussed with the patient. A 5 m walk test will be completed once the patient is off bed rest. The importance of continued smoking cessation has been discussed with the patient. Heparin drip management per cardiology service. Once all of this preoperative testing has been collected, risks and benefits of myocardial revascularization surgery will be discussed with the patient and he will be scheduled for an urgent myocardial revascularization surgery. More recommendations to follow based on patient's clinical course. Thank you Dr. Espinoza for this consult and we will look forward to working with you in the care of your patient. Time with Patient: Greater than 30 <Jose Hope R - Last Filed: 01/15/19 12:53> Surgical - Exam Vital Signs Temp Pulse Resp BP Pulse Ox 98.4 F 95 22 190/107 99 01/12/19 18:17 01/12/19 18:17 01/12/19 18:17 01/12/19 18:17 01/12/19 18:17 Results - Labs 01/15/19 06:32 01/15/19 06:32 Abnormal Lab Results - Last 24 Hours (Table) 01/15/19 01/15/19 Range/Units 06:32 06:32 RBC 4.05 L (4.30-5.90) m/uL Hgb 11.1 L (13.0-17.5) gm/dL Hct 35.6 L (39.0-53.0) % Creatinine 1.26 H (0.66-1.25) mg/dL Glucose 105 H (74-99) mg/dL Microbiology - Last 24 Hours (Table) 01/13/19 17:37 Urine Culture - Final Urine,Voided 01/14/19 15:00 Nasal Screen MRSA/MSSA - Preliminary Nasal Swab Diabetes panel 01/15/19 Range/Units 06:32 Sodium 142 (137-145) mmol/L Potassium 4.3 (3.5-5.1) mmol/L Chloride 107 (98-107) mmol/L Carbon Dioxide 28 (22-30) mmol/L BUN 20 (9-20) mg/dL Creatinine 1.26 H (0.66-1.25) mg/dL Glucose 105 H (74-99) mg/dL Calcium 9.1 (8.4-10.2) mg/dL Calcium panel 01/15/19 Range/Units 06:32 Calcium 9.1 (8.4-10.2) mg/dL Pituitary panel 01/15/19 Range/Units 06:32 Sodium 142 (137-145) mmol/L Potassium 4.3 (3.5-5.1) mmol/L Chloride 107 (98-107) mmol/L Carbon Dioxide 28 (22-30) mmol/L BUN 20 (9-20) mg/dL Creatinine 1.26 H (0.66-1.25) mg/dL Glucose 105 H (74-99) mg/dL Calcium 9.1 (8.4-10.2) mg/dL Adrenal panel 01/15/19 Range/Units 06:32 Sodium 142 (137-145) mmol/L Potassium 4.3 (3.5-5.1) mmol/L Chloride 107 (98-107) mmol/L Carbon Dioxide 28 (22-30) mmol/L BUN 20 (9-20) mg/dL Creatinine 1.26 H (0.66-1.25) mg/dL Glucose 105 H (74-99) mg/dL Calcium 9.1 (8.4-10.2) mg/dL Assessment and Plan Assessment: Three vessel CAD with nonSTEMI. Echo w mod to sever MR. Await CORDELL. Plan CABG/MV repair Wednesday 01/[address] Hodges. D/W patient and Dr Espinoza.
[2019-01-13 17:53] LABS: Hemoglobin A1C 5.9 % (4.0-6.0)
--- NOTE | 2019-01-13 17:53 | US ---
EXAMINATION TYPE: US carotid duplex BILAT DATE OF EXAM: 01/13/2019 COMPARISON: NONE CLINICAL HISTORY: Pre-Op Cardiac Surgery. EXAM MEASUREMENTS: RIGHT: Peak Systolic Velocity (PSV) cm/sec ----- Right CCA: 81.2 ----- Right ICA: 97.7 ----- Right ECA: 90.0 ICA/CCA ratio: 1.2 RIGHT: End Diastole cm/sec ----- Right CCA: 29.6 ----- Right ICA: 46.1 ----- Right ECA: 20.8 LEFT: Peak Systolic Velocity (PSV) cm/sec ----- Left CCA: 100.4 ----- Left ICA: 165.4 ----- Left ECA: 124.2 ICA/CCA ratio: 1.6 LEFT: End Diastole cm/sec ----- Left CCA: 34.2 ----- Left ICA: 45.1 ----- Left ECA: 22.5 VERTEBRALS (direction of flow): Right Vertebral: Antegrade Left Vertebral: Antegrade Rhythm: Normal No significant stenosis seen. Mildly elevated velocities left ICA. Bilateral plaque noted. IMPRESSION: There is bilateral plaque formation. Measurements suggest 50-70% stenosis in the left in ternal carotid artery. There is antegrade flow in the vertebral arteries. There is close to 50% steno sis right internal carotid artery. Criteria for Assigning % of Stenosis / Diameter reduction (Estimation based on the indirect measurements of the internal carotid artery velocities (ICA PSV). 1. Normal (no stenosis)=ICA PSV < 125 cm/s: ratio < 2.0: ICA EDV<40 cm/s. 2. Less than 50% stenosis=ICA PSV < 125 cm/s: ratio < 2.0: ICA EDV<40 cm/s. 3. 50 to 69% stenosis=ICA PSV of 125 to 230 cm/s: ration 2.0 ? 4.0: ICA EDV 40-100 cm/s. 4. Greater than 70% stenosis to near occlusion= ICA PSV > 230 cm/s: ratio > 4.0: ICA EDV > 100 cm/s. 5. Near occlusion= ICA PSV velocities may be low or undetectable: variable ratio and ICA EDV. 6. Total occlusion=unable to detect flow.
[2019-01-13 17:57] LABS: Appearance,Urine Clear (Clear); Bilirubin,Urine Negative (Negative); Blood,Urine Negative (Negative); Color,Urine Colorless; Glucose,Urine (UA) Negative (Negative); Ketones,Urine Negative (Negative); Leukocyte Esterase,Urine Negative (Negative); Nitrite,Urine Negative (Negative); PH, Urine 6.5 (5.0-8.0); Protein,Urine Negative (Negative); Urobilinogen,Urine <2.0 mg/dL (<2.0)
[2019-01-13] MEDS: MUPIROCIN 2% OINT 22 GM TUBE NASAL SCH (19:56)
[2019-01-13] MEDS: LISINOPRIL 10 MG TAB PO SCH (19:56)
--- NOTE | 2019-01-13 20:26 | CC ---
CARDIAC CATHETERIZATION REPORT Deborah is a 58-year-old gentleman with history of coronary artery disease, status post prior multivessel angioplasty, who presented to hospital with chest pain and ruled in for myocardial infarction. He was advised to undergo cardiac catheterization for further evaluation. He had been explained of risks, benefits and alternatives. Understood and accepted. PROCEDURE NOTE: After obtaining informed consent, left heart catheterization and coronary angiogram are performed via the right femoral artery using standard Suzie catheters. The femoral sheath kinked on itself after the left coronary were injected hence we had to take the sheath out and I did not engage the right coronary artery or obtain pressures. We know that the patient has a chronically occluded proximal LAD with extensive [id number] collaterals. FINDINGS: HEMODYNAMICS: Central aortic pressure is 150/60 mm. ANGIOGRAPHIC DATA: LEFT MAIN CORONARY ARTERY: Left main coronary artery is a normal-sized vessel and is free of stenosis. Divides into left anterior descending coronary artery and circumflex coronary artery. CIRCUMFLEX CORONARY ARTERY: Circumflex coronary artery shows a proximal area of 70-80 percent stenosis. LEFT ANTERIOR DESCENDING CORONARY ARTERY: LAD was previously stented. There is a long segment of in-stent restenosis and proximal to the stent, there is a focal 90% stenosis noted. It gives off a large caliber diagonal branch and the diagonal branch has ostial lesion noted. CONCLUSIONS: Three-vessel coronary artery disease with extensive [id number] collaterals to the distal RCA. There is an 80%-90% stenosis involving proximal circumflex coronary artery and a 90% stenosis involving proximal LAD. I advised the patient to undergo bypass surgery. I am going to consult the surgeon, Dr. Hope. MMSTEVENL / GAYLAN: [id number] /
[2019-01-13] MEDS: FAMOTIDINE 20 MG TAB PO SCH (22:55)
[2019-01-14] MEDS: PANTOPRAZOLE 40 MG TABLET PO SCH (06:22)
[2019-01-14] MEDS: NITROGLYCERIN OINT 1 INCH/GM PACKET TOPICAL SCH ×5 (06:22→23:21)
[2019-01-14 07:18] LABS: Basophils % (A) 1 %; Eosinophils # (A) 0.3 k/uL (0-0.7); Eosinophils % (A) 6 %; HCT 34.1 % (39.0-53.0); HGB 11.1 gm/dL (13.0-17.5); Lymphocytes # (A) 1.5 k/uL (1.0-4.8); Lymphocytes % (A) 30 %; MCH 28.1 pg (25.0-35.0); MCHC 32.6 g/dL (31.0-37.0); Monocytes # (A) 0.3 k/uL (0-1.0); Monocytes % (A) 6 %; Neutrophils # (A) 2.7 k/uL (1.3-7.7); Neutrophils % (A) 53 %; Platelet Count 232 k/uL (150-450); RBC 3.97 m/uL (4.30-5.90); RDW 14.9 % (11.5-15.5); WBC 5.1 k/uL (3.8-10.6)
[2019-01-14 07:30] LABS: Albumin 3.6 g/dL (3.5-5.0); Calcium 8.8 mg/dL (8.4-10.2); Magnesium 2.1 mg/dL (1.6-2.3); Potassium 4.6 mmol/L (3.5-5.1); Total Bilirubin 0.4 mg/dL (0.2-1.3); Total Protein 6.6 g/dL (6.3-8.2)
[2019-01-14] MEDS ORDERED: MD COMMUNICATION TO PHARMACY 1 EACH MISC PO ONE (08:10)
[2019-01-14] MEDS: FAMOTIDINE 20 MG TAB PO SCH (10:10)
[2019-01-14] MEDS: ASPIRIN 81 MG PO SCH (10:10)
[2019-01-14] MEDS: METOPROLOL TARTRATE 50 MG TAB PO SCH ×2 (10:10→20:33)
[2019-01-14] MEDS: MUPIROCIN 2% OINT 22 GM TUBE NASAL SCH ×2 (10:12→20:33)
--- NOTE | 2019-01-14 12:03 | P.PN ---
Subjective Progress Note Date: 01/14/19 Principal diagnosis: Triple-vessel coronary artery disease with extensive left to right collaterals to the distal right coronary artery, past medical history significant for petersen ry artery disease with previous stent placement to his left anterior descending coronary artery in 2004, 2006 and 2017, history of stent placement to a circumflex coronary artery in 2010, non-ST elevated myocardial infarction this admission, remote history of nicotine dependence quit 1 year ago, hypertension, hyperlipidemia, ischemic cardiomyopathy, chronic systolic heart failure, gastroesophageal reflux disease, anxiety and noncompliance. This is a 58-year-old gentleman who does not follow with a primary care physician on a regular basis. He is a past medical history significant for coronary artery disease with previous stent placements to his left anterior descending coronary artery in 2004, 2006 and 2017, history of stent placement to his circumflex coronary artery in 2010, history of non-ST elevated myocardial infarction, remote history of nicotine dependence quit 1 year ago, hypertension, hyperlipidemia, ischemic cardiomyopathy, chronic systolic heart failure, gastroesophageal reflux disease, anxiety and noncompliance. Yesterday evening 01/12/2019 the patient developed some progressive shortness of breath, complaints of chest tightness, numbness to his left arm, lightheadedness and diaphoresis. The patient also reports that he did have some episodes of nausea and vomiting after taking a sublingual nitroglycerin. He denied any complaints of fever, chills, syncope or palpitations. While the patient was having these above-mentioned symptoms his sister was visiting and convinced the patient to come to the emergency department here at [facility]. While in the emergency department a 12-lead EKG was completed which showed some ST depression noted to his inferior leads with a heart rate of 97 BPM. A chest x- ray was also completed which did not demonstrate any acute pulmonary process. For further evaluation and a CTA of his chest was completed which was negative for pulmonary embolism but did show some mild cardiomegaly. The patient did have some elevated troponins as high as 1.630. Due to the patient's history of coronary artery disease, presenting symptoms and elevation in his troponins he was seen and examined by Dr. Espinoza from [facility]ology associates. A heart catheterization was completed today which demonstrated a 90% stenosis to his proximal left anterior descending coronary artery, an 80-90% stenosis to his circumflex coronary artery and extensive [id number] collaterals to the distal right coronary artery. Patient is currently sitting up to the bedside edge. He is in no acute distress. Denies any further complaints of shortness of breath or chest pressure. He is in no acute distress. Preoperative teaching has been discussed with the patient and his questions were answered to the best of my ability. He is currently scheduled for myocardial revascularization surgery on 01/17/2019 to be performed by Dr. Bert Hodges. The patient is very anxious in regards to undergoing the surgery but wishes to proceed with myocardial vascularization surgery. Oxygen saturation are 96% on room air and he is achieving 3000 mL on his incentive spirometry. Objective - Vital Signs Vital signs: Vital Signs Temp 98.4 F 01/14/19 08:00 Pulse 78 01/14/19 08:00 Resp 18 01/14/19 08:00 BP 116/68 01/14/19 08:00 Pulse Ox 95 01/14/19 08:00 Intake & Output 01/13/19 01/14/19 01/14/19 18:59 06:59 18:59 Intake Total 265 480 Balance 265 480 Weight 95.8 kg Intake: IV 240 Sodium Chloride 0.9% 1, 100 000 ml @ 100 mls/hr IV . Q10H STA Rx#:[id number] Oral 25 480 Other: Voiding Method Toilet Toilet Toilet # Voids 3 0 - Constitutional Constitutional Comment(s): Anxious General appearance: Present: cooperative, no acute distress, obese - Respiratory Details: Lung sounds essentially clear throughout. Respirations are symmetrical and nonlabored. Oxygen saturation is are 96% on room air. He is achieving 3000 mL on his incentive spirometry. Bedside FEV1 was completed and demonstrated a 61% of predicted value. - Cardiovascular Details: Regular rhythm and rate. S1 and S2 present, positive systolic murmur 2/6 heard best to his left sternal border. No edema present. Remote telemetry showing normal sinus rhythm heart rate 84. Knee-high sequential compression devices in place to his bilateral lower extremities. - Gastrointestinal Gastrointestinal Comment(s): Abdomen is soft, nontender and nondistended. Active bowel sounds all 4 abdominal quadrants. No guarding or rigidity. No organomegaly. - Genitourinary Genitourinary Comment(s): Voiding clear yellow urine. - Integumentary Integumentary Comment(s): Skin is warm and dry. No clubbing or cyanosis present. - Neurologic Neurologic: Present: CNII-XII intact - Musculoskeletal Musculoskeletal: Present: gait normal, strength equal bilaterally - Psychiatric Psychiatric: Present: A&O x's 3, appropriate affect, intact judgment & insight - Allied health notes Allied health notes reviewed: nursing - Labs CBC & Chem 7: 01/14/19 05:51 01/14/19 05:51 Labs: Abnormal Lab Results - Last 24 Hours (Table) 01/14/19 01/14/19 01/14/19 Range/Units 05:51 05:51 05:51 RBC 3.97 L (4.30-5.90) m/uL Hgb 11.1 L (13.0-17.5) gm/dL Hct 34.1 L (39.0-53.0) % Chloride 108 H (98-107) mmol/L Creatinine 1.27 H (0.66-1.25) mg/dL Glucose 107 H (74-99) mg/dL ALT 16 L (21-72) U/L Troponin I 0.584 H* (0.000-0.034) ng/mL Microbiology - Last 24 Hours (Table) 01/13/19 17:37 Urine Culture - Preliminary Urine,Voided - Imaging and Cardiology Carotid duplex results , vein mapping results and bedside spirometry FEV1 results reviewed. Assessment and Plan Assessment: 1. Coronary artery disease 2. Non-ST elevated myocardial infarction this admission 3. Hyperlipidemia 4. Hypertension 5. Compensated systolic congestive heart failure 6. GERD 7. Anxiety Plan: 1. Continue to optimize with medical management. Continue aspirin, beta jewels, statin and CHAN inhibitor. 2. Continue to hold Plavix. 3. 5 minute walk test completed with patient by service center supervisor. Time 1:2.00 seconds, time 2: 2.07 seconds, time 3:2.06 seconds. 4. Bedside FEV1 completed by respiratory therapist, shows 61% of predicted value. 5. Encourage use of incentive spirometry every hour while awake. 6. Patient has been scheduled for my cardiovascular is surgery with S[place], endoscopic vein harvest, possible endoscopic radial artery harvest an intraoperative transesophageal echocardiogram to be performed by Dr. Bert Hodges on 01/17/2019. 7. 2-D echocardiogram results pending. Once the 2-D echocardiogram results have been reported a STS risk score will be calculated and discussed with the patient. 8. Continue preoperative teaching. 9. Discussed the importance of continued smoking cessation. 10. More recommended patient is to follow based on patient's clinical course. Time with Patient: Greater than 30
[2019-01-14] MEDS: IPRATROPIUM-ALBUTEROL 3 ML NEB INHALATION PRN (13:08)
--- NOTE | 2019-01-14 13:33 | ECHOF ---
Referral Reason:cp MEASUREMENTS -------- HEIGHT: 182.9 cm WEIGHT: 90.7 kg BP: RVIDd: 2.9 cm (< 3.3) IVSd: 1.5 cm (0.6 - 1.1) LVIDd: 4.9 cm (3.9 - 5.3) LVPWd: 1.8 cm (0.6 - 1.1) IVSs: 1.9 cm LVIDs: 3.9 cm LVPWs: 2.1 cm LAESV Index (A-L): 31.87 ml/m Ao Diam: 2.6 cm (2.0 - 3.7) AV Cusp: 1.9 cm (1.5 - 2.6) LA Diam: 4.2 cm (2.7 - 3.8) EPSS: 0.7 cm MV E Malcom: 0.79 m/s MV DecT: 241 ms MV A Malcom: 0.63 m/s MV E/A Ratio: 1.26 RAP: 5.00 mmHg RVSP: 166.64 mmHg MV EF SLOPE: 82.48 mm/s (70 - 150) MV EXCURSION: 1.35 cm (> 18.000) FINDINGS -------- Sinus rhythm. This was a technically good study. The left ventricular size is normal. There is moderate concentric left ventricular hypertrophy. O verall left ventricular systolic function is mildly impaired with, an EF between 45 - 50 %. Mid inf erior LV wall motion is hypokinetic. Apical inferior LV wall motion is hypokinetic. The right ventricle is normal in size. Left atrium is mildly dilated by volume. The right atrial size is normal. Interatrial and interventricular septum intact. The aortic valve is trileaflet and appears structurally normal. [id number] mitral regurgitation is present. Mild tricuspid regurgitation present. There is no evidence of pulmonary hypertension. The right v entricular systolic pressure, as measured by Doppler, is 166.64mmHg. There is no pulmonic regurgitation present. The aortic root size is normal. The inferior vena cava was not well visualized. There is no pericardial effusion. CONCLUSIONS -------- 1. Sinus rhythm. 2. This was a technically good study. 3. The left ventricular size is normal. 4. There is moderate concentric left ventricular hypertrophy. 5. Overall left ventricular systolic function is mildly impaired with, an EF between 45 - 50 %. 6. Mid inferior LV wall motion is hypokinetic. 7. Apical inferior LV wall motion is hypokinetic. 8. The right ventricle is normal in size. 9. Left atrium is mildly dilated by volume. 10. The right atrial size is normal. 11. Interatrial and interventricular septum intact. 12. The aortic valve is trileaflet and appears structurally normal. 13. Tnzgzqnh-lj-[id number] mitral regurgitation is present. 14. Mild tricuspid regurgitation present. 15. There is no evidence of pulmonary hypertension. 16. The right ventricular systolic pressure, as measured by Doppler, is 166.64mmHg. 17. There is no pulmonic regurgitation present. 18. The aortic root size is normal. 19. The inferior vena cava was not well visualized. 20. There is no pericardial effusion. [employer]ELER OPERATOR: America Goodman RDCS
--- NOTE | 2019-01-14 13:56 | P.CNPUL ---
History of Present Illness Consult date: 01/14/19 Requesting physician: Dante Ortiz Reason for consult: dyspnea, chest pain Chief complaint: Chest pain, additional dyspnea, CAD, non-STEMI History of present illness: This is a 58-year-old white male patient with past medical history of coronary artery disease with history of PCI and multiple stent placements, hypertension, dyslipidemia, ischemic cardiomyopathy, chronic systolic heart failure, past history of nicotine dependence, currently in remission, but patient carries [id number] smoking history, quit 1 year ago. Currently has no primary care physician, but intends to follow with Dr. Sheehan. Patient presented to the hospital on 01/12/2019 for evaluation of severe chest pain in the midsternal region, that felt like pressure, with left arm pain and numbness. He states he has been having chest pain on and off for last several weeks, however on the day of presentation the pain was a lot worse, patient took aspirin and sublingual nitro with some relief with his symptoms. Patient was quite nauseous and did have an episode of vomiting. Was diaphoretic and short of breath. He felt like he was going to pass out. He took a second nitro, and his sister drove him to the hospital. In the hospital EKG revealed sinus rhythm with ST depression in the inferior and lateral leads, chest x-ray was negative, CTA chest showed no evidence of pulmonary embolism, no focal infiltrate, effusion or pneumothorax. Showed mild cardiomegaly. Initial troponin was negative, with the second troponin of 0.96, and the third troponin of 1.63, and proBNP was 1670, no leukocytosis, hemoglobin was 11.3, platelets were 225, d-dimer was 0.97, serum sodium was 142, potassium is 4.3, creatinine is 1.07. Patient ruled in for non- ST elevated myocardial infarction. He underwent cardiac catheterization on 01/13/[address] Espinoza which revealed three-vessel coronary artery disease with extensive [id number] collaterals to the distal RCA, 80-90% stenosis involving the proximal circumflex, and 90% stenosis involving the proximal LAD, echocardiogram was completed showing EF of 45-50%, apical kinesis of the inferior, apical inferior wall, normal aortic valve, moderate to severe mitral regurgitation was present, with mild tricuspid regurg, and no evidence of pulmonary hypertension. Patient was referred to cardiothoracic surgery and myocardial revascularization was recommended. Review of Systems All systems: negative Constitutional: Denies chills, Denies fever Eyes: denies blurred vision, denies pain Ears, nose, mouth and throat: Denies headache, Denies sore throat Cardiovascular: Reports chest pain, Reports dyspnea on exertion, Denies shor tness of breath Respiratory: Reports dyspnea, Denies cough Gastrointestinal: Denies abdominal pain, Denies diarrhea, Denies nausea, Denies vomiting Musculoskeletal: Denies myalgias Integumentary: Denies pruritus, Denies rash Neurological: Denies numbness, Denies weakness Psychiatric: Denies anxiety, Denies depression Endocrine: Denies fatigue, Denies weight change Past Medical History Past Medical History: Coronary Artery Disease (CAD), Chest Pain / Angina, Heart Failure, GERD/Reflux, Hypertension, Myocardial Infarction ([place]), Osteoarthritis (OA), Pneumonia Additional Past Medical History / Comment(s): Coronary artery disease, previous myocardial infarction, previous coronary intervention and stenting to his left anterior descending coronary artery in 2004, 2006 and 2017, and to his circumflex coronary artery in 2010, chronic systolic congestion heart failure with an ejection fraction of 35-40%, moderate global hypokinesis, mild concentric LVH, moderate degree of mitral regurgitation, peripheral neuropathy, hypertension, osteoarthritis Last Myocardial Infarction Date:: unk History of Any Multi-Drug Resistant Organisms: None Reported Past Surgical History: Heart Catheterization With Stent Additional Past Surgical History / Comment(s): HEART CATH WITH STENTS X8 Past Anesthesia/Blood Transfusion Reactions: No Reported Reaction Date of Last Stent Placement:: 2017 Past Psychological History: Anxiety, Panic Disorder Smoking Status: Former smoker (Quit smoking over a year ago.) Past Alcohol Use History: None Reported Past Drug Use History: None Reported - Past Family History Father Family Medical History: Cancer Additional Family Medical History / Comment(s): Lymphoma Mother Family Medical History: Pulmonary Embolus Medications and Allergies Home Medications Medication Instructions Recorded Confirmed Type Aspirin 81 mg PO DAILY #30 chew 01/15/18 01/12/19 Rx Nitroglycerin Sl Tabs [Nitrostat] 0.4 mg SUBLINGUAL Q5M PRN #100 tab 01/15/18 01/12/19 Rx Atorvastatin [Lipitor] 80 mg PO HS 01/12/19 01/12/19 History Clopidogrel [Plavix] 75 mg PO HS 01/12/19 01/12/19 History Ibuprofen [Motrin Ib] 600 mg PO Q6H PRN 01/12/19 01/12/19 History Lisinopril [Zestril] 10 mg PO HS 01/12/19 01/12/19 History Ranitidine HCl [Zantac] 150 mg PO TID 01/12/19 01/12/19 History Allergies Allergy/AdvReac Type Severity Reaction Status Date / Time codeine Allergy Anaphylaxis Verified 01/12/19 22:50 Physical Exam Vitals: Vital Signs Temp Pulse Pulse Resp BP BP Pulse Ox 01/14/19 13:18 70 01/14/19 13:08 70 01/14/19 08:00 98.4 F 78 18 116/68 95 01/14/19 04:00 70 15 146/77 96 01/14/19 00:00 70 16 136/80 98 01/13/19 21:10 98 01/13/19 20:54 74 01/13/19 20:41 71 96 01/13/19 20:00 98.1 F 78 18 129/73 94 L 01/13/19 17:45 18 141/74 98 01/13/19 17:19 18 141/74 98 01/13/19 15:45 14 141/76 97 01/13/19 15:30 20 139/76 95 01/13/19 15:15 16 135/69 96 01/13/19 15:00 18 132/76 98 Intake and Output 01/13/19 01/14/19 01/14/19 22:59 06:59 14:59 Intake Total 125 480 Balance 125 480 Intake: IV 100 Sodium Chloride 0.9% 1, 100 000 ml @ 100 mls/hr IV . Q10H STA Rx#:[id number] Oral 25 480 Other: Voiding Method Toilet Toilet # Voids 1 0 Weight 95.8 kg GENERAL EXAM: Alert, pleasant, 58-year-old white male comfortable in no apparent distress. HEAD: Normocephalic/atraumatic. EYES: Normal reaction of pupils, equal size. Conjunctiva pink, sclera white. NOSE: Clear with pink turbinates. THROAT: No erythema or exudates. NECK: No masses, no JVD, no thyroid enlargement, no adenopathy. CHEST: No chest wall deformity. Symmetrical expansion. LUNGS: Equal air entry with no crackles, wheeze, rhonchi or dullness. CVS: Regular rate and rhythm, normal S1 and S2, no gallops, no murmurs, no rubs ABDOMEN: Soft, nontender. No hepatosplenomegaly, normal bowel sounds, no guarding or rigidity. EXTREMITIES: No clubbing, no edema, no cyanosis, 2+ pulses and upper and lower extremities. MUSCULOSKELETAL: Muscle strength and tone normal. SPINE: No scoliosis or deformity SKIN: No rashes CENTRAL NERVOUS SYSTEM: Alert and oriented -3. No focal deficits, tone is normal in all 4 extremities. PSYCHIATRIC: Alert and oriented -3. Appropriate affect. Intact judgment and insight. Results - Laboratory Findings CBC and BMP: 01/14/19 05:51 01/14/19 05:51 PT/INR, D-dimer PT 10.3 sec (9.0-12.0) 01/12/19 18:50 INR 1.0 (<1.2) 01/12/19 18:50 D-Dimer 0.97 mg/L FEU (<0.60) H 01/12/19 18:50 Abnormal lab findings: Abnormal Labs 01/12/19 01/12/19 01/12/19 18:50 18:50 18:50 RBC Hgb 12.9 L Hct APTT D-Dimer 0.97 H Chloride 108 H Creatinine Glucose 113 H ALT 14 L Troponin I Cholesterol LDL Cholesterol, Calc HDL Cholesterol 01/13/19 01/13/19 01/13/19 01:06 07:26 07:26 RBC Hgb Hct APTT D-Dimer Chloride 110 H Creatinine Glucose 105 H ALT Troponin I 0.960 H* 1.630 H* Cholesterol 200 H LDL Cholesterol, Calc 141 H HDL Cholesterol 33 L 01/13/19 01/13/19 01/14/19 07:26 07:26 05:51 RBC 4.05 L Hgb 11.3 L Hct 35.0 L APTT 38.8 H D-Dimer Chloride 108 H Creatinine 1.27 H Glucose 107 H ALT 16 L Troponin I Cholesterol LDL Cholesterol, Calc HDL Cholesterol 01/14/19 01/14/19 05:51 05:51 RBC 3.97 L Hgb 11.1 L Hct 34.1 L APTT D-Dimer Chloride Creatinine Glucose ALT Troponin I 0.584 H* Cholesterol LDL Cholesterol, Calc HDL Cholesterol - Diagnostic Findings Chest x-ray: report reviewed, image reviewed CT scan - chest: report reviewed, image reviewed Additional studies: Echocardiogram, EKG Assessment and Plan Plan: Assessment: #1. Coronary artery disease, with previous history of PCI and multiple stent placement, patient is awaiting myocardial revascularization surgery #2. Non-ST elevated myocardial infarction #3. Hypertension #4. Hyperlipidemia #5. Chronic congestive heart failure with systolic dysfunction #6. Ischemic cardiomyopathy #7. GERD/reflux #8. History of nicotine dependence, patient carries [id number] smoking history, currently in remission, quit smoking a year ago #9. Anxiety Plan: We'll obtain a bedside PFT, all diagnostics, chest x-ray CTA chest have been reviewed with Dr. Yarbrough, patient has been seen and evaluated by Dr. Yarbrough, currently stable, no active chest pain, no shortness of breath. Does have hi story of smoking, but no formal diagnosis COPD, not on oxygen or inhalers or nebulized treatments at home. We'll review the bedside PFT once available. Patient is scheduled for Thursday for myocardial revascularization. I performed a history & physical examination of the patient and discussed their management with my nurse practitioner, Trinidad Rhodes. I reviewed the nurse practitioner's note and agree with the documented findings and plan of care. Lung sounds are positive for clear breath sounds. The findings and the impression was discussed with the patient. I attest to the documentation by the nurse practitioner. Time with Patient: Greater than 30
--- NOTE | 2019-01-14 14:44 | P.CN ---
Psychiatric Consult - . Consult date: 01/14/19 Consult:: 01/14/19 14:30 Panic attack anxiety Assessment and Plan (1) Anxiety Narrative/Plan: This is a 58-year-old male with history of systolic CHF, hypertension, CAD, hyperlipidemia. Patient presented to the hospital with 30 minutes history of central chest pain. Patient reports that he felt chest heaviness, he rates it as 10 out of 10 in severity no radiation of the pain was associated with dyspnea nausea and diaphoresis. He started chewing aspirin and took 2 nitros and helped with the pain however he got worried because the pain was similar to what he experienced a year ago when he had a heart attack and decided come to the hospital. He adds that over the past week he was having off-and-on problem with this which she felt is progressing. Past Medical History Past Medical History: Heart Failure, GERD/Reflux, Hypertension, Myocardial Infarction ([place]), Osteoarthritis (OA), Pneumonia Additional Past Medical History / Comment(s): Coronary artery disease, previous myocardial infarction, previous coronary intervention and stenting, congestion heart failure with an ejection fraction of 35-40%, moderate global hypokinesis, mild concentric LVH, moderate degree of mitral regurgitation, peripheral neuropathy, hypertension, osteoarthritis Last Myocardial Infarction Date:: unk History of Any Multi-Drug Resistant Organisms: None Reported Past Surgical History: Heart Catheterization With Stent Additional Past Surgical History / Comment(s): HEART CATH WITH STENTS X8 Past Anesthesia/Blood Transfusion Reactions: No Reported Reaction Date of Last Stent Placement:: 2017 Past Psychological History: Anxiety, Panic Disorder Smoking Status: Former smoker Past Alcohol Use History: None Reported Past Drug Use History: None Reported - Past Family History Father Additional Family Medical History / Comment(s): tumor in stomach Mother Family Medical History: CVA/TIA Medications and Allergies Home Medications Medication Instructions Recorded Confirmed Type Aspirin 81 mg PO DAILY #30 chew 01/15/18 01/12/19 Rx Nitroglycerin Sl Tabs [Nitrostat] 0.4 mg SUBLINGUAL Q5M PRN #100 tab 01/15/18 01/12/19 Rx Atorvastatin [Lipitor] 80 mg PO HS 01/12/19 01/12/19 History Clopidogrel [Plavix] 75 mg PO HS 01/12/19 01/12/19 History Ibuprofen [Motrin Ib] 600 mg PO Q6H PRN 01/12/19 01/12/19 History Lisinopril [Zestril] 10 mg PO HS 01/12/19 01/12/19 History Ranitidine HCl [Zantac] 150 mg PO TID 01/12/19 01/12/19 History Allergies Allergy/AdvReac Type Severity Reaction Status Date / Time codeine Allergy Anaphylaxis Verified 01/12/19 22:50 Mental Status Examination - this is a pleasant 58-year-old male who is extremely nervous about having open-heart surgery on Thursday but carries a prior diagnosis of anxiety disorder and has not had any outpatient therapy or any psychiatric evaluation in the past. We had a long discussion about the surgery, medication costs including using [facility] and recommend that he get outpatient counseling after the surgery. His is currently in the [facility] on vacation is flying back tomorrow and will be in the hospital on Thursday. He had 2 sisters visiting him as well as other family members during the interview which I asked him to leave the room so I could talk in privately. General Appearance: [ casual, appears older than stated age Speech/Language: [spontaneous Attitude/Behavior: [cooperative Mood: [euthymic, anxiousshe suffers from anxiety and panic disorder which Exacerbated after is had heart catheterizations because he is always thinking is going to , fearful Affect: [full range Orientation: [time, person, place situation] Thought Content: [wnl Risk Factors: [He is not suicidal (ideations, plan), nor is he Homicidal (ideations, plan), other] Perception: [wnl, denies hallucinations (auditory, visual, tactile), other] Thought Processes: [goal-oriented Concentration/Attention Span: [wnl] [Per observation and interview with the patient] Recent Memory: [wnl Remote Memory: [wnl [past events, as related history] Intelligence: [Average [based on history, based on vocabulary, syntax, grammar, and content] Judgement: [Good] [per patient's behavior/history of present illness] Insight: [good] [understanding severity of illness/history of present illness] Psychiatric impression: History panic and anxiety disorder exacerbated by thoughts of having surgery on Thursday. Next Psychiatric recommendation: I discussed with the nurse as well as the patient that the use of Xanax is appropriate at this time prior to surgery. The patient I did discuss her that afterwards he should probably see a psychiatrist outpatient to find a suitable antidepressant which is considered a preventative of anxiety disorders and Xanax as an abortive measure for extinguishing panic attacks. Thank you for the consult Anish Chandra D.O. PhD Current Visit: Yes Status: Acute Priority: Medium Code(s): F41.9 - ANXIETY DISORDER, UNSPECIFIED SNOMED Code(s): 21877824 (2) Panic anxiety syndrome Current Visit: Yes Status: Acute Priority: High Code(s): F41.0 - PANIC DISORDER [EPISODIC PAROXYSMAL ANXIETY] SNOMED Code(s): 202254863 Time with Patient: Greater than 30
--- NOTE | 2019-01-14 15:28 | P.PN ---
Subjective Progress Note Date: 01/14/19 (delayed charting seen at 1200) Principal diagnosis: chest pain Patient is a 58-year-old male with a past medical history of systolic congestive heart failure with an ejection fraction 35-40%, coronary artery disease status post prior stenting, dyslipidemia, and hypertension who presented to the ER with complaints of chest pain. Patient underwent stenting of the LAD with 2 drug-eluting stents on 01/11/18. Per the patient has been unable to afford his Proventil and therefore hasn't been taking anything. In the ER he underwent an extensive evaluation. On arrival his blood pressures are found be 190/107. Laboratory analysis is essentially unremarkable and troponin was negative. He was given aspirin and admitted for cardiac evaluation. Initial EKG did have some ST segment depression. His second troponin was positive at 0.96 and trended to 1.6. Cardiology was contacted. Underwent cardiac catheterization on 01/13, found to have critical disease and plan is for urgent bypass surgery on 01/17. Patient seen and examined at bedside. He is currently chest pain free. [place] slightly short of breath when up and ambulating. Still feeling very anxious about surgery. No nausea. No vomiting. No constipation. Objective - Vital Signs Vital signs: Vital Signs Temp 98.4 F 01/14/19 08:00 Pulse 70 01/14/19 13:18 Resp 18 01/14/19 08:00 BP 116/68 01/14/19 08:00 Pulse Ox 95 01/14/19 08:00 Intake & Output 01/13/19 01/14/19 01/14/19 18:59 06:59 18:59 Intake Total 265 840 Balance 265 840 Weight 95.8 kg Intake: IV 240 Sodium Chloride 0.9% 1, 100 000 ml @ 100 mls/hr IV . Q10H STA Rx#:[id number] Oral 25 840 Other: Voiding Method Toilet Toilet Toilet # Voids 3 0 - Exam General: non toxic, no distress, appears at stated age Derm: warm, dry Head: atraumatic, normocephalic, symmetric Eyes: EOMI, no lid lag, anicteric sclera Cardiovascular: S1S2 reg, no murmur, positive posterior tibial pulse bilateral, Lungs: CTA bilateral, no rhonchi, no rales , no accessory muscle use Abdominal: soft, nontender to palpation, no guarding, no appreciable organomegaly Ext: no gross muscle atrophy, no edema, no contractures Neuro: CN II-XI grossly intact, no focal neuro deficits Psych: Alert, oriented, appropriate affect - Labs CBC & Chem 7: 01/14/19 05:51 01/14/19 05:51 Labs: Abnormal Lab Results - Last 24 Hours (Table) 01/14/19 01/14/19 01/14/19 Range/Units 05:51 05:51 05:51 RBC 3.97 L (4.30-5.90) m/uL Hgb 11.1 L (13.0-17.5) gm/dL Hct 34.1 L (39.0-53.0) % Chloride 108 H (98-107) mmol/L Creatinine 1.27 H (0.66-1.25) mg/dL Glucose 107 H (74-99) mg/dL ALT 16 L (21-72) U/L Troponin I 0.584 H* (0.000-0.034) ng/mL Microbiology - Last 24 Hours (Table) 01/13/19 17:37 Urine Culture - Preliminary Urine,Voided Assessment and Plan Assessment: Non-STEMI with CAD - Plan is for myocardial revascularization on 01/17. - Lipitor, metoprolol -Aspirin and Plavix -Cardiothrasic recs appreciated -Cardiology recommendations appreciated Increased Cr - not diagnostic of WENDY by KDIGO - follow in AM - likely releated to lisnopril + contrast dye - oral fluids encouraged Moderate to severe mitral regurg - CORDELL in AM Compensated systolic CHF, EF 45-50% -Echo reviewed -On lisinopril and metoprolol -No signs of fluid overload Carotid stenosis - asymptomatic LICA 50-69% and DAVIDE 50% Dyslipidemia -Statin -Shows elevated lipid profile GERD -Start PPI. Hypertension, urgency on arrival -Improved -Continue with metoprolol and lisinopril - follow BP Anxiety -Xanax -We'll need psychiatry on discharge as per psych consult. DVT prophylaxis: early ambulation Discussed with: Patient, nursing, Evans Miller Anticipated discharge: [address]: home A total of 35 minutes was spent on the care of this complex patient more than 50% of the time was spent in counseling and care coordination.
[2019-01-14] MEDS: ALPRAZolam 1 MG TAB PO PRN ×2 (15:40→23:21)
--- NOTE | 2019-01-14 16:28 | P.PN ---
Subjective Progress Note Date: 01/14/19 This is a pleasant 58-year-old male past medical history significant for coronary artery disease s/p multiple stent placements, hypertension, ischemic cardiomyopathy, chronic systolic heart failure, GERD and non- compliance. He sees Dr. Espinoza in the office. We have been asked to see him in consultation for chest pain. Most recently he suffered a non-ST elevated myocardial infarction December 2017. That catheterization revealed the RCA chronically occluded in the mid-portion with left to right collaterals, left main calcified but free of significant stenosis, LAD previously stented from the proximal to midportion. In the mid LAD there is in-stent restenosis approximately 70-80%, circumflex artery free of significant stenosis with a patent stent. At that time he underwent successful stent placement of the previously stented area of the LAD with 2 stents. Last evening while at home he started having an intense tightness sensation in the midsternal region felt like somebody was sitting on his chest. The pain was a 10 out of 10. There is no radiation to the arm, back, neck or jaw. His pain was associated with nausea and vomiting. He states initially when the pain started he took an aspirin and waited about 5 minutes. When the pain did not improve he took a sublingual nitroglycerin. Immediately upon placing the nitro and his mouth is when he became nauseated and vomited up the nitro. He waited a couple more minutes and then took a second nitro. When that did not help his pain he came to the emergency department. All in all his pain lasted approximately 40 minutes. Up on arrival to the emergency department he was continuing to have ongoing chest discomfort and was again given nitroglycerin which did seem to help his pain. Seen and examined resting comfortably in bed in no acute distress. After his pain subsided in the emergency department and has not returned. He is no longer nauseated. 01/14/2019 Patient underwent a cardiac catheterization yesterday by Dr. Woods which revealed three-vessel coronary artery disease with extensive [id number] collaterals to the distal RCA, there is an 80-90% stenosis involving the proximal circumflex coronary artery and a 90% stenosis involving the proximal LAD patient was advised to undergo bypass surgery and a consultation was requested with cardiothoracic surgeons. The patient was seen and evaluated today, overall he feels well, denies any chest discomfort and his breathing is overall stable. Blood pressure 140/70 with a heart rate in the 60s, 94% on room air. White blood cell count 5.1, hemoglobin 11.1, platelet count 232. Sodium 141, potassium 4.6, BUN 16 and creatinine 1.2. Right groin is soft, no evidence of any hematoma. Echocardiogram with Doppler study was performed which revealed moderate to severe mitral regurgitation. Objective - Vital Signs Vital signs: Vital Signs Temp 97.4 F L 01/14/19 12:00 Pulse 79 01/14/19 15:35 Resp 18 01/14/19 15:35 BP 164/93 01/14/19 15:35 Pulse Ox 100 01/14/19 15:35 Intake & Output 01/13/19 01/14/19 01/14/19 18:59 06:59 18:59 Intake Total 265 840 Balance 265 840 Weight 95.8 kg Intake: IV 240 Sodium Chloride 0.9% 1, 100 000 ml @ 100 mls/hr IV . Q10H STA Rx#:[id number] Oral 25 840 Other: Voiding Method Toilet Toilet Toilet # Voids 3 0 2 - Exam PHYSICAL EXAMINATION: GENERAL: The gentleman in no acute distress at the time of my examination HEENT: Head is atraumatic, normocephalic. Pupils equal, round. Sclera anicteric. Conjunctiva are clear. Mucous membranes of the mouth are moist. Neck is supple. There is no elevated jugular venous pressure. bruit is heard. HEART EXAMINATION: Heart S1 S2 1 systolic murmur is heard CHEST EXAMINATION: Lungs are clear to auscultation and precussion. No chest wall tenderness is noted on palpation or with deep breathing. ABDOMEN: Soft, nontender. Bowel sounds are heard. No organomegaly noted. EXTREMITIES: 2+ peripheral pulses with no evidence of peripheral edema and no calf tenderness noted. Right groin is soft, no evidence of any hematoma. NEUROLOGIC [patient is awake, alert and oriented 3 . - Labs CBC & Chem 7: 01/14/19 05:51 01/14/19 05:51 Labs: Abnormal Lab Results - Last 24 Hours (Table) 01/14/19 01/14/19 01/14/19 Range/Units 05:51 05:51 05:51 RBC 3.97 L (4.30-5.90) m/uL Hgb 11.1 L (13.0-17.5) gm/dL Hct 34.1 L (39.0-53.0) % Chloride 108 H (98-107) mmol/L Creatinine 1.27 H (0.66-1.25) mg/dL Glucose 107 H (74-99) mg/dL ALT 16 L (21-72) U/L Troponin I 0.584 H* (0.000-0.034) ng/mL Microbiology - Last 24 Hours (Table) 01/13/19 17:37 Urine Culture - Preliminary Urine,Voided Assessment and Plan Plan: ASSESSMENT and plan #1 Non-ST elevated myocardial infarction, status post cardiac catheterization which revealed multivessel coronary artery disease, cardiothoracic surgeon has been requested to see the patient for bypass surgery #2 History of coronary artery disease #3 Hypertension #4 Dyslipidemia #5 Ischemic cardiomyopathy #6 Chronic systolic heart failure, currently euvolemic #7 History of noncompliance #8 moderate to severe mitral regurg Plan Patient will be seen and evaluated by cardiothoracic surgery. We have also requested that the patient undergo a CORDELL to evaluate the mitral valve. We'll discuss further with Dr. Espinoza and recommendations will be made. DNP note has been reviewed, I agree with a documented findings and plan of care. Patient was seen and examined.
[2019-01-14 18:29] LABS: Hepatitis A Antibody IgM Non-Reactive (Non-Reactive); Hepatitis B Core IgM Non-Reactive (Non-Reactive)
[2019-01-14] MEDS: ATORVASTATIN 80 MG TAB PO SCH (20:33)
[2019-01-14] MEDS: LISINOPRIL 10 MG TAB PO SCH (20:33)
[2019-01-14] MEDS: MAG HYDROX/AL HYDROX/SIMETH 30 ML CUP PO PRN (21:34)
[2019-01-14] MEDS ORDERED: FAMOTIDINE 20 MG TAB PO SCH (22:00)
[2019-01-15] MEDS: PANTOPRAZOLE 40 MG TABLET PO SCH ×2 (06:21→17:01)
[2019-01-15] MEDS: NITROGLYCERIN OINT 1 INCH/GM PACKET TOPICAL SCH ×4 (06:21→23:10)
[2019-01-15 07:10] LABS: HCT 35.6 % (39.0-53.0); HGB 11.1 gm/dL (13.0-17.5); MCH 27.4 pg (25.0-35.0); MCHC 31.1 g/dL (31.0-37.0); MCV 87.9 fL (80.0-100.0); Mean Platelet Volume 7.3; Platelet Count 235 k/uL (150-450); RBC 4.05 m/uL (4.30-5.90); RDW 14.7 % (11.5-15.5); WBC 5.6 k/uL (3.8-10.6)
[2019-01-15 07:45] LABS: Calcium 9.1 mg/dL (8.4-10.2); Potassium 4.3 mmol/L (3.5-5.1)
[2019-01-15] MEDS ORDERED: CALCIUM CARBONATE 500 MG CHEWABLE PO PRN (08:49)
--- NOTE | 2019-01-15 09:17 | P.PN ---
Subjective Progress Note Date: 01/15/19 Principal diagnosis: Triple-vessel coronary artery disease with extensive left to right collaterals to the distal right coronary artery, non-STEMI, moderate to severe mitral regurg itation on transthoracic echo. Previous medical history of coronary artery disease with previous stent placement to his left anterior descending coronary artery in 2004, 2006 and 2017, history of stent placement to a circumflex coronary artery in 2010, previous tobacco dependence quit 1 year ago, mild COPD with preoperative FEV1 61% of predicted, hypertension, hyperlipidemia, ischemic cardiomyopathy, chronic systolic heart failure with EF 45-50%, gastroesophageal reflux disease, anxiety and noncompliance. Left internal carotid artery stenosis 50-70%. The patient's currently sitting up in bed in no acute distress. Denies any chest pain or shortness of breath last night. Remains in normal sinus rhythm and hemodynamically stable. He anticipates CABG on Thursday. No new questions. No new complaints. Objective - Vital Signs Vital signs: Vital Signs Temp 97.9 F 01/14/19 20:00 Pulse 73 01/15/19 04:00 Resp 16 01/15/19 04:00 BP 106/55 01/15/19 04:00 Pulse Ox 99 01/15/19 04:00 Intake & Output 01/14/19 01/15/19 01/15/19 18:59 06:59 18:59 Intake Total 840 0 Balance 840 0 Weight 95.5 kg Intake: Oral 840 0 Other: Voiding Method Toilet # Voids 2 1 # Bowel Movements 1 - Constitutional General appearance: Present: cooperative, no acute distress - Respiratory Details: Lungs sounds diminished bilaterally. Respirations even, nonlabored. Currently on room air with oxygen saturation 99%. Strong cough. - Cardiovascular Details: S1, S2 present. Regular rate and rhythm, sinus rhythm on telemetry. Palpable peripheral pulses bilaterally. No edema present. No calf pain or tenderness noted. - Gastrointestinal Gastrointestinal Comment(s): Abdomen soft, nontender, nondistended. Active bowel sounds 4 quadrants. Tolerating diet. - Genitourinary Genitourinary Comment(s): Continues to void clear, yellow urine. - Integumentary Integumentary Comment(s): Skin is warm and dry with evidence of good perfusion. - Neurologic Neurologic: Present: CNII-XII intact - Musculoskeletal Musculoskeletal: Present: gait normal, strength equal bilaterally - Psychiatric Psychiatric: Present: A&O x's 3, appropriate affect - Allied health notes Allied health notes reviewed: nursing - Labs CBC & Chem 7: 01/15/19 06:32 01/15/19 06:32 Labs: Abnormal Lab Results - Last 24 Hours (Table) 01/15/19 01/15/19 Range/Units 06:32 06:32 RBC 4.05 L (4.30-5.90) m/uL Hgb 11.1 L (13.0-17.5) gm/dL Hct 35.6 L (39.0-53.0) % Creatinine 1.26 H (0.66-1.25) mg/dL Glucose 105 H (74-99) mg/dL Microbiology - Last 24 Hours (Table) 01/13/19 17:37 Urine Culture - Final Urine,Voided 01/14/19 15:00 Nasal Screen MRSA/MSSA - Preliminary Nasal Swab Assessment and Plan Assessment: 1. Triple-vessel coronary artery disease with previous stent placement to the LAD 2004, 2006, 2017 and stent placement to the circumflex in 2010 2. Non-ST elevated myocardial infarction this admission 3. Moderate to severe mitral regurgitation on transthoracic echo 4. Hyperlipidemia 5. Hypertension 6. ischemic cardiomyopathy with chronic systolic heart failure, EF 45-50% 7. Previous tobacco dependence 8. Mild COPD with preoperative FEV1 61% of predicted 9. Left internal carotid artery stenosis 50-70% 10. GERD 11. Anxiety with panic attacks Plan: 1. Continue to maximize medical management with aspirin, beta jewels, statin and CHAN inhibitor. Hold Plavix for now. 2. Patient currently nothing by mouth for transesophageal echocardiogram today to evaluate mitral valve 3. Encourage use of incentive spirometry every hour while awake. Encourage continued smoking cessation. 4. Increase activity, ambulate as tolerated. 5. Medical management per primary care service. 6. Patient scheduled for CABG with S[facility]AM[facility], endoscopic vein harvest, possible endoscopic radial artery harvest and intraoperative transesophageal echocardiogram to be performed by Dr. Bert Hodges on 01/17/2019.mitral valve repair versus replacement may be added based on CORDELL results. 7. Continue to reinforce the preoperative teaching 8. More recommended patient is to follow based on patient's clinical course. Time with Patient: Greater than 30
[2019-01-15] MEDS: MUPIROCIN 2% OINT 22 GM TUBE NASAL SCH ×2 (11:51→20:35)
[2019-01-15] MEDS: METOPROLOL TARTRATE 50 MG TAB PO SCH ×2 (11:51→20:35)
[2019-01-15] MEDS: ASPIRIN 81 MG PO SCH (11:51)
--- NOTE | 2019-01-15 12:57 | P.PN ---
Subjective This is a pleasant 58-year-old male past medical history significant for coronary artery disease s/p multiple stent placements, hypertension, ischemic cardiomyopathy, chronic systolic heart failure, GERD and non- compliance. He sees Dr. Espinoza in the office. We have been asked to see him in consultation for chest pain. Most recently he suffered a non-ST elevated myocardial infarction December 2017. That catheterization revealed the RCA chr onically occluded in the mid-portion with left to right collaterals, left main calcified but free of significant stenosis, LAD previously stented from the proximal to midportion. In the mid LAD there is in-stent restenosis approximately 70-80%, circumflex artery free of significant stenosis with a patent stent. At that time he underwent successful stent placement of the previously stented area of the LAD with 2 stents. Last evening while at home he started having an intense tightness sensation in the midsternal region felt like somebody was sitting on his chest. The pain was a 10 out of 10. There is no radiation to the arm, back, neck or jaw. His pain was associated with nausea and vomiting. He states initially when the pain started he took an aspirin and waited about 5 minutes. When the pain did not improve he took a sublingual nitroglycerin. Immediately upon placing the nitro and his mouth is when he became nauseated and vomited up the nitro. He waited a couple more minutes and then took a second nitro. When that did not help his pain he came to the emergency department. All in all his pain lasted approximately 40 minutes. Upon arrival to the emergency department he was continuing to have ongoing chest discomfort and was again given nitroglycerin which did seem to help his pain. Seen and examined resting comfortably in bed in no acute distress. After his pain subsided in the emergency department and has not returned. He is no longer nauseated. 01/14/2019 Patient underwent a cardiac catheterization yesterday by Dr. Woods which revealed three-vessel coronary artery disease with extensive [id number] collaterals to the distal RCA, there is an 80-90% stenosis involving the proximal circumflex coronary artery and a 90% stenosis involving the proximal LAD patient was advised to undergo bypass surgery and a consultation was requested with cardiothoracic surgeons. The patient was seen and evaluated today, overall he feels well, denies any chest discomfort and his breathing is overall stable. Blood pressure 140/70 with a heart rate in the 60s, 94% on room air. White blood cell count 5.1, hemoglobin 11.1, platelet count 232. Sodium 141, potassium 4.6, BUN 16 and creatinine 1.2. Right groin is soft, no evidence of any hematoma. Echocardiogram with Doppler study was performed which revealed moderate to severe mitral regurgitation. 01/15/2019 Patient was seen and examined resting comfortably in no acute distress. Denies symptoms of chest discomfort, shortness of breath, dizziness or palpitations. Scheduled for bypass surgery on Thursday with cardiothoracic surgery. Laboratory data reviewed, WBC 5.6, hemoglobin 11.1, platelets 235, sodium 142, potassium 4.3, creatinine 1.26. Blood pressure 107/68 heart rate 79 afebrile maintaining oxygen saturation on room air. GENERAL: Well-appearing, well-nourished and in no acute distress. NECK: Supple without JVD or thyromegaly. LUNGS: Breath sounds clear to auscultation bilaterally. Respiration equal and unlabored. No wheezes, rales or rhonchi. HEART: Regular rate and rhythm with systolic ejection murmur, no rubs or gallops. S1 and S2 heard. EXTREMITIES: Normal range of motion, no edema. No clubbing or cyanosis. Peripheral pulses intact. ASSESSMENT Non-ST elevated myocardial infarction status post cardiac catheterization revealed multivessel coronary artery disease. Bypass surgery planned for Thursday. Hypertension Dyslipidemia Ischemic cardiomyopathy Chronic systolic heart failure, currently euvolemic Moderate to severe mitral regurgitation History of noncompliance PLAN Nothing by mouth after midnight tonight for CORDELL tomorrow with Dr. Woods. Further recommendations to follow. Nurse Practitioner note has been reviewed, I agree with a documented findings and plan of care. Patient was seen and examined. Objective - Vital Signs Vital signs: Vital Signs Temp 98.3 F 01/15/19 12:00 Pulse 79 01/15/19 12:00 Resp 17 01/15/19 12:00 BP 107/68 01/15/19 12:00 Pulse Ox 95 01/15/19 12:00 Intake & Output 01/14/19 01/15/19 01/15/19 18:59 06:59 18:59 Intake Total 840 0 Balance 840 0 Weight 95.5 kg Intake: Oral 840 0 Other: Voiding Method Toilet Toilet # Voids 2 1 # Bowel Movements 1 - Labs CBC & Chem 7: 01/15/19 06:32 01/15/19 06:32 Labs: Abnormal Lab Results - Last 24 Hours (Table) 01/15/19 01/15/19 Range/Units 06:32 06:32 RBC 4.05 L (4.30-5.90) m/uL Hgb 11.1 L (13.0-17.5) gm/dL Hct 35.6 L (39.0-53.0) % Creatinine 1.26 H (0.66-1.25) mg/dL Glucose 105 H (74-99) mg/dL Microbiology - Last 24 Hours (Table) 01/13/19 17:37 Urine Culture - Final Urine,Voided 01/14/19 15:00 Nasal Screen MRSA/MSSA - Preliminary Nasal Swab
--- NOTE | 2019-01-15 14:41 | P.PN ---
Subjective Progress Note Date: 01/15/19 Principal diagnosis: chest pain Patient is a 58-year-old male with a past medical history of systolic congestive heart failure with an ejection fraction 35-40%, coronary artery disease status post prior stenting, dyslipidemia, and hypertension who presented to the ER with complaints of chest pain. Patient underwent stenting of the LAD with 2 drug-eluting stents on 01/11/18. Per the patient has been unable to afford his Proventil and therefore hasn't been taking anything. In the ER he underwent an extensive evaluation. On arrival his blood pressures are found be 190/107. Laboratory analysis is essentially unremarkable and troponin was negative. He was given aspirin and admitted for cardiac evaluation. Initial EKG did have some ST segment depression. His second troponin was positive at 0.96 and trended to 1.6. Cardiology was contacted. Underwent cardiac catheterization on 01/13, found to have critical disease and plan is for urgent bypass surgery on 01/17. Echo with moderate MR and CORDELL pending. EF low at 45-50% Patient seen and examined at bedside. Increased acid reflux when up and walking, also gets chest pain and shortness of breath when walking. D/W patient that he needs to rest if chest pain, SOB, or reflux. Denies constipation. Objective - Vital Signs Vital signs: Vital Signs Temp 97.8 F 01/15/19 08:00 Pulse 72 01/15/19 08:00 Resp 16 01/15/19 08:00 BP 124/65 01/15/19 08:00 Pulse Ox 98 01/15/19 08:00 Intake & Output 01/14/19 01/15/19 01/15/19 18:59 06:59 18:59 Intake Total 840 0 Balance 840 0 Weight 95.5 kg Intake: Oral 840 0 Other: Voiding Method Toilet Toilet # Voids 2 1 # Bowel Movements 1 - Exam General: non toxic, no distress, appears at stated age Derm: warm, dry Head: atraumatic, normocephalic, symmetric Eyes: EOMI, no lid lag, anicteric sclera Cardiovascular: S1S2 reg, no murmur, positive posterior tibial pulse bilateral, Lungs: CTA bilateral, no rhonchi, no rales , no accessory muscle use Abdominal: soft, nontender to palpation, no guarding, no appreciable organomegaly Ext: no gross muscle atrophy, no edema, no contractures Neuro: CN II-XI grossly intact, no focal neuro deficits Psych: Alert, oriented, anxious, pressured speech - Labs CBC & Chem 7: 01/15/19 06:32 01/15/19 06:32 Labs: Abnormal Lab Results - Last 24 Hours (Table) 01/15/19 01/15/19 Range/Units 06:32 06:32 RBC 4.05 L (4.30-5.90) m/uL Hgb 11.1 L (13.0-17.5) gm/dL Hct 35.6 L (39.0-53.0) % Creatinine 1.26 H (0.66-1.25) mg/dL Glucose 105 H (74-99) mg/dL Microbiology - Last 24 Hours (Table) 01/13/19 17:37 Urine Culture - Final Urine,Voided 01/14/19 15:00 Nasal Screen MRSA/MSSA - Preliminary Nasal Swab Assessment and Plan Assessment: Non-STEMI with CAD - Plan is for myocardial revascularization on 01/17. - Lipitor, metoprolol -Aspirin and Plavix -Cardiothrasic recs appreciated -Cardiology recommendations appreciated Increased Cr - not diagnostic of WENDY by KDIGO - follow in AM - likely related to lisnopril + contrast dye - oral fluids encouraged GERD -PPI increased to BID - Added tums, prn maalox - no pepcid Moderate to severe mitral regurg - CORDELL in AM (unable to be done today) Ischemic cardiomyopathy, EF 45-50%-- improved from last echo -Echo reviewed -On lisinopril and metoprolol -No signs of fluid overload Carotid stenosis - asymptomatic LICA 50-69% and DAVIDE 50% Dyslipidemia -Statin -Shows elevated lipid profile Hypertension, urgency on arrival -Improved -Continue with metoprolol and lisinopril - follow BP Anxiety -Xanax -We'll need psychiatry on discharge as per psych consult. DVT prophylaxis: early ambulation Discussed with: Patient, nursing Anticipated discharge: [address]: home A total of 25 minutes was spent on the care of this complex patient more than 50% of the time was spent in counseling and care coordination.
[2019-01-15] MEDS: ATORVASTATIN 80 MG TAB PO SCH (20:35)
[2019-01-15] MEDS: LISINOPRIL 10 MG TAB PO SCH (20:35)
[2019-01-15] MEDS: ALPRAZolam 1 MG TAB PO PRN (20:35)
[2019-01-15] MEDS: MAG HYDROX/AL HYDROX/SIMETH 30 ML CUP PO PRN (20:35)
[2019-01-16] MEDS: PANTOPRAZOLE 40 MG TABLET PO SCH ×2 (06:16→17:03)
[2019-01-16] MEDS: NITROGLYCERIN OINT 1 INCH/GM PACKET TOPICAL SCH ×4 (06:16→23:25)
[2019-01-16] MEDS: LISINOPRIL 10 MG TAB PO SCH (07:37)
--- NOTE | 2019-01-16 07:57 | P.PN ---
Subjective Progress Note Date: 01/16/19 Principal diagnosis: Triple-vessel coronary artery disease with extensive left to right collaterals to the distal right coronary artery, non-STEMI, moderate to severe mitral regurg itation on transthoracic echo. Previous medical history of coronary artery disease with previous stent placement to his left anterior descending coronary artery in 2004, 2006 and 2017, history of stent placement to a circumflex coronary artery in 2010, previous tobacco dependence quit 1 year ago, mild COPD with preoperative FEV1 61% of predicted, hypertension, hyperlipidemia, ischemic cardiomyopathy, chronic systolic heart failure with EF 45-50%, gastroesophageal reflux disease, anxiety and noncompliance. Left internal carotid artery stenosis 50-70%. The patient's currently sitting up in bed in no acute distress. Denies any chest pain or shortness of breath last night. Remains in normal sinus rhythm and hemodynamically stable. He is very anxious and concerned about surgery tomorrow. Allowed to voice his concerns and all questions answered. Currently nothing by mouth for CORDELL today. Objective - Vital Signs Vital signs: Vital Signs Temp 97.6 F 01/16/19 07:31 Pulse 83 01/16/19 07:33 Resp 16 01/16/19 07:33 BP 139/85 01/16/19 07:31 Pulse Ox 98 01/16/19 07:31 Intake & Output 01/15/19 01/16/19 01/16/19 18:59 06:59 18:59 Intake Total 1030 10 10 Balance 1030 10 10 Weight 95.8 kg Intake: IV 30 10 10 Invasive Line 3 30 10 10 Oral 1000 Other: Voiding Method Toilet Toilet Toilet # Voids 1 - Constitutional General appearance: Present: cooperative, no acute distress - Respiratory Details: Lungs sounds diminished bilaterally. Respirations even, nonlabored. Currently on room air with oxygen saturation 96%. Able to achieve 3500 mL on his incentive spirometry. Strong cough. - Cardiovascular Details: S1, S2 present. Regular rate and rhythm, sinus rhythm on telemetry. Palpable peripheral pulses bilaterally. No edema present. No calf pain or tenderness noted. - Gastrointestinal Gastrointestinal Comment(s): Abdomen soft, nontender, nondistended. Active bowel sounds 4 quadrants. Tolerating diet. - Genitourinary Genitourinary Comment(s): Continues to void clear, yellow urine. - Integumentary Integumentary Comment(s): Skin is warm and dry with evidence of good perfusion. - Neurologic Neurologic: Present: CNII-XII intact - Musculoskeletal Musculoskeletal: Present: gait normal, strength equal bilaterally - Psychiatric Psychiatric: Present: A&O x's 3, appropriate affect - Allied health notes Allied health notes reviewed: nursing - Labs CBC & Chem 7: 01/15/19 06:32 01/15/19 06:32 Labs: Microbiology - Last 24 Hours (Table) 01/14/19 15:00 Nasal Screen MRSA/MSSA - Final Nasal Swab Assessment and Plan Assessment: 1. Triple-vessel coronary artery disease with previous stent placement to the LAD 2004, 2006, 2017 and stent placement to the circumflex in 2010 2. Non-ST elevated myocardial infarction this admission 3. Moderate to severe mitral regurgitation on transthoracic echo 4. Hyperlipidemia 5. Hypertension 6. ischemic cardiomyopathy with chronic systolic heart failure, EF 45-50% 7. Previous tobacco dependence 8. Mild COPD with preoperative FEV1 61% of predicted 9. Left internal carotid artery stenosis 50-70% 10. GERD 11. Anxiety with panic attacks Plan: 1. Continue to maximize medical management with aspirin, beta jewels, statin and CHAN inhibitor. Hold Plavix for now. 2. Patient currently nothing by mouth for transesophageal echocardiogram today to evaluate mitral valve 3. Encourage use of incentive spirometry every hour while awake. Encourage continued smoking cessation. 4. Increase activity, ambulate as tolerated. 5. Medical management per primary care service. 6. Patient scheduled for CABG with [facility], endoscopic vein harvest, possible endoscopic radial artery harvest and intraoperative transesophageal echocardiogram to be performed by Dr. Bert Hodges on 01/17/2019.mitral valve repair versus replacement may be added based on CORDELL results. 7. Continue to reinforce the preoperative teaching 8. More recommended patient is to follow based on patient's clinical course. Time with Patient: Greater than 30
[2019-01-16 07:58] LABS: HCT 32.9 % (39.0-53.0); MCH 28.8 pg (25.0-35.0); MCHC 33.4 g/dL (31.0-37.0); MCV 86.2 fL (80.0-100.0); Mean Platelet Volume 8.1; Platelet Count 226 k/uL (150-450); RBC 3.82 m/uL (4.30-5.90); RDW 15.4 % (11.5-15.5); WBC 6.4 k/uL (3.8-10.6)
[2019-01-16 08:00] LABS: Calcium 8.6 mg/dL (8.4-10.2); Potassium 4.2 mmol/L (3.5-5.1)
[2019-01-16] MEDS: MUPIROCIN 2% OINT 22 GM TUBE NASAL SCH ×2 (08:00→19:35)
[2019-01-16] MEDS ORDERED: fentaNYL (PF) 50 MCG/ML 2 ML AMP ONE (08:51)
[2019-01-16] MEDS ORDERED: BENZOCAINE SPRAY 1 CAN MUCOUS MEM ONE (08:58)
[2019-01-16] MEDS ORDERED: SODIUM CHLORIDE 0.9% 500 ML 500 ML IV ONE (09:00)
[2019-01-16] MEDS ORDERED: MIDAZOLAM (PF) 2 MG/2 ML VIAL IV ONE (09:02)
--- NOTE | 2019-01-16 10:58 | P.PN ---
Subjective Progress Note Date: 01/16/19 Principal diagnosis: chest pain Patient is a 58-year-old male with a past medical history of systolic congestive heart failure with an ejection fraction 35-40%, coronary artery disease status post prior stenting, dyslipidemia, and hypertension who presented to the ER with complaints of chest pain. Patient underwent stenting of the LAD with 2 drug-eluting stents on 01/11/18. Per the patient has been unable to afford his Proventil and therefore hasn't been taking anything. In the ER he underwent an extensive evaluation. On arrival his blood pressures are found be 190/107. Laboratory analysis is essentially unremarkable and troponin was negative. He was given aspirin and admitted for cardiac evaluation. Initial EKG did have some ST segment depression. His second troponin was positive at 0.96 and trended to 1.6. Cardiology was contacted. Underwent cardiac catheterization on 01/13, found to have critical disease and plan is for urgent bypass surgery on 01/18. Echo with moderate MR and CORDELL done 01/16 and will need mitral ring as well. EF low at 45-50%. Struggles with heart burn and regiment optimized. Patient seen and examined at bedside. Acid reflux controlled with medications. Denies any chest pain or shortness of breath yesterday. Denies any nausea or vomiting. Denies any constipation. Feeling very anxious about surgery. States if he wakes up the tube in his throat he will freed out "have a panic attack" and rip the tube out. Discussed with cardiovascular surgery and plans are for Precedex. Objective - Vital Signs Vital signs: Vital Signs Temp 97.6 F 01/16/19 07:31 Pulse 96 01/16/19 09:10 Resp 20 01/16/19 09:10 BP 157/83 01/16/19 09:06 Pulse Ox 100 01/16/19 09:10 Intake & Output 01/15/19 01/16/19 01/16/19 18:59 06:59 18:59 Intake Total 1030 10 35 Balance 1030 10 35 Weight 95.8 kg Intake: IV 30 10 35 Invasive Line 3 30 10 10 Oral 1000 Other: Voiding Method Toilet Toilet Toilet # Voids 1 - Exam General: non toxic, no distress, appears at stated age Derm: warm, dry Head: atraumatic, normocephalic, symmetric Eyes: EOMI, no lid lag, anicteric sclera Cardiovascular: S1S2 reg, no murmur, positive posterior tibial pulse bilateral, Lungs: CTA bilateral, no rhonchi, no rales , no accessory muscle use Abdominal: soft, nontender to palpation, no guarding, no appreciable organomegaly Ext: no gross muscle atrophy, no edema, no contractures Neuro: CN II-XI grossly intact, no focal neuro deficits Psych: Alert, oriented, anxious, moving around in bed - Labs CBC & Chem 7: 01/16/19 06:39 01/16/19 06:39 Labs: Abnormal Lab Results - Last 24 Hours (Table) 01/16/19 01/16/19 Range/Units 06:39 06:39 RBC 3.82 L (4.30-5.90) m/uL Hgb 11.0 L (13.0-17.5) gm/dL Hct 32.9 L (39.0-53.0) % BUN 21 H (9-20) mg/dL Glucose 116 H (74-99) mg/dL Microbiology - Last 24 Hours (Table) 01/14/19 15:00 Nasal Screen MRSA/MSSA - Final Nasal Swab Assessment and Plan Assessment: Non-STEMI with CAD - Plan is for myocardial revascularization on 01/18 with mitral repair, will need dental clearance. - Lipitor, metoprolol -Aspirin and Plavix -Cardiothrasic recs appreciated -Cardiology recommendations appreciated GERD -PPI BID -tums, prn maalox -no pepcid Moderate to severe mitral regurg - Will need mitral valve repair Ischemic cardiomyopathy, EF 45-50%-- improved from last echo -Echo reviewed -On lisinopril and metoprolol -No signs of fluid overload Carotid stenosis - asymptomatic LICA 50-69% and DAVIDE 50% Dyslipidemia -Statin -Shows elevated lipid profile Hypertension, urgency on arrival -Improved -Continue with metoprolol and lisinopril - follow BP Anxiety -Xanax -Would benefit from outpatient psychiatry on discharge as per psych consult. Increased Cr, resolved DVT prophylaxis: early ambulation Discussed with: Patient, nursing Anticipated discharge: [address]: home A total of 25 minutes was spent on the care of this complex patient more than 50% of the time was spent in counseling and care coordination.
[2019-01-16] MEDS: METOPROLOL TARTRATE 50 MG TAB PO SCH ×2 (12:19→19:35)
[2019-01-16] MEDS: ASPIRIN 81 MG PO SCH (12:19)
--- NOTE | 2019-01-16 13:28 | CT ---
EXAMINATION TYPE: CT facial bones wo con DATE OF EXAM: 01/16/2019 COMPARISON: None. HISTORY: Panoramic Mandible CT DLP: 464.3 mGycm Automated exposure control for dose reduction was used. TECHNIQUE: CT scan of the sinuses is performed without contrast, axial images are obtained, coronal r eformatted images are also reviewed. FINDINGS: AP view of the mandible demonstrates the patient to be edentulous with the exception of 2 i ncisors in the midline of the jaw. Soft tissues are unremarkable. Visualized portions of the intracranial structures are within normal l imits. Visualized portions of the paranasal sinuses and mastoids are clear. The frontal sinuses are clear. R ight infundibulum is patent. The left is more questionable and may be occluded with soft tissue. IMPRESSION: 1. 2 REMAINING INCISORS IN THE LOWER JAW. 2. PARANASAL SINUSES ARE UNREMARKABLE. 3. RIGHT INFUNDIBULUM IS PATENT. THE LEFT IS QUESTIONABLE.
[2019-01-16] MEDS: ATORVASTATIN 80 MG TAB PO SCH (19:35)
[2019-01-16] MEDS: ALPRAZolam 1 MG TAB PO PRN (23:25)
[2019-01-17] MEDS: NITROGLYCERIN OINT 1 INCH/GM PACKET TOPICAL SCH ×3 (06:41→17:40)
[2019-01-17] MEDS: PANTOPRAZOLE 40 MG TABLET PO SCH ×2 (06:41→17:40)
[2019-01-17 06:57] LABS: HCT 34.7 % (39.0-53.0); HGB 11.2 gm/dL (13.0-17.5); MCH 28.3 pg (25.0-35.0); MCHC 32.3 g/dL (31.0-37.0); MCV 87.7 fL (80.0-100.0); Mean Platelet Volume 7.7; Platelet Count 245 k/uL (150-450); RBC 3.95 m/uL (4.30-5.90); RDW 14.8 % (11.5-15.5); WBC 5.6 k/uL (3.8-10.6)
[2019-01-17] MEDS: ASPIRIN 81 MG PO SCH (08:31)
[2019-01-17] MEDS: METOPROLOL TARTRATE 50 MG TAB PO SCH ×2 (08:31→20:10)
[2019-01-17] MEDS: ALPRAZolam 1 MG TAB PO PRN ×2 (08:31→22:27)
[2019-01-17] MEDS: MUPIROCIN 2% OINT 22 GM TUBE NASAL SCH ×2 (08:32→20:10)
--- NOTE | 2019-01-17 08:41 | P.PN ---
Subjective Progress Note Date: 01/17/19 Principal diagnosis: Triple-vessel coronary artery disease with extensive left to right collaterals to the distal right coronary artery, non-STEMI, moderate to severe mitral regurg itation on transthoracic echo. Previous medical history of coronary artery disease with previous stent placement to his left anterior descending coronary artery in 2004, 2006 and 2017, history of stent placement to a circumflex coronary artery in 2010, previous tobacco dependence quit 1 year ago, mild COPD with preoperative FEV1 61% of predicted, hypertension, hyperlipidemia, ischemic cardiomyopathy, chronic systolic heart failure with EF 45-50%, gastroesophageal reflux disease, anxiety and noncompliance. Left internal carotid artery stenosis 50-70%. The patient's currently sitting up in bed in no acute distress. Denies any chest pain or shortness of breath last night, does state he had minimal chest pain yesterday with ambulation around the hallway. Remains in normal sinus rhythm and hemodynamically stable. He is very anxious about surgery. Allowed to voice his concerns and all questions answered. CORDELL completed yesterday demonstrating moderate to severe mitral regurgitation. Panorex completed for dental clearance, awaiting dentist visit. Objective - Vital Signs Vital signs: Vital Signs Temp 97.3 F L 01/17/19 08:00 Pulse 78 01/17/19 08:00 Resp 16 01/17/19 08:00 BP 123/72 01/17/19 08:00 Pulse Ox 96 01/17/19 08:00 Intake & Output 01/16/19 01/17/19 01/17/19 18:59 06:59 18:59 Intake Total 455 10 Balance 455 10 Weight 96.4 kg Intake: IV 55 10 Invasive Line 3 30 10 Oral 400 Other: Voiding Method Toilet Toilet Toilet # Voids 2 1 # Bowel Movements 1 - Constitutional General appearance: Present: cooperative, no acute distress - Respiratory Details: Lungs sounds diminished bilaterally. Respirations even, nonlabored. Currently on room air with oxygen saturation 96%. Able to achieve 3000 mL on his incentive spirometry. Strong cough. - Cardiovascular Details: S1, S2 present. Regular rate and rhythm, sinus rhythm on telemetry. Palpable peripheral pulses bilaterally. No edema present. No calf pain or tenderness noted. - Gastrointestinal Gastrointestinal Comment(s): Abdomen soft, nontender, nondistended. Active bowel sounds 4 quadrants. Tole rating diet. Positive bowel movement yesterday. - Genitourinary Genitourinary Comment(s): Continues to void clear, yellow urine. - Integumentary Integumentary Comment(s): Skin is warm and dry with evidence of good perfusion. - Neurologic Neurologic: Present: CNII-XII intact - Musculoskeletal Musculoskeletal: Present: gait normal, strength equal bilaterally - Psychiatric Psychiatric: Present: A&O x's 3, appropriate affect, intact judgment & insight - Allied health notes Allied health notes reviewed: nursing - Labs CBC & Chem 7: 01/17/19 06:01 01/16/19 06:39 Labs: Abnormal Lab Results - Last 24 Hours (Table) 01/16/19 01/17/19 Range/Units 06:39 06:01 RBC 3.95 L (4.30-5.90) m/uL Hgb 11.2 L (13.0-17.5) gm/dL Hct 34.7 L (39.0-53.0) % Crossmatch See Detail Assessment and Plan Assessment: 1. Triple-vessel coronary artery disease with previous stent placement to the LAD 2004, 2006, 2017 and stent placement to the circumflex in 2010 2. Non-ST elevated myocardial infarction this admission 3. Moderate to severe mitral regurgitation 4. Hyperlipidemia 5. Hypertension 6. ischemic cardiomyopathy with chronic systolic heart failure, EF 45-50% 7. Previous tobacco dependence 8. Mild COPD with preoperative FEV1 61% of predicted 9. Left internal carotid artery stenosis 50-70% 10. GERD 11. Anxiety with panic attacks Plan: 1. Continue to maximize medical management with aspirin, beta jewels, statin and CHAN inhibitor. Hold Plavix. 2. Dr. Zhao consulted, await dental clearance. 3. Encourage use of incentive spirometry every hour while awake. Encourage continued smoking cessation. 4. Increase activity, ambulate as tolerated. 5. Medical management per primary care service. 6. Patient scheduled for CABG with SANTAMARIA, mitral valve repair, possible replacement, endoscopic vein harvest, possible endoscopic radial artery harvest and intraoperative transesophageal echocardiogram to be performed by Dr. Bert Hodges on Thursday01/18/2019. 7. Continue to reinforce the preoperative teaching 8. More recommended patient is to follow based on patient's clinical course. Time with Patient: Greater than 30
[2019-01-17] MEDS ORDERED: MENTHOL (NICE) LOZENGE MUCOUS MEM PRN (08:44)
--- NOTE | 2019-01-17 08:49 | ECHOT ---
STRESS ECHOCARDIOGRAM DATE OF SERVICE: 01/16/2019 INDICATION: Mitral regurgitation. PROCEDURE NOTE: After obtaining informed consent, transesophageal echocardiogram was performed in left lateral position using an Omni plane probe. Local and IV sedation were obtained using Xylocaine spray and 2 mg of Versed. Total sedation time was 10 minutes. FINDINGS: 1. There is moderate to severe central mitral regurgitation noted. 2. Left ventricle appears mildly enlarged with mild to moderate LV dysfunction with inferior wall hypokinesis with ejection fraction of 40%. 3. Aortic valve is a 3-leaflet valve. There is no evidence of aortic stenosis or regurgitation. 4. Interatrial septum: There is no evidence of [id number] shunt or [id number] shunt by agitated saline contrast study. CONCLUSIONS: There is moderate to severe mitral regurgitation noted on this study. MMODL / IJN: [id number] /
[2019-01-17 12:11] LABS: Albumin 3.7 g/dL (3.5-5.0); Calcium 8.8 mg/dL (8.4-10.2); Potassium 4.5 mmol/L (3.5-5.1); Total Bilirubin 0.4 mg/dL (0.2-1.3); Total Protein 6.6 g/dL (6.3-8.2)
[2019-01-17 12:29] LABS: INR 0.9 (<1.2)
[2019-01-17 12:30] LABS: Prothrombin Time 10.2 sec (9.0-12.0)
--- NOTE | 2019-01-17 14:37 | P.PN ---
Subjective Progress Note Date: 01/17/19 This is a pleasant 58-year-old male past medical history significant for coronary artery disease s/p multiple stent placements, hypertension, ischemic cardiomyopathy, chronic systolic heart failure, GERD and non- compliance. He sees Dr. Espinoza in the office. We have been asked to see him in consultation for chest pain. Most recently he suffered a non-ST elevated myocardial infarction December 2017. That catheterization revealed the RCA chronically occluded in the mid-portion with left to right collaterals, left main calcified but free of significant stenosis, LAD previously stented from the proximal to midportion. In the mid LAD there is in-stent restenosis approximately 70-80%, circumflex artery free of significant stenosis with a patent stent. At that time he underwent successful stent placement of the previously stented area of the LAD with 2 stents. Last evening while at home he started having an intense tightness sensation in the midsternal region felt like somebody was sitting on his chest. The pain was a 10 out of 10. There is no radiation to the arm, back, neck or jaw. His pain was associated with nausea and vomiting. He states initially when the pain started he took an aspirin and waited about 5 minutes. When the pain did not improve he took a sublingual nitroglycerin. Immediately upon placing the nitro and his mouth is when he became nauseated and vomited up the nitro. He waited a couple more minutes and then took a second nitro. When that did not help his pain he came to the emergency department. All in all his pain lasted approximately 40 minutes. Up on arrival to the emergency department he was continuing to have ongoing chest discomfort and was again given nitroglycerin which did seem to help his pain. Seen and examined resting comfortably in bed in no acute distress. After his pain subsided in the emergency department and has not returned. He is no longer nauseated. 01/14/2019 Patient underwent a cardiac catheterization yesterday by Dr. Woods which revealed three-vessel coronary artery disease with extensive [id number] collaterals to the distal RCA, there is an 80-90% stenosis involving the proximal circumflex coronary artery and a 90% stenosis involving the proximal LAD patient was advised to undergo bypass surgery and a consultation was requested with cardiothoracic surgeons. The patient was seen and evaluated today, overall he feels well, denies any chest discomfort and his breathing is overall stable. Blood pressure 140/70 with a heart rate in the 60s, 94% on room air. White blood cell count 5.1, hemoglobin 11.1, platelet count 232. Sodium 141, potassium 4.6, BUN 16 and creatinine 1.2. Right groin is soft, no evidence of any hematoma. Echocardiogram with Doppler study was performed which revealed moderate to severe mitral regurgitation. 01/17/2019 Patient underwent a CORDELL by Dr. Woods which revealed moderate to severe mitral regurgitation. He was seen and examined this morning, extremely anxious earlier this morning but at the time of my examination she was much more calm and relaxed. Hemodynamically stable. Having a dental evaluation today and then undergoing CABG and mitral valve on Thursday. Blood pressure today 137/80 with a heart rate in the 70s Objective - Vital Signs Vital signs: Vital Signs Temp 97.7 F 01/17/19 11:38 Pulse 69 01/17/19 11:39 Resp 16 01/17/19 11:39 BP 137/81 01/17/19 11:38 Pulse Ox 96 01/17/19 11:38 Intake & Output 01/16/19 01/17/19 01/17/19 18:59 06:59 18:59 Intake Total 455 10 440 Output Total 600 Balance 455 10 -160 Weight 96.4 kg Intake: IV 55 10 Invasive Line 3 30 10 Oral 400 440 Output: Urine 600 Other: Voiding Method Toilet Toilet Toilet # Voids 2 1 # Bowel Movements 1 - Exam PHYSICAL EXAMINATION: GENERAL: The gentleman in no acute distress at the time of my examination HEENT: Head is atraumatic, normocephalic. Pupils equal, round. Sclera ani cteric. Conjunctiva are clear. Mucous membranes of the mouth are moist. Neck is supple. There is no elevated jugular venous pressure. bruit is heard. HEART EXAMINATION: Heart S1 S2 1 systolic murmur is heard CHEST EXAMINATION: Lungs are clear to auscultation and precussion. No chest wall tenderness is noted on palpation or with deep breathing. ABDOMEN: Soft, nontender. Bowel sounds are heard. No organomegaly noted. EXTREMITIES: 2+ peripheral pulses with no evidence of peripheral edema and no calf tenderness noted. Right groin is soft, no evidence of any hematoma. NEUROLOGIC [patient is awake, alert and oriented 3 . - Labs CBC & Chem 7: 01/17/19 06:01 01/17/19 06:01 Labs: Abnormal Lab Results - Last 24 Hours (Table) 01/16/19 01/17/19 01/17/19 Range/Units 06:39 06:01 06:01 RBC 3.95 L (4.30-5.90) m/uL Hgb 11.2 L (13.0-17.5) gm/dL Hct 34.7 L (39.0-53.0) % Chloride 108 H (98-107) mmol/L Glucose 116 H (74-99) mg/dL Crossmatch See Detail Assessment and Plan Plan: ASSESSMENT and plan #1 Non-ST elevated myocardial infarction, status post cardiac catheterization which revealed multivessel coronary artery disease, cardiothoracic surgeon has been requested to see the patient for bypass surgery #2 History of coronary artery disease #3 Hypertension #4 Dyslipidemia #5 Ischemic cardiomyopathy #6 Chronic systolic heart failure, currently euvolemic #7 History of noncompliance #8 moderate to severe mitral regurg Plan Patient will have dental evaluation for surgical clearance today and then be scheduled morning undergo bypass surgery and mitral valve. DNP note has been reviewed, I agree with a documented findings and plan of care. Patient was seen and examined.
--- NOTE | 2019-01-17 15:24 | P.GSCN ---
History of Present Illness Consult date: 01/17/19 Reason for Consult: Pt presented with teeth #24,25 present and root of #14 remaining from a past extraction. Pt stated he had it there for forty years. Tooth #24 has a cavity that needs protestant at some point. Pt informed. Tooth #14 is a root but it is asymptomatic, with no swelling or pain to percussion or pressure on buccal vestibule. *Facial CT scan was taken with pt upper full denture in mouth suggesting patient might have upper teeth other than #14 but he does not. Pt is clear from dental infections and can proceed with open heart surgery. Thank you for your kind referral. Past Medical History Past Medical History: Coronary Artery Disease (CAD), Chest Pain / Angina, Heart Failure, GERD/Reflux, Hypertension, Myocardial Infarction ([place]), Osteoarthritis (OA), Pneumonia Additional Past Medical History / Comment(s): Coronary artery disease, previous myocardial infarction, previous coronary intervention and stenting to his left anterior descending coronary artery in 2004, 2006 and 2017, and to his circumflex coronary artery in 2010, chronic systolic congestion heart failure with an ejection fraction of 35-40%, moderate global hypokinesis, mild concentric LVH, moderate degree of mitral regurgitation, peripheral neuropathy, hypertension, osteoarthritis Last Myocardial Infarction Date:: unk History of Any Multi-Drug Resistant Organisms: None Reported Past Surgical History: Heart Catheterization With Stent Additional Past Surgical History / Comment(s): HEART CATH WITH STENTS X8 Past Anesthesia/Blood Transfusion Reactions: No Reported Reaction Date of Last Stent Placement:: 2017 Past Psychological History: Anxiety, Panic Disorder Smoking Status: Former smoker (Quit smoking over a year ago.) Past Alcohol Use History: None Reported Past Drug Use History: None Reported - Past Family History Father Family Medical History: Cancer Additional Family Medical History / Comment(s): Lymphoma Mother Family Medical History: Pulmonary Embolus Medications and Allergies Home Medications Medication Instructions Recorded Confirmed Type Aspirin 81 mg PO DAILY #30 chew 01/15/18 01/12/19 Rx Nitroglycerin Sl Tabs [Nitrostat] 0.4 mg SUBLINGUAL Q5M PRN #100 tab 01/15/18 01/12/19 Rx Atorvastatin [Lipitor] 80 mg PO HS 01/12/19 01/12/19 History Clopidogrel [Plavix] 75 mg PO HS 01/12/19 01/12/19 History Ibuprofen [Motrin Ib] 600 mg PO Q6H PRN 01/12/19 01/12/19 History Lisinopril [Zestril] 10 mg PO HS 01/12/19 01/12/19 History Ranitidine HCl [Zantac] 150 mg PO TID 01/12/19 01/12/19 History Allergies Allergy/AdvReac Type Severity Reaction Status Date / Time codeine Allergy Anaphylaxis Verified 01/12/19 22:50 Surgical - Exam Vital Signs Temp Pulse Resp BP Pulse Ox 98.4 F 95 22 190/107 99 01/12/19 18:17 01/12/19 18:17 01/12/19 18:17 01/12/19 18:17 01/12/19 18:17 Results - Labs 01/17/19 06:01 01/17/19 06:01 Abnormal Lab Results - Last 24 Hours (Table) 01/16/19 01/17/19 01/17/19 Range/Units 06:39 06:01 06:01 RBC 3.95 L (4.30-5.90) m/uL Hgb 11.2 L (13.0-17.5) gm/dL Hct 34.7 L (39.0-53.0) % Chloride 108 H (98-107) mmol/L Glucose 116 H (74-99) mg/dL Crossmatch See Detail Diabetes panel 01/17/19 Range/Units 06:01 Sodium 141 (137-145) mmol/L Potassium 4.5 (3.5-5.1) mmol/L Chloride 108 H (98-107) mmol/L Carbon Dioxide 27 (22-30) mmol/L BUN 20 (9-20) mg/dL Creatinine 1.22 (0.66-1.25) mg/dL Glucose 116 H (74-99) mg/dL Calcium 8.8 (8.4-10.2) mg/dL AST 26 (17-59) U/L ALT 25 (21-72) U/L Alkaline Phosphatase 68 (38-126) U/L Total Protein 6.6 (6.3-8.2) g/dL Albumin 3.7 (3.5-5.0) g/dL Calcium panel 01/17/19 Range/Units 06:01 Calcium 8.8 (8.4-10.2) mg/dL Albumin 3.7 (3.5-5.0) g/dL Pituitary panel 01/17/19 Range/Units 06:01 Sodium 141 (137-145) mmol/L Potassium 4.5 (3.5-5.1) mmol/L Chloride 108 H (98-107) mmol/L Carbon Dioxide 27 (22-30) mmol/L BUN 20 (9-20) mg/dL Creatinine 1.22 (0.66-1.25) mg/dL Glucose 116 H (74-99) mg/dL Calcium 8.8 (8.4-10.2) mg/dL Adrenal panel 01/17/19 Range/Units 06:01 Sodium 141 (137-145) mmol/L Potassium 4.5 (3.5-5.1) mmol/L Chloride 108 H (98-107) mmol/L Carbon Dioxide 27 (22-30) mmol/L BUN 20 (9-20) mg/dL Creatinine 1.22 (0.66-1.25) mg/dL Glucose 116 H (74-99) mg/dL Calcium 8.8 (8.4-10.2) mg/dL Total Bilirubin 0.4 (0.2-1.3) mg/dL AST 26 (17-59) U/L ALT 25 (21-72) U/L Alkaline Phosphatase 68 (38-126) U/L Total Protein 6.6 (6.3-8.2) g/dL Albumin 3.7 (3.5-5.0) g/dL
[2019-01-17] MEDS ORDERED: DIAZEPAM 5 MG TAB PO PRN (16:18)
--- NOTE | 2019-01-17 16:23 | P.PN ---
Subjective Progress Note Date: 01/17/19 Principal diagnosis: Patient is a 58-year-old male with a past medical history of systolic congestive heart failure with an ejection fraction 35-40%, coronary artery dise ase status post prior stenting, dyslipidemia, and hypertension who presented to the ER with complaints of chest pain. Patient underwent stenting of the LAD with 2 drug-eluting stents on 01/11/18. Per the patient has been unable to afford his Proventil and therefore hasn't been taking anything. In the ER he underwent an extensive evaluation. On arrival his blood pressures are found be 190/107. Laboratory analysis is essentially unremarkable and troponin was negative. He was given aspirin and admitted for cardiac evaluation. Initial EKG did have some ST segment depression. His second troponin was positive at 0.96 and trended to 1.6. Cardiology was contacted. Underwent cardiac catheter ization on 01/13, found to have critical disease and plan is for urgent bypass surgery on 01/18. Echo with moderate MR and CORDELL done 01/16 and will need mitral ring as well. EF low at 45-50%. Struggles with heart burn and regiment optimized. Patient seen and examined at bedside, having his lunch. Nursing reporting increasing anxiety patient agitated and worried about his impending cardiac surgery. Patient noted with history of anxiety previously taking Valium and Xanax. Patient denies any chest pain at present or shortness of breath. Patient previously seen by Dr. Douglas and is densely cleared for surgery to undergo CABG and mitral valve repair tomorrow. No acute events overnight Objective - Vital Signs Vital signs: Vital Signs Temp 98.3 F 01/17/19 15:13 Pulse 79 01/17/19 15:15 Resp 16 01/17/19 15:15 BP 129/80 01/17/19 15:13 Pulse Ox 95 01/17/19 15:13 Intake & Output 01/16/19 01/17/19 01/17/19 18:59 06:59 18:59 Intake Total 455 10 440 Output Total 600 Balance 455 10 -160 Weight 96.4 kg Intake: IV 55 10 Invasive Line 3 30 10 Oral 400 440 Output: Urine 600 Other: Voiding Method Toilet Toilet Toilet # Voids 2 1 # Bowel Movements 1 - Exam Constitutional: No acute distress, conversant, pleasant Eyes: Anicteric sclerae, moist conjunctiva, no lid-lag, PERRLA ENMT: NC/AT,Oropharynx clear, no erythema, exudates Neck:Supple, FROM, no masses, or JVD, No carotid bruits; No thyromegaly Lungs: Clear to auscultation, Clear to percussion, Normal respiratory effort, no accessory muscle use Cardiovascular: Heart regular in rate and rhythm, No murmurs, gallops, or rubs no peripheral edema Abdominal: Soft Nontender, nom distended, no guarding, no rebound or rigidity, Normoactive bowel sounds No hepatomegaly, No splenomegaly, No palpable mass No abdominal wall hernia noted Skin: Normal temperature, tone, texture, turgor, No induration No subcutaneous nodules, No rash, lesions, No ulcers Extremities:No digital cyanosis No clubbing, Pedal pulses intact and symmetrical Radial pulses intact and symmetrical Normal gait and station, No calf tenderness Psychiatric: Alert and oriented to person, place and time, Appropriate affect Intact judgement Neuro: Muscles Strength 5/5 in all 4 extremities, Sensation to light touch grossly present throughout, Cranial nerves II-XII grossly intact. No focal sensory deficits - Labs CBC & Chem 7: 01/17/19 06:01 01/17/19 06:01 Labs: Abnormal Lab Results - Last 24 Hours (Table) 01/16/19 01/17/19 01/17/19 Range/Units 06:39 06:01 06:01 RBC 3.95 L (4.30-5.90) m/uL Hgb 11.2 L (13.0-17.5) gm/dL Hct 34.7 L (39.0-53.0) % Chloride 108 H (98-107) mmol/L Glucose 116 H (74-99) mg/dL Crossmatch See Detail Assessment and Plan Plan: Non-STEMI with CAD - Plan is for myocardial revascularization on 01/18 with mitral repair, patient has been cleared for open heart surgery by dental - Lipitor, metoprolol -Aspirin and Plavix -Cardiothrasic recs appreciated -Cardiology recommendations appreciated GERD -PPI BID -tums, prn maalox -no pepcid Moderate to severe mitral regurg - Will need mitral valve repair Ischemic cardiomyopathy, EF 45-50%-- improved from last echo -Echo reviewed -On lisinopril and metoprolol -No signs of fluid overload Carotid stenosis - asymptomatic LICA 50-69% and DAVIDE 50% Dyslipidemia -Statin -Shows elevated lipid profile Hypertension, urgency on arrival -Resolved -Continue with metoprolol and lisinopril - follow BP Anxiety -Xanax will add Valium at night -Would benefit from outpatient psychiatry on discharge as per psych consult.
[2019-01-17] MEDS ORDERED: MIDAZOLAM 2 MG/2 ML VIAL IV PRN (19:39)
[2019-01-17] MEDS: ATORVASTATIN 80 MG TAB PO SCH (20:10)
[2019-01-17] MEDS: LISINOPRIL 10 MG TAB PO SCH (20:10)
[2019-01-17] MEDS: LACTATED RINGERS 1,000 ML IV SCH (22:29)
[2019-01-18] MEDS: NITROGLYCERIN OINT 1 INCH/GM PACKET TOPICAL SCH ×2 (00:50→05:11)
[2019-01-18] MEDS ORDERED: SODIUM BICARB 8.4% 50 ML SYR (1 MEQ/ML) IV ONE (05:00)
[2019-01-18] MEDS ORDERED: CLEVIDIPINE BUTYRATE 25 MG in EMPTY BAG 1 BAG IV SCH (05:00)
[2019-01-18] MEDS ORDERED: CALCIUM CHLORIDE 100 MG/ML 10 ML SYRINGE IVP ONE (05:00)
[2019-01-18] MEDS ORDERED: TRANEXAMIC ACID 2,000 MG in SODIUM CHLORIDE 0.9% 80 ML IV ONE ×2 (05:00→06:00)
[2019-01-18] MEDS ORDERED: PROPOFOL 1,000 MG in EMPTY BAG 1 BAG IV PRN (05:00)
[2019-01-18] MEDS ORDERED: PAPAVERINE 360 MG in SODIUM CHLORIDE 0.9% 90 ML IV ONE (05:00)
[2019-01-18] MEDS ORDERED: ALBUMIN HUMAN 25% 50 ML in EMPTY BAG 1 BAG IVPB ONE (05:00)
[2019-01-18] MEDS ORDERED: NOREPINEPHRINE 4 MG in SODIUM CHLORIDE 0.9% 250 ML IV SCH (05:00)
[2019-01-18] MEDS ORDERED: ATORVASTATIN 10 MG TAB PO ONE (05:00)
[2019-01-18] MEDS ORDERED: ASPIRIN 325 MG TAB PO ONE (05:00)
[2019-01-18] MEDS ORDERED: CHLORHEXIDINE GLUCONATE 15 ML CUP MUCOUS MEM ONE (05:00)
[2019-01-18] MEDS ORDERED: PROTAMINE SULFATE 250 MG in EMPTY BAG 1 BAG IV ONE (05:00)
[2019-01-18] MEDS ORDERED: HEPARIN SODIUM,PORCINE 5,000 UNIT in SODIUM CHLORIDE 0.9% 500 ML 500 ML IV ONE (05:00)
[2019-01-18] MEDS ORDERED: ceFAZolin 2,000 MG in SODIUM CHLORIDE 0.9% 30 ML IVPB ONE (05:00)
[2019-01-18] MEDS ORDERED: HEPARIN SODIUM 1,000 UN/ML (10ML VL) IV ONE (05:00)
[2019-01-18] MEDS ORDERED: MAGNESIUM SULFATE SYG 4.06 MEQ/ML SYRINGE IV ONE (05:00)
[2019-01-18] MEDS ORDERED: PHENYLEPHRINE 40 MG in SODIUM CHLORIDE 0.9% 250 ML IV ONE (05:00)
[2019-01-18] MEDS ORDERED: ALBUMIN HUMAN 5% 500 ML in EMPTY BAG 1 BAG IVPB ONE ×6 (05:00)
[2019-01-18] MEDS ORDERED: NITROGLYCERIN-D5W PMX 50 MG in DEXTROSE/WATER 1 250ML.BAG IV SCH ×2 (05:00→14:47)
[2019-01-18] MEDS ORDERED: ceFAZolin 2 GM in SODIUM CHLORIDE 0.9% 30 ML IVPB ONE (05:00)
[2019-01-18] MEDS ORDERED: NITROGLYCERIN-D5W PMX 25 MG/250 ML BTL IV ONE (05:00)
[2019-01-18] MEDS ORDERED: METOPROLOL TARTRATE 12.5 MG TAB PO ONE (05:00)
[2019-01-18] MEDS ORDERED: PROTAMINE SULFATE 10 MG/ML 25 ML VIAL IV ONE ×2 (05:00→07:40)
[2019-01-18] MEDS ORDERED: MANNITOL 25% 12.5 GM/50 ML VIAL IV ONE ×2 (05:00)
[2019-01-18] MEDS: PANTOPRAZOLE 40 MG TABLET PO SCH (05:12)
[2019-01-18] MEDS ORDERED: DEXTROSE 5% IN WATER 1,000 ML with POTASSIUM CHLORIDE 110 MEQ, MAGNESIUM SULFATE 16 MEQ... IV SCH ×5 (06:00)
[2019-01-18] MEDS ORDERED: DEXTROSE 5% IN WATER 1,000 ML with POTASSIUM CHLORIDE 25 MEQ, SODIUM CHLORIDE 2.5MEQ/ML... IV SCH ×6 (06:00)
[2019-01-18] MEDS: LACTATED RINGERS 1,000 ML IV SCH ×3 (06:28→17:22)
[2019-01-18] MEDS ORDERED: SODIUM CHLORIDE 0.9% IRRIG 1,000 ML BTL IRRIGATION ONE (07:40)
[2019-01-18] MEDS ORDERED: SODIUM CHLORIDE 0.9% 250 ML BAG ONE (07:40)
[2019-01-18] MEDS ORDERED: LIDOCAINE 2% SYG (PF) 100 MG/5 ML ONE (07:40)
[2019-01-18] MEDS ORDERED: PHENYLEPHRINE-0.9% NACL SYG 1 MG/10 ML SYRINGE ONE (07:40)
[2019-01-18] MEDS ORDERED: HEPARIN SODIUM,PORCINE 10,000 UNIT/ML 1 ML VIAL ONE (07:40)
[2019-01-18] MEDS ORDERED: CALCIUM CHLORIDE 100 MG/ML 10 ML SYRINGE ONE (07:40)
[2019-01-18] MEDS ORDERED: fentaNYL (PF) 50 MCG/ML 50 ML VIAL ONE (07:40)
[2019-01-18] MEDS ORDERED: ePHEDrine SULFATE/0.9% NACL/PF 50 MG/5 ML SYRINGE IV ONE (07:40)
[2019-01-18] MEDS ORDERED: ELECTROLYTE-R (PH 7.4) 1,000 ML IV.SOLN IV ONE (07:40)
[2019-01-18] MEDS ORDERED: NITROGLYCERIN-D5W PMX 50 MG/250 ML BOTTLE IV ONE (07:40)
[2019-01-18] MEDS ORDERED: TRANEXAMIC ACID 1,000 MG/10 ML VIAL ONE (07:40)
[2019-01-18] MEDS ORDERED: SUCCINYLCHOLINE CHLORIDE 100 MG/5 ML SYR IV ONE (07:40)
[2019-01-18] MEDS ORDERED: VECURONIUM 10 MG VIAL IV ONE (07:40)
[2019-01-18] MEDS ORDERED: fentaNYL (PF) 50 MCG/ML 2 ML AMP ONE (07:40)
[2019-01-18] MEDS ORDERED: MIDAZOLAM 2 MG/2 ML VIAL ONE (07:40)
[2019-01-18] MEDS ORDERED: PROPOFOL 10 MG/ML 20 ML VIAL IV ONE (07:40)
[2019-01-18] MEDS ORDERED: INSULIN REGULAR 100 UNIT in SODIUM CHLORIDE 0.9% 100 ML IV SCH (08:15)
[2019-01-18] MEDS ORDERED: DILTIAZEM 125 MG in SODIUM CHLORIDE 0.9% 100 ML IV ONE (08:30)
[2019-01-18] MEDS ORDERED: DILTIAZEM 125 MG in SODIUM CHLORIDE 0.9% 100 ML IV SCH (08:30)
[2019-01-18 08:44] LABS: ABG Base Excess 0.3 mmol/L; ABG Glucose Whole Blood 111 mg/dL (75-99); ABG HCO3 26 mmol/L (21-25); ABG Hematocrit 35 % (34.0-46.0); ABG Ionized Calcium 4.7 mg/dL (4.5-5.3); ABG Lactic Acid Whole Blood 1.1 mmol/L (0.5-1.6); ABG PCO2 46 mmHg (35-45); ABG PH 7.36 (7.35-7.45); ABG PO2 199 mmHg (83-108); ABG Potassium Whole Blood 4.3 mmol/L (3.4-4.5); ABG Sodium Whole Blood 142 mmol/L (135-146); ABG TCO2 27 mmol/L (19-24)
[2019-01-18] MEDS: DILTIAZEM 125 MG in SODIUM CHLORIDE 0.9% 100 ML IV ONE ×2 (09:21→19:00)
[2019-01-18 10:16] LABS: ABG Base Excess -1.3 mmol/L; ABG Glucose Whole Blood 134 mg/dL (75-99); ABG HCO3 26 mmol/L (21-25); ABG Hematocrit 33 % (34.0-46.0); ABG Ionized Calcium 4.7 mg/dL (4.5-5.3); ABG Lactic Acid Whole Blood 0.7 mmol/L (0.5-1.6); ABG PCO2 57 mmHg (35-45); ABG PH 7.27 (7.35-7.45); ABG PO2 223 mmHg (83-108); ABG Potassium Whole Blood 3.9 mmol/L (3.4-4.5); ABG Sodium Whole Blood 141 mmol/L (135-146); ABG TCO2 28 mmol/L (19-24)
[2019-01-18 11:26] LABS: ABG Base Excess -1.9 mmol/L; ABG Glucose Whole Blood 113 mg/dL (75-99); ABG HCO3 24 mmol/L (21-25); ABG Hematocrit 27 % (34.0-46.0); ABG Lactic Acid Whole Blood 0.6 mmol/L (0.5-1.6); ABG PCO2 44 mmHg (35-45); ABG PH 7.35 (7.35-7.45); ABG PO2 390 mmHg (83-108); ABG Potassium Whole Blood 4.3 mmol/L (3.4-4.5); ABG Sodium Whole Blood 135 mmol/L (135-146); ABG TCO2 25 mmol/L (19-24)
[2019-01-18] MEDS: ceFAZolin 1,000 MG in SODIUM CHLORIDE 0.9% IRRIGATIO 1,000 ML IRRIGATION ONE ×2 (11:26→17:22)
[2019-01-18 11:56] LABS: ABG Base Excess -0.6 mmol/L; ABG Glucose Whole Blood 183 mg/dL (75-99); ABG HCO3 25 mmol/L (21-25); ABG Hematocrit 26 % (34.0-46.0); ABG Ionized Calcium 4.2 mg/dL (4.5-5.3); ABG Lactic Acid Whole Blood 0.8 mmol/L (0.5-1.6); ABG PCO2 44 mmHg (35-45); ABG PH 7.36 (7.35-7.45); ABG PO2 335 mmHg (83-108); ABG Potassium Whole Blood 4.7 mmol/L (3.4-4.5); ABG Sodium Whole Blood 136 mmol/L (135-146); ABG TCO2 26 mmol/L (19-24)
[2019-01-18 12:32] LABS: ABG Base Excess -1.1 mmol/L; ABG Glucose Whole Blood 199 mg/dL (75-99); ABG HCO3 25 mmol/L (21-25); ABG Hematocrit 26 % (34.0-46.0); ABG Ionized Calcium 4.1 mg/dL (4.5-5.3); ABG Lactic Acid Whole Blood 1.4 mmol/L (0.5-1.6); ABG PCO2 44 mmHg (35-45); ABG PH 7.36 (7.35-7.45); ABG PO2 323 mmHg (83-108); ABG Potassium Whole Blood 4.6 mmol/L (3.4-4.5); ABG Sodium Whole Blood 136 mmol/L (135-146); ABG TCO2 26 mmol/L (19-24)
[2019-01-18 13:03] LABS: ABG Base Excess -1.9 mmol/L; ABG Glucose Whole Blood 212 mg/dL (75-99); ABG HCO3 25 mmol/L (21-25); ABG Hematocrit 25 % (34.0-46.0); ABG Lactic Acid Whole Blood 1.6 mmol/L (0.5-1.6); ABG PCO2 51 mmHg (35-45); ABG PO2 283 mmHg (83-108); ABG Potassium Whole Blood 4.4 mmol/L (3.4-4.5); ABG Sodium Whole Blood 136 mmol/L (135-146); ABG TCO2 26 mmol/L (19-24)
[2019-01-18] MEDS ORDERED: AMIODARONE 360 MG in DEXTROSE 5% IN WATER 200 ML IV PRN ×2 (14:47)
[2019-01-18] MEDS ORDERED: Phosphorus Replacement Protoco 1 EACH MISC MISCELLANE PRN (14:47)
[2019-01-18] MEDS ORDERED: CALCIUM GLUCONATE 2 GM in SODIUM CHLORIDE 0.9% 100 ML IVPB PRN (14:47)
[2019-01-18] MEDS ORDERED: Potassium Replacement Protocol 1 EACH MISC MISCELLANE PRN (14:47)
[2019-01-18] MEDS ORDERED: IPRATROPIUM-ALBUTEROL 3 ML NEB INHALATION PRN (14:47)
[2019-01-18] MEDS ORDERED: Magnesium Replacement Protocol 1 EACH MISC MISCELLANE PRN (14:47)
[2019-01-18] MEDS ORDERED: METOCLOPRAMIDE 5 MG/ML 2 ML VIAL IVP PRN (14:47)
[2019-01-18] MEDS ORDERED: BENZOCAINE/MENTHOL LOZENG 1 EACH LOZENGE MUCOUS MEM PRN (14:47)
[2019-01-18] MEDS ORDERED: DEXTROSE 5% IN WATER 100 ML with AMIODARONE 150 MG IV PRN (14:47)
[2019-01-18 17:02] LABS: Glucose,Whole Blood 87 mg/dL (75-99)
[2019-01-18 17:12] LABS: Ionized Calcium 4.9 mg/dL (4.5-5.3)
[2019-01-18 17:15] LABS: Basophils % (A) 0 %; Eosinophils # (A) 0.1 k/uL (0-0.7); Eosinophils % (A) 1 %; HCT 29.2 % (39.0-53.0); Lymphocytes # (A) 1.3 k/uL (1.0-4.8); Lymphocytes % (A) 16 %; MCH 28.4 pg (25.0-35.0); MCHC 32.9 g/dL (31.0-37.0); MCV 86.1 fL (80.0-100.0); Mean Platelet Volume 8.9; Monocytes # (A) 0.6 k/uL (0-1.0); Monocytes % (A) 7 %; Neutrophils % (A) 74 %; Platelet Count 131 k/uL (150-450); RBC 3.39 m/uL (4.30-5.90); RDW 14.9 % (11.5-15.5); WBC 8.1 k/uL (3.8-10.6)
[2019-01-18 17:16] LABS: HGB 9.6 gm/dL (13.0-17.5)
[2019-01-18 17:18] LABS: INR 1.1 (<1.2); Partial Thromboplastin Time 25.6 sec (22.0-30.0); Prothrombin Time 11.4 sec (9.0-12.0)
[2019-01-18 17:20] LABS: ALT 19 U/L (21-72); AST 58 U/L (17-59); African American GFR (CKD) >90 (>60 ml/min/1.73 sqM); Albumin 2.5 g/dL (3.5-5.0); Alkaline Phosphatase 42 U/L (38-126); Anion Gap 3 mmol/L; Blood Urea Nitrogen 15 mg/dL (9-20); Carbon Dioxide 27 mmol/L (22-30); Chloride 109 mmol/L (98-107); Glucose 83 mg/dL (74-99); Magnesium 2.9 mg/dL (1.6-2.3); Potassium 4.7 mmol/L (3.5-5.1); Sodium 139 mmol/L (137-145); Total Bilirubin 0.7 mg/dL (0.2-1.3); Total Protein 4.7 g/dL (6.3-8.2)
[2019-01-18] MEDS: ceFAZolin IN SWFI 2 GM/20 ML SYRINGE IVP SCH ×2 (17:24→23:43)
[2019-01-18] MEDS: ACETAMINOPHEN IV (For NPO) 1,000 MG in EMPTY BAG 1 BAG IVPB SCH ×2 (17:25→23:42)
[2019-01-18] MEDS: PROPOFOL 1,000 MG in EMPTY BAG 1 BAG IV SCH ×2 (17:28→20:47)
[2019-01-18] MEDS: ALBUMIN HUMAN 5% 250 ML in EMPTY BAG 1 BAG IVPB PRN ×4 (17:29→23:15)
--- NOTE | 2019-01-18 17:34 | XR ---
EXAMINATION: XR chest 1V portable DATE AND TIME: 01/18/2019 5:22 PM CLINICAL INDICATION: PHH; Post Operative Cardiac Surgery TECHNIQUE: Supine AP portable COMPARISON: 01/12/2019 at 7:06 PM FINDINGS: AP portable supine chest radiograph postintubation. SUPPORT LINES AND CATHETERS: ET tube tip superimposed over the mid trachea. NG tube present, with its port superimposed over the lesser curvature and its tip over the greater curvature. Right IJ [place] catheter tip proximal RPA. Mediastinal drain. Bilateral chest tubes. EKG leads and sternal sutures and mediastinal clips and aortic valve prosthesis. CARDIOMEDIASTINAL SILHOUETTE: Moderately enlarged cardiac silhouette. LUNGS: The lungs are negative for pulmonary edema or major focal airlessness such as major atelectasi s or pneumonia. PLEURAL SPACES: Left apical capping is noted, consistent with left pleural effusion. No evident right pleural effusion. No visualized pneumothorax, although abnormal gas collections cannot be excluded w ith supine radiography. SOFT TISSUES: Soft tissue emphysema noted lateral to the left hemithorax. SKELETAL STRUCTURES: No acute findings. IMPRESSION: Post intubation chest radiograph.
[2019-01-18 17:44] LABS: Allen Test Performed? Yes
[2019-01-18 17:45] LABS: ABG HCO3 25 mmol/L (21-25); ABG PCO2 46 mmHg (35-45); ABG PH 7.34 (7.35-7.45); ABG PO2 346 mmHg (83-108)
[2019-01-18 17:46] LABS: ABG TCO2 26 mmol/L (19-24)
[2019-01-18] MEDS: IPRATROPIUM-ALBUTEROL 3 ML NEB INHALATION SCH ×2 (17:58→20:41)
--- NOTE | 2019-01-18 18:14 | P.PN ---
Subjective Progress Note Date: 01/18/19 Principal diagnosis: Patient is a 58-year-old male with a past medical history of systolic congestive heart failure with an ejection fraction 35-40%, coronary artery dise ase status post prior stenting, dyslipidemia, and hypertension who presented to the ER with complaints of chest pain. Patient underwent stenting of the LAD with 2 drug-eluting stents on 01/11/18. Per the patient has been unable to afford his Proventil and therefore hasn't been taking anything. In the ER he underwent an extensive evaluation. On arrival his blood pressures are found be 190/107. Laboratory analysis is essentially unremarkable and troponin was negative. He was given aspirin and admitted for cardiac evaluation. Initial EKG did have some ST segment depression. His second troponin was positive at 0.96 and trended to 1.6. Cardiology was contacted. Underwent cardiac catheter ization on 01/13, found to have critical disease Echo with moderate MR and CORDELL done 01/16 and will need mitral ring as well. EF low at 45-50%. and subsequently had CABG X3 on 01/18 with SANTAMARIA to LAD, radial to obtuse marginal, saphenous to PDA with mitral valve repair Patient seen and examined at bedside, mechanically ventilated and sedated on propofol GGT status post CABG X3 with SANTAMARIA to LAD, radial to obtuse marginal, saphenous to PDA and mitral valve repair. Typical post CABG drips nitro ggt, C ardizem ggt with 3 chest tubes and NISREEN drain noted. Right IJ, Cordis patent and functioning well. Hemodynamically stable at present Objective - Vital Signs Vital signs: Vital Signs Temp 98.2 F 01/18/19 06:21 Pulse 74 01/18/19 06:21 Resp 16 01/18/19 06:21 BP 127/77 01/18/19 06:21 Pulse Ox 97 01/18/19 06:21 Intake & Output 01/17/19 01/18/19 01/18/19 18:59 06:59 18:59 Intake Total 700 410 62 Output Total 1800 2250 Balance -1100 410 -2188 Weight 95.1 kg Intake: IV 50 62 Intake, IV Titration 120 Amount Lactated Ringers 1,000 ml 120 @ 20 mls/hr IV .Q24H EVETTE Rx#:[id number] Oral 700 240 Output: Urine 1800 950 Estimated Blood Loss 1300 Other: Voiding Method Toilet Toilet # Voids 3 # Bowel Movements 1 - Exam Constitutional: No acute distress, sedated on propofol Eyes: Anicteric sclerae, moist conjunctiva, no lid-lag, PERRLA ENMT: NC/AT,Oropharynx clear, no erythema, exudates Neck:Supple, FROM, no masses, or JVD, No carotid bruits; No thyromegaly, right IJ and Cordis present Lungs: Clear to auscultation, Clear to percussion, on ventilator with multiple chest tubes present Cardiovascular: Heart regular in rate and rhythm, No murmurs, gallops, or rubs no peripheral edema, sternum stable, A/epicardial pacemaker wires present Abdominal: Soft Nontender, nom distended, no guarding, no rebound or rigidity, Normoactive bowel sounds No hepatomegaly, No splenomegaly, No palpable mass No abdominal wall hernia noted Skin: Normal temperature, tone, texture, turgor, No induration No subcutaneous nodules, No rash, lesions, No ulcers Extremities:No digital cyanosis No clubbing, Pedal pulses intact and symmetrical Radial pulses intact and symmetrical Normal gait and station, No calf tenderness Psychiatric: Alert and oriented to person, place and time, Appropriate affect Intact judgement Neuro: Unable to adequately assess due to sedation on propofol - Labs CBC & Chem 7: 01/19/19 04:03 01/19/19 04:03 Labs: Abnormal Lab Results - Last 24 Hours (Table) 01/16/19 01/18/19 01/18/19 Range/Units 06:39 08:45 10:16 RBC (4.30-5.90) m/uL Hgb (13.0-17.5) gm/dL Hct (39.0-53.0) % Plt Count (150-450) k/uL ABG pH 7.27 L (7.35-7.45) ABG pCO2 46 H 57 H (35-45) mmHg ABG pO2 199 H 223 H (83-108) mmHg ABG HCO3 26 H 26 H (21-25) mmol/L ABG Total CO2 27 H 28 H (19-24) mmol/L ABG O2 Saturation 100.0 H 100.0 H (94-97) % ABG Hematocrit 33 L (34.0-46.0) % ABG Potassium (3.4-4.5) mmol/L ABG Ionized Calcium (4.5-5.3) mg/dL ABG Glucose 111 H 134 H (75-99) mg/dL Hemoglobin 11.3 L 10.8 L (13.0-17.5) gm/dL Chloride (98-107) mmol/L Calcium (8.4-10.2) mg/dL Magnesium (1.6-2.3) mg/dL ALT (21-72) U/L Total Protein (6.3-8.2) g/dL Albumin (3.5-5.0) g/dL Arterial Blood Potassium (3.4-4.5) mmol/L Arterial Blood Glucose 111 H 134 H (75-99) mg/dL Crossmatch See Detail 01/18/19 01/18/19 01/18/19 Range/Units 11:27 11:56 12:33 RBC (4.30-5.90) m/uL Hgb (13.0-17.5) gm/dL Hct (39.0-53.0) % Plt Count (150-450) k/uL ABG pH (7.35-7.45) ABG pCO2 (35-45) mmHg ABG pO2 390 H 335 H 323 H (83-108) mmHg ABG HCO3 (21-25) mmol/L ABG Total CO2 25 H 26 H 26 H (19-24) mmol/L ABG O2 Saturation 100.0 H 100.0 H 100.0 H (94-97) % ABG Hematocrit 27 L 26 L 26 L (34.0-46.0) % ABG Potassium 4.7 H 4.6 H (3.4-4.5) mmol/L ABG Ionized Calcium 4.0 L 4.2 L 4.1 L (4.5-5.3) mg/dL ABG Glucose 113 H 183 H 199 H (75-99) mg/dL Hemoglobin 8.8 L 8.6 L 8.4 L (13.0-17.5) gm/dL Chloride (98-107) mmol/L Calcium (8.4-10.2) mg/dL Magnesium (1.6-2.3) mg/dL ALT (21-72) U/L Total Protein (6.3-8.2) g/dL Albumin (3.5-5.0) g/dL Arterial Blood Potassium 4.7 H 4.6 H (3.4-4.5) mmol/L Arterial Blood Glucose 113 H 183 H 199 H (75-99) mg/dL Crossmatch 01/18/19 01/18/19 01/18/19 Range/Units 13:04 16:59 16:59 RBC 3.39 L (4.30-5.90) m/uL Hgb 9.6 L D (13.0-17.5) gm/dL Hct 29.2 L (39.0-53.0) % Plt Count 131 L (150-450) k/uL ABG pH 7.30 L (7.35-7.45) ABG pCO2 51 H (35-45) mmHg ABG pO2 283 H (83-108) mmHg ABG HCO3 (21-25) mmol/L ABG Total CO2 26 H (19-24) mmol/L ABG O2 Saturation 100.0 H (94-97) % ABG Hematocrit 25 L (34.0-46.0) % ABG Potassium (3.4-4.5) mmol/L ABG Ionized Calcium 4.0 L (4.5-5.3) mg/dL ABG Glucose 212 H (75-99) mg/dL Hemoglobin 8.0 L (13.0-17.5) gm/dL Chloride 109 H (98-107) mmol/L Calcium 8.0 L (8.4-10.2) mg/dL Magnesium 2.9 H (1.6-2.3) mg/dL ALT 19 L (21-72) U/L Total Protein 4.7 L (6.3-8.2) g/dL Albumin 2.5 L (3.5-5.0) g/dL Arterial Blood Potassium (3.4-4.5) mmol/L Arterial Blood Glucose 212 H (75-99) mg/dL Crossmatch 01/18/19 Range/Units 17:31 RBC (4.30-5.90) m/uL Hgb (13.0-17.5) gm/dL Hct (39.0-53.0) % Plt Count (150-450) k/uL ABG pH 7.34 L (7.35-7.45) ABG pCO2 46 H (35-45) mmHg ABG pO2 346 H (83-108) mmHg ABG HCO3 (21-25) mmol/L ABG Total CO2 26 H (19-24) mmol/L ABG O2 Saturation 100.0 H (94-97) % ABG Hematocrit (34.0-46.0) % ABG Potassium (3.4-4.5) mmol/L ABG Ionized Calcium (4.5-5.3) mg/dL ABG Glucose (75-99) mg/dL Hemoglobin (13.0-17.5) gm/dL Chloride (98-107) mmol/L Calcium (8.4-10.2) mg/dL Magnesium (1.6-2.3) mg/dL ALT (21-72) U/L Total Protein (6.3-8.2) g/dL Albumin (3.5-5.0) g/dL Arterial Blood Potassium (3.4-4.5) mmol/L Arterial Blood Glucose (75-99) mg/dL Crossmatch Assessment and Plan Plan: Non-STEMI with CAD - Status post three-vessel CABG on 01/18 with mitral repair - Lipitor, metoprolol -Aspirin and Plavix -Cardiothrasic recs appreciated -Cardiology recommendations appreciated Status post CABG X3 -Cardiothrasic recs appreciated - Currently HD stable in sinus -Continue post CABG drips Currently on Cardizem, nitroglycerin GGT * PRN insulin drip, amiodarone drip GERD -PPI BID -tums, prn maalox -no pepcid Moderate to severe mitral regurg - Will need mitral valve repair Ischemic cardiomyopathy, EF 45-50%-- improved from last echo -Echo reviewed -On lisinopril and metoprolol -No signs of fluid overload Carotid stenosis - asymptomatic LICA 50-69% and DAVIDE 50% Dyslipidemia -Statin -Shows elevated lipid profile Hypertension, urgency on arrival -Resolved -Continue with metoprolol and lisinopril - follow BP Anxiety Continue with Xanax and Valium -Would benefit from outpatient psychiatry on discharge as per psych consult. Anticipated discharge * 5-7 days
[2019-01-18 18:41] LABS: Glucose,Whole Blood 93 mg/dL (75-99)
[2019-01-18] MEDS: CLEVIDIPINE BUTYRATE 25 MG in EMPTY BAG 1 BAG IV SCH (18:45)
[2019-01-18 19:33] LABS: Glucose,Whole Blood 119 mg/dL (75-99)
[2019-01-18] MEDS ORDERED: DEXMEDETOMIDINE/0.9% NACL(PMX) 400 MCG in EMPTY BAG 1 BAG IV SCH (20:00)
[2019-01-18 20:02] LABS: Glucose,Whole Blood 143 mg/dL (75-99)
[2019-01-18 20:18] LABS: Basophils % (A) 0 %; Eosinophils % (A) 0 %; HCT 28.2 % (39.0-53.0); HGB 9.4 gm/dL (13.0-17.5); Lymphocytes # (A) 0.7 k/uL (1.0-4.8); Lymphocytes % (A) 9 %; MCH 28.7 pg (25.0-35.0); MCHC 33.3 g/dL (31.0-37.0); Mean Platelet Volume 8.7; Monocytes # (A) 0.6 k/uL (0-1.0); Monocytes % (A) 7 %; Neutrophils # (A) 6.7 k/uL (1.3-7.7); Neutrophils % (A) 82 %; Platelet Count 147 k/uL (150-450); RBC 3.28 m/uL (4.30-5.90); RDW 15.1 % (11.5-15.5); WBC 8.2 k/uL (3.8-10.6)
[2019-01-18] MEDS: NOREPINEPHRINE 4 MG in SODIUM CHLORIDE 0.9% 250 ML IV SCH (21:01)
[2019-01-18 21:25] LABS: Glucose,Whole Blood 135 mg/dL (75-99)
[2019-01-18 22:08] LABS: Glucose,Whole Blood 133 mg/dL (75-99)
[2019-01-18] MEDS: MUPIROCIN 2% OINT 22 GM TUBE NASAL SCH (22:45)
[2019-01-18] MEDS: HEPARIN SODIUM,PORCINE 5,000 UNIT/ML 1 ML VIAL SQ SCH (22:53)
[2019-01-18 23:09] LABS: Glucose,Whole Blood 102 mg/dL (75-99)
--- NOTE | 2019-01-19 00:11 | CONS ---
CONSULTATION This patient is a 58-year-old man who was admitted back on January 12. He came into the emergency room with chest discomfort. The patient apparently had pressure in his chest without radiation. He did have shortness of breath and nausea and diaphoresis. Because of this, and because of a previous cardiac history with cardiac stent placement one year ago, the patient was admitted and evaluated. The patient went to the operating room today. Today is postoperative day number 0. Dr. Hodges did surgery on him. He had 3-vessel bypass grafting, mitral valve ring repair and atrial appendage excision. The patient is now back in the ICU. Currently, the patient is on the SIMV mode, rate of 12, tidal volume 650, FiO2 50%, PEEP of 5. Blood gases on those same settings at 100%, show a PaO2 of 346, pCO2 of 46 and pH of 7.34. These gases are consistent with hyperoxia and a respiratory acidosis. The FiO2 was dropped down to 50% after these gases. Currently he is on propofol at 40 mcg/kg per minute, Cardizem drip of 5 mg/hour, nitroglycerin at 5 mcg/minute, lactated Ringer's at 50 mL/hour. He was on Cleviprex for hypertension and that has now been turned off. Insulin drip is about to be started. We are going to transition him to Precedex. He came out of the operating room at 4:45. We would like to get him extubated before 11:00. HOME MEDICATIONS: The patient's home medications prior to coming to the emergency room included: 1. Ibuprofen. 2. Lisinopril. 3. Ranitidine. He also apparently was on: 1. Aspirin. 2. Lipitor. 3. Sublingual nitroglycerin. ALLERGIES: CODEINE. PAST MEDICAL HISTORY: His past medical history includes: 1. CHF. 2. GERD. 3. Hypertension. 4. Myocardial infarction. 5. Osteoarthritis. 6. Pneumonia. 7. CAD. 8. The patient had previous coronary intervention with stenting. His ejection fraction is 35% to 40%. 9. He also has mild concentric LVH and a moderate degree of mitral regurgitation. 10.He also suffers from osteoarthritis. 11.Peripheral neuropathy. SURGICAL HISTORY: Surgical history includes percutaneous coronary intervention with stent placement. SOCIAL HISTORY: Positive for previous tobacco use. There is no history of alcohol use or illicit drug use. FAMILY HISTORY: Positive for a stomach tumor and CVA. REVIEW OF SYSTEMS: Review of systems cannot be obtained. The patient is currently sedated and on the ventilator. PHYSICAL EXAMINATION: CURRENT VITAL SIGNS: Temperature 96.6, heart rate 80, respiratory rate 12, blood pressure 100/57. His pulmonary artery pressure is 33/22. His central venous pressure is 13. His saturations are 100% on 50% and 5 of PEEP. GENERAL: He is currently sedated, in no acute distress. He is currently connected to the ventilator. HEENT: Grossly unremarkable. There is an orally placed endotracheal tube and NG tube. NECK: Supple. Full range of motion. CARDIOVASCULAR: Regular rhythm and rate. S1, S2 normal. LUNGS: Mostly clear breath sounds. Breath sounds are equal bilaterally. There are no adventitious lung sounds such as wheezing, rhonchi or crackles. ABDOMEN: Soft. Bowel sounds are not noted. EXTREMITIES: Intact. No cyanosis, clubbing or edema. SKIN: Without rash. NEUROLOGIC: Neurologic examination could not be performed. The patient is currently sedated. LABORATORY DATA/IMAGING: White count of 8.1, hemoglobin 9.6, hematocrit 29.2, platelet count 131,000. PT, INR and PTT are all normal. Blood gases have been noted. Last set of electrolytes included sodium 139, potassium 4.7, chloride 109, CO2 of 27, anion gap 3. BUN and creatinine were 15 and 0.89. Calcium 8, magnesium 2.9. Chest x-ray was done at 1447 hours when the patient arrived here in the ICU. The chest x-ray shows evidence of properly placed endotracheal tube above the tracheal perry, sternal wires, pleural chest tubes and mediastinal chest tubes. There is some subcutaneous emphysema on the left. The cardiac silhouette is enlarged. There is some bibasilar atelectasis and a small left-sided effusion. Medications are reviewed. ASSESSMENT: 1. Postoperative day number zero, status post 3-vessel bypass grafting, mitral valve ring repair and atrial appendage excision. 2. History of coronary artery disease with previous percutaneous coronary intervention and stent placement. 3. History of heart failure. 4. Gastroesophageal reflux disease. 5. Hypertension. 6. Previous myocardial infarction. 7. Degenerative joint disease. 8. History of pneumonia. 9. Peripheral neuropathy. 10.Cardiomyopathy with an ejection fraction of 35% to 40% with moderate global hypokinesis and mild concentric left ventricular hypertrophy. PLAN: The patient arrived back into the ICU shortly after 4:45. The patient is currently stable. We will see if we can't move the patient toward weaning and extubation. Currently the patient remains on propofol at 40 mcg/kg per minute, Cardizem drip at 5 mg/hour, nitroglycerin at 5 mcg/minute and lactated Ringer's at 50 mL/hour. Cleviprex has been turned off. Insulin drips will be started soon. We are going to transition him to Precedex because of his anxiety. Labs, x-rays and medications are all reviewed. Additional recommendations and suggestions are forthcoming. Prognosis is guarded. MMODL / IJN: [id number] /
[2019-01-19 00:21] LABS: Glucose,Whole Blood 116 mg/dL (75-99)
[2019-01-19] MEDS: HEPARIN SODIUM,PORCINE 5,000 UNIT/ML 1 ML VIAL SQ SCH ×3 (00:27→15:05)
[2019-01-19] MEDS: HYDROcodone/APAP 5-325MG 1 EACH TAB PO PRN ×5 (01:10→20:37)
[2019-01-19 02:03] LABS: Glucose,Whole Blood 132 mg/dL (75-99)
[2019-01-19] MEDS ORDERED: HYDROcodone/APAP 5-325MG 1 EACH TAB PO PRN (02:20)
[2019-01-19] MEDS: ALPRAZolam 1 MG TAB PO PRN ×2 (02:43→20:36)
[2019-01-19 03:30] LABS: Glucose,Whole Blood 127 mg/dL (75-99)
[2019-01-19 04:05] LABS: Glucose,Whole Blood 136 mg/dL (75-99)
[2019-01-19] MEDS: ALBUMIN HUMAN 5% 250 ML in EMPTY BAG 1 BAG IVPB PRN ×6 (04:15→20:28)
[2019-01-19 04:36] LABS: Basophils % (A) 0 %; Eosinophils % (A) 0 %; Lymphocytes # (A) 0.8 k/uL (1.0-4.8); Lymphocytes % (A) 14 %; MCH 28.5 pg (25.0-35.0); MCHC 33.3 g/dL (31.0-37.0); MCV 85.3 fL (80.0-100.0); Mean Platelet Volume 9.4; Monocytes # (A) 0.4 k/uL (0-1.0); Monocytes % (A) 7 %; Neutrophils # (A) 4.7 k/uL (1.3-7.7); Neutrophils % (A) 78 %; Platelet Count 144 k/uL (150-450); RDW 15.1 % (11.5-15.5); WBC 6.1 k/uL (3.8-10.6)
[2019-01-19 04:41] LABS: HGB 7.7 gm/dL (13.0-17.5)
[2019-01-19 04:57] LABS: Ionized Calcium 4.5 mg/dL (4.5-5.3)
[2019-01-19 05:06] LABS: ALT 17 U/L (21-72); AST 49 U/L (17-59); African American GFR (CKD) >90 (>60 ml/min/1.73 sqM); Albumin 3.1 g/dL (3.5-5.0); Alkaline Phosphatase 40 U/L (38-126); Anion Gap 9 mmol/L; Blood Urea Nitrogen 14 mg/dL (9-20); Calcium 7.7 mg/dL (8.4-10.2); Carbon Dioxide 23 mmol/L (22-30); Chloride 106 mmol/L (98-107); Glucose 124 mg/dL (74-99); Magnesium 2.2 mg/dL (1.6-2.3); Potassium 4.7 mmol/L (3.5-5.1); Sodium 138 mmol/L (137-145); Total Bilirubin 0.6 mg/dL (0.2-1.3)
[2019-01-19] MEDS: KETOROLAC 30 MG/ML 1 ML VIAL IVP SCH ×3 (05:07→18:03)
[2019-01-19 05:41] LABS: Glucose,Whole Blood 133 mg/dL (75-99)
[2019-01-19 05:43] LABS: ABG Base Excess -1.3 mmol/L; ABG HCO3 24 mmol/L (21-25); ABG PCO2 40 mmHg (35-45); ABG PH 7.37 (7.35-7.45); ABG PO2 85 mmHg (83-108); ABG TCO2 25 mmol/L (19-24); Allen Test Performed? Yes
--- NOTE | 2019-01-19 07:21 | XR ---
EXAMINATION TYPE: XR chest 1V portable DATE OF EXAM: 01/19/2019 COMPARISON: Prior chest x-ray 01/18/2019 HISTORY: Postop cardiac surgery, chest tubes TECHNIQUE: Single frontal view of the chest is obtained. FINDINGS: Endotracheal tube and NG tube have been removed. Right jugular central venous catheter emma ws the distal tip in the pulmonary artery region, is stable. Patient shows post atrial appendage clip ping placement. Bilateral chest tubes are in place. No sizable pneumothorax. Exam is expiratory and r otated. Heart remains enlarged. Bibasilar subsegmental atelectatic changes are noted. There are overl glenda cardiac leads. IMPRESSION: Interval extubation. Expiratory rotated exam. Probable basilar atelectasis, follow-up
[2019-01-19] MEDS ORDERED: fentaNYL (PF) 50 MCG/ML 2 ML AMP IVP PRN (07:22)
[2019-01-19 07:30] LABS: Glucose,Whole Blood 131 mg/dL (75-99)
--- NOTE | 2019-01-19 07:39 | OP ---
OPERATIVE REPORT DATE OF SURGERY: 01/18/2019. PREOP DIAGNOSES: 1. Coronary artery disease. 2. Mitral regurgitation. POSTOP DIAGNOSES: 1. Coronary artery disease. 2. Mitral regurgitation. PROCEDURE: 1. Coronary artery bypass grafting x3 vessels (left internal mammary artery to the left anterior descending artery, radial artery to obtuse marginal artery, saphenous vein graft to posterior descending artery). 2. Endoscopic vein harvest, left greater saphenous vein. 3. Endoscopic harvest of left radial artery. 4. Mitral valve repair using 28 mm annual flex ring. 5. Epiaortic ultrasound. 6. Ligation of left atrial appendage using 35 mm AtriCure clip. 7. Transesophageal echocardiogram. SURGEON: Bert Hodges MD. REAL ESTATE ASSOCIATE: 1. TIMO Villegas. 2. Evans Miller NP. ANESTHESIA: General. SPECIMENS: None. COMPLICATION: None. INDICATION: The patient is a 58-year-old male with past medical history significant for coronary artery disease status post coronary stent, hypertension, GERD, tobacco use, and osteoarthritis who presented to the hospital with shortness of breath and chest pain. Workup revealed multivessel coronary artery disease. Transesophageal echocardiogram revealed moderate to severe central mitral regurgitation. Coronary artery bypass with mitral valve repair was recommended. The risks, benefits, alternatives to these procedures were discussed with the patient. All his questions were answered. Consent was obtained. Of note, the patient was on Plavix which was held 5 days before the day of surgery. FINDINGS: The left internal mammary artery was good conduit with brisk flow. The saphenous vein was a good conduit. The LAD measured 1.3 mm. The obtuse marginal artery measured 1.5 mm. The PDA measured 1.3 mm. There was no evidence of prolapse or torn chordae involving the mitral valve or its apparatus. PROCEDURE IN DETAIL: The patient was taken to the operating room, placed supine on the operating table. After the induction of anesthesia, he was prepped and draped in the usual sterile fashion. Preoperative transesophageal echocardiogram revealed moderate to severe central mitral regurgitation with no evidence of prolapse or flail leaflet. His ejection fraction was about 40%. Starting systolic PA pressures were in the 30s. A median sternotomy was performed. The left internal mammary artery was harvested in the standard fashion, taking care to clip all branches. Intravenous heparin was administered and the vessel was transected distally revealing brisk flow. Simultaneously greater saphenous vein was harvested from left lower extremity using endoscopic technique. All branches were tied. Below the knee the vein was not usable. Radial artery was harvested from left upper extremity again using technique. All branches were tied. This was good conduit. A pericardial cradle was created. The ascending aorta was palpated. There was no significant calcific plaque noted. Epiaortic ultrasound was then performed in the ascending aorta. Again no calcific plaque or atheromatous disease was identified. Arterial cannula was placed in the distal ascending aorta. Five cable venous cannulation was achieved with a right angle cannula placed in the SVC and a straight cannula placed through the right atrial appendage directed into the IVC. Both antegrade and retrograde catheters were placed as well. The patient was then placed on cardiopulmonary bypass with good decompression of the heart. Both the SVC and IVC were dissected free and umbilical tapes were passed around each vessel. The aortic cross- clamp was applied. Cold blood potassium cardioplegia was delivered both antegrade and retrograde fashion to achieve arrest of the heart. Of note, cardioplegia was delivered every 15 to 20 minutes while the patient remained under cross-clamp. I began by identifying the left atrial appendage. A 35 mm AtriClip was placed across its base. Next, attention was turned to the inferior wall. A posterior descending artery was identified. It was dissected free. A small arteriotomy was created. This vessel accepted a 1 mm probe. Using saphenous vein in a reverse fashion, an end-to- side anastomosis was created. This was performed using a running 7-0 Prolene suture. The graft was intact and had good flow. Next, the lateral wall was identified. The OM1 was dissected free. A small arteriotomy was created. This vessel contained diffuse disease. Using the radial artery, an end-to-side anastomosis was created. This was performed using running 7-0 Prolene suture. The graft was hemostatic and had good flow. Next, the left anterior descending artery was identified in its midportion. A small arteriotomy was created. This vessel accepted a 1 mm probe. It was quite thin- walled and had posterior plaque. Using the left internal mammary artery, an end-to- side anastomosis was created. This performed using running 8-0 Prolene suture. The grafts were hemostatic. The mammary pedicle was tacked down to the anterior surface of the heart. Attention was then turned to the mitral valve. Dissection was carried out through sonic groove. CO2 was administered across the operative field. The cable umbilical tapes were snugged down. The left atrium was entered using a scalpel. The atriotomy was then performed and extended behind the IVC. The left atrium was somewhat small in size. Visualization of the mitral valve apparatus was somewhat challenging. Inspection revealed intact apparatus and no evidence of flail chords or leaflets. Interrupted sutures were then placed across the posterior anulus from trigone to trigone. A 28 mm AnnuloFlex ring was then chosen an the anterior portion excised. The sutures were passed through the sewing ring. The sutures were tied using core knots. The valve was again tested and was now competent with trivial central regurgitation. The left atrium was then closed in 2 layers using 4 Prolene suture. Of note, the atrium was de-aired prior to tying down the final stitch. Attention was then turned to the proximal anastomoses. These were performed in an end- to-side fashion to the ascending aorta using running 6-0 Prolene suture. 1 L of warm blood was delivered in retrograde fashion. Both lidocaine and magnesium were administered as well. Again, standard de-airing procedures were performed and the aortic cross-clamp was removed. Followup transesophageal echocardiogram revealed some intracardiac air, which was relieved with time and venting of the left ventricle at the apex. The patient was then weaned off cardiopulmonary bypass. He without difficulty. Initial followup transesophageal echocardiogram revealed no significant mitral regurgitation. Protamine was administered. There were no adverse reactions. Of note, the patient was somewhat hypotensive during this time despite fluid administration and low-dose Levophed was initiated. PF was unchanged. The remaining cannulas were then removed. The mediastinum was copiously irrigated with warm saline solution. All surgical sites were inspected, appeared to be hemostatic. Soft tissues were then reapproximated in the ascending aorta as well as of the apex of the heart. Straight 32-Chilean chest tubes were placed directly into both left and right pleural spaces. A straight 36-Chilean chest tube was placed directly into the mediastinum. These were all secured to the skin using sutures. The sternum was then reapproximated using the pioneer cable system. The wires were placed in a [id number] fashion. At the completion of the closure, the sternum was well aligned. The remainder of the wound was closed in layers. Sterile dressing was applied. The patient appeared to tolerate the procedure well. There were no immediate complications. He returned to the ICU in critical but stable condition. NINO / GAYLAN: [id number] /
[2019-01-19] MEDS: IPRATROPIUM-ALBUTEROL 3 ML NEB INHALATION SCH ×4 (07:58→19:48)
--- NOTE | 2019-01-19 08:03 | P.PN ---
Subjective Progress Note Date: 01/19/19 Principal diagnosis: Triple-vessel coronary artery disease with extensive left to right collaterals to the distal right coronary artery, non-STEMI, moderate to severe mitral regurg itation on transthoracic echo. Previous medical history of coronary artery disease with previous stent placement to his left anterior descending coronary artery in 2004, 2006 and 2017, history of stent placement to a circumflex coronary artery in 2010, previous tobacco dependence quit 1 year ago, mild COPD with preoperative FEV1 61% of predicted, hypertension, hyperlipidemia, ischemic cardiomyopathy, chronic systolic heart failure with EF 45-50%, gastroesophageal reflux disease, anxiety and noncompliance. Left internal carotid artery stenosis 50-70%. POD #1 urgent coronary artery bypass graft surgery, left internal mammary artery to the left anterior descending artery, radial artery to the OM, reverse saphenous vein graft to the PDA, endoscopic vein harvest of the left greater saphenous vein, endoscopic harvest of the left radial artery, mitral valve repair with 28 mm AnnuloFlex ring, epi-aortic ultrasound, intraoperative transesophageal echocardiogram, and ligation of the left atrial appendage with a 35 mm AtriClip Postoperative acute blood loss anemia, expected outcome given hemodilution and cardiopulmonary bypass pump Hypotension on IV Levophed, expected as a normal part of the postoperative course The patient's currently sitting up in bed in no acute distress in the intensive care unit. He was successfully extubated last night at 23:55. Does complain of postoperative incisional chest pain, denies shortness of breath. Patient is neurologically intact however he has significant anxiety and asking us to "knock him out". Remains in atrial paced with rate 80 bpm, underlying rhythm sinus bradycardia with heart rate in the 50s. Currently on IV Cardizem for radial a rtery spasm, Levophed for hypotension, and IV insulin. Urine output remains adequate, chest tubes are draining serosanguineous fluid. Objective - Vital Signs Vital signs: Vital Signs Temp 99.5 F 01/19/19 04:00 Pulse 80 01/19/19 07:01 Resp 21 01/19/19 07:01 BP 82/49 01/19/19 05:00 Pulse Ox 97 01/19/19 07:01 Intake & Output 01/18/19 01/19/19 01/19/19 18:59 06:59 18:59 Intake Total 707.644 987.044 59 Output Total 2915 1353 80 Balance -2207.356 -365.956 -21 Weight 99.3 kg Intake: IV 62 779 59 CO/CI 130 Lactated Ringers 1,000 ml 550 50 @ 50 mls/hr IV .Q20H [facility] Rx#:[id number] pressure bags 99 9 Intake, IV Titration 645.644 208.044 Amount Albumin Human 5% 500 ml 500 In Empty Bag 1 bag @ 250 mls/hr IVPB ONCE ONE Rx#: [id number] Clevidipine Butyrate 25 2.8 mg In Empty Bag 1 bag @ 1 MG/HR 2 mls/hr IV .Q24H [facility] Rx#:[id number] Dexmedetomidine/0.9% NaCl 60.748 (Pmx) 400 mcg In Empty Bag 1 bag @ Titrate IV . Q0M [facility] Rx#:[id number] Insulin Regular 100 unit 4.208 In Sodium Chloride 0.9% 100 ml @ Titrate IV .Q0M [facility] Rx#:[id number] Lactated Ringers 1,000 ml 100 @ 50 mls/hr IV .Q20H [facility] Rx#:[id number] Norepinephrine 4 mg In 81.945 Sodium Chloride 0.9% 250 ml @ 0.05 MCG/KG/MIN 18. 117 mls/hr IV .Q14H2M [facility] Rx#:[id number] Propofol 1,000 mg In 15.644 58.343 Empty Bag 1 bag @ Titrate IV .Q0M [facility]TE Rx#: [id number] ceFAZolin 2 gm In Sodium 30 Chloride 0.9% 30 ml @ 60 mls/hr IVPB ONCE ONE Rx#: [id number] Output: Chest Tube Drainage 65 356 40 left and right pleural 35 237 20 mediastinal chest tube 30 119 20 Drainage 0 7 left radial 0 7 Urine 1550 990 40 Estimated Blood Loss 1300 Other: Voiding Method Indwelling Catheter Indwelling Catheter ABP, PAP, CO, CI - Last Documented Arterial Blood Pressure 129/58 Pulmonary Artery Pressure 27/14 Cardiac Output 5.5 Cardiac Index 2.4 - Constitutional General appearance: Present: cooperative, mild distress - Respiratory Details: Lungs sounds diminished bilaterally. Respirations even, nonlabored. Currently on 3 L nasal cannula with oxygen saturation 97%. Only able to achieve 500 mL on his incentive spirometry. Weak cough. Mediastinal chest tube to continuous wall suction, 120 mL serosanguineous drainage overnight, 160 mL since surgery. Right/left pleural chest tube to continuous wall suction, 160 mL serosanguineous drainage overnight, 300 mL since surgery. No air leaks present. - Cardiovascular Details: S1, S2 present. Regular rate and rhythm, atrial paced on telemetry with underlying rhythm sinus bradycardia with heart rate in the 50s. Sternum stable. A/V epicardial pacemaker wires present, connected to generator, AAI mode with rate 80 bpm. Palpable peripheral pulses bilaterally. No edema present. No calf pain or tenderness noted. Right internal jugular [place]/Cordis, right radial arterial line present. Last CO/CI 5.5/2.4 on 4 g/min. Heart hugger in place the patient unable to demonstrate appropriate use. Antiembolism stockings, SCDs present. - Gastrointestinal Gastrointestinal Comment(s): Abdomen soft, nontender, nondistended. Hypoactive bowel sounds present 4 quadrants. Tolerating clear liquid diet. Negative flatus. - Genitourinary Genitourinary Comment(s): Hinojosa present draining clear, yellow urine. Output 25-75 mL/h overnight. - Integumentary Integumentary Comment(s): Skin is warm and dry with evidence of good perfusion. Anterior chest incision well approximated and covered with dry intact dressing. Left lower extremity EVH site well approximated with Dermabond. Left radial artery harvest site well approximated, NISREEN drain present with minimal serous drainage. Patient able to wiggle all fingers, good cap refill, skin is warm, patient does complain of some numbness and tingling which is to be expected. - Neurologic Neurologic: Present: CNII-XII intact - Musculoskeletal Musculoskeletal: Present: generalized weakness, strength equal bilaterally - Psychiatric Psychiatric: Present: A&O x's 3, appropriate affect - Allied health notes Allied health notes reviewed: nursing - Labs CBC & Chem 7: 01/19/19 04:03 01/19/19 04:03 Labs: Abnormal Lab Results - Last 24 Hours (Table) 01/16/19 01/18/19 01/18/19 Range/Units 06:39 08:45 10:16 RBC (4.30-5.90) m/uL Hgb (13.0-17.5) gm/dL Hct (39.0-53.0) % Plt Count (150-450) k/uL Lymphocytes # (1.0-4.8) k/uL ABG pH 7.27 L (7.35-7.45) ABG pCO2 46 H 57 H (35-45) mmHg ABG pO2 199 H 223 H (83-108) mmHg ABG HCO3 26 H 26 H (21-25) mmol/L ABG Total CO2 27 H 28 H (19-24) mmol/L ABG O2 Saturation 100.0 H 100.0 H (94-97) % ABG Hematocrit 33 L (34.0-46.0) % ABG Potassium (3.4-4.5) mmol/L ABG Ionized Calcium (4.5-5.3) mg/dL ABG Glucose 111 H 134 H (75-99) mg/dL Hemoglobin 11.3 L 10.8 L (13.0-17.5) gm/dL Chloride (98-107) mmol/L Glucose (74-99) mg/dL POC Glucose (mg/dL) (75-99) mg/dL Calcium (8.4-10.2) mg/dL Magnesium (1.6-2.3) mg/dL ALT (21-72) U/L Total Protein (6.3-8.2) g/dL Albumin (3.5-5.0) g/dL Arterial Blood Potassium (3.4-4.5) mmol/L Arterial Blood Glucose 111 H 134 H (75-99) mg/dL Crossmatch See Detail 01/18/19 01/18/19 01/18/19 Range/Units 11:27 11:56 12:33 RBC (4.30-5.90) m/uL Hgb (13.0-17.5) gm/dL Hct (39.0-53.0) % Plt Count (150-450) k/uL Lymphocytes # (1.0-4.8) k/uL ABG pH (7.35-7.45) ABG pCO2 (35-45) mmHg ABG pO2 390 H 335 H 323 H (83-108) mmHg ABG HCO3 (21-25) mmol/L ABG Total CO2 25 H 26 H 26 H (19-24) mmol/L ABG O2 Saturation 100.0 H 100.0 H 100.0 H (94-97) % ABG Hematocrit 27 L 26 L 26 L (34.0-46.0) % ABG Potassium 4.7 H 4.6 H (3.4-4.5) mmol/L ABG Ionized Calcium 4.0 L 4.2 L 4.1 L (4.5-5.3) mg/dL ABG Glucose 113 H 183 H 199 H (75-99) mg/dL Hemoglobin 8.8 L 8.6 L 8.4 L (13.0-17.5) gm/dL Chloride (98-107) mmol/L Glucose (74-99) mg/dL POC Glucose (mg/dL) (75-99) mg/dL Calcium (8.4-10.2) mg/dL Magnesium (1.6-2.3) mg/dL ALT (21-72) U/L Total Protein (6.3-8.2) g/dL Albumin (3.5-5.0) g/dL Arterial Blood Potassium 4.7 H 4.6 H (3.4-4.5) mmol/L Arterial Blood Glucose 113 H 183 H 199 H (75-99) mg/dL Crossmatch 01/18/19 01/18/19 01/18/19 Range/Units 13:04 16:59 16:59 RBC 3.39 L (4.30-5.90) m/uL Hgb 9.6 L D (13.0-17.5) gm/dL Hct 29.2 L (39.0-53.0) % Plt Count 131 L (150-450) k/uL Lymphocytes # (1.0-4.8) k/uL ABG pH 7.30 L (7.35-7.45) ABG pCO2 51 H (35-45) mmHg ABG pO2 283 H (83-108) mmHg ABG HCO3 (21-25) mmol/L ABG Total CO2 26 H (19-24) mmol/L ABG O2 Saturation 100.0 H (94-97) % ABG Hematocrit 25 L (34.0-46.0) % ABG Potassium (3.4-4.5) mmol/L ABG Ionized Calcium 4.0 L (4.5-5.3) mg/dL ABG Glucose 212 H (75-99) mg/dL Hemoglobin 8.0 L (13.0-17.5) gm/dL Chloride 109 H (98-107) mmol/L Glucose (74-99) mg/dL POC Glucose (mg/dL) (75-99) mg/dL Calcium 8.0 L (8.4-10.2) mg/dL Magnesium 2.9 H (1.6-2.3) mg/dL ALT 19 L (21-72) U/L Total Protein 4.7 L (6.3-8.2) g/dL Albumin 2.5 L (3.5-5.0) g/dL Arterial Blood Potassium (3.4-4.5) mmol/L Arterial Blood Glucose 212 H (75-99) mg/dL Crossmatch 01/18/19 01/18/19 01/18/19 Range/Units 17:31 19:07 20:00 RBC (4.30-5.90) m/uL Hgb (13.0-17.5) gm/dL Hct (39.0-53.0) % Plt Count (150-450) k/uL Lymphocytes # (1.0-4.8) k/uL ABG pH 7.34 L (7.35-7.45) ABG pCO2 46 H (35-45) mmHg ABG pO2 346 H (83-108) mmHg ABG HCO3 (21-25) mmol/L ABG Total CO2 26 H (19-24) mmol/L ABG O2 Saturation 100.0 H (94-97) % ABG Hematocrit (34.0-46.0) % ABG Potassium (3.4-4.5) mmol/L ABG Ionized Calcium (4.5-5.3) mg/dL ABG Glucose (75-99) mg/dL Hemoglobin (13.0-17.5) gm/dL Chloride (98-107) mmol/L Glucose (74-99) mg/dL POC Glucose (mg/dL) 119 H 143 H (75-99) mg/dL Calcium (8.4-10.2) mg/dL Magnesium (1.6-2.3) mg/dL ALT (21-72) U/L Total Protein (6.3-8.2) g/dL Albumin (3.5-5.0) g/dL Arterial Blood Potassium (3.4-4.5) mmol/L Arterial Blood Glucose (75-99) mg/dL Crossmatch 01/18/19 01/18/19 01/18/19 Range/Units 20:00 21:22 22:05 RBC 3.28 L (4.30-5.90) m/uL Hgb 9.4 L (13.0-17.5) gm/dL Hct 28.2 L (39.0-53.0) % Plt Count 147 L (150-450) k/uL Lymphocytes # 0.7 L (1.0-4.8) k/uL ABG pH (7.35-7.45) ABG pCO2 (35-45) mmHg ABG pO2 (83-108) mmHg ABG HCO3 (21-25) mmol/L ABG Total CO2 (19-24) mmol/L ABG O2 Saturation (94-97) % ABG Hematocrit (34.0-46.0) % ABG Potassium (3.4-4.5) mmol/L ABG Ionized Calcium (4.5-5.3) mg/dL ABG Glucose (75-99) mg/dL Hemoglobin (13.0-17.5) gm/dL Chloride (98-107) mmol/L Glucose (74-99) mg/dL POC Glucose (mg/dL) 135 H 133 H (75-99) mg/dL Calcium (8.4-10.2) mg/dL Magnesium (1.6-2.3) mg/dL ALT (21-72) U/L Total Protein (6.3-8.2) g/dL Albumin (3.5-5.0) g/dL Arterial Blood Potassium (3.4-4.5) mmol/L Arterial Blood Glucose (75-99) mg/dL Crossmatch 01/18/19 01/19/19 01/19/19 Range/Units 23:07 00:18 01:23 RBC (4.30-5.90) m/uL Hgb (13.0-17.5) gm/dL Hct (39.0-53.0) % Plt Count (150-450) k/uL Lymphocytes # (1.0-4.8) k/uL ABG pH (7.35-7.45) ABG pCO2 (35-45) mmHg ABG pO2 (83-108) mmHg ABG HCO3 (21-25) mmol/L ABG Total CO2 (19-24) mmol/L ABG O2 Saturation (94-97) % ABG Hematocrit (34.0-46.0) % ABG Potassium (3.4-4.5) mmol/L ABG Ionized Calcium (4.5-5.3) mg/dL ABG Glucose (75-99) mg/dL Hemoglobin (13.0-17.5) gm/dL Chloride (98-107) mmol/L Glucose (74-99) mg/dL POC Glucose (mg/dL) 102 H 116 H 132 H (75-99) mg/dL Calcium (8.4-10.2) mg/dL Magnesium (1.6-2.3) mg/dL ALT (21-72) U/L Total Protein (6.3-8.2) g/dL Albumin (3.5-5.0) g/dL Arterial Blood Potassium (3.4-4.5) mmol/L Arterial Blood Glucose (75-99) mg/dL Crossmatch 01/19/19 01/19/19 01/19/19 Range/Units 03:28 04:03 04:03 RBC 2.70 L (4.30-5.90) m/uL Hgb 7.7 L D (13.0-17.5) gm/dL Hct 23.0 L (39.0-53.0) % Plt Count 144 L (150-450) k/uL Lymphocytes # 0.8 L (1.0-4.8) k/uL ABG pH (7.35-7.45) ABG pCO2 (35-45) mmHg ABG pO2 (83-108) mmHg ABG HCO3 (21-25) mmol/L ABG Total CO2 (19-24) mmol/L ABG O2 Saturation (94-97) % ABG Hematocrit (34.0-46.0) % ABG Potassium (3.4-4.5) mmol/L ABG Ionized Calcium (4.5-5.3) mg/dL ABG Glucose (75-99) mg/dL Hemoglobin (13.0-17.5) gm/dL Chloride (98-107) mmol/L Glucose 124 H (74-99) mg/dL POC Glucose (mg/dL) 127 H (75-99) mg/dL Calcium 7.7 L (8.4-10.2) mg/dL Magnesium (1.6-2.3) mg/dL ALT 17 L (21-72) U/L Total Protein 5.0 L (6.3-8.2) g/dL Albumin 3.1 L (3.5-5.0) g/dL Arterial Blood Potassium (3.4-4.5) mmol/L Arterial Blood Glucose (75-99) mg/dL Crossmatch 01/19/19 01/19/19 01/19/19 Range/Units 04:03 05:35 05:38 RBC (4.30-5.90) m/uL Hgb (13.0-17.5) gm/dL Hct (39.0-53.0) % Plt Count (150-450) k/uL Lymphocytes # (1.0-4.8) k/uL ABG pH (7.35-7.45) ABG pCO2 (35-45) mmHg ABG pO2 (83-108) mmHg ABG HCO3 (21-25) mmol/L ABG Total CO2 25 H (19-24) mmol/L ABG O2 Saturation (94-97) % ABG Hematocrit (34.0-46.0) % ABG Potassium (3.4-4.5) mmol/L ABG Ionized Calcium (4.5-5.3) mg/dL ABG Glucose (75-99) mg/dL Hemoglobin (13.0-17.5) gm/dL Chloride (98-107) mmol/L Glucose (74-99) mg/dL POC Glucose (mg/dL) 136 H 133 H (75-99) mg/dL Calcium (8.4-10.2) mg/dL Magnesium (1.6-2.3) mg/dL ALT (21-72) U/L Total Protein (6.3-8.2) g/dL Albumin (3.5-5.0) g/dL Arterial Blood Potassium (3.4-4.5) mmol/L Arterial Blood Glucose (75-99) mg/dL Crossmatch 01/19/19 Range/Units 07:04 RBC (4.30-5.90) m/uL Hgb (13.0-17.5) gm/dL Hct (39.0-53.0) % Plt Count (150-450) k/uL Lymphocytes # (1.0-4.8) k/uL ABG pH (7.35-7.45) ABG pCO2 (35-45) mmHg ABG pO2 (83-108) mmHg ABG HCO3 (21-25) mmol/L ABG Total CO2 (19-24) mmol/L ABG O2 Saturation (94-97) % ABG Hematocrit (34.0-46.0) % ABG Potassium (3.4-4.5) mmol/L ABG Ionized Calcium (4.5-5.3) mg/dL ABG Glucose (75-99) mg/dL Hemoglobin (13.0-17.5) gm/dL Chloride (98-107) mmol/L Glucose (74-99) mg/dL POC Glucose (mg/dL) 131 H (75-99) mg/dL Calcium (8.4-10.2) mg/dL Magnesium (1.6-2.3) mg/dL ALT (21-72) U/L Total Protein (6.3-8.2) g/dL Albumin (3.5-5.0) g/dL Arterial Blood Potassium (3.4-4.5) mmol/L Arterial Blood Glucose (75-99) mg/dL Crossmatch - Imaging and Cardiology Chest x-ray: report reviewed, image reviewed Assessment and Plan Assessment: 1. Triple-vessel coronary artery disease with previous stent placement to the LAD 2004, 2006, 2018 and stent placement to the circumflex in 2010, status post urgent CABG 3 2. Non-ST elevated myocardial infarction this admission 3. Moderate to severe mitral regurgitation, status post mitral valve repair 4. Hyperlipidemia 5. Hypertension, currently hypotensive on IV Levophed 6. ischemic cardiomyopathy with chronic systolic heart failure, EF 45-50% 7. Previous tobacco dependence 8. Mild COPD with preoperative FEV1 61% of predicted 9. Left internal carotid artery stenosis 50-70% 10. GERD 11. Anxiety with panic attacks 12. Postoperative acute blood loss anemia, expected Plan: 1. Continue to maximize medical management with aspirin, statin, Plavix. Will hold beta jewels for now secondary to underlying bradycardia. Will eventually need CHAN inhibitor when blood pressure tolerates for afterload reduction. 2. Will continue IV Cardizem for now for radial artery spasm. Further dete rminations regarding transition to oral medication to be made dependent on patient's heart rate and blood pressure. 3. Wean levothyroid as tolerated. IV albumin given for hypotension. 4. Wean O2 as tolerated. Encourage use of incentive spirometry every hour while awake. Encourage continued smoking cessation. 5. Bronchodilators per pulmonology. 6. Increase activity, ambulate as tolerated. PT/OT/cardiac rehab following. 7. Pain control with current medication regimen. Toradol added. 8. Insulin management per primary care services. 9. Will monitor daily labs and x-rays. Electrolyte replacement per protocol. No blood transfusion at this time. 10. GI/DVT prophylaxis. 11. Will continue chest tubes for another 24 hours. 12. Will continue Hinojosa catheter for another 24 hours for strict accurate intake and output. 13. Continue Xanax for patient's anxiety. 14. More recommended patient is to follow based on patient's clinical course. Time with Patient: Greater than 30
[2019-01-19] MEDS: CLOPIDOGREL 75 MG TAB PO SCH (08:23)
[2019-01-19] MEDS: ASPIRIN 325 MG TAB PO SCH (08:23)
[2019-01-19] MEDS: PANTOPRAZOLE 40 MG/10 ML VIAL IVP SCH (08:23)
[2019-01-19] MEDS: ATORVASTATIN 40 MG TAB PO SCH (08:23)
--- NOTE | 2019-01-19 08:39 | PN ---
PROGRESS NOTE DATE OF SERVICE: 01/19/2019 This is a 58-year-old male who was admitted way back on January 12. The patient is now postop day #1. He had a three-vessel bypass grafting along with a mitral valve ring repair and left atrial appendage excision. The patient was extubated a bit after the 6 hour deadline. Anyway, he is doing relatively well. The patient is currently on 3 L nasal cannula. He is getting lactated Ringer's at 50 mL an hour and insulin drip 0.5 units/hour. He is also on Cardizem at 5 mg an hour and norepinephrine at about 4 mcg/minute. The nitroglycerin has been turned off. The Precedex has been turned off. The patient does have a history of CAD with previous PCI, heart failure, GERD, hypertension, myocardial infarction, DJD, pneumonia, peripheral neuropathy, and cardiomyopathy with an ejection fraction of 35% to 40%. The patient is resting comfortably in no acute distress. He verbalizes no complaints this morning. The nurse states that he has been relatively stable. PHYSICAL EXAMINATION: VITAL SIGNS: Temperature 99.5, heart rate 80, respiratory rate 26, blood pressure 82/49, mean of 60, repeat 100/51, pulmonary artery pressure is 26/14, CVP is 8 and saturations are 95% on 3 L. GENERAL: He appears in no acute distress, a bit sleepy. HEENT: Examination is grossly unremarkable. Nasal cannula noted. NECK: Supple. Full range of motion. No adenopathy or thyromegaly. Neck veins are flat. CARDIOVASCULAR: Examination reveals regular rhythm and rate. Heart sounds are distant. S1, S2 normal. Heart rate is about 80. LUNGS: Reveal diminished breath sounds. A few scattered rhonchi. No wheezes or crackles. The patient has not taken deep breaths. ABDOMEN: Soft. Bowel sounds are heard. EXTREMITIES: Are intact. There is no cyanosis, clubbing, or edema. SKIN: Without rash. NEUROLOGIC: Examination is brief but nonfocal. LAB DATA: Lab data is reviewed. White count 6.1, hemoglobin 7.7, hematocrit 23.0, platelet count 144,000. Sodium, potassium, chloride, CO2 all normal. Anion gap is 9. BUN and creatinine were 14 and 0.95. Albumin 3.1. X-RAY: The patient did have a chest x-ray this morning. It shows some postsurgical changes. Chest tubes are noted. The right lung is mostly clear. The left lung shows some basilar atelectasis and/or effusion. Sternal wires are noted. MEDICATIONS: Medications are reviewed. ASSESSMENT: 1. Postoperative day #1, status post 3-vessel bypass grafting, mitral valve ring repair and atrial appendage excision. 2. Routine postoperative ventilator management with extubation just to beyond the 6 hour time period. 3. History of coronary artery disease with previous PCI and stent placement. 4. History of heart failure and cardiomyopathy with an ejection fraction of 35% to 40% with moderate global hypokinesis and mild concentric left ventricular hypertrophy. 5. History of gastroesophageal reflux disease. 6. Benign essential hypertension. 7. Previous myocardial infarction. 8. Degenerative joint disease. 9. History of pneumonia. 10.Peripheral neuropathy. PLAN: The patient seems to be doing relatively well. He remains on 3 L by nasal cannula. Lactated Ringer's is running at 50 mL an hour. Insulin drip is at 0.5 units/hour. Cardizem at 5 mg an hour. Norepinephrine is a 4 mcg/minute. Both nitroglycerin and Precedex was turned off. Chest x-ray is reviewed. It looks pretty stable. Continue to watch patient closely. We will work with deep breathing, coughing, clearing of secretions and hourly use of incentive spirometer. CRITICAL CARE TIME: 33 minutes. MMSTEVENL / GAYLAN: [id number] /
[2019-01-19 08:52] LABS: Glucose,Whole Blood 138 mg/dL (75-99)
[2019-01-19] MEDS ORDERED: MAGNESIUM HYDROXIDE 2,400 MG/10 ML CUP PO PRN (09:00)
[2019-01-19] MEDS ORDERED: BISACODYL 10 MG SUPP RECTAL PRN (09:00)
[2019-01-19] MEDS: ceFAZolin IN SWFI 2 GM/20 ML SYRINGE IVP SCH (09:14)
[2019-01-19] MEDS: METOPROLOL TARTRATE 12.5 MG TAB PO SCH (09:15)
[2019-01-19] MEDS: NOREPINEPHRINE 4 MG in SODIUM CHLORIDE 0.9% 250 ML IV SCH (09:15)
[2019-01-19] MEDS: MUPIROCIN 2% OINT 22 GM TUBE NASAL SCH (09:15)
[2019-01-19 09:31] LABS: Glucose,Whole Blood 137 mg/dL (75-99)
[2019-01-19 11:07] LABS: Glucose,Whole Blood 133 mg/dL (75-99)
[2019-01-19] MEDS: LACTATED RINGERS 1,000 ML IV SCH (11:09)
--- NOTE | 2019-01-19 11:12 | P.PN ---
Subjective Progress Note Date: 01/19/19 Principal diagnosis: Patient is a 58-year-old male with a past medical history of systolic congestive heart failure with an ejection fraction 35-40%, coronary artery dise ase status post prior stenting, dyslipidemia, and hypertension who presented to the ER with complaints of chest pain. Patient underwent stenting of the LAD with 2 drug-eluting stents on 01/11/18. Per the patient has been unable to afford his Proventil and therefore hasn't been taking anything. In the ER he underwent an extensive evaluation. On arrival his blood pressures are found be 190/107. Laboratory analysis is essentially unremarkable and troponin was negative. He was given aspirin and admitted for cardiac evaluation. Initial EKG did have some ST segment depression. His second troponin was positive at 0.96 and trended to 1.6. Cardiology was contacted. Underwent cardiac catheter ization on 01/13, found to have critical disease Echo with moderate MR and CORDELL done 01/16 and will need mitral ring as well. EF low at 45-50%. and subsequently had CABG X3 on 01/18 with SANTAMARIA to LAD, radial to obtuse marginal, saphenous to PDA with mitral valve repair Patient seen and examined at bedside, successfully extubated last night. POD #1 status post CABG X3 with SANTAMARIA to LAD, radial to obtuse marginal, saphenous to PDA and mitral valve repair. Typical post CABG drips, Cardizem ggt nd levophed with 3 chest tubes and NISREEN drain noted. Right IJ, Cordis and right radial. patent and functioning well. The patient hypotensive overnight receiving LR and currently on Levophed. Patient complained of incisional chest pain denies shortness of breath, patient reports some anxiety wants to be sedated. Hemoglobin 7.7 g this morning Objective - Vital Signs Vital signs: Vital Signs Temp 99.0 F 01/19/19 08:00 Pulse 80 01/19/19 10:00 Resp 19 01/19/19 10:00 BP 88/55 01/19/19 10:00 Pulse Ox 91 L 01/19/19 10:00 Intake & Output 01/18/19 01/19/19 01/19/19 18:59 06:59 18:59 Intake Total 707.644 987.044 551.35 Output Total 2915 1353 210 Balance -2207.356 -365.956 341.35 Weight 99.3 kg Intake: IV 62 779 197 CO/CI 130 20 Lactated Ringers 1,000 ml 550 150 @ 50 mls/hr IV .Q20H [facility] Rx#:[id number] pressure bags 99 27 Intake, IV Titration 645.644 208.044 354.35 Amount Albumin Human 5% 500 ml 500 In Empty Bag 1 bag @ 250 mls/hr IVPB ONCE ONE Rx#: [id number] Albumin Human 5% 500 ml 250 In Empty Bag 1 bag @ 250 mls/hr IVPB ONCE ONE Rx#: [id number] Clevidipine Butyrate 25 2.8 mg In Empty Bag 1 bag @ 1 MG/HR 2 mls/hr IV .Q24H [facility] Rx#:[id number] Dexmedetomidine/0.9% NaCl 60.748 (Pmx) 400 mcg In Empty Bag 1 bag @ Titrate IV . Q0M [facility] Rx#:[id number] Insulin Regular 100 unit 4.208 In Sodium Chloride 0.9% 100 ml @ Titrate IV .Q0M [facility] Rx#:[id number] Lactated Ringers 1,000 ml 100 @ 50 mls/hr IV .Q20H [facility] Rx#:[id number] Norepinephrine 4 mg In 81.945 104.35 Sodium Chloride 0.9% 250 ml @ 0.05 MCG/KG/MIN 18. 117 mls/hr IV .Q14H2M [facility] Rx#:[id number] Propofol 1,000 mg In 15.644 58.343 Empty Bag 1 bag @ Titrate IV .Q0M [facility] Rx#: [id number] ceFAZolin 2 gm In Sodium 30 Chloride 0.9% 30 ml @ 60 mls/hr IVPB ONCE ONE Rx#: [id number] Output: Chest Tube Drainage 65 356 110 left and right pleural 35 237 70 mediastinal chest tube 30 119 40 Drainage 0 7 left radial 0 7 Urine 1550 990 100 Estimated Blood Loss 1300 Other: Voiding Method Indwelling Catheter Indwelling Catheter Indwelling Catheter ABP, PAP, CO, CI - Last Documented Arterial Blood Pressure 103/45 Pulmonary Artery Pressure 18/9 Cardiac Output 5.9 Cardiac Index 2.7 - Exam Constitutional: No acute distress, awake and alert Eyes: Anicteric sclerae, moist conjunctiva, no lid-lag, PERRLA ENMT: NC/AT,Oropharynx clear, no erythema, exudates Neck:Supple, FROM, no masses, or JVD, No carotid bruits; No thyromegaly, right IJ and Cordis present Lungs: Clear to auscultation, Clear to percussion, on ventilator with multiple chest tubes present Cardiovascular: Heart regular in rate and rhythm, No murmurs, gallops, or rubs no peripheral edema, sternum stable, A/epicardial pacemaker wires present heart Ogren place Abdominal: Soft Nontender, nom distended, no guarding, no rebound or rigidity, Normoactive bowel sounds No hepatomegaly, No splenomegaly, No palpable mass No abdominal wall hernia noted Skin: Left EVH with Dermabond, NISREEN drain with minimal serous drainage, able to move all fingers with good capillary refill Extremities:No digital cyanosis No clubbing, Pedal pulses intact and symmetrical Radial pulses intact and symmetrical Normal gait and station, No calf tenderness Psychiatric: Alert and oriented to person, place and time, Appropriate affect Intact judgement Neuro: Cranial nerves XII grossly intact, no focal deficits appreciated - Labs CBC & Chem 7: 01/19/19 04:03 01/19/19 04:03 Labs: Abnormal Lab Results - Last 24 Hours (Table) 01/16/19 01/18/19 01/18/19 Range/Units 06:39 08:45 10:16 RBC (4.30-5.90) m/uL Hgb (13.0-17.5) gm/dL Hct (39.0-53.0) % Plt Count (150-450) k/uL Lymphocytes # (1.0-4.8) k/uL ABG pH 7.27 L (7.35-7.45) ABG pCO2 46 H 57 H (35-45) mmHg ABG pO2 199 H 223 H (83-108) mmHg ABG HCO3 26 H 26 H (21-25) mmol/L ABG Total CO2 27 H 28 H (19-24) mmol/L ABG O2 Saturation 100.0 H 100.0 H (94-97) % ABG Hematocrit 33 L (34.0-46.0) % ABG Potassium (3.4-4.5) mmol/L ABG Ionized Calcium (4.5-5.3) mg/dL ABG Glucose 111 H 134 H (75-99) mg/dL Hemoglobin 11.3 L 10.8 L (13.0-17.5) gm/dL Chloride (98-107) mmol/L Glucose (74-99) mg/dL POC Glucose (mg/dL) (75-99) mg/dL Calcium (8.4-10.2) mg/dL Magnesium (1.6-2.3) mg/dL ALT (21-72) U/L Total Protein (6.3-8.2) g/dL Albumin (3.5-5.0) g/dL Arterial Blood Potassium (3.4-4.5) mmol/L Arterial Blood Glucose 111 H 134 H (75-99) mg/dL Crossmatch See Detail 01/18/19 01/18/19 01/18/19 Range/Units 11:27 11:56 12:33 RBC (4.30-5.90) m/uL Hgb (13.0-17.5) gm/dL Hct (39.0-53.0) % Plt Count (150-450) k/uL Lymphocytes # (1.0-4.8) k/uL ABG pH (7.35-7.45) ABG pCO2 (35-45) mmHg ABG pO2 390 H 335 H 323 H (83-108) mmHg ABG HCO3 (21-25) mmol/L ABG Total CO2 25 H 26 H 26 H (19-24) mmol/L ABG O2 Saturation 100.0 H 100.0 H 100.0 H (94-97) % ABG Hematocrit 27 L 26 L 26 L (34.0-46.0) % ABG Potassium 4.7 H 4.6 H (3.4-4.5) mmol/L ABG Ionized Calcium 4.0 L 4.2 L 4.1 L (4.5-5.3) mg/dL ABG Glucose 113 H 183 H 199 H (75-99) mg/dL Hemoglobin 8.8 L 8.6 L 8.4 L (13.0-17.5) gm/dL Chloride (98-107) mmol/L Glucose (74-99) mg/dL POC Glucose (mg/dL) (75-99) mg/dL Calcium (8.4-10.2) mg/dL Magnesium (1.6-2.3) mg/dL ALT (21-72) U/L Total Protein (6.3-8.2) g/dL Albumin (3.5-5.0) g/dL Arterial Blood Potassium 4.7 H 4.6 H (3.4-4.5) mmol/L Arterial Blood Glucose 113 H 183 H 199 H (75-99) mg/dL Crossmatch 01/18/19 01/18/19 01/18/19 Range/Units 13:04 16:59 16:59 RBC 3.39 L (4.30-5.90) m/uL Hgb 9.6 L D (13.0-17.5) gm/dL Hct 29.2 L (39.0-53.0) % Plt Count 131 L (150-450) k/uL Lymphocytes # (1.0-4.8) k/uL ABG pH 7.30 L (7.35-7.45) ABG pCO2 51 H (35-45) mmHg ABG pO2 283 H (83-108) mmHg ABG HCO3 (21-25) mmol/L ABG Total CO2 26 H (19-24) mmol/L ABG O2 Saturation 100.0 H (94-97) % ABG Hematocrit 25 L (34.0-46.0) % ABG Potassium (3.4-4.5) mmol/L ABG Ionized Calcium 4.0 L (4.5-5.3) mg/dL ABG Glucose 212 H (75-99) mg/dL Hemoglobin 8.0 L (13.0-17.5) gm/dL Chloride 109 H (98-107) mmol/L Glucose (74-99) mg/dL POC Glucose (mg/dL) (75-99) mg/dL Calcium 8.0 L (8.4-10.2) mg/dL Magnesium 2.9 H (1.6-2.3) mg/dL ALT 19 L (21-72) U/L Total Protein 4.7 L (6.3-8.2) g/dL Albumin 2.5 L (3.5-5.0) g/dL Arterial Blood Potassium (3.4-4.5) mmol/L Arterial Blood Glucose 212 H (75-99) mg/dL Crossmatch 01/18/19 01/18/19 01/18/19 Range/Units 17:31 19:07 20:00 RBC (4.30-5.90) m/uL Hgb (13.0-17.5) gm/dL Hct (39.0-53.0) % Plt Count (150-450) k/uL Lymphocytes # (1.0-4.8) k/uL ABG pH 7.34 L (7.35-7.45) ABG pCO2 46 H (35-45) mmHg ABG pO2 346 H (83-108) mmHg ABG HCO3 (21-25) mmol/L ABG Total CO2 26 H (19-24) mmol/L ABG O2 Saturation 100.0 H (94-97) % ABG Hematocrit (34.0-46.0) % ABG Potassium (3.4-4.5) mmol/L ABG Ionized Calcium (4.5-5.3) mg/dL ABG Glucose (75-99) mg/dL Hemoglobin (13.0-17.5) gm/dL Chloride (98-107) mmol/L Glucose (74-99) mg/dL POC Glucose (mg/dL) 119 H 143 H (75-99) mg/dL Calcium (8.4-10.2) mg/dL Magnesium (1.6-2.3) mg/dL ALT (21-72) U/L Total Protein (6.3-8.2) g/dL Albumin (3.5-5.0) g/dL Arterial Blood Potassium (3.4-4.5) mmol/L Arterial Blood Glucose (75-99) mg/dL Crossmatch 01/18/19 01/18/19 01/18/19 Range/Units 20:00 21:22 22:05 RBC 3.28 L (4.30-5.90) m/uL Hgb 9.4 L (13.0-17.5) gm/dL Hct 28.2 L (39.0-53.0) % Plt Count 147 L (150-450) k/uL Lymphocytes # 0.7 L (1.0-4.8) k/uL ABG pH (7.35-7.45) ABG pCO2 (35-45) mmHg ABG pO2 (83-108) mmHg ABG HCO3 (21-25) mmol/L ABG Total CO2 (19-24) mmol/L ABG O2 Saturation (94-97) % ABG Hematocrit (34.0-46.0) % ABG Potassium (3.4-4.5) mmol/L ABG Ionized Calcium (4.5-5.3) mg/dL ABG Glucose (75-99) mg/dL Hemoglobin (13.0-17.5) gm/dL Chloride (98-107) mmol/L Glucose (74-99) mg/dL POC Glucose (mg/dL) 135 H 133 H (75-99) mg/dL Calcium (8.4-10.2) mg/dL Magnesium (1.6-2.3) mg/dL ALT (21-72) U/L Total Protein (6.3-8.2) g/dL Albumin (3.5-5.0) g/dL Arterial Blood Potassium (3.4-4.5) mmol/L Arterial Blood Glucose (75-99) mg/dL Crossmatch 01/18/19 01/19/19 01/19/19 Range/Units 23:07 00:18 01:23 RBC (4.30-5.90) m/uL Hgb (13.0-17.5) gm/dL Hct (39.0-53.0) % Plt Count (150-450) k/uL Lymphocytes # (1.0-4.8) k/uL ABG pH (7.35-7.45) ABG pCO2 (35-45) mmHg ABG pO2 (83-108) mmHg ABG HCO3 (21-25) mmol/L ABG Total CO2 (19-24) mmol/L ABG O2 Saturation (94-97) % ABG Hematocrit (34.0-46.0) % ABG Potassium (3.4-4.5) mmol/L ABG Ionized Calcium (4.5-5.3) mg/dL ABG Glucose (75-99) mg/dL Hemoglobin (13.0-17.5) gm/dL Chloride (98-107) mmol/L Glucose (74-99) mg/dL POC Glucose (mg/dL) 102 H 116 H 132 H (75-99) mg/dL Calcium (8.4-10.2) mg/dL Magnesium (1.6-2.3) mg/dL ALT (21-72) U/L Total Protein (6.3-8.2) g/dL Albumin (3.5-5.0) g/dL Arterial Blood Potassium (3.4-4.5) mmol/L Arterial Blood Glucose (75-99) mg/dL Crossmatch 01/19/19 01/19/19 01/19/19 Range/Units 03:28 04:03 04:03 RBC 2.70 L (4.30-5.90) m/uL Hgb 7.7 L D (13.0-17.5) gm/dL Hct 23.0 L (39.0-53.0) % Plt Count 144 L (150-450) k/uL Lymphocytes # 0.8 L (1.0-4.8) k/uL ABG pH (7.35-7.45) ABG pCO2 (35-45) mmHg ABG pO2 (83-108) mmHg ABG HCO3 (21-25) mmol/L ABG Total CO2 (19-24) mmol/L ABG O2 Saturation (94-97) % ABG Hematocrit (34.0-46.0) % ABG Potassium (3.4-4.5) mmol/L ABG Ionized Calcium (4.5-5.3) mg/dL ABG Glucose (75-99) mg/dL Hemoglobin (13.0-17.5) gm/dL Chloride (98-107) mmol/L Glucose 124 H (74-99) mg/dL POC Glucose (mg/dL) 127 H (75-99) mg/dL Calcium 7.7 L (8.4-10.2) mg/dL Magnesium (1.6-2.3) mg/dL ALT 17 L (21-72) U/L Total Protein 5.0 L (6.3-8.2) g/dL Albumin 3.1 L (3.5-5.0) g/dL Arterial Blood Potassium (3.4-4.5) mmol/L Arterial Blood Glucose (75-99) mg/dL Crossmatch 01/19/19 01/19/19 01/19/19 Range/Units 04:03 05:35 05:38 RBC (4.30-5.90) m/uL Hgb (13.0-17.5) gm/dL Hct (39.0-53.0) % Plt Count (150-450) k/uL Lymphocytes # (1.0-4.8) k/uL ABG pH (7.35-7.45) ABG pCO2 (35-45) mmHg ABG pO2 (83-108) mmHg ABG HCO3 (21-25) mmol/L ABG Total CO2 25 H (19-24) mmol/L ABG O2 Saturation (94-97) % ABG Hematocrit (34.0-46.0) % ABG Potassium (3.4-4.5) mmol/L ABG Ionized Calcium (4.5-5.3) mg/dL ABG Glucose (75-99) mg/dL Hemoglobin (13.0-17.5) gm/dL Chloride (98-107) mmol/L Glucose (74-99) mg/dL POC Glucose (mg/dL) 136 H 133 H (75-99) mg/dL Calcium (8.4-10.2) mg/dL Magnesium (1.6-2.3) mg/dL ALT (21-72) U/L Total Protein (6.3-8.2) g/dL Albumin (3.5-5.0) g/dL Arterial Blood Potassium (3.4-4.5) mmol/L Arterial Blood Glucose (75-99) mg/dL Crossmatch 01/19/19 01/19/19 01/19/19 Range/Units 07:04 08:03 09:26 RBC (4.30-5.90) m/uL Hgb (13.0-17.5) gm/dL Hct (39.0-53.0) % Plt Count (150-450) k/uL Lymphocytes # (1.0-4.8) k/uL ABG pH (7.35-7.45) ABG pCO2 (35-45) mmHg ABG pO2 (83-108) mmHg ABG HCO3 (21-25) mmol/L ABG Total CO2 (19-24) mmol/L ABG O2 Saturation (94-97) % ABG Hematocrit (34.0-46.0) % ABG Potassium (3.4-4.5) mmol/L ABG Ionized Calcium (4.5-5.3) mg/dL ABG Glucose (75-99) mg/dL Hemoglobin (13.0-17.5) gm/dL Chloride (98-107) mmol/L Glucose (74-99) mg/dL POC Glucose (mg/dL) 131 H 138 H 137 H (75-99) mg/dL Calcium (8.4-10.2) mg/dL Magnesium (1.6-2.3) mg/dL ALT (21-72) U/L Total Protein (6.3-8.2) g/dL Albumin (3.5-5.0) g/dL Arterial Blood Potassium (3.4-4.5) mmol/L Arterial Blood Glucose (75-99) mg/dL Crossmatch Assessment and Plan Plan: Non-STEMI with CAD - Status post three-vessel CABG on 01/18 with mitral repair - Lipitor, metoprolol -Aspirin and Plavix -Cardiothrasic recs appreciated -Cardiology recommendations appreciated Status post CABG X3 -Cardiothrasic recs appreciated - Currently HD stable in sinus -Continue post CABG drips Currently on Cardizem and levophed * PRN insulin drip, amiodarone drip GERD -PPI BID -tums, prn maalox -no pepcid Postop anemia - Hg 7.7 - Expected given hematemesis and cardiopulmonary bypass pump - Continue to monitor Moderate to severe mitral regurg - s/p mitral valve repair with AnnuloFLex Ring Ischemic cardiomyopathy, EF 45-50%-- improved from last echo -Echo reviewed -On lisinopril and metoprolol -No signs of fluid overload Carotid stenosis - asymptomatic LICA 50-69% and DAVIDE 50% Dyslipidemia -Statin -Shows elevated lipid profile Hypertension, urgency on arrival -Resolved -Continue with metoprolol and lisinopril - follow BP Anxiety Continue with Xanax and Valium -Would benefit from outpatient psychiatry on discharge as per psych consult. Anticipated discharge * 5 days to cardiac rehab
--- NOTE | 2019-01-19 12:57 | PN ---
PROGRESS NOTE This patient is postop day 1. Patient had an urgent coronary artery bypass surgery with the SANTAMARIA graft to the LAD, radial artery graft to the obtuse marginal branch, saphenous vein graft to the PDA and mitral valve repair with 28 mm annular flexor ring. The patient is extubated this morning. Patient's hemoglobin is running slightly low and he is on a small dose of Levophed. He is sitting in the bed without any acute distress. Patient was getting currently IV Cardizem drip to prevent radial artery spasm. PHYSICAL EXAMINATION: Reveals patient's blood pressure at present 121/53 mmHg. PA artery pressure is 20/9, heart rate is 88, oxygen saturation is 92%. HEENT: Examination is negative. HEART: First and second heart sounds are normal. LUNGS: Reveal bilateral scattered wheezes. ABDOMEN: Soft. EXTREMITIES: There is no evidence of any leg edema. Patient's hemoglobin is 7.7. Arterial blood gases are satisfactory. Urine output is fair. Patient's creatinine is 0.95. ASSESSMENT AND PLAN: Patient is hemodynamically stable. EKG does not show any acute changes. Atrial pacing followed by ventricular capture is noted. We will continue the current medications. MMODL / IJN: [id number] /
[2019-01-19 13:18] LABS: Glucose,Whole Blood 141 mg/dL (75-99)
[2019-01-19] MEDS ORDERED: DILTIAZEM 125 MG in SODIUM CHLORIDE 0.9% 100 ML IV SCH (13:30)
[2019-01-19] MEDS: CLEVIDIPINE BUTYRATE 25 MG in EMPTY BAG 1 BAG IV SCH (15:05)
[2019-01-19 15:36] LABS: Glucose,Whole Blood 145 mg/dL (75-99)
[2019-01-19 17:51] LABS: Glucose,Whole Blood 135 mg/dL (75-99)
[2019-01-19 20:30] LABS: Glucose,Whole Blood 140 mg/dL (75-99)
[2019-01-19 21:43] LABS: Glucose,Whole Blood 145 mg/dL (75-99)
[2019-01-19 22:48] LABS: Glucose,Whole Blood 144 mg/dL (75-99)
[2019-01-20] MEDS: HEPARIN SODIUM,PORCINE 5,000 UNIT/ML 1 ML VIAL SQ SCH ×4 (00:34→23:42)
[2019-01-20] MEDS: KETOROLAC 30 MG/ML 1 ML VIAL IVP SCH ×5 (00:34→23:42)
[2019-01-20] MEDS: METOPROLOL TARTRATE 12.5 MG TAB PO SCH ×3 (00:35→20:16)
[2019-01-20] MEDS: SENNOSIDES-DOCUSATE SODIUM 1 EACH TAB PO SCH ×2 (00:35→20:16)
[2019-01-20] MEDS: MUPIROCIN 2% OINT 22 GM TUBE NASAL SCH ×3 (00:36→20:16)
[2019-01-20 01:02] LABS: Glucose,Whole Blood 140 mg/dL (75-99)
[2019-01-20] MEDS: HYDROcodone/APAP 5-325MG 1 EACH TAB PO PRN ×2 (01:08→21:55)
[2019-01-20] MEDS: ALBUMIN HUMAN 5% 250 ML in EMPTY BAG 1 BAG IVPB PRN (01:53)
[2019-01-20 03:00] LABS: Glucose,Whole Blood 122 mg/dL (75-99)
[2019-01-20] MEDS: ALPRAZolam 1 MG TAB PO PRN (04:25)
[2019-01-20 05:05] LABS: Glucose,Whole Blood 124 mg/dL (75-99)
[2019-01-20 05:22] LABS: Ionized Calcium 4.3 mg/dL (4.5-5.3)
[2019-01-20 05:31] LABS: Basophils % (A) 0 %; Eosinophils % (A) 0 %; Hypochromasia Slight; Lymphocytes # (A) 0.9 k/uL (1.0-4.8); Lymphocytes % (A) 12 %; MCH 28.8 pg (25.0-35.0); MCHC 33.3 g/dL (31.0-37.0); MCV 86.4 fL (80.0-100.0); Mean Platelet Volume 10.4; Monocytes # (A) 0.7 k/uL (0-1.0); Monocytes % (A) 9 %; Neutrophils % (A) 77 %; RBC 2.08 m/uL (4.30-5.90); RDW 15.5 % (11.5-15.5); WBC 7.7 k/uL (3.8-10.6)
[2019-01-20 05:32] LABS: Albumin 3.5 g/dL (3.5-5.0); Calcium 7.5 mg/dL (8.4-10.2); Total Bilirubin 0.6 mg/dL (0.2-1.3); Total Protein 5.4 g/dL (6.3-8.2)
[2019-01-20 05:42] LABS: HCT 17.9 % (39.0-53.0); Platelet Count 105 k/uL (150-450)
[2019-01-20] MEDS: LACTATED RINGERS 1,000 ML IV SCH (06:34)
[2019-01-20] MEDS: NOREPINEPHRINE 4 MG in SODIUM CHLORIDE 0.9% 250 ML IV SCH ×2 (06:58→09:22)
[2019-01-20 07:09] LABS: Glucose,Whole Blood 107 mg/dL (75-99)
[2019-01-20] MEDS: PANTOPRAZOLE 40 MG/10 ML VIAL IVP SCH (08:06)
[2019-01-20] MEDS: ATORVASTATIN 40 MG TAB PO SCH (08:07)
[2019-01-20] MEDS: ASPIRIN 325 MG TAB PO SCH (08:07)
[2019-01-20] MEDS: CLOPIDOGREL 75 MG TAB PO SCH (08:07)
[2019-01-20] MEDS: DILTIAZEM ORAL 30 MG TAB PO SCH ×4 (08:11→23:42)
--- NOTE | 2019-01-20 08:13 | P.PN ---
Subjective Progress Note Date: 01/20/19 Principal diagnosis: Triple-vessel coronary artery disease with extensive left to right collaterals to the distal right coronary artery, non-STEMI, moderate to severe mitral regurg itation. Previous medical history of coronary artery disease with previous stent placement to his left anterior descending coronary artery in 2004, 2006 and 2017, history of stent placement to a circumflex coronary artery in 2010, previous tobacco dependence quit 1 year ago, mild COPD with preoperative FEV1 61% of predicted, hypertension, hyperlipidemia, ischemic cardiomyopathy, chronic systolic heart failure with EF 45-50%, gastroesophageal reflux disease, anxiety and noncompliance. Left internal carotid artery stenosis 50-70%. POD #2 urgent coronary artery bypass graft surgery, left internal mammary artery to the left anterior descending artery, radial artery to the obtuse marginal artery, reverse saphenous vein graft to the posterior descending artery, endoscopic vein harvest of the left greater saphenous vein, endoscopic harvest of the left radial artery, mitral valve repair with 28 mm AnnuloFlex ring, epi- aortic ultrasound, intraoperative transesophageal echocardiogram, and ligation of the left atrial appendage with a 35 mm AtriCure clip. Postoperative acute blood loss anemia, expected outcome given hemodilution and cardiopulmonary bypass pump Hypotension on IV Levophed, expected as a normal part of the postoperative course The patient's currently sitting up in the recliner in no acute distress in the intensive care unit. Does complain of postoperative incisional chest pain especially with coughing and deep breathing, denies shortness of breath but does want more oxygen because the air flow makes him feel better. Patient is neurologically intact however he has significant anxiety. Currently in normal sinus rhythm with heart rate in the 80s. Remains on IV Cardizem for radial artery spasm, Levophed is off. Urine output remains adequate, chest tubes are draining serosanguineous fluid. Nursing attempted to get patient up for weight this morning but patient claimed weakness, his knees buckled and he required 4 person assist to get back to the chair. His hemoglobin is low this morning and he will receive 1 unit of packed red blood cells. Objective - Vital Signs Vital signs: Vital Signs Temp 99.0 F 01/20/19 04:00 Pulse 81 01/20/19 07:00 Resp 24 01/20/19 07:00 BP 110/58 01/20/19 07:00 Pulse Ox 93 L 01/20/19 07:00 Intake & Output 01/19/19 01/20/19 01/20/19 18:59 06:59 18:59 Intake Total 2422.524 949.896 50 Output Total 645 430 55 Balance 1777.524 519.896 -5 Intake: IV 817 544 50 CO/CI 50 90 Lactated Ringers 1,000 ml 650 400 50 @ 50 mls/hr IV .Q20H [facility] Rx#:[id number] pressure bags 117 54 Intake, IV Titration 1185.524 105.896 Amount Albumin Human 5% 250 ml 500 In Empty Bag 1 bag @ 250 mls/hr IVPB Q1HR PRN Rx#: [id number] Albumin Human 5% 500 ml 250 In Empty Bag 1 bag @ 250 mls/hr IVPB ONCE ONE Rx#: [id number] Albumin Human 5% 500 ml 250 In Empty Bag 1 bag @ 250 mls/hr IVPB ONCE ONE Rx#: [id number] Insulin Regular 100 unit 9.792 12.651 In Sodium Chloride 0.9% 100 ml @ Titrate IV .Q0M [facility] Rx#:[id number] Norepinephrine 4 mg In 175.732 93.245 Sodium Chloride 0.9% 250 ml @ 0.05 MCG/KG/MIN 18. 117 mls/hr IV .Q14H2M [facility] Rx#:[id number] Oral 420 300 Output: Chest Tube Drainage 130 190 30 left and right pleural 90 120 10 mediastinal chest tube 40 70 20 Drainage 0 left radial 0 Urine 515 240 25 Other: Voiding Method Indwelling Catheter Indwelling Catheter ABP, PAP, CO, CI - Last Documented Arterial Blood Pressure 135/57 Pulmonary Artery Pressure 36/17 Cardiac Output 6.9 Cardiac Index 3.1 - Constitutional General appearance: Present: no acute distress - Respiratory Details: Lungs sounds diminished bilaterally. Respirations even, nonlabored. Currently on 3 L nasal cannula with oxygen saturation 93%. Only able to achieve 500 mL on his incentive spirometry. Weak cough. Mediastinal chest tube to continuous wall suction, 60 mL serosanguineous drainage overnight, 140 mL in the last 24 hours. Right/left pleural chest tube to continuous wall suction, 110 mL serosanguineous drainage overnight, 250 mL the last 24 hours. No air leaks present. - Cardiovascular Details: S1, S2 present. Regular rate and rhythm, sinus rhythm on telemetry heart rate in the 80s. Sternum stable. A/V epicardial pacemaker wires present, connected to generator, AAI mode with backup rate 50 bpm. Palpable peripheral pulses bilaterally. Trace generalized edema present. No calf pain or tenderness noted. Right internal jugular [place]/Cordis, right radial arterial line present. Last CO/CI 6.9/3.1 on 1 mcg/min of Levophed. Heart hugger in place the patient demonstrating appropriate use. Antiembolism stockings, SCDs present. - Gastrointestinal Gastrointestinal Comment(s): Abdomen soft, nontender, nondistended. Hypoactive bowel sounds present 4 quadrants. Tolerating clear liquid diet. Negative flatus. - Genitourinary Genitourinary Comment(s): Hinojosa present draining clear, yellow urine. Output 15-40 mL/h overnight. - Integumentary Integumentary Comment(s): Skin is warm and dry with evidence of good perfusion. Anterior chest incision well approximated and covered with dry intact dressing. Left lower extremity EVH site well approximated with Dermabond. Left radial artery harvest site well approximated, NISREEN drain present with minimal serous drainage. Patient able to wiggle all fingers, good cap refill, skin is warm, patient does complain of some numbness and tingling which is to be expected. - Neurologic Neurologic: Present: CNII-XII intact - Musculoskeletal Musculoskeletal: Present: generalized weakness, strength equal bilaterally - Psychiatric Psychiatric: Present: A&O x's 3, appropriate affect - Allied health notes Allied health notes reviewed: nursing - Labs CBC & Chem 7: 01/20/19 05:23 01/20/19 04:58 Labs: Abnormal Lab Results - Last 24 Hours (Table) 01/19/19 01/19/19 01/19/19 Range/Units 08:03 09:26 11:05 RBC (4.30-5.90) m/uL Hgb (13.0-17.5) gm/dL Hct (39.0-53.0) % Plt Count (150-450) k/uL Lymphocytes # (1.0-4.8) k/uL Glucose (74-99) mg/dL POC Glucose (mg/dL) 138 H 137 H 133 H (75-99) mg/dL Calcium (8.4-10.2) mg/dL Ionized Calcium Luz (4.5-5.3) mg/dL ALT (21-72) U/L Alkaline Phosphatase (38-126) U/L Total Protein (6.3-8.2) g/dL 01/19/19 01/19/19 01/19/19 Range/Units 13:14 15:00 17:48 RBC (4.30-5.90) m/uL Hgb (13.0-17.5) gm/dL Hct (39.0-53.0) % Plt Count (150-450) k/uL Lymphocytes # (1.0-4.8) k/uL Glucose (74-99) mg/dL POC Glucose (mg/dL) 141 H 145 H 135 H (75-99) mg/dL Calcium (8.4-10.2) mg/dL Ionized Calcium Luz (4.5-5.3) mg/dL ALT (21-72) U/L Alkaline Phosphatase (38-126) U/L Total Protein (6.3-8.2) g/dL 01/19/19 01/19/19 01/19/19 Range/Units 20:26 21:40 22:43 RBC (4.30-5.90) m/uL Hgb (13.0-17.5) gm/dL Hct (39.0-53.0) % Plt Count (150-450) k/uL Lymphocytes # (1.0-4.8) k/uL Glucose (74-99) mg/dL POC Glucose (mg/dL) 140 H 145 H 144 H (75-99) mg/dL Calcium (8.4-10.2) mg/dL Ionized Calcium Luz (4.5-5.3) mg/dL ALT (21-72) U/L Alkaline Phosphatase (38-126) U/L Total Protein (6.3-8.2) g/dL 01/20/19 01/20/19 01/20/19 Range/Units 00:59 02:57 04:58 RBC (4.30-5.90) m/uL Hgb (13.0-17.5) gm/dL Hct (39.0-53.0) % Plt Count (150-450) k/uL Lymphocytes # (1.0-4.8) k/uL Glucose 113 H (74-99) mg/dL POC Glucose (mg/dL) 140 H 122 H (75-99) mg/dL Calcium 7.5 L (8.4-10.2) mg/dL Ionized Calcium Luz 4.3 L (4.5-5.3) mg/dL ALT 18 L (21-72) U/L Alkaline Phosphatase 32 L (38-126) U/L Total Protein 5.4 L (6.3-8.2) g/dL 01/20/19 01/20/19 01/20/19 Range/Units 05:01 05:23 07:07 RBC 2.08 L (4.30-5.90) m/uL Hgb 6.0 L* D (13.0-17.5) gm/dL Hct 17.9 L* (39.0-53.0) % Plt Count 105 L (150-450) k/uL Lymphocytes # 0.9 L (1.0-4.8) k/uL Glucose (74-99) mg/dL POC Glucose (mg/dL) 124 H 107 H (75-99) mg/dL Calcium (8.4-10.2) mg/dL Ionized Calcium Luz (4.5-5.3) mg/dL ALT (21-72) U/L Alkaline Phosphatase (38-126) U/L Total Protein (6.3-8.2) g/dL - Imaging and Cardiology Chest x-ray: image reviewed Assessment and Plan Assessment: 1. Triple-vessel coronary artery disease with previous stent placement to the LAD 2004, 2006, 2018 and stent placement to the circumflex in 2010, status post urgent CABG 3 2. Non-ST elevated myocardial infarction this admission 3. Moderate to severe mitral regurgitation, status post mitral valve repair 4. Hyperlipidemia 5. Hypertension 6. ischemic cardiomyopathy with chronic systolic heart failure, EF 45-50% 7. Previous tobacco dependence 8. Mild COPD with preoperative FEV1 61% of predicted 9. Left internal carotid artery stenosis 50-70% 10. GERD 11. Anxiety with panic attacks 12. Postoperative acute blood loss anemia, expected Plan: 1. Continue to maximize medical management with aspirin, statin, Plavix. Will re-add low-dose beta jewels. Will eventually need CHAN inhibitor when blood pressure tolerates for afterload reduction. 2. Continue Cardizem for radial artery spasm. Will transition to oral Cardizem today. 3. Discontinue Levophed. Discontinue [place]. Connect Cordis to continuous CVP monitoring. 4. Wean O2 as tolerated. Encourage use of incentive spirometry every hour while awake, patient needs aggressive pulmonary hygiene. Encourage continued smoking cessation. 5. Bronchodilators per pulmonology. 6. Increase activity, ambulate as tolerated. PT/OT/cardiac rehab following. 7. Pain control with current medication regimen. 8. Insulin management per primary care services. 9. Will monitor daily labs and x-rays. Electrolyte replacement per protocol. Will give 1 unit packed red blood cells followed by IV Lasix today. 10. GI/DVT prophylaxis. 11. Will discontinue mediastinal chest tube. Will split and keep right/left pleural chest tubes for another 24 hours. Will discontinue NISREEN. 12. Will discontinue Hinojosa catheter after blood and Lasix given and allowed for diuresis. 13. Continue Xanax for patient's anxiety. 14. More recommended patient is to follow based on patient's clinical course. Time with Patient: Greater than 30
[2019-01-20 08:14] LABS: Glucose,Whole Blood 108 mg/dL (75-99)
--- NOTE | 2019-01-20 08:30 | XR ---
EXAMINATION TYPE: XR chest 1V portable DATE OF EXAM: 01/20/2019 COMPARISON: 01/19/2019 HISTORY: Postsurgical TECHNIQUE: Single frontal view of the chest is obtained. FINDINGS: [place]-Yfn catheter and bilateral chest tubes again noted. She is airspace disease in the l eft with bilateral consolidation and pleural effusion. Heart is enlarged and there is postsurgical ch anges. IMPRESSION: 1. Bilateral consolidation and pleural effusion with mild progression on the left relative to the tigist or exam.
[2019-01-20] MEDS: IPRATROPIUM-ALBUTEROL 3 ML NEB INHALATION SCH ×4 (08:49→20:17)
--- NOTE | 2019-01-20 09:30 | PN ---
PROGRESS NOTE DATE OF SERVICE: 01/20/2019 A 58-year-old male who was admitted back on January 12. He is postop day #2, status post 3- vessel bypass grafting along with mitral valve ring repair and left atrial appendage excision. The patient was extubated a few minutes beyond the 6th hour time limit. Anyway, doing reasonably well. He does suffer from significant anxiety. Currently, he is on O2 at 3 L by nasal cannula and getting an IV of lactated Ringer's at 50 mL an hour. He got a touch of norepinephrine at 1 mcg/minute and insulin drip at 1 unit/hour. His hemoglobin this morning was 6, but the nurse did not believe that was his true hemoglobin so it has been redrawn. The patient otherwise is doing reasonably well. His respiratory status is a little compromised as that he does want to take deep breaths and does not want to cough or clear secretions. I encouraged him to do both. In addition to the above, he has a history of CAD with previous PCI, congestive heart failure, GERD, hypertension, myocardial infarction, DJD, pneumonia, peripheral neuropathy, and cardiomyopathy with an ejection fraction of 35%-40%. Current vital signs are reviewed. Temperature is 99, heart rate 82, respiratory rate 22, blood pressure 91/42, PA pressure is 43/19. Central venous pressure can be believed at 17 and 3 L saturation is 96%. Appears in no acute distress. A bit anxious. HEENT: Examination is grossly unremarkable. Nasal O2 in place. NECK: Supple. Full range of motion. No adenopathy, thyromegaly or neck vein distention. CARDIOVASCULAR: Examination reveals regular rhythm and rate. Heart rate in the low 80s. S1, S2 normal. No distinct murmur noted. LUNGS: Scattered rhonchi. No wheezes or crackles. Breath sounds equal. He does not take deep breaths. ABDOMEN: Soft. Bowel sounds are heard. EXTREMITIES: Intact. No edema. No cyanosis or clubbing. SKIN: Without rash. NEUROLOGIC: Examination is brief but nonfocal. LABS: Reviewed. White count 7.7, hemoglobin 6, \hematocrit 17.9, platelet count 105,000. Sodium potassium chloride CO2 all normal anion gap 9. BUN and creatinine were 19 and 1.17. Microbiologic studies are thus far all negative. Chest x-ray is recently done. It shows some bilateral pleural effusions. Chest tubes in place. There is some atelectasis, infiltrate or effusion at the left lung base. Right lung is more clear. Medications are reviewed. ASSESSMENT: 1. Postoperative da #2. 2. Status post 3-vessel bypass grafting, mitral valve ring repair and atrial appendage excision. 3. Routine postoperative ventilator management with extubation just to be on the 6 hour time. 4. History of coronary artery disease with previous PCI and stent placement. 5. History of heart failure, cardiomyopathy with ejection fraction of 35-40 percent, moderate global hypokinesis and mild concentric left ventricular hypertrophy. 6. History of gastroesophageal reflux disease. 7. Benign essential hypertension. 8. Previous myocardial infarction. 9. Degenerative joint disease. 10.History of pneumonia. 11.Peripheral neuropathy. 12.Profound anxiety disorder. PLAN: The patient's anxiety is preventing him from deep breathing coughing clearing of secretions. He is doing rather poorly in my opinion on his incentive spirometer. His hemoglobin was 6 this morning. It has been repeated. Chest x-rays reviewed. Labs are reviewed. Medications are reviewed. We will continue to follow. He is postop day #2. No additional recommendations are made. Prognosis is guarded. MMODL / IJN: [id number] /
[2019-01-20 10:37] VITALS: BMI 28.0
[2019-01-20 11:56] LABS: Glucose,Whole Blood 86 mg/dL (75-99)
[2019-01-20] MEDS: INSULIN ASPART (NovoLOG) 100 UNIT/ML VIAL SQ SCH ×3 (12:16→21:06)
[2019-01-20] MEDS ORDERED: ALPRAZolam 0.5 MG TAB PO PRN (13:03)
[2019-01-20] MEDS ORDERED: FUROSEMIDE 10 MG/ML 2 ML VIAL IV STA (13:54)
[2019-01-20 15:10] LABS: HCT 20.7 % (39.0-53.0); Hypochromasia Slight; MCH 28.4 pg (25.0-35.0); MCHC 32.7 g/dL (31.0-37.0); MCV 86.9 fL (80.0-100.0); Mean Platelet Volume 9.7; Platelet Count 107 k/uL (150-450); RBC 2.38 m/uL (4.30-5.90); RDW 14.9 % (11.5-15.5); WBC 7.2 k/uL (3.8-10.6)
[2019-01-20 15:14] LABS: HGB 6.8 gm/dL (13.0-17.5)
[2019-01-20 17:10] LABS: Glucose,Whole Blood 99 mg/dL (75-99)
--- NOTE | 2019-01-20 19:34 | P.PN ---
Subjective Progress Note Date: 01/20/19 (Delayed charting patient seen at 10 AM) Principal diagnosis: chest pain Patient is a 58-year-old male with a past medical history of systolic congestive heart failure with an ejection fraction 35-40%, coronary artery disease status post prior stenting, dyslipidemia, and hypertension who presented to the ER with complaints of chest pain. Patient underwent stenting of the LAD with 2 drug-eluting stents on 01/11/18. Per the patient has been unable to afford his Proventil and therefore hasn't been taking anything. In the ER he underwent an extensive evaluation. On arrival his blood pressures are found be 190/107. Laboratory analysis is essentially unremarkable and troponin was negative. He was given aspirin and admitted for cardiac evaluation. Initial EKG did have some ST segment depression. His second troponin was positive at 0.96 and trended to 1.6. Cardiology was contacted. Underwent cardiac catheterization on 01/13, found to have critical disease and plan is for urgent bypass surgery on 01/18. Echo with moderate MR and CORDELL done 01/16 and needed mitral ring as well. EF low at 45-50%. Struggles with heart burn and regiment optimized. Patient underwent triple vessel bypass with mitral valve repair on 01/18. He tolerated the procedure well and was in the ICU intubated afterwards. He subsequently was extubated. Hemoglobin dropped and 1 unit of packed red blood cells transfused. Patient seen and examined at bedside. He had his Xanax increased by psychiatry. He has been lethargic all morning. When he is awake he denies chest pain or shortness of breath but immediately falls back asleep. Discussed with nursing no other acute events overnight. Objective - Vital Signs Vital signs: Vital Signs Temp 98.5 F 01/20/19 16:00 Pulse 92 01/20/19 19:00 Resp 24 01/20/19 19:00 BP 100/67 01/20/19 19:00 Pulse Ox 93 L 01/20/19 19:00 Intake & Output 01/20/19 01/20/19 01/21/19 06:59 18:59 06:59 Intake Total 949.896 749 76 Output Total 430 1125 0 Balance 519.896 -376 76 Weight 102.965 kg 99.3 kg Intake: IV 544 439 26 CO/CI 90 26 Calcium Gluconate 2 gm In 100 Sodium Chloride 0.9% 100 ml @ 100 mls/hr IVPB ONCE PRN Rx#:[id number] Lactated Ringers 1,000 ml 400 250 20 @ 20 mls/hr IV .Q24H [facility] Rx#:[id number] pressure bags 54 63 6 Intake, IV Titration 105.896 Amount Insulin Regular 100 unit 12.651 In Sodium Chloride 0.9% 100 ml @ Titrate IV .Q0M [facility] Rx#:[id number] Norepinephrine 4 mg In 93.245 Sodium Chloride 0.9% 250 ml @ 0.05 MCG/KG/MIN 18. 117 mls/hr IV .Q14H2M [facility] Rx#:[id number] Oral 300 50 Blood Product 310 Rc As-1 Unit 310 [id number] Output: Chest Tube Drainage 190 80 left and right pleural 120 60 mediastinal chest tube 70 20 Urine 240 1045 0 Other: Voiding Method Indwelling Catheter Indwelling Catheter # Voids 3 ABP, PAP, CO, CI - Last Documented Arterial Blood Pressure 105/58 Pulmonary Artery Pressure 33/16 Cardiac Output 6.4 Cardiac Index 2.9 - Exam General: non toxic, no distress, appears at stated age Derm: warm, dry Head: atraumatic, normocephalic, symmetric Eyes: EOMI, no lid lag, anicteric sclera Cardiovascular: S1S2 reg, no murmur, positive posterior tibial pulse bilateral, CT in place Lungs: Decreased breath sounds bilateral, no rhonchi, no rales , no accessory muscle use Abdominal: soft, nontender to palpation, no guarding, no appreciable organomegaly Ext: no gross muscle atrophy, trace, no contractures Neuro: CN II-XI grossly intact, no focal neuro deficits Psych: lethargic, answers questions appropriately - Labs CBC & Chem 7: 01/20/19 14:55 01/20/19 04:58 Labs: Abnormal Lab Results - Last 24 Hours (Table) 01/19/19 01/19/19 01/19/19 Range/Units 20:26 21:40 22:43 RBC (4.30-5.90) m/uL Hgb (13.0-17.5) gm/dL Hct (39.0-53.0) % Plt Count (150-450) k/uL Lymphocytes # (1.0-4.8) k/uL Glucose (74-99) mg/dL POC Glucose (mg/dL) 140 H 145 H 144 H (75-99) mg/dL Calcium (8.4-10.2) mg/dL Ionized Calcium Luz (4.5-5.3) mg/dL ALT (21-72) U/L Alkaline Phosphatase (38-126) U/L Total Protein (6.3-8.2) g/dL Crossmatch 01/20/19 01/20/19 01/20/19 Range/Units 00:59 02:57 04:58 RBC (4.30-5.90) m/uL Hgb (13.0-17.5) gm/dL Hct (39.0-53.0) % Plt Count (150-450) k/uL Lymphocytes # (1.0-4.8) k/uL Glucose 113 H (74-99) mg/dL POC Glucose (mg/dL) 140 H 122 H (75-99) mg/dL Calcium 7.5 L (8.4-10.2) mg/dL Ionized Calcium Luz 4.3 L (4.5-5.3) mg/dL ALT 18 L (21-72) U/L Alkaline Phosphatase 32 L (38-126) U/L Total Protein 5.4 L (6.3-8.2) g/dL Crossmatch 01/20/19 01/20/19 01/20/19 Range/Units 05:01 05:23 05:57 RBC 2.08 L (4.30-5.90) m/uL Hgb 6.0 L* D (13.0-17.5) gm/dL Hct 17.9 L* (39.0-53.0) % Plt Count 105 L (150-450) k/uL Lymphocytes # 0.9 L (1.0-4.8) k/uL Glucose (74-99) mg/dL POC Glucose (mg/dL) 124 H (75-99) mg/dL Calcium (8.4-10.2) mg/dL Ionized Calcium Luz (4.5-5.3) mg/dL ALT (21-72) U/L Alkaline Phosphatase (38-126) U/L Total Protein (6.3-8.2) g/dL Crossmatch See Detail 01/20/19 01/20/19 01/20/19 Range/Units 07:07 07:53 14:55 RBC 2.38 L (4.30-5.90) m/uL Hgb 6.8 L* (13.0-17.5) gm/dL Hct 20.7 L (39.0-53.0) % Plt Count 107 L (150-450) k/uL Lymphocytes # (1.0-4.8) k/uL Glucose (74-99) mg/dL POC Glucose (mg/dL) 107 H 108 H (75-99) mg/dL Calcium (8.4-10.2) mg/dL Ionized Calcium Luz (4.5-5.3) mg/dL ALT (21-72) U/L Alkaline Phosphatase (38-126) U/L Total Protein (6.3-8.2) g/dL Crossmatch Assessment and Plan Assessment: Non-STEMI with CAD status post three-vessel cardiac bypass surgery with mitral repair on 01/18 -On Lopressor, Cardizem for radial artery spasm -Follow blood pressures -Management per cardiothoracic surgery - Lipitor -Aspirin and Plavix Acute blood loss anemia and thrombocytopenia, anticipated outcome of surgery -Status post 1 unit packed red blood cells -Follow CBC Toxic encephalopathy -Likely from increased adnexa dosing along with pain medications -Decreased [place] I 0.5 mg twice daily -Hold sedative and pain medications as patient lethargic GERD -PPI BID -tums, prn maalox -no pepcid Ischemic cardiomyopathy, EF 45-50%-- improved from last echo -Echo reviewed -Metoprolol, lisinopril will be added with blood pressure stabilized -No signs of fluid overload Carotid stenosis - asymptomatic LICA 50-69% and DAVIDE 50% Dyslipidemia -Statin -Shows elevated lipid profile Hypertension, urgency on arrival -Improved -Continue current medications - follow BP Anxiety -Xanax decreased -Would benefit from outpatient psychiatry on discharge as per psych consult. Increased Cr, resolved DVT prophylaxis: early ambulation Discussed with: Patient, nursing Anticipated discharge: [address]: home A total of 25 minutes was spent on the care of this complex patient more than 50% of the time was spent in counseling and care coordination.
--- NOTE | 2019-01-20 20:13 | PN ---
PROGRESS NOTE This patient is status post coronary artery bypass surgery. He is stable. His main problem is some anxiety. He is sitting comfortably in the bed without any respiratory distress. Patient is off the Levophed. Blood pressure is 130/62 mmHg. First and second heart sounds are heard. Lung examination revealed bilateral rales. Chest x-ray shows bilateral atelectasis. Hemoglobin is 6 g. Patient is going to get 1 unit of packed cells. Continue the current medications. MMODL / IJN: [id number] /
[2019-01-20 20:53] LABS: Glucose,Whole Blood 99 mg/dL (75-99)
[2019-01-21 02:24] LABS: Glucose,Whole Blood 119 mg/dL (75-99)
[2019-01-21] MEDS: INSULIN ASPART (NovoLOG) 100 UNIT/ML VIAL SQ SCH ×5 (02:24→22:14)
[2019-01-21] MEDS: LACTATED RINGERS 1,000 ML IV SCH (03:47)
[2019-01-21 04:39] LABS: Basophils % (A) 1 %; Eosinophils # (A) 0.2 k/uL (0-0.7); Eosinophils % (A) 2 %; HCT 20.3 % (39.0-53.0); HGB 6.7 gm/dL (13.0-17.5); Hypochromasia Slight; Lymphocytes # (A) 1.5 k/uL (1.0-4.8); Lymphocytes % (A) 22 %; MCH 28.8 pg (25.0-35.0); MCV 87.2 fL (80.0-100.0); Monocytes # (A) 0.4 k/uL (0-1.0); Monocytes % (A) 5 %; Neutrophils # (A) 4.5 k/uL (1.3-7.7); Neutrophils % (A) 67 %; Platelet Count 120 k/uL (150-450); RBC 2.33 m/uL (4.30-5.90); RDW 15.1 % (11.5-15.5); WBC 6.7 k/uL (3.8-10.6)
[2019-01-21 04:52] LABS: Albumin 3.4 g/dL (3.5-5.0); Calcium 8.1 mg/dL (8.4-10.2); Magnesium 2.4 mg/dL (1.6-2.3); Phosphorus 2.5 mg/dL (2.5-4.5); Potassium 3.8 mmol/L (3.5-5.1); Total Bilirubin 0.7 mg/dL (0.2-1.3); Total Protein 5.5 g/dL (6.3-8.2)
[2019-01-21] MEDS: KETOROLAC 30 MG/ML 1 ML VIAL IVP SCH ×4 (05:00→23:36)
[2019-01-21] MEDS: POTASSIUM CHLORIDE 10 MEQ in WATER FOR INJECTION 1 100ML.BAG IVPB SCH ×2 (05:28→06:44)
[2019-01-21] MEDS: DILTIAZEM ORAL 30 MG TAB PO SCH ×2 (05:29→12:03)
[2019-01-21] MEDS: HYDROcodone/APAP 5-325MG 1 EACH TAB PO PRN (05:40)
[2019-01-21] MEDS: PANTOPRAZOLE 40 MG TABLET PO SCH (07:03)
[2019-01-21 07:04] LABS: Glucose,Whole Blood 110 mg/dL (75-99)
--- NOTE | 2019-01-21 08:00 | PN ---
PROGRESS NOTE DATE OF SERVICE: January 21, 2019 This is a 58-year-old male who was admitted back on January 12. He is postop day #3, status post 3-vessel bypass grafting, mitral valve ring repair and left atrial appendage excision. The patient was extubated in a relatively timely fashion. He is doing reasonably well. He does suffer from significant anxiety. Only getting about 500 mL on his incentive spirometer. He is on 2 L nasal cannula and an IV of lactated Ringer's at 20 mL an hour. Most of his tubes have come out. The rest of the hardware will come out today. The patient otherwise has no major complaints. I did encourage him to deep breathe, cough, clear secretions and use the incentive spirometry more effectively. In addition to the above, he has a history of coronary artery disease with previous PCI, congestive heart failure, GERD, hypertension, myocardial infarction, DJD, pneumonia, peripheral neuropathy, and cardiomyopathy with an ejection fraction of 35-40 percent. PHYSICAL EXAMINATION: VITAL SIGNS: Current vital signs are reviewed temperature is 98.4 heart rate 77 respiratory rate 19 to 20, blood pressure 123/61, mean 81 and 3 L saturation 96%, 2 L saturation 97%. GENERAL: Appears in no acute distress. HEENT examination is grossly unremarkable. Nasal O2 noted. NECK: Supple. Full range of motion. No adenopathy. CARDIOVASCULAR examination reveals regular rhythm rate. Heart rate 70 beats per minute. S1, S2 normal. No murmur. LUNGS: Reveal mostly clear but diminished breath sounds. A few scattered rhonchi. No wheezes or crackles. ABDOMEN: Soft. Bowel sounds are heard. EXTREMITIES are intact. No cyanosis, clubbing, or edema. SKIN without rash. NEUROLOGIC examination is brief but nonfocal. LAB DATA: From today, white count 6.7, hemoglobin 6.7, hematocrit 20.3, platelet count 120,000. Sodium 136, potassium 3.8, chloride 105, CO2 of 24. BUN 23, creatinine 1.13, albumin 3.4. Chest x-ray has not yet been done. Microbiology is pending or negative. Medications are reviewed. ASSESSMENT: 1. Postoperative day #3, status post 3-vessel bypass grafting, mitral valve ring repair and atrial appendage excision. 2. Routine postoperative ventilator management with extubation in a timely fashion. 3. History of coronary artery disease with previous PCI and stent placement. 4. History of heart failure, cardiomyopathy with an ejection fraction of 35-40 percent with moderate global hypokinesis and mild concentric left ventricular hypertrophy. 5. History of gastroesophageal reflux disease. 6. Benign essential hypertension. 7. Previous myocardial infarction. 8. Degenerative joint disease. 9. History of pneumonia. 10.Peripheral neuropathy. 11.Profound anxiety disorder. PLAN: The patient is again encouraged to take deep breaths, cough, clear secretions and use incentive spirometer. The patient remains on breathing treatments. He is receiving O2 at 2 L and an IV of lactated Ringer's at 20 mL an hour. Hemoglobin is still a bit low at 6.7. Cardiothoracic will make a decision about transfusion. My feeling is that he should be transfused. We will await and look at the chest x-ray. Labs are reviewed. Problem list is reviewed. Prognosis is guarded. MMSTEVENL / GAYLAN: [id number] /
--- NOTE | 2019-01-21 08:13 | XR ---
EXAMINATION TYPE: XR chest 1V portable DATE OF EXAM: 01/21/2019 COMPARISON: 01/20/2019 HISTORY: Postop TECHNIQUE: Single frontal view of the chest is obtained. FINDINGS: Hershey-Yfn catheter has been removed. No sizable pneumothorax. Bilateral consolidation and pleural effusion. Postoperative change and cardiomegaly noted. Chest tube no longer seen. IMPRESSION: 1. Chest tubes removal with no sizable pneumothorax. 2. Persistent large areas of consolidation pleural effusion correlate for pneumonia or CHF.
[2019-01-21] MEDS: HEPARIN SODIUM,PORCINE 5,000 UNIT/ML 1 ML VIAL SQ SCH ×3 (08:17→23:36)
[2019-01-21] MEDS: ATORVASTATIN 40 MG TAB PO SCH (08:18)
[2019-01-21] MEDS: METOPROLOL TARTRATE 12.5 MG TAB PO SCH ×2 (08:18→22:18)
[2019-01-21] MEDS: ASPIRIN 325 MG TAB PO SCH (08:18)
[2019-01-21] MEDS: CLOPIDOGREL 75 MG TAB PO SCH (08:18)
[2019-01-21] MEDS: AMIODARONE 300 MG in DEXTROSE 5% IN WATER 250 ML IV PRN ×4 (08:34→14:30)
[2019-01-21] MEDS ORDERED: FUROSEMIDE 10 MG/ML 2 ML VIAL IV STA (08:43)
[2019-01-21] MEDS: MUPIROCIN 2% OINT 22 GM TUBE NASAL SCH ×2 (09:13→22:18)
[2019-01-21] MEDS: IPRATROPIUM-ALBUTEROL 3 ML NEB INHALATION SCH ×4 (09:49→20:14)
--- NOTE | 2019-01-21 10:53 | PN ---
PROGRESS NOTE This patient is status post coronary artery bypass surgery. The patient developed atrial fibrillation during the night. He received IV amiodarone and now he has converted to the normal sinus rhythm. Patient otherwise remains stable. The patient hemodynamically is otherwise stable. He is afebrile. First and second heart sounds are heard. Lungs examination is reveal rales in the lower one-third of the lung field on the left side. The chest x-ray shows atelectasis and pleural effusion on the left side. Patient's hemoglobin is 6.7. ASSESSMENT AND PLAN: 1. Status post coronary artery bypass surgery. 2. The patient had a transient episode of atrial fibrillation, currently being maintained on amiodarone drip and in normal sinus rhythm. 3. Anemia. The patient is going to get 1 unit of packed cells. MMODL / IJN: [id number] /
[2019-01-21] MEDS ORDERED: FUROSEMIDE 10 MG/ML 4 ML VIAL IV STA (11:51)
[2019-01-21 11:56] LABS: Glucose,Whole Blood 91 mg/dL (75-99)
--- NOTE | 2019-01-21 13:10 | P.PN ---
Subjective Progress Note Date: 01/21/19 Principal diagnosis: Triple-vessel coronary artery disease with extensive left to right collaterals to the distal right coronary artery, past medical history significant for petersen ry artery disease with previous stent placement to his left anterior descending coronary artery in 2004, 2006 and 2017, history of stent placement to a circumflex coronary artery in 2010, non-ST elevated myocardial infarction this admission, moderate to severe mitral valve regurgitation, remote history of nicotine dependence quit 1 year ago, hypertension, hyperlipidemia, chronic obstructive pulmonary disease with a preoperative FEV1 61% of predicted value, ischemic cardiomyopathy, chronic systolic heart failure, gastroesophageal reflux disease, anxiety, left internal carotid artery stenosis of 50-70% and history of noncompliance. POD #3 urgent coronary artery bypass graft surgery, left internal mammary artery to the left anterior descending artery, radial artery to the obtuse marginal art olga, a reverse greater saphenous vein graft to the posterior descending coronary artery, endoscopic vein harvest of the left greater saphenous vein, endoscopic harvest of the left radial artery, mitral valve repair with 28 mm AnnuloFlex ring, epi-aortic ultrasound, intraoperative transesophageal echocardiogram, and ligation of the left atrial appendage with a 35 mm AtriCure clip. Postoperative acute blood loss anemia, expected outcome given hemodilution and cardiopulmonary bypass pump. Hypotension on IV Levophed, expected as a normal part of the postoperative course. Postoperative paroxysmal atrial fibrillation, an unexpected outcome. Patient is currently sitting up to the bedside chair in the intensive care unit. He is in no acute distress. He is complaining of surgical type pain 10 out of 10 and denies any complaints of shortness of breath. Bedside monitor demonstrating atrial fibrillation with RVR with a heart rate of 150 BPM. Currently he is on no inotropic or pressor support. Amiodarone drip per protocol initiated. Hemoglobin this morning is 6.7 and he will be transfused 1 unit of packed red blood cells. Hinojosa catheter has been removed and he is voiding clear yellow urine. Right IJ cordis remains in place with continuous CVP monitoring, current CVP pressure 17 mmHg. He is also complaining of generalized weakness and feeling like he has no energy. Objective - Vital Signs Vital signs: Vital Signs Temp 98.4 F 01/21/19 10:13 Pulse 75 01/21/19 10:13 Resp 27 H 01/21/19 10:13 BP 115/52 06/07/19 10:13 Pulse Ox 97 01/21/19 10:13 Intake & Output 01/20/19 01/21/19 01/21/19 18:59 06:59 18:59 Intake Total 749 482 104 Output Total 1125 394 0 Balance -376 88 104 Weight 99.3 kg 106.7 kg Intake: IV 439 312 104 CO/CI 26 Calcium Gluconate 2 gm In 100 Sodium Chloride 0.9% 100 ml @ 100 mls/hr IVPB ONCE PRN Rx#:[id number] Lactated Ringers 1,000 ml 250 240 80 @ 20 mls/hr IV .Q24H EVETTE Rx#:[id number] pressure bags 63 72 24 Oral 170 Blood Product 310 0 Rc As-1 Unit 310 [id number] Rc As-1 Unit 0 [id number] Output: Chest Tube Drainage 80 left and right pleural 60 mediastinal chest tube 20 Urine 1045 325 0 Post Void Residual 69 Other: Voiding Method Indwelling Catheter Urinal Urinal # Voids 3 1 1 ABP, PAP, CO, CI - Last Documented Arterial Blood Pressure 115/52 Pulmonary Artery Pressure 33/16 Cardiac Output 6.4 Cardiac Index 2.9 - Constitutional General appearance: Present: cooperative, no acute distress, obese - Respiratory Details: Lung sounds essentially clear to his bilateral upper lobes, diminished bilateral bases. Respirations are symmetrical and nonlabored. Oxygen saturation are 94% on 2 L nasal cannula. Achieving 750 mL on his incentive spirometry. - Cardiovascular Details: Irregular rhythm consistent with atrial fibrillation with tachycardic rate. S1 and S2 present, negative for S3, gallop or murmur. Sternum is stable. Bedside telemetry showing atrial fibrillation with RVR heart rate 150 BPM. Atrial and ventricular epicardial pacemaker wires present and connected to bedside backup pacemaker generator. Heart hugger is in place and he is demonstrating appropriate use. Knee-high KUN hose and sequential compression devices in place was bilateral lower extremities. Right IJ Cordis in place and connected to continuous CVP monitoring, current CVP pressure 17 mmHg. +1 edema to his bilateral lower extremities. - Gastrointestinal Gastrointestinal Comment(s): Abdomen soft, nontender and nondistended. Hypoactive bowel sounds present in all 4 abdominal quadrants. No guarding or rigidity. No organomegaly. Tolerating oral intake. - Genitourinary Genitourinary Comment(s): Voiding clear yellow urine. - Integumentary Integumentary Comment(s): Skin is warm and dry. No clubbing or cyanosis is present. Midline sternal incision is clean, dry and approximated. Gauze dressing clean, dry and intact. Left radial artery harvest sites clean, dry and approximated. No drainage or redness is present. Left hand is warm to touch. Left lower extremity EVH site clean, dry and approximated. No drainage or redness is present. - Neurologic Neurologic: Present: CNII-XII intact - Musculoskeletal Musculoskeletal: Present: generalized weakness, strength equal bilaterally - Psychiatric Psychiatric Comment(s): Flat affect. Psychiatric: Present: A&O x's 3, intact judgment & insight - Allied health notes Allied health notes reviewed: nursing - Labs CBC & Chem 7: 01/21/19 04:25 01/21/19 04:25 Labs: Abnormal Lab Results - Last 24 Hours (Table) 01/20/19 01/20/19 01/21/19 Range/Units 05:57 14:55 02:21 RBC 2.38 L (4.30-5.90) m/uL Hgb 6.8 L* (13.0-17.5) gm/dL Hct 20.7 L (39.0-53.0) % Plt Count 107 L (150-450) k/uL Sodium (137-145) mmol/L BUN (9-20) mg/dL POC Glucose (mg/dL) 119 H (75-99) mg/dL Calcium (8.4-10.2) mg/dL Magnesium (1.6-2.3) mg/dL Total Protein (6.3-8.2) g/dL Albumin (3.5-5.0) g/dL Crossmatch See Detail 01/21/19 01/21/19 01/21/19 Range/Units 04:25 04:25 07:01 RBC 2.33 L (4.30-5.90) m/uL Hgb 6.7 L* (13.0-17.5) gm/dL Hct 20.3 L (39.0-53.0) % Plt Count 120 L (150-450) k/uL Sodium 136 L (137-145) mmol/L BUN 23 H (9-20) mg/dL POC Glucose (mg/dL) 110 H (75-99) mg/dL Calcium 8.1 L (8.4-10.2) mg/dL Magnesium 2.4 H (1.6-2.3) mg/dL Total Protein 5.5 L (6.3-8.2) g/dL Albumin 3.4 L (3.5-5.0) g/dL Crossmatch - Imaging and Cardiology Chest x-ray: report reviewed, image reviewed Assessment and Plan Assessment: 1. Triple-vessel coronary artery disease with previous stent placement to the LAD 2004, 2006, 2017 and stent placement to the circumflex in 2010, status post urgent CABG 3 2. Non-ST elevated myocardial infarction this admission 3. Moderate to severe mitral regurgitation, status post mitral valve repair 4. Hyperlipidemia 5. Hypertension 6. ischemic cardiomyopathy with chronic systolic heart failure, EF 45-50% 7. Previous tobacco dependence 8. Mild COPD with preoperative FEV1 61% of predicted 9. Left internal carotid artery stenosis 50-70% 10. GERD 11. Anxiety with panic attacks 12. Postoperative acute blood loss anemia, expected 13. Postoperative paroxysmal atrial fibrillation, unexpected Plan: 1. Continue to maximize medical management with aspirin, statin, Plavix and beta jewels. We will eventually need CHAN inhibitor when his blood pressure tolerates for afterload reduction. 2. Continue Cardizem for radial artery spasm prevention. Do not discontinued without speaking with the cardiothoracic surgeon. 3. Continue right IJ Cordis to continuous CVP monitoring. 4. Wean O2 as tolerated. Encourage use of incentive spirometry every hour while awake, patient needs aggressive pulmonary toileting. Encourage continued smoking cessation. 5. Bronchodilators per pulmonology management. 6. Increase activity, ambulate as tolerated. PT/OT/cardiac rehab following. 7. Pain control with current medication regimen. 8. Insulin management per primary care services. 9. Will monitor daily labs and x-rays. Electrolyte replacement per protocol. Will give 1 unit packed red blood cells followed by IV Lasix 40 mg 1 today. 10. GI/DVT prophylaxis. 11. Continue Xanax for patient's anxiety. 12. Initiate amiodarone drip per protocol for atrial fibrillation prophylaxis. We will convert to oral amiodarone more warning 01/22/2019. 13. Discontinue Xanax as the patient is having some sedated episodes with complaints of fatigue and generalized weakness. Minimize narcotic use. 14. More recommendations to follow based on patient's clinical course Time with Patient: Greater than 30
--- NOTE | 2019-01-21 15:17 | P.PN ---
Subjective Progress Note Date: 01/21/19 (delayed charting patient seen at 0810) Principal diagnosis: chest pain Patient is a 58-year-old male with a past medical history of systolic congestive heart failure with an ejection fraction 35-40%, coronary artery disease status post prior stenting, dyslipidemia, and hypertension who presented to the ER with complaints of chest pain. Patient underwent stenting of the LAD with 2 drug-eluting stents on 01/11/18. Per the patient has been unable to afford his Proventil and therefore hasn't been taking anything. In the ER he underwent an extensive evaluation. On arrival his blood pressures are found be 190/107. Laboratory analysis is essentially unremarkable and troponin was negative. He was given aspirin and admitted for cardiac evaluation. Initial EKG did have some ST segment depression. His second troponin was positive at 0.96 and trended to 1.6. Cardiology was contacted. Underwent cardiac catheterization on 01/13, found to have critical disease and plan is for urgent bypass surgery on 01/18. Echo with moderate MR and CORDELL done 01/16 and needed mitral ring as well. EF low at 45-50%. Struggles with heart burn and regiment optimized. Patient underwent triple vessel bypass with mitral valve repair on 01/18. He tolerated the procedure well and was in the ICU intubated afterwards. He subsequently was extubated. Hemoglobin dropped and 1 unit of packed red blood cells transfused. Hemoglobin remained low on 01/21 he was ordered an additional unit of packed red blood cells. He was also noted to have increasing lethargy and Xanax was down titrated. He went into atrial flutter and amiodarone was started on 01/21. Patient seen and examined at bedside. Complains of feeling very tired, short of breath, and having 10 out of 10 pain at the upper site of his incision. Denies any nausea. States he overall feels poor. Denies any anxiety. Patient noted to have a heart rate of 144 on arrival the room. This then dropped to the 70s and then immediately went back up to 144. Patient also complaining attended 10 pain. Piper Miller nurse practitioner for cardiothoracic notified. Objective - Vital Signs Vital signs: Vital Signs Temp 98 F 01/21/19 12:00 Pulse 70 01/21/19 12:00 Resp 34 H 01/21/19 12:00 BP 114/63 01/21/19 12:00 Pulse Ox 94 L 01/21/19 12:00 Intake & Output 01/20/19 01/21/19 01/21/19 18:59 06:59 18:59 Intake Total 749 482 156 Output Total 1125 394 0 Balance -376 88 156 Weight 99.3 kg 106.7 kg Intake: IV 439 312 156 CO/CI 26 Calcium Gluconate 2 gm In 100 Sodium Chloride 0.9% 100 ml @ 100 mls/hr IVPB ONCE PRN Rx#:[id number] Lactated Ringers 1,000 ml 250 240 120 @ 20 mls/hr IV .Q24H EVETTE Rx#:[id number] pressure bags 63 72 36 Oral 170 Blood Product 310 0 Rc As-1 Unit 310 [id number] Rc As-1 Unit 0 [id number] Output: Chest Tube Drainage 80 left and right pleural 60 mediastinal chest tube 20 Urine 1045 325 0 Post Void Residual 69 Other: Voiding Method Indwelling Catheter Urinal Urinal # Voids 3 1 1 ABP, PAP, CO, CI - Last Documented Arterial Blood Pressure 111/47 Pulmonary Artery Pressure 33/16 Cardiac Output 6.4 Cardiac Index 2.9 - Exam General: non toxic, no distress, appears at stated age Derm: warm, dry Head: atraumatic, normocephalic, symmetric Eyes: EOMI, no lid lag, anicteric sclera Cardiovascular: S1S2 reg, no murmur, positive posterior tibial pulse bilateral, CT in place Lungs: Decreased breath sounds bilateral, no rhonchi, no rales , no accessory muscle use Abdominal: soft, nontender to palpation, no guarding, no appreciable organomegaly Ext: no gross muscle atrophy, trace, no contractures Neuro: CN II-XI grossly intact, no focal neuro deficits Psych: lethargic, answers questions appropriately - Labs CBC & Chem 7: 01/21/19 04:25 01/21/19 04:25 Labs: Abnormal Lab Results - Last 24 Hours (Table) 01/20/19 01/20/19 01/21/19 Range/Units 05:57 14:55 02:21 RBC 2.38 L (4.30-5.90) m/uL Hgb 6.8 L* (13.0-17.5) gm/dL Hct 20.7 L (39.0-53.0) % Plt Count 107 L (150-450) k/uL Sodium (137-145) mmol/L BUN (9-20) mg/dL POC Glucose (mg/dL) 119 H (75-99) mg/dL Calcium (8.4-10.2) mg/dL Magnesium (1.6-2.3) mg/dL Total Protein (6.3-8.2) g/dL Albumin (3.5-5.0) g/dL Crossmatch See Detail 01/21/19 01/21/19 01/21/19 Range/Units 04:25 04:25 07:01 RBC 2.33 L (4.30-5.90) m/uL Hgb 6.7 L* (13.0-17.5) gm/dL Hct 20.3 L (39.0-53.0) % Plt Count 120 L (150-450) k/uL Sodium 136 L (137-145) mmol/L BUN 23 H (9-20) mg/dL POC Glucose (mg/dL) 110 H (75-99) mg/dL Calcium 8.1 L (8.4-10.2) mg/dL Magnesium 2.4 H (1.6-2.3) mg/dL Total Protein 5.5 L (6.3-8.2) g/dL Albumin 3.4 L (3.5-5.0) g/dL Crossmatch Assessment and Plan Assessment: Non-STEMI with CAD status post three-vessel cardiac bypass surgery with mitral repair on 01/18 -On Lopressor, norvasc -Follow blood pressures -Management per cardiothoracic surgery - Lipitor -Aspirin and Plavix Acute blood loss anemia and thrombocytopenia, anticipated outcome of surgery -Status post 1 unit packed red blood cells, repeat X 1 today -Follow CBC Toxic encephalopathy -xanax discontinued -Hold sedative and pain medications if patient lethargic GERD -PPI BID -tums, prn maalox -no pepcid Atrial fib - on amio Ischemic cardiomyopathy, EF 45-50%-- improved from last echo -Echo reviewed -Metoprolol, lisinopril will be added with blood pressure stabilized -No signs of fluid overload Carotid stenosis - asymptomatic LICA 50-69% and DAVIDE 50% Dyslipidemia -Statin -Shows elevated lipid profile Hypertension, urgency on arrival -Improved -Continue current medications - follow BP Anxiety -Xanax discontinued due to letheragy - Will start cymbalta, d/w cardiosurgery -Would benefit from outpatient psychiatry on discharge as per psych consult. Increased Cr, resolved DVT prophylaxis: early ambulation Discussed with: Patient, nursing, Piper Miller, LABORER [employer]AR[employer] Anticipated discharge: [address]: home A total of 25 minutes was spent on the care of this complex patient more than 50% of the time was spent in counseling and care coordination.
[2019-01-21 16:45] LABS: Glucose,Whole Blood 101 mg/dL (75-99)
[2019-01-21] MEDS: DULoxetine HCL 30 MG CAPSULE.DR PO SCH (17:14)
[2019-01-21 19:51] LABS: Basophils % (A) 0 %; Eosinophils # (A) 0.3 k/uL (0-0.7); Eosinophils % (A) 3 %; HCT 24.7 % (39.0-53.0); Lymphocytes # (A) 1.8 k/uL (1.0-4.8); Lymphocytes % (A) 19 %; MCH 28.4 pg (25.0-35.0); MCHC 32.2 g/dL (31.0-37.0); MCV 88.1 fL (80.0-100.0); Mean Platelet Volume 9.7; Monocytes # (A) 0.5 k/uL (0-1.0); Monocytes % (A) 6 %; Neutrophils # (A) 6.4 k/uL (1.3-7.7); Neutrophils % (A) 69 %; Platelet Count 165 k/uL (150-450); Poikilocytosis Slight; RBC 2.81 m/uL (4.30-5.90); RDW 14.8 % (11.5-15.5); WBC 9.3 k/uL (3.8-10.6)
[2019-01-21 21:22] LABS: Glucose,Whole Blood 115 mg/dL (75-99)
[2019-01-21] MEDS: SENNOSIDES-DOCUSATE SODIUM 1 EACH TAB PO SCH (22:18)
[2019-01-22 01:49] LABS: Glucose,Whole Blood 117 mg/dL (75-99)
[2019-01-22] MEDS: INSULIN ASPART (NovoLOG) 100 UNIT/ML VIAL SQ SCH ×5 (01:51→22:00)
[2019-01-22 04:34] LABS: Basophils % (A) 1 %; Eosinophils # (A) 0.3 k/uL (0-0.7); Eosinophils % (A) 3 %; HCT 22.9 % (39.0-53.0); HGB 7.3 gm/dL (13.0-17.5); Hypochromasia Slight; Lymphocytes # (A) 1.5 k/uL (1.0-4.8); Lymphocytes % (A) 19 %; MCH 27.9 pg (25.0-35.0); MCV 87.2 fL (80.0-100.0); Monocytes # (A) 0.5 k/uL (0-1.0); Monocytes % (A) 6 %; Neutrophils # (A) 5.3 k/uL (1.3-7.7); Neutrophils % (A) 69 %; Platelet Count 152 k/uL (150-450); Poikilocytosis Slight; RBC 2.63 m/uL (4.30-5.90); RDW 15.2 % (11.5-15.5); WBC 7.7 k/uL (3.8-10.6)
[2019-01-22] MEDS: ONDANSETRON 4 MG/2 ML VIAL IVP PRN (04:46)
[2019-01-22 04:53] LABS: Albumin 3.6 g/dL (3.5-5.0); Calcium 8.2 mg/dL (8.4-10.2); Magnesium 2.4 mg/dL (1.6-2.3); Phosphorus 3.3 mg/dL (2.5-4.5); Potassium 4.3 mmol/L (3.5-5.1); Total Bilirubin 0.7 mg/dL (0.2-1.3); Total Protein 5.8 g/dL (6.3-8.2)
[2019-01-22] MEDS: LACTATED RINGERS 1,000 ML IV SCH (06:05)
[2019-01-22] MEDS: KETOROLAC 30 MG/ML 1 ML VIAL IVP SCH ×4 (06:05→23:56)
[2019-01-22 07:06] LABS: Glucose,Whole Blood 110 mg/dL (75-99)
[2019-01-22] MEDS: PANTOPRAZOLE 40 MG TABLET PO SCH (07:13)
[2019-01-22] MEDS: METOPROLOL TARTRATE 25 MG TAB PO SCH ×2 (08:11→21:58)
[2019-01-22] MEDS: ATORVASTATIN 40 MG TAB PO SCH (08:11)
[2019-01-22] MEDS: ASPIRIN 325 MG TAB PO SCH (08:12)
[2019-01-22] MEDS: CLOPIDOGREL 75 MG TAB PO SCH (08:12)
[2019-01-22] MEDS: amLODIPine 2.5 MG TAB PO SCH (08:12)
[2019-01-22] MEDS: HEPARIN SODIUM,PORCINE 5,000 UNIT/ML 1 ML VIAL SQ SCH ×3 (08:12→23:54)
[2019-01-22] MEDS: DULoxetine HCL 30 MG CAPSULE.DR PO SCH (08:12)
[2019-01-22] MEDS: AMIODARONE 200 MG TAB PO SCH ×2 (08:13→21:58)
[2019-01-22] MEDS: IPRATROPIUM-ALBUTEROL 3 ML NEB INHALATION SCH ×4 (08:14→20:04)
--- NOTE | 2019-01-22 08:28 | PN ---
PROGRESS NOTE DATE OF SERVICE: January 22, 2019 This is a 58-year-old male who was admitted back on January 12. He is postop day #4, status post 3-vessel bypass grafting, mitral valve ring repair and left atrial appendage excision. He was extubated in a timely fashion. He is doing reasonably well. The patient still is on 2 L nasal cannula. He is getting lactated Ringer's at 20 mL an hour. Yesterday, he developed atrial fibrillation and was started on amiodarone at 0.5 mg/minute. He is not doing very well on his incentive spirometer, only getting about 750. He did receive 1 unit of PRBCs yesterday for a hemoglobin that was below 7. Other than that, he is doing reasonably well. He did have a panic attack according to the nurse. The patient has a history of a previous PCI for CAD, CHF, GERD, hypertension, myocardial infarction, DJD, pneumonia, peripheral neuropathy, and cardiomyopathy with an ejection fraction of 35-40 percent. VITAL SIGNS: Today, he seems to be doing reasonably well. Current temperature heart rate 70, respiratory rate 22, blood pressure 137/82, mean 100, CVP is 7, saturations are 95% on the 2 L. GENERAL: Appears in no acute distress. HEENT examination is grossly unremarkable. Nasal O2 in place. NECK is supple. Full range of motion. No adenopathy or thyromegaly. Neck veins are flat. CARDIOVASCULAR examination reveals a regular rhythm rate. He is currently in sinus rhythm. S1, S2 normal. There is no S3, S4, or murmur. LUNGS reveal relatively clear breath sounds. He does not take real deep breaths. A few scattered rhonchi. No wheezes or crackles. ABDOMEN is soft. Bowel sounds are heard. EXTREMITIES are intact. No edema, cyanosis, or clubbing. SKIN without rash. NEUROLOGIC examination is brief but nonfocal. LAB WORK: From today is not yet back. Chest x-ray is not yet been done. Medications are reviewed. ASSESSMENT: 1. Postoperative day #4, status post 3-vessel bypass grafting, mitral valve ring repair and atrial appendage excision. 2. Routine postoperative ventilator management with extubation in a timely fashion. 3. History of coronary artery disease with previous PCI and stent placement. 4. History of heart failure, with a cardiomyopathy and ejection fraction of 35-40 percent with moderate global hypokinesis and mild concentric left ventricular hypertrophy. 5. History of gastroesophageal reflux disease. 6. Benign essential hypertension. 7. Previous myocardial infarction. 8. Degenerative joint disease. 9. History of pneumonia. 10.Peripheral neuropathy. 11.Profound anxiety/panic disorder. PLAN: The patient seems to be doing relatively well. The patient is only getting 750 on the incentive spirometer. He needs to be encouraged. We expect him to do deep breathing, coughing, clearing of secretions and hourly use of IS. The patient is on amiodarone 0.5 mg/minute for atrial fibrillation which developed yesterday. He did receive 1 unit of PRBCs. Additional recommendations and suggestions are forthcoming. Prognosis is guarded. MMODL / IJN: [id number] /
--- NOTE | 2019-01-22 08:34 | P.PN ---
Subjective Progress Note Date: 01/22/19 Principal diagnosis: chest pain Patient is a 58-year-old male with a past medical history of systolic congestive heart failure with an ejection fraction 35-40%, coronary artery disease status post prior stenting, dyslipidemia, and hypertension who presented to the ER with complaints of chest pain. Patient underwent stenting of the LAD with 2 drug-eluting stents on 01/11/18. Per the patient has been unable to afford his Proventil and therefore hasn't been taking anything. In the ER he underwent an extensive evaluation. On arrival his blood pressures are found be 190/107. Laboratory analysis is essentially unremarkable and troponin was negative. He was given aspirin and admitted for cardiac evaluation. Initial EKG did have some ST segment depression. His second troponin was positive at 0.96 and trended to 1.6. Cardiology was contacted. Underwent cardiac catheterization on 01/13, found to have critical disease and plan is for urgent bypass surgery on 01/18. Echo with moderate MR and CORDELL done 01/16 and needed mitral ring as well. EF low at 45-50%. Struggles with heart burn and regiment optimized. Patient underwent triple vessel bypass with mitral valve repair on 01/18. He tolerated the procedure well and was in the ICU intubated afterwards. He subsequently was extubated. Hemoglobin dropped and 1 unit of packed red blood cells transfused. Hemoglobin remained low on 01/21 he was ordered an additional unit of packed red blood cells. He was also noted to have increasing lethargy and Xanax was down titrated. He went into atrial flutter and amiod arone was started on 01/21. He converted to sinus rhythm with amio gtt. Patient seen and examined at bedside. Complains of pain, sob, and nausea. Lack of appetite this AM, + BM yesterday. Nursing at bedside, no acute events overnight. Objective - Vital Signs Vital signs: Vital Signs Temp 97.9 F 01/22/19 04:00 Pulse 79 01/22/19 08:14 Resp 20 01/22/19 08:14 BP 147/85 01/22/19 07:00 Pulse Ox 95 01/22/19 07:00 Intake & Output 01/21/19 01/22/19 01/22/19 18:59 06:59 18:59 Intake Total 957.553 312 26 Output Total 1050 475 0 Balance -92.447 -163 26 Intake: IV 312 312 26 Lactated Ringers 1,000 ml 240 240 20 @ 20 mls/hr IV .Q24H [facility] Rx#:[id number] pressure bags 72 72 6 Intake, IV Titration 335.553 Amount Amiodarone 300 mg In 148.333 Dextrose 5% in Water 250 ml @ 0.5 MG/MIN 25 mls/hr IV .Q10H PRN Rx#: [id number] Amiodarone 360 mg In 187.22 Dextrose 5% in Water 200 ml @ 1 MG/MIN 33.333 mls/ hr IV .Q6H PRN Rx#: [id number] Blood Product 310 Rc As-1 Unit 310 [id number] Output: Urine 1050 475 0 Other: Voiding Method Urinal Urinal # Voids 1 1 # Bowel Movements 1 1 ABP, PAP, CO, CI - Last Documented Arterial Blood Pressure 131/56 Pulmonary Artery Pressure 33/16 Cardiac Output 6.4 Cardiac Index 2.9 - Exam General: non toxic, no distress, appears at stated age Derm: warm, dry Head: atraumatic, normocephalic, symmetric Eyes: EOMI, no lid lag, anicteric sclera Cardiovascular: S1S2 reg, no murmur, positive posterior tibial pulse bilateral Lungs: rhonchi left base, no wheeze, no accessory muscle use Abdominal: soft, nontender to palpation, no guarding, no appreciable organomegaly Ext: no gross muscle atrophy, trace edema, no contractures Neuro: CN II-XI grossly intact, no focal neuro deficits Psych:Awake, alert, flat affect - Labs CBC & Chem 7: 01/22/19 04:20 01/22/19 04:20 Labs: Abnormal Lab Results - Last 24 Hours (Table) 01/20/19 01/21/19 01/21/19 Range/Units 05:57 16:42 19:45 RBC 2.81 L (4.30-5.90) m/uL Hgb 8.0 L (13.0-17.5) gm/dL Hct 24.7 L (39.0-53.0) % BUN (9-20) mg/dL Glucose (74-99) mg/dL POC Glucose (mg/dL) 101 H (75-99) mg/dL Calcium (8.4-10.2) mg/dL Magnesium (1.6-2.3) mg/dL Total Protein (6.3-8.2) g/dL Crossmatch See Detail 01/21/19 01/22/19 01/22/19 Range/Units 21:19 01:45 04:20 RBC 2.63 L (4.30-5.90) m/uL Hgb 7.3 L (13.0-17.5) gm/dL Hct 22.9 L (39.0-53.0) % BUN (9-20) mg/dL Glucose (74-99) mg/dL POC Glucose (mg/dL) 115 H 117 H (75-99) mg/dL Calcium (8.4-10.2) mg/dL Magnesium (1.6-2.3) mg/dL Total Protein (6.3-8.2) g/dL Crossmatch 01/22/19 01/22/19 Range/Units 04:20 06:52 RBC (4.30-5.90) m/uL Hgb (13.0-17.5) gm/dL Hct (39.0-53.0) % BUN 28 H (9-20) mg/dL Glucose 106 H (74-99) mg/dL POC Glucose (mg/dL) 110 H (75-99) mg/dL Calcium 8.2 L (8.4-10.2) mg/dL Magnesium 2.4 H (1.6-2.3) mg/dL Total Protein 5.8 L (6.3-8.2) g/dL Crossmatch Assessment and Plan Assessment: Non-STEMI with CAD status post three-vessel cardiac bypass surgery with mitral repair on 01/18 -On Lopressor, norvasc -Follow blood pressures -Management per cardiothoracic surgery - Lipitor -Aspirin and Plavix Acute blood loss anemia, anticipated outcome of surgery -Status post 2 unit packed red blood cells, stable -Follow CBC Anxiety -Xanax discontinued due to lethargy - cymbalta started on 01/21 low dose at 30mg daily, can increase to 30 BID if tolerates and then can increase weekly. -Would benefit from outpatient psychiatry on discharge as per psych consult. Toxic encephalopathy, improved -xanax discontinued -Hold sedative and pain medications if patient lethargic GERD -PPI BID -prn maalox Atrial fib, resolved - on amio Ischemic cardiomyopathy, EF 45-50%-- improved from last echo -Echo reviewed -Metoprolol, lisinopril will be added with blood pressure stabilized -No signs of fluid overload Carotid stenosis - asymptomatic LICA 50-69% and DAVIDE 50% Dyslipidemia -Statin -Shows elevated lipid profile Hypertension, urgency on arrival -Improved -Continue current medications -Follow BP Increased Cr, resolved thrombocytopenia, resolved DVT prophylaxis: early ambulation Discussed with: Patient, nursing, Piper Miller NP Anticipated discharge: [address]: home A total of 25 minutes was spent on the care of this complex patient more than 50% of the time was spent in counseling and care coordination.
--- NOTE | 2019-01-22 08:55 | P.PN ---
Subjective Progress Note Date: 01/22/19 Principal diagnosis: Triple-vessel coronary artery disease with extensive left to right collaterals to the distal right coronary artery, past medical history significant for petersen ry artery disease with previous stent placement to his left anterior descending coronary artery in 2004, 2006 and 2017, history of stent placement to a circumflex coronary artery in 2010, non-ST elevated myocardial infarction this admission, moderate to severe mitral valve regurgitation, remote history of nicotine dependence quit 1 year ago, hypertension, hyperlipidemia, chronic obstructive pulmonary disease with a preoperative FEV1 61% of predicted value, ischemic cardiomyopathy, chronic systolic heart failure, gastroesophageal reflux disease, anxiety, left internal carotid artery stenosis of 50-70% and history of noncompliance. POD #4 urgent coronary artery bypass graft surgery, left internal mammary artery to the left anterior descending artery, radial artery to the obtuse marginal art olga, a reverse greater saphenous vein graft to the posterior descending coronary artery, endoscopic vein harvest of the left greater saphenous vein, endoscopic harvest of the left radial artery, mitral valve repair with 28 mm AnnuloFlex ring, epi-aortic ultrasound, intraoperative transesophageal echocardiogram, and ligation of the left atrial appendage with a 35 mm AtriCure clip. Postoperative acute blood loss anemia, expected outcome given hemodilution and cardiopulmonary bypass pump. Hypotension on IV Levophed, expected as a normal part of the postoperative course. Postoperative paroxysmal atrial fibrillation, an unexpected outcome. The patient is currently sitting up to the bedside chair in the intensive care unit. He is in no acute distress. His complaining of some surgical type pain rating his pain 4 out of 10 on the pain scale and denies any complaints of shortness of breath.. Bedside monitor demonstrating normal sinus rhythm heart rate 80 bpm. He remains hemodynamically stable and is on no inotropic or pressor support. Amiodarone drip infusing at 0.5 mg/m per protocol, no further atrial fibrillation. Hemoglobin this morning is 7.3. Right IJ cordis remains in place with continuous CVP monitoring, current CVP pressure 8 mmHg. He is also complaining of generalized weakness, although he looks much improved today and is more awake and alert. He is achieving 4966-9675 mL on his incentive spirometry with encouragement. Oxygen saturations are 94% on 2 L nasal cannula. Objective - Vital Signs Vital signs: Vital Signs Temp 97.9 F 01/22/19 04:00 Pulse 78 01/22/19 08:21 Resp 20 01/22/19 08:21 BP 147/85 01/22/19 07:00 Pulse Ox 95 01/22/19 07:00 Intake & Output 01/21/19 01/22/19 01/22/19 18:59 06:59 18:59 Intake Total 957.553 312 26 Output Total 1050 475 0 Balance -92.447 -163 26 Intake: IV 312 312 26 Lactated Ringers 1,000 ml 240 240 20 @ 20 mls/hr IV .Q24H [facility] Rx#:[id number] pressure bags 72 72 6 Intake, IV Titration 335.553 Amount Amiodarone 300 mg In 148.333 Dextrose 5% in Water 250 ml @ 0.5 MG/MIN 25 mls/hr IV .Q10H PRN Rx#: [id number] Amiodarone 360 mg In 187.22 Dextrose 5% in Water 200 ml @ 1 MG/MIN 33.333 mls/ hr IV .Q6H PRN Rx#: [id number] Blood Product 310 Rc As-1 Unit 310 [id number] Output: Urine 1050 475 0 Other: Voiding Method Urinal Urinal # Voids 1 1 # Bowel Movements 1 1 ABP, PAP, CO, CI - Last Documented Arterial Blood Pressure 131/56 Pulmonary Artery Pressure 33/16 Cardiac Output 6.4 Cardiac Index 2.9 - Constitutional General appearance: Present: cooperative, no acute distress, obese - Respiratory Details: Lung sounds are essentially clear to his bilateral upper lobes, diminished to his bilateral bases. Respirations are symmetrical and nonlabored. Oxygen saturation are 94% on 2 L nasal cannula. Achieving 5304-1213 mL on his incentive spirometry. - Cardiovascular Details: Regular rhythm and rate. S1 and S2 present, negative for S3, gallop or murmur. Sternum is stable. Atrial and ventricular epicardial pacemaker wires intact and connected to back up pacemaker generator. Heart hugger is in place and he is demonstrating appropriate use. Trace edema to his bilateral lower extremities. Knee-high KUN hose and sequential compression devices in place to his bilateral lower extremities. Right IJ Cordis in place to continue CVP monitoring, current CVP pressure 8 mmHg. Right radial arterial line in place and functioning. - Gastrointestinal Gastrointestinal Comment(s): Abdomen is soft, nontender and nondistended. Active bowel sounds to all 4 abdominal quadrants. Tolerating oral intake. No guarding or rigidity. Passing flatus. - Genitourinary Genitourinary Comment(s): Voiding clear yellow urine. - Integumentary Integumentary Comment(s): Skin is warm and dry. No clubbing or cyanosis is present. Midline sternal incision is clean, dry and approximated. Exofin dressing is clean, dry and intact. No drainage or redness is present. Left radial harvest sites clean, dry and approximated. No drainage or redness is present. Left lower extremity EVH sites clean, dry and approximated. No drainage or redness is present. - Neurologic Neurologic: Present: CNII-XII intact - Musculoskeletal Musculoskeletal: Present: gait normal, generalized weakness, strength equal b ilaterally - Psychiatric Psychiatric: Present: A&O x's 3, appropriate affect, intact judgment & insight - Allied health notes Allied health notes reviewed: nursing - Labs CBC & Chem 7: 01/22/19 04:20 01/22/19 04:20 Labs: Abnormal Lab Results - Last 24 Hours (Table) 01/20/19 01/21/19 01/21/19 Range/Units 05:57 16:42 19:45 RBC 2.81 L (4.30-5.90) m/uL Hgb 8.0 L (13.0-17.5) gm/dL Hct 24.7 L (39.0-53.0) % BUN (9-20) mg/dL Glucose (74-99) mg/dL POC Glucose (mg/dL) 101 H (75-99) mg/dL Calcium (8.4-10.2) mg/dL Magnesium (1.6-2.3) mg/dL Total Protein (6.3-8.2) g/dL Crossmatch See Detail 01/21/19 01/22/19 01/22/19 Range/Units 21:19 01:45 04:20 RBC 2.63 L (4.30-5.90) m/uL Hgb 7.3 L (13.0-17.5) gm/dL Hct 22.9 L (39.0-53.0) % BUN (9-20) mg/dL Glucose (74-99) mg/dL POC Glucose (mg/dL) 115 H 117 H (75-99) mg/dL Calcium (8.4-10.2) mg/dL Magnesium (1.6-2.3) mg/dL Total Protein (6.3-8.2) g/dL Crossmatch 01/22/19 01/22/19 Range/Units 04:20 06:52 RBC (4.30-5.90) m/uL Hgb (13.0-17.5) gm/dL Hct (39.0-53.0) % BUN 28 H (9-20) mg/dL Glucose 106 H (74-99) mg/dL POC Glucose (mg/dL) 110 H (75-99) mg/dL Calcium 8.2 L (8.4-10.2) mg/dL Magnesium 2.4 H (1.6-2.3) mg/dL Total Protein 5.8 L (6.3-8.2) g/dL Crossmatch - Imaging and Cardiology Chest x-ray: report reviewed, image reviewed Assessment and Plan Assessment: 1. Triple-vessel coronary artery disease with previous stent placement to the LAD 2004, 2006, 2017 and stent placement to the circumflex in 2010, status post urgent CABG 3 2. Non-ST elevated myocardial infarction this admission 3. Moderate to severe mitral regurgitation, status post mitral valve repair 4. Hyperlipidemia 5. Hypertension 6. ischemic cardiomyopathy with chronic systolic heart failure, EF 45-50% 7. Previous tobacco dependence 8. Mild COPD with preoperative FEV1 61% of predicted 9. Left internal carotid artery stenosis 50-70% 10. GERD 11. Anxiety with panic attacks 12. Postoperative acute blood loss anemia, expected 13. Postoperative paroxysmal atrial fibrillation, unexpected Plan: 1. Continue to maximize medical management with aspirin, statin, Plavix and beta jewels. Increase metoprolol tartrate 25 mg by mouth twice a day. 2. Cardizem was discontinued and he was started on amlodipine 2.5 mg by mouth daily for radial artery spasm prophylaxis. Please do not discontinued without verifying with the cardiothoracic surgeon. 3. Discontinue right IJ Cordis and right radial arterial line. 4. Wean O2 as tolerated. Encourage use of incentive spirometry every hour while awake, patient needs aggressive pulmonary toileting. Encourage continued smoking cessation. 5. Bronchodilators per pulmonology management. 6. Increase activity, ambulate as tolerated. PT/OT/cardiac rehab following. 7. Pain control with current medication regimen. 8. Insulin management per primary care services. 9. Will monitor daily labs and x-rays. Electrolyte replacement per protocol. 10. GI/DVT prophylaxis. 11. Xanax was discontinued yesterday as the patient was lethargic, complaining of generalized weakness and fatigue. Avoid narcotic use. 12. Discontinue amiodarone drip, we will start amiodarone 400 mg by mouth twice a day with taper for atrial fibrillation prophylaxis. 13. We will transfer the patient to [address] [place] [address] cardiac stepdown unit. Discharge planning in place 14. Anticipate the need for inpatient cardiac rehab upon discharge. lime kiln worker has been consulted. 15. More recommendations to follow based on patient's clinical course. Time with Patient: Greater than 30
[2019-01-22 11:24] LABS: Glucose,Whole Blood 97 mg/dL (75-99)
--- NOTE | 2019-01-22 12:44 | XR ---
EXAMINATION TYPE: XR chest 2V DATE OF EXAM: 01/22/2019 HISTORY: Postoperative CABG/MVR. REFERENCE: Previous study dated 01/21/2019. FINDINGS: The patient has had a midline sternotomy. Heart size upper limits of normal. There is bibasilar atelectasis. There are small effusions. There i s mild vascular congestion without vinod edema. IMPRESSION: CONTINUING POSTOPERATIVE CHANGE.
[2019-01-22 17:24] LABS: Glucose,Whole Blood 106 mg/dL (75-99)
[2019-01-22 21:35] LABS: Glucose,Whole Blood 117 mg/dL (75-99)
[2019-01-22] MEDS: SENNOSIDES-DOCUSATE SODIUM 1 EACH TAB PO SCH (21:58)
[2019-01-23 02:10] LABS: Glucose,Whole Blood 120 mg/dL (75-99)
[2019-01-23] MEDS: INSULIN ASPART (NovoLOG) 100 UNIT/ML VIAL SQ SCH ×2 (03:01→07:11)
[2019-01-23 04:59] LABS: Basophils # (A) 0.1 k/uL (0-0.2); Basophils % (A) 1 %; Eosinophils # (A) 0.3 k/uL (0-0.7); Eosinophils % (A) 5 %; HCT 23.6 % (39.0-53.0); HGB 7.7 gm/dL (13.0-17.5); Hypochromasia Slight; Lymphocytes # (A) 1.4 k/uL (1.0-4.8); Lymphocytes % (A) 21 %; MCH 28.9 pg (25.0-35.0); MCHC 32.7 g/dL (31.0-37.0); MCV 88.3 fL (80.0-100.0); Mean Platelet Volume 8.1; Monocytes # (A) 0.5 k/uL (0-1.0); Monocytes % (A) 7 %; Neutrophils # (A) 4.3 k/uL (1.3-7.7); Neutrophils % (A) 63 %; Platelet Count 209 k/uL (150-450); Poikilocytosis Slight; RBC 2.68 m/uL (4.30-5.90); RDW 15.1 % (11.5-15.5); WBC 6.8 k/uL (3.8-10.6)
[2019-01-23 05:20] LABS: Albumin 3.7 g/dL (3.5-5.0); Calcium 8.4 mg/dL (8.4-10.2); Potassium 4.2 mmol/L (3.5-5.1); Total Bilirubin 0.8 mg/dL (0.2-1.3); Total Protein 6.2 g/dL (6.3-8.2)
[2019-01-23 06:52] LABS: Glucose,Whole Blood 91 mg/dL (75-99)
[2019-01-23] MEDS: METOPROLOL TARTRATE 25 MG TAB PO SCH ×2 (08:15→21:08)
[2019-01-23] MEDS: AMIODARONE 200 MG TAB PO SCH ×2 (08:16→21:08)
[2019-01-23] MEDS: PANTOPRAZOLE 40 MG TABLET PO SCH (08:16)
[2019-01-23] MEDS: amLODIPine 2.5 MG TAB PO SCH (08:16)
[2019-01-23] MEDS: CLOPIDOGREL 75 MG TAB PO SCH (08:16)
[2019-01-23] MEDS: HEPARIN SODIUM,PORCINE 5,000 UNIT/ML 1 ML VIAL SQ SCH ×3 (08:16→23:18)
[2019-01-23] MEDS: DULoxetine HCL 30 MG CAPSULE.DR PO SCH (08:16)
[2019-01-23] MEDS: ATORVASTATIN 40 MG TAB PO SCH (08:16)
[2019-01-23] MEDS: ASPIRIN 325 MG TAB PO SCH (08:16)
--- NOTE | 2019-01-23 08:50 | P.PN ---
Subjective Progress Note Date: 01/23/19 Principal diagnosis: chest pain Patient is a 58-year-old male with a past medical history of systolic congestive heart failure with an ejection fraction 35-40%, coronary artery disease status post prior stenting, dyslipidemia, and hypertension who presented to the ER with complaints of chest pain. Patient underwent stenting of the LAD with 2 drug-eluting stents on 01/11/18. Per the patient he has been unable to afford his plavix and therefore hasn't been taking anything. In the ER he underwent an extensive evaluation. On arrival his blood pressures are found be 190/107. Laboratory analysis is essentially unremarkable and troponin was negative. He was given aspirin and admitted for cardiac evaluation. Initial EKG did have some ST segment depression. His second troponin was positive at 0.96 and trended to 1.6. Cardiology was contacted. Underwent cardiac catheterization on 01/13, found to have critical disease and plan is for urgent bypass surgery on 01/18. Echo with moderate MR and CORDELL done 01/16 and needed mitral ring as well. EF low at 45-50%. Struggles with heart burn and regiment optimized. Patient underwent triple vessel bypass with mitral valve repair on 01/18. He tolerated the procedure well and was in the ICU intubated afterwards. He subsequently was extubated. Hemoglobin dropped and 1 unit of packed red blood cells transfused. Hemoglobin remained low on 01/21 he was ordered an additional unit of packed red blood cells. He was also noted to have increasing lethargy and Xanax was down titrated. He went into atrial flutter and amiod arone was started on 01/21. He converted to sinus rhythm with amio gtt. Patient seen and examined at bedside. Still feeling tired, having some chest discomfort as is his incision site. States his breathing is the same as yesterday. Had a bowel movement. Was able to get up and walk in the hallways yesterday. Concerned about going home and caring for his incision. We discussed that he will likely go to rehab after this. Objective - Vital Signs Vital signs: Vital Signs Temp 98.2 F 01/23/19 04:00 Pulse 84 01/23/19 07:00 Resp 17 01/23/19 07:00 BP 155/74 01/23/19 07:00 Pulse Ox 94 L 01/23/19 00:00 Intake & Output 0601/23/19 01/23/19 18:59 06:59 18:59 Intake Total 492 250 Output Total 750 300 Balance -258 -50 Weight 105 kg Intake: IV 52 Lactated Ringers 1,000 ml 40 @ 20 mls/hr IV .Q24H [facility] Rx#:[id number] pressure bags 12 Oral 440 250 Output: Urine 750 300 Other: Voiding Method Urinal Urinal # Voids 1 1 ABP, PAP, CO, CI - Last Documented Arterial Blood Pressure 151/66 Pulmonary Artery Pressure 33/16 Cardiac Output 6.4 Cardiac Index 2.9 - Exam General: non toxic, no distress, appears at stated age Derm: midline incision covered with dressing, warm, dry Head: atraumatic, normocephalic, symmetric Eyes: EOMI, no lid lag, anicteric sclera Cardiovascular: S1S2 reg, no murmur, positive posterior tibial pulse bilateral Lungs: rhonchi left base, no wheeze, no accessory muscle use Abdominal: soft, nontender to palpation, no guarding, no appreciable organomegaly Ext: no gross muscle atrophy, 2+ edema, no contractures Neuro: CN II-XI grossly intact, no focal neuro deficits Psych:Awake, alert, flat affect - Labs CBC & Chem 7: 01/23/19 04:35 01/23/19 04:35 Labs: Abnormal Lab Results - Last 24 Hours (Table) 01/22/19 01/22/19 01/23/19 Range/Units 17:20 21:32 02:08 RBC (4.30-5.90) m/uL Hgb (13.0-17.5) gm/dL Hct (39.0-53.0) % BUN (9-20) mg/dL POC Glucose (mg/dL) 106 H 117 H 120 H (75-99) mg/dL ALT (21-72) U/L Total Protein (6.3-8.2) g/dL 01/23/19 01/23/19 Range/Units 04:35 04:35 RBC 2.68 L (4.30-5.90) m/uL Hgb 7.7 L (13.0-17.5) gm/dL Hct 23.6 L (39.0-53.0) % BUN 27 H (9-20) mg/dL POC Glucose (mg/dL) (75-99) mg/dL ALT 19 L (21-72) U/L Total Protein 6.2 L (6.3-8.2) g/dL Assessment and Plan Assessment: Non-STEMI with CAD status post three-vessel cardiac bypass surgery with mitral repair on 01/18 -On Lopressor norvasc -Follow blood pressures -Management per cardiothoracic surgery - Lipitor -Aspirin and Plavix - stop accuchecks all have been less than 120 in the last 48 hours Acute blood loss anemia, anticipated outcome of surgery -Status post 2 unit packed red blood cells, stable - start ferrous sulfate -Follow CBC Anxiety with history of panic attacks -Xanax discontinued due to lethargy - cymbalta started on 01/21 low dose at 30mg daily, can increase to 30 BID if tolerates and then can increase weekly. -Would benefit from outpatient psychiatry on discharge as per psych consult. GERD -PPI BID -prn maalox Toxic encephalopathy, improved -xanax discontinued -Hold sedative and pain medications if patient lethargic Atrial fib, resolved - on amio Ischemic cardiomyopathy, EF 45-50%- improved from last echo -Echo reviewed -Metoprolol, lisinopril will be added with blood pressure stabilized -No signs of fluid overload Carotid stenosis - asymptomatic LICA 50-69% and DAVIDE 50% Dyslipidemia -Statin -Shows elevated lipid profile Hypertension, urgency on arrival -Improved -Continue current medications -Follow BP Increased Cr, resolved thrombocytopenia, resolved DVT prophylaxis: early ambulation Discussed with: Patient, nursing, Evans Miller [employer] SAL[employer]OC[employer]ATE Anticipated discharge: 1-[address]: rehab A total of 25 minutes was spent on the care of this complex patient more than 50% of the time was spent in counseling and care coordination.
[2019-01-23] MEDS: IPRATROPIUM-ALBUTEROL 3 ML NEB INHALATION SCH ×4 (09:13→20:14)
--- NOTE | 2019-01-23 09:21 | PN ---
PROGRESS NOTE DATE OF SERVICE: January 23, 2019 This is a 58-year-old gentleman who was admitted back on January 12. He is postop day #5, status post 3-vessel bypass grafting, mitral valve ring repair and left atrial appendage excision. He was extubated in a relatively timely fashion at about 6 hours to 15 minutes after leaving the OR. He is doing reasonably well. He is not on any oxygen at this time. He is not getting any IV fluids at this time. He still doing somewhat poorly on his incentive spirometer. He did develop atrial fibrillation, was started on amiodarone. That has been turned off. Other than that, he is doing reasonably well. He did receive 1 unit of PRBCs for hemoglobin that was less than 7. He has a history of severe anxiety/panic disorder, previous PCI for CAD, CHF, GERD, hypertension, myocardial infarction, DJD, pneumonia, peripheral neuropathy, and cardiomyopathy with an ejection fraction of 35-40 percent. The patient is sitting up in the chair today. He seems to be doing relatively well. He is eating his breakfast. PHYSICAL EXAMINATION: Current vital signs are reviewed. Temperature is 98.2, heart rate 79, respiratory rate 17, blood pressure 155/74, mean 101, room air saturation 94%. Appears in no acute distress. HEENT examination is grossly unremarkable. Mucous membranes are moist. NECK: Supple. Full range of motion. No adenopathy or thyromegaly. Neck veins are flat. Cardiovascular examination reveals regular rhythm rate. Heart rate about 80 beats per minute. S1, S2 normal. No murmur. Lungs reveal mostly clear breath sounds. He does not really take deep breaths. A few scattered mild rhonchi. No wheezes or crackles. Abdomen is soft. Bowel sounds are heard. Extremities are intact. No cyanosis, clubbing, or edema. Skin without rash. No x-ray from today. LABS: Reviewed. White count 6.8, hemoglobin 7.7, hematocrit 23.6, platelet count 209,000. Sodium 139, potassium 4.2, chloride 106, CO2 of 24. BUN and creatinine were 27 and 1.11. Microbiologic studies are all negative. Medications are reviewed. ASSESSMENT: 1. Postoperative day #5, status post 3-vessel bypass grafting, mitral valve ring repair and atrial appendage excision. 2. Routine postoperative ventilator management with extubation in a relatively timely fashion at 6 hours and 15 minutes. 3. History of coronary artery disease with previous PCI and stent placement. 4. History of heart failure. 5. Cardiomyopathy with an ejection fraction of 35-40 percent and echocardiogram showing moderate global hypokinesis and mild concentric left ventricular hypertrophy. 6. History of gastroesophageal reflux disease. 7. Benign essential hypertension. 8. Postoperative anemia, status post 1 unit of PRBCs. 9. Degenerative joint disease. 10.History of pneumonia. 11.Peripheral neuropathy. 12.Profound anxiety/panic disorder. PLAN: The patient seems to be doing reasonably well. We do encourage him to take deep breaths, cough and clear secretions. We also encouraged hourly use of incentive spirometer. He has been weaned off of oxygen. The amiodarone has been discontinued. He is not receiving any IV fluids. Additional recommendations and suggestions are forthcoming. Prognosis is guarded. MMODL / IJN: [id number] /
--- NOTE | 2019-01-23 10:03 | XR ---
EXAMINATION TYPE: XR chest 1V portable DATE OF EXAM: 01/23/2019 HISTORY: post op chopped. REFERENCE: Previous study dated 01/22/2019. FINDINGS: The patient is at a midline sternotomy. There continues be bibasilar airspace disease. I garcia spect small effusions. The heart is mildly enlarged. IMPRESSION: DIAGNOSIS SIGNIFICANT INTERVAL CHANGE IN THE APPEARANCE OF THE CHEST FROM THE PREVIOUS STUDY.
[2019-01-23] MEDS ORDERED: amLODIPine 2.5 MG TAB PO STA (11:12)
--- NOTE | 2019-01-23 11:16 | P.PN ---
Subjective Progress Note Date: 01/23/19 Principal diagnosis: Triple-vessel coronary artery disease with extensive left to right collaterals to the distal right coronary artery, past medical history significant for petersen ry artery disease with previous stent placement to his left anterior descending coronary artery in 2004, 2006 and 2017, history of stent placement to a circumflex coronary artery in 2010, non-ST elevated myocardial infarction this admission, moderate to severe mitral valve regurgitation, remote history of nicotine dependence quit 1 year ago, hypertension, hyperlipidemia, chronic obstructive pulmonary disease with a preoperative FEV1 61% of predicted value, ischemic cardiomyopathy, chronic systolic heart failure, gastroesophageal reflux disease, anxiety, left internal carotid artery stenosis of 50-70% and history of noncompliance. POD #5 urgent coronary artery bypass graft surgery, left internal mammary artery to the left anterior descending artery, radial artery to the obtuse marginal art olga, a reverse greater saphenous vein graft to the posterior descending coronary artery, endoscopic vein harvest of the left greater saphenous vein, endoscopic harvest of the left radial artery, mitral valve repair with 28 mm AnnuloFlex ring, epi-aortic ultrasound, intraoperative transesophageal echocardiogram, and ligation of the left atrial appendage with a 35 mm AtriCure clip. Postoperative acute blood loss anemia, expected outcome given hemodilution and cardiopulmonary bypass pump. Postoperative paroxysmal atrial fibrillation, an unexpected outcome. The patient is currently sitting up to the bedside chair in the intensive care unit. He is in no acute distress. He currently denies any complaints of pain or shortness of breath at this time. Reports that he does have some episodes of surgical type pain with coughing. Bedside monitor demonstrating normal sinus rhythm heart rate 87 bpm. He remains hemodynamically stable and is on no inotropic or pressor support. No further atrial fibrillation. Hemoglobin this morning is 7.7. Since his Xanax has been discontinued the patient is more alert and is participating with physical and occupational therapy. He reports that he ambulated in the intensive care unit hallway 2 yesterday with minimal assistance. He is achieving 1000 mL on his incentive spirometry with encouragement. Oxygen saturation are 94% on 2 L nasal cannula. Objective - Vital Signs Vital signs: Vital Signs Temp 98.2 F 01/23/19 04:00 Pulse 87 01/23/19 09:22 Resp 17 01/23/19 07:00 BP 155/74 01/23/19 07:00 Pulse Ox 94 L 01/23/19 00:00 Intake & Output 01/22/19 01/23/19 01/23/19 18:59 06:59 18:59 Intake Total 492 250 Output Total 750 300 Balance -258 -50 Weight 105 kg Intake: IV 52 Lactated Ringers 1,000 ml 40 @ 20 mls/hr IV .Q24H [facility] Rx#:[id number] pressure bags 12 Oral 440 250 Output: Urine 750 300 Other: Voiding Method Urinal Urinal Urinal # Voids 1 1 1 # Bowel Movements 1 ABP, PAP, CO, CI - Last Documented Arterial Blood Pressure 151/66 Pulmonary Artery Pressure 33/16 Cardiac Output 6.4 Cardiac Index 2.9 - Constitutional General appearance: Present: cooperative, no acute distress, obese - Respiratory Details: Lung sounds essentially clear to his bilateral upper lobes, diminished to his bilateral bases. Respirations are symmetrical and nonlabored. Oxygen saturation are 94% on 2 L nasal cannula. Achieving 1000 mL on his incentive spirometry. - Cardiovascular Details: Regular rhythm and rate. S1 and S2 present, negative for S3, gallop or murmur. Sternum is stable. Bedside telemetry showing normal sinus rhythm heart rate 87. Heart hugger is in place and he is demonstrating appropriate use. Atrial and ventricular epicardial pacemaker wires in place and connected to a backup pacemaker generator. Trace edema to his bilateral lower extremities. Knee-high KUN hose and sequential compression devices in place to his bilateral lower extremities. - Gastrointestinal Gastrointestinal Comment(s): Abdomen is soft, nontender and nondistended. Active bowel sounds all 4 abdominal quadrants. No guarding or rigidity. No organomegaly. Bowel movement this a.m. - Genitourinary Genitourinary Comment(s): Finding clear yellow urine. - Integumentary Integumentary Comment(s): Skin is warm and dry. No clubbing or cyanosis is present. Midline sternal incision is clean, dry and approximated. No drainage or redness is present. Left radial harvest sites clean, dry and intact. No drainage or redness is present. Left lower extremity EVH site clean, dry and intact. No drainage or redness is present. - Neurologic Neurologic: Present: CNII-XII intact - Musculoskeletal Musculoskeletal: Present: gait normal, generalized weakness, strength equal bilaterally - Psychiatric Psychiatric: Present: A&O x's 3, appropriate affect, intact judgment & insight - Allied health notes Allied health notes reviewed: nursing - Labs CBC & Chem 7: 01/23/19 04:35 01/23/19 04:35 Labs: Abnormal Lab Results - Last 24 Hours (Table) 01/22/19 01/22/19 01/23/19 Range/Units 17:20 21:32 02:08 RBC (4.30-5.90) m/uL Hgb (13.0-17.5) gm/dL Hct (39.0-53.0) % BUN (9-20) mg/dL POC Glucose (mg/dL) 106 H 117 H 120 H (75-99) mg/dL ALT (21-72) U/L Total Protein (6.3-8.2) g/dL 01/23/19 01/23/19 Range/Units 04:35 04:35 RBC 2.68 L (4.30-5.90) m/uL Hgb 7.7 L (13.0-17.5) gm/dL Hct 23.6 L (39.0-53.0) % BUN 27 H (9-20) mg/dL POC Glucose (mg/dL) (75-99) mg/dL ALT 19 L (21-72) U/L Total Protein 6.2 L (6.3-8.2) g/dL - Imaging and Cardiology Chest x-ray: report reviewed, image reviewed Assessment and Plan Assessment: 1. Triple-vessel coronary artery disease with previous stent placement to the LAD 2004, 2006, 2018 and stent placement to the circumflex in 2010, status post urgent CABG 3 2. Non-ST elevated myocardial infarction this admission 3. Moderate to severe mitral regurgitation, status post mitral valve repair 4. Hyperlipidemia 5. Hypertension 6. ischemic cardiomyopathy with chronic systolic heart failure, EF 45-50% 7. Previous tobacco dependence 8. Mild COPD with preoperative FEV1 61% of predicted 9. Left internal carotid artery stenosis 50-70% 10. GERD 11. Anxiety with panic attacks 12. Postoperative acute blood loss anemia, expected 13. Postoperative paroxysmal atrial fibrillation, unexpected Plan: 1. Continue to maximize medical management with aspirin, statin, Plavix and beta jewels. Increase beta jewels as tolerated. 2. Continue amlodipine 2.5 mg by mouth daily for radial artery spasm prophylaxis. Increase amlodipine to 5 mg by mouth daily. Please do not discontinued without verifying with the cardiothoracic surgeon. 3. Bronchodilators per pulmonology management. 4. Wean O2 as tolerated. Encourage use of incentive spirometry every hour while awake, patient needs aggressive pulmonary toileting. Encourage continued smoking cessation. 5. Pain control with current medication regimen. 6. Increase activity, ambulate as tolerated. PT/OT/cardiac rehab following. 7. Will monitor daily labs and x-rays. Electrolyte replacement per protocol. 8. Insulin management per primary care services. 9. GI/DVT prophylaxis. 10. Continue to hold Xanax and avoid narcotic use. 11. Continue amiodarone 400 mg by mouth daily for atrial fibrillation prophylaxis. We will taper the amiodarone. 12. Transferred to 3 S. cardiac stepdown unit when bed available. 13. Anticipate the need for inpatient cardiac rehab upon discharge. social worker masters has been consulted. 14. More recommendations to follow based on patient's clinical course. Time with Patient: Greater than 30
[2019-01-23] MEDS: FERROUS SULFATE 325 MG TAB PO SCH ×2 (11:27→16:37)
[2019-01-23 12:03] LABS: Glucose,Whole Blood 119 mg/dL (75-99)
--- NOTE | 2019-01-23 13:03 | P.PN ---
Subjective Progress Note Date: 01/22/19 This is a 58-year-old gentleman with history of ischemic heart disease with previous stent placement who was admitted to the hospital and was evaluated with cardiac catheterization. Subsequently, patient underwent aortic coronary bypass surgery and mitral valve repair. Patient developed postoperative anemia requiring blood transfusions. Patient also had transient atrial fibrillation. Currently is maintaining sinus rhythm. Patient is sitting in the chair without any acute distress. Vital signs are stable. Overall, patient is progressing fairly well at this time. We'll increase his activity and also continue with incentive spirometry. Objective - Vital Signs Vital signs: Vital Signs Temp 98.3 F 01/23/19 12:00 Pulse 84 01/23/19 12:00 Resp 29 H 01/23/19 12:00 BP 115/70 01/23/19 12:00 Pulse Ox 93 L 01/23/19 12:00 Intake & Output 01/22/19 01/23/19 01/23/19 18:59 06:59 18:59 Intake Total 492 250 Output Total 750 300 Balance -258 -50 Weight 105 kg 102 kg Intake: IV 52 Lactated Ringers 1,000 ml 40 @ 20 mls/hr IV .Q24H [facility] Rx#:[id number] pressure bags 12 Oral 440 250 Output: Urine 750 300 Other: Voiding Method Urinal Urinal Urinal # Voids 1 1 1 # Bowel Movements 1 ABP, PAP, CO, CI - Last Documented Arterial Blood Pressure 151/66 Pulmonary Artery Pressure 33/16 Cardiac Output 6.4 Cardiac Index 2.9 - Exam GENERAL EXAM: Patient is alert and oriented and doesn't appear to be in any acute distress HEENT: Normocephalic. Normal reaction of pupils, equal size, normal range of extraocular motion. No erythema or exudates in the throat. NECK: No masses, no nuchal rigidity. CHEST: Postoperative LUNGS: Equal air entry with no crackles or wheeze. HEART: S1 and S2 normal with no audible mumurs or gallops. Regular rhythm, femorals equal on both sides.. ABDOMEN: No hepatosplenomegaly, normal bowel sounds, no guarding or rigidity. SKIN: No rashes CENTRAL NERVOUS SYSTEM: No focal deficits. EXTREMITIES: No cyanosis, clubbing or edema. - Labs CBC & Chem 7: 01/23/19 04:35 01/23/19 04:35 Labs: Abnormal Lab Results - Last 24 Hours (Table) 01/22/19 01/22/19 01/23/19 Range/Units 17:20 21:32 02:08 RBC (4.30-5.90) m/uL Hgb (13.0-17.5) gm/dL Hct (39.0-53.0) % BUN (9-20) mg/dL POC Glucose (mg/dL) 106 H 117 H 120 H (75-99) mg/dL ALT (21-72) U/L Total Protein (6.3-8.2) g/dL 01/23/19 01/23/19 01/23/19 Range/Units 04:35 04:35 12:00 RBC 2.68 L (4.30-5.90) m/uL Hgb 7.7 L (13.0-17.5) gm/dL Hct 23.6 L (39.0-53.0) % BUN 27 H (9-20) mg/dL POC Glucose (mg/dL) 119 H (75-99) mg/dL ALT 19 L (21-72) U/L Total Protein 6.2 L (6.3-8.2) g/dL Assessment and Plan (1) Status post aorto-coronary artery bypass graft Current Visit: Yes Status: Acute Code(s): Z95.1 - PRESENCE OF AORTOCORONARY BYPASS GRAFT SNOMED Code(s): 609842261 (2) Paroxysmal atrial fibrillation Current Visit: Yes Status: Acute Code(s): I48.0 - PAROXYSMAL ATRIAL FIBRILLATION SNOMED Code(s): 252076012 (3) Status post aorto-coronary artery bypass graft Current Visit: Yes Status: Acute Code(s): Z95.1 - PRESENCE OF AORTOCORONARY BYPASS GRAFT SNOMED Code(s): 578997696 Plan: Patient's critical status is stable at this time. Maintaining sinus rhythm. Vital signs are stable. Increase activity as tolerated. Possible transfer out of unit in 24-48 hours.
--- NOTE | 2019-01-23 13:05 | P.PN ---
Subjective Progress Note Date: 01/23/19 Patient appears to be much more comfortable. Maintaining sinus rhythm. Tolerating walking fairly well. Denies chest pains or shortness of breath. Overall, patient is progressing fairly well at this time Objective - Vital Signs Vital signs: Vital Signs Temp 98.3 F 01/23/19 12:00 Pulse 84 01/23/19 12:00 Resp 29 H 01/23/19 12:00 BP 115/70 01/23/19 12:00 Pulse Ox 93 L 01/23/19 12:00 Intake & Output 01/22/19 01/23/19 01/23/19 18:59 06:59 18:59 Intake Total 492 250 Output Total 750 300 Balance -258 -50 Weight 105 kg 102 kg Intake: IV 52 Lactated Ringers 1,000 ml 40 @ 20 mls/hr IV .Q24H [facility] Rx#:[id number] pressure bags 12 Oral 440 250 Output: Urine 750 300 Other: Voiding Method Urinal Urinal Urinal # Voids 1 1 1 # Bowel Movements 1 ABP, PAP, CO, CI - Last Documented Arterial Blood Pressure 151/66 Pulmonary Artery Pressure 33/16 Cardiac Output 6.4 Cardiac Index 2.9 - Exam GENERAL EXAM: Patient is alert and oriented and doesn't appear to be in any acu te distress HEENT: Normocephalic. Normal reaction of pupils, equal size, normal range of extraocular motion. No erythema or exudates in the throat. NECK: No masses, no nuchal rigidity. CHEST: Postoperative LUNGS: Equal air entry with no crackles or wheeze. HEART: S1 and S2 normal with no audible mumurs or gallops. Regular rhythm, femorals equal on both sides.. ABDOMEN: No hepatosplenomegaly, normal bowel sounds, no guarding or rigidity. SKIN: No rashes CENTRAL NERVOUS SYSTEM: No focal deficits. EXTREMITIES: No cyanosis, clubbing or edema. - Labs CBC & Chem 7: 01/23/19 04:35 01/23/19 04:35 Labs: Abnormal Lab Results - Last 24 Hours (Table) 01/22/19 01/22/19 01/23/19 Range/Units 17:20 21:32 02:08 RBC (4.30-5.90) m/uL Hgb (13.0-17.5) gm/dL Hct (39.0-53.0) % BUN (9-20) mg/dL POC Glucose (mg/dL) 106 H 117 H 120 H (75-99) mg/dL ALT (21-72) U/L Total Protein (6.3-8.2) g/dL 01/23/19 01/23/19 01/23/19 Range/Units 04:35 04:35 12:00 RBC 2.68 L (4.30-5.90) m/uL Hgb 7.7 L (13.0-17.5) gm/dL Hct 23.6 L (39.0-53.0) % BUN 27 H (9-20) mg/dL POC Glucose (mg/dL) 119 H (75-99) mg/dL ALT 19 L (21-72) U/L Total Protein 6.2 L (6.3-8.2) g/dL Assessment and Plan (1) Status post aorto-coronary artery bypass graft Current Visit: Yes Status: Acute Code(s): Z95.1 - PRESENCE OF AORTOCORONARY BYPASS GRAFT SNOMED Code(s): 706193750 (2) Paroxysmal atrial fibrillation Current Visit: Yes Status: Acute Code(s): I48.0 - PAROXYSMAL ATRIAL FIBRILLATION SNOMED Code(s): 783820486 (3) Status post aorto-coronary artery bypass graft Current Visit: Yes Status: Acute Code(s): Z95.1 - PRESENCE OF AORTOCORONARY BYPASS GRAFT SNOMED Code(s): 468859101 Plan: Continue current medical therapy. Increase activity as tolerated.
[2019-01-23] MEDS: ACETAMINOPHEN TAB 500 MG TAB PO PRN ×2 (16:45→23:17)
[2019-01-23 17:20] LABS: Glucose,Whole Blood 114 mg/dL (75-99)
[2019-01-23] MEDS: SENNOSIDES-DOCUSATE SODIUM 1 EACH TAB PO SCH (21:08)
[2019-01-24] MEDS: ONDANSETRON 4 MG/2 ML VIAL IVP PRN (01:28)
[2019-01-24 05:03] LABS: HCT 24.1 % (39.0-53.0); HGB 7.8 gm/dL (13.0-17.5); Hypochromasia Slight; MCH 29.1 pg (25.0-35.0); MCHC 32.6 g/dL (31.0-37.0); MCV 89.4 fL (80.0-100.0); Mean Platelet Volume 7.6; Platelet Count 243 k/uL (150-450); Poikilocytosis Slight; RBC 2.69 m/uL (4.30-5.90); RDW 15.5 % (11.5-15.5); WBC 5.9 k/uL (3.8-10.6)
[2019-01-24 05:13] LABS: African American GFR (CKD) >90 (>60 ml/min/1.73 sqM); Anion Gap 8 mmol/L; Blood Urea Nitrogen 20 mg/dL (9-20); Calcium 8.3 mg/dL (8.4-10.2); Carbon Dioxide 23 mmol/L (22-30); Chloride 108 mmol/L (98-107); Glucose 100 mg/dL (74-99); Potassium 4.3 mmol/L (3.5-5.1); Sodium 139 mmol/L (137-145)
[2019-01-24] MEDS: ACETAMINOPHEN TAB 500 MG TAB PO PRN ×2 (05:41→14:23)
[2019-01-24] MEDS: IPRATROPIUM-ALBUTEROL 3 ML NEB INHALATION SCH ×3 (08:33→15:30)
--- NOTE | 2019-01-24 08:46 | XR ---
EXAMINATION TYPE: XR chest 2V DATE OF EXAM: 01/24/2019 COMPARISON: 01/23/2019 TECHNIQUE: PA and lateral views submitted. HISTORY: Post-CABG FINDINGS: Postsurgical changes with bilateral infiltrate and pleural effusion stable. Mild residual interstitia l prominence. Biapical pleural thickening. Arthropathy of the shoulders. Atherosclerotic change aorta and mild cardiomegaly. IMPRESSION: 1. Bilateral infiltrate and pleural effusion stable correlate for residual mild venous congestion. Fi ndings are stable from prior exam.
[2019-01-24] MEDS ORDERED: FUROSEMIDE 10 MG/ML 4 ML VIAL IV STA (08:58)
[2019-01-24] MEDS ORDERED: LISINOPRIL 5 MG TAB PO SCH (09:00)
[2019-01-24] MEDS ORDERED: amLODIPine 5 MG TAB PO SCH ×2 (09:00→12:00)
[2019-01-24] MEDS: HEPARIN SODIUM,PORCINE 5,000 UNIT/ML 1 ML VIAL SQ SCH ×2 (10:08→18:29)
[2019-01-24] MEDS: ASPIRIN 325 MG TAB PO SCH (10:09)
[2019-01-24] MEDS: ATORVASTATIN 40 MG TAB PO SCH (10:09)
[2019-01-24] MEDS: AMIODARONE 200 MG TAB PO SCH (10:09)
[2019-01-24] MEDS: FERROUS SULFATE 325 MG TAB PO SCH (10:09)
[2019-01-24] MEDS: DULoxetine HCL 30 MG CAPSULE.DR PO SCH (10:09)
[2019-01-24] MEDS: CLOPIDOGREL 75 MG TAB PO SCH (10:09)
[2019-01-24] MEDS: METOPROLOL TARTRATE 25 MG TAB PO SCH (10:09)
[2019-01-24] MEDS: PANTOPRAZOLE 40 MG TABLET PO SCH (10:09)
--- NOTE | 2019-01-24 10:22 | P.PN ---
Subjective Progress Note Date: 01/24/19 Principal diagnosis: Triple-vessel coronary artery disease with extensive left to right collaterals to the distal right coronary artery, non-STEMI, moderate to severe mitral regurg itation. Previous medical history of coronary artery disease with previous stent placement to his left anterior descending coronary artery in 2004, 2006 and 2017, history of stent placement to a circumflex coronary artery in 2010, previous tobacco dependence quit 1 year ago, mild COPD with preoperative FEV1 61% of predicted, hypertension, hyperlipidemia, ischemic cardiomyopathy, chronic systolic heart failure with EF 45-50%, gastroesophageal reflux disease, anxiety and noncompliance. Left internal carotid artery stenosis 50-70%. POD #6 urgent coronary artery bypass graft surgery, left internal mammary artery to the left anterior descending artery, radial artery to the obtuse marginal artery, reverse saphenous vein graft to the posterior descending artery, endoscopic vein harvest of the left greater saphenous vein, endoscopic harvest of the left radial artery, mitral valve repair with 28 mm AnnuloFlex ring, epi- aortic ultrasound, intraoperative transesophageal echocardiogram, and ligation of the left atrial appendage with a 35 mm AtriCure clip. Postoperative acute blood loss anemia, expected outcome given hemodilution and cardiopulmonary bypass pump Postoperative paroxysmal atrial fibrillation, on expected outcome, currently in sinus rhythm The patient's currently sitting up in the recliner in no acute distress in the intensive care unit. Does complain of postoperative incisional chest pain especially with coughing and deep breathing and lack of sleep, denies shortness of breath. Patient is neurologically intact however he has significant anxiety. Currently in normal sinus rhythm with heart rate in the 80s. Hemodynamically stable. The patient has ambulated in the hallway. Objective - Vital Signs Vital signs: Vital Signs Temp 98.1 F 01/24/19 04:00 Pulse 82 01/24/19 04:00 Resp 23 01/24/19 04:00 BP 149/89 01/24/19 04:00 Pulse Ox 98 01/24/19 08:33 Intake & Output 01/23/19 01/24/19 01/24/19 18:59 06:59 18:59 Intake Total 400 350 Output Total 275 700 Balance 125 -350 Weight 102 kg Intake: Oral 400 350 Output: Urine 275 700 Other: Voiding Method Urinal Urinal # Voids 1 # Bowel Movements 1 ABP, PAP, CO, CI - Last Documented Arterial Blood Pressure 151/66 Pulmonary Artery Pressure 33/16 Cardiac Output 6.4 Cardiac Index 2.9 - Constitutional General appearance: Present: cooperative, no acute distress - Respiratory Details: Lungs sounds diminished bilaterally. Respirations even, nonlabored. Currently on 2 L nasal cannula with oxygen saturation 98%. Able to achieve 1000 mL on his incentive spirometry. Weak cough. - Cardiovascular Details: S1, S2 present. Regular rate and rhythm, sinus rhythm on telemetry heart rate in the 80s. Sternum stable. A/V epicardial pacemaker wires present, grounded. Palpable peripheral pulses bilaterally. Trace generalized edema present. No calf pain or tenderness noted. Heart hugger in place the patient demonstrating appropriate use. Antiembolism stockings, SCDs present. - Gastrointestinal Gastrointestinal Comment(s): Abdomen soft, nontender, nondistended. Active bowel sounds present 4 quadrants. Tolerating diet. Positive bowel movement yesterday. - Genitourinary Genitourinary Comment(s): Continues to void clear yellow urine. - Integumentary Integumentary Comment(s): Skin is warm and dry with evidence of good perfusion. Anterior chest incision well approximated and covered with dry intact dressing. Left lower extremity EVH site well approximated with Dermabond. Left radial artery harvest site well approximated without drainage. Patient able to wiggle all fingers, good cap refill, skin is warm, patient does complain of some numbness and tingling which is to be expected. - Neurologic Neurologic: Present: CNII-XII intact - Musculoskeletal Musculoskeletal: Present: strength equal bilaterally - Psychiatric Psychiatric: Present: A&O x's 3, appropriate affect - Allied health notes Allied health notes reviewed: nursing - Labs CBC & Chem 7: 01/24/19 04:19 01/24/19 04:19 Labs: Abnormal Lab Results - Last 24 Hours (Table) 01/23/19 01/23/19 01/24/19 Range/Units 12:00 17:08 04:19 RBC 2.69 L (4.30-5.90) m/uL Hgb 7.8 L (13.0-17.5) gm/dL Hct 24.1 L (39.0-53.0) % Chloride (98-107) mmol/L Glucose (74-99) mg/dL POC Glucose (mg/dL) 119 H 114 H (75-99) mg/dL Calcium (8.4-10.2) mg/dL 01/24/19 Range/Units 04:19 RBC (4.30-5.90) m/uL Hgb (13.0-17.5) gm/dL Hct (39.0-53.0) % Chloride 108 H (98-107) mmol/L Glucose 100 H (74-99) mg/dL POC Glucose (mg/dL) (75-99) mg/dL Calcium 8.3 L (8.4-10.2) mg/dL - Imaging and Cardiology Chest x-ray: report reviewed, image reviewed Assessment and Plan Assessment: 1. Triple-vessel coronary artery disease with previous stent placement to the LAD 2004, 2006, 2017 and stent placement to the circumflex in 2010, status post urgent CABG 3 2. Non-ST elevated myocardial infarction this admission 3. Moderate to severe mitral regurgitation, status post mitral valve repair 4. Hyperlipidemia 5. Hypertension 6. ischemic cardiomyopathy with chronic systolic heart failure, EF 45-50% 7. Previous tobacco dependence 8. Mild COPD with preoperative FEV1 61% of predicted 9. Left internal carotid artery stenosis 50-70% 10. GERD 11. Anxiety with panic attacks 12. Postoperative acute blood loss anemia, expected 13. Postoperative paroxysmal atrial fibrillation, unexpected Plan: 1. Continue to maximize medical management with aspirin, statin, Plavix, beta jewels therapy. Will increase beta jewels as tolerated. Will add CHAN inhibitor for afterload reduction. 2. Continue Norvasc for radial artery spasm. Do not stop Norvasc without discussing with the cardiac surgeon. 3. Continue amiodarone for A. fib prophylaxis, will taper weekly. No anticoagulation necessary unless A. fib occurs for greater than 24 hours. 4. Will give IV Lasix today. 5. Wean O2 as tolerated. Encourage use of incentive spirometry every hour while awake, patient needs aggressive pulmonary hygiene. Encourage continued smoking cessation. 6. Bronchodilators per pulmonology. 7. Increase activity, ambulate as tolerated. PT/OT/cardiac rehab following. 8. Pain control with current medication regimen. No narcotics. 9. Insulin management per primary care services. 10. Will monitor daily labs and x-rays. Electrolyte replacement per protocol. 11. GI/DVT prophylaxis. 12. Will add melatonin for sleep. 13. Will discontinue epicardial pacemaker wires. 14. Discharge planning in progress. The patient may go to inpatient rehab today if approved. 15. More recommendations to follow based on patient's clinical course. Time with Patient: Greater than 30
--- NOTE | 2019-01-24 10:51 | P.PN ---
Subjective Progress Note Date: 01/24/19 This 58-year-old gentleman is status post bypass surgery and also mitral valve repair. Patient is complaining of having pain and having poor appetite and nausea. Denies any shortness of breath. Patient is maintaining sinus rhythm. Vital signs are otherwise stable. No acute event since yesterday Objective - Vital Signs Vital signs: Vital Signs Temp 98.3 F 01/24/19 08:00 Pulse 89 01/24/19 08:00 Resp 19 01/24/19 08:00 BP 169/96 01/24/19 08:00 Pulse Ox 98 01/24/19 08:33 Intake & Output 01/23/19 01/24/19 01/24/19 18:59 06:59 18:59 Intake Total 400 350 Output Total 275 700 Balance 125 -350 Weight 102 kg Intake: Oral 400 350 Output: Urine 275 700 Other: Voiding Method Urinal Urinal # Voids 1 # Bowel Movements 1 ABP, PAP, CO, CI - Last Documented Arterial Blood Pressure 151/66 Pulmonary Artery Pressure 33/16 Cardiac Output 6.4 Cardiac Index 2.9 - Exam GENERAL EXAM: Patient is alert and oriented and doesn't appear to be in any acute distress HEENT: Normocephalic. Normal reaction of pupils, equal size, normal range of extraocular motion. No erythema or exudates in the throat. NECK: No masses, no nuchal rigidity. CHEST: Postoperative LUNGS: Equal air entry with no crackles or wheeze. HEART: S1 and S2 normal with no audible mumurs or gallops. Regular rhythm, femorals equal on both sides.. ABDOMEN: No hepatosplenomegaly, normal bowel sounds, no guarding or rigidity. SKIN: No rashes CENTRAL NERVOUS SYSTEM: No focal deficits. EXTREMITIES: No cyanosis, clubbing or edema. - Labs CBC & Chem 7: 01/24/19 04:19 01/24/19 04:19 Labs: Abnormal Lab Results - Last 24 Hours (Table) 01/23/19 01/23/19 01/24/19 Range/Units 12:00 17:08 04:19 RBC 2.69 L (4.30-5.90) m/uL Hgb 7.8 L (13.0-17.5) gm/dL Hct 24.1 L (39.0-53.0) % Chloride (98-107) mmol/L Glucose (74-99) mg/dL POC Glucose (mg/dL) 119 H 114 H (75-99) mg/dL Calcium (8.4-10.2) mg/dL 01/24/19 Range/Units 04:19 RBC (4.30-5.90) m/uL Hgb (13.0-17.5) gm/dL Hct (39.0-53.0) % Chloride 108 H (98-107) mmol/L Glucose 100 H (74-99) mg/dL POC Glucose (mg/dL) (75-99) mg/dL Calcium 8.3 L (8.4-10.2) mg/dL Assessment and Plan (1) Status post aorto-coronary artery bypass graft Current Visit: Yes Status: Acute Code(s): Z95.1 - PRESENCE OF AORTOCORONARY BYPASS GRAFT SNOMED Code(s): 401255315 (2) Paroxysmal atrial fibrillation Current Visit: Yes Status: Acute Code(s): I48.0 - PAROXYSMAL ATRIAL FIBRILLATION SNOMED Code(s): 911627116 (3) Status post aorto-coronary artery bypass graft Current Visit: Yes Status: Acute Code(s): Z95.1 - PRESENCE OF AORTOCORONARY BYPASS GRAFT SNOMED Code(s): 941869727 Plan: Patient patient overall crackles status is stable Patient is overall clinically stable, though patient complains of not feeling well. There is a attempt to transfer him to inpatient of cardiac rehab. Meanwhile condition current medical therapy
--- NOTE | 2019-01-24 11:28 | P.CONS ---
History of Present Illness - Chief Complaint Cardiac debility - History of Present Illness I had the opportunity to see patient for inpatient rehabilitation consultation with regard to cardiac debility. Patient admitted to [facility] January 12 with chest pain, unstable angina. Evaluated by cardiology and noted have non-STEMI. Seen by pulmonary as well. Also by psychiatry, Dr. Chandra, for anxiety/panic re lated to upcoming surgery. On January 18, underwent three-vessel coronary bypass and amputation atrial appendage. Chest x-rays followed for pleural effusions. PT reports 3 person moderate assistance for gait up to 75 feet but with multiple rests. OT reports maximal assistance for upper dressing, 2 person maximal assistance for bathing and two-person total assistance for lower dressing, toileting and functional mobility. Previous functional history as elicited from patient: 58-year-old right-handed white male who is living with his girlfriend as well as her son and his significant other. They live in a basement apartment, 12 steps. Patient retired/disabled. Describes independent with own cooking, laundry, standing shower and gait without device. Can drive but his car is currently not o perational. Family history of mother with PA and father with cardiac disease and cancer. Review of Systems Review of systems: ENT: Denies sneezes or discharge. Eyes: Denies discharge or photophobia. Cardiac: At least Arnold discomfort. Pulmonary: At least moderate shortness of breath. Gastrointestinal: Denies nausea, emesis, constipation, diarrhea. Genitourinary: Denies discharge or frequency. Musculoskeletal: Denies muscle or bone aches. Neurologic: Generalized weakness. Endocrine: Denies shakes or sweats. Oncology: Denies cancers. Dermatologic: Denies rash, itching, pruritus. ALLERGY/immunology: Denies sneezes, rashes. Past Medical History Past Medical History: Coronary Artery Disease (CAD), Chest Pain / Angina, Heart Failure, GERD/Reflux, Hypertension, Myocardial Infarction (PA), Osteoarthritis (OA), Pneumonia Additional Past Medical History / Comment(s): Coronary artery disease, previous myocardial infarction, previous coronary intervention and stenting to his left anterior descending coronary artery in 2004, 2006 and 2017, and to his circumflex coronary artery in 2010, chronic systolic congestion heart failure with an ejection fraction of 35-40%, moderate global hypokinesis, mild c oncentric LVH, moderate degree of mitral regurgitation, peripheral neuropathy, hypertension, osteoarthritis Last Myocardial Infarction Date:: unk History of Any Multi-Drug Resistant Organisms: None Reported Past Surgical History: Heart Catheterization With Stent Additional Past Surgical History / Comment(s): HEART CATH WITH STENTS X8 Past Anesthesia/Blood Transfusion Reactions: No Reported Reaction Date of Last Stent Placement:: 2017 Past Psychological History: Anxiety, Panic Disorder Smoking Status: Former smoker (Quit smoking over a year ago.) Past Alcohol Use History: None Reported Past Drug Use History: None Reported - Past Family History Father Family Medical History: Cancer Additional Family Medical History / Comment(s): Lymphoma Mother Family Medical History: Pulmonary Embolus Medications and Allergies Home Medications Medication Instructions Recorded Confirmed Type Atorvastatin [Lipitor] 80 mg PO HS 01/12/19 01/12/19 History Acetaminophen Tab [Tylenol] 1,000 mg PO Q6HR PRN tab 01/24/19 Rx Amiodarone [Cordarone] 400 mg PO BID tab 01/24/19 Rx Ascorbic Acid [Vitamin C] 500 mg PO BID-W/MEALS tab 01/24/19 Rx Aspirin 325 mg PO DAILY tab 01/24/19 Rx Clopidogrel [Plavix] 75 mg PO DAILY #0 01/24/19 01/12/19 Rx DULoxetine HCL [Cymbalta] 30 mg PO DAILY capsule. 01/24/19 Rx Ferrous Sulfate [Iron (65 MG 325 mg PO BID-W/MEALS tab 01/24/19 Rx Elemental)] Heparin Sodium,Porcine [Heparin 5,000 unit SQ Q8HR vial 01/24/19 Rx Sodium] Ipratropium-Albuterol Nebulize 3 ml INHALATION RT-Q2H PRN 01/24/19 Rx [Duoneb 0.5 mg-3 mg/3 ml Soln] ampul.neb Ipratropium-Albuterol Nebulize 3 ml INHALATION RT-QID ampul.neb 01/24/19 Rx [Duoneb 0.5 mg-3 mg/3 ml Soln] Lisinopril [Zestril] 5 mg PO DAILY tab 01/24/19 Rx Magnesium Hydroxide [Milk of 2,400 mg PO BID PRN ml 01/24/19 Rx Magnesia Concentrate] Melatonin 6 mg PO HS tablet 01/24/19 Rx Metoprolol Tartrate [Lopressor] 25 mg PO BID tab 01/24/19 Rx Pantoprazole [Protonix] 40 mg PO AC-BRKFST tablet. 01/24/19 Rx Sennosides-Docusate Sodium 2 each PO HS PRN tab 01/24/19 Rx [Senokot-S] amLODIPine [Norvasc] 5 mg PO DAILY@1200 tab 01/24/19 Rx Allergies Allergy/AdvReac Type Severity Reaction Status Date / Time codeine Allergy Anaphylaxis Verified 01/12/19 22:50 Physical Exam Vitals: Vital Signs Temp Pulse Resp BP Pulse Ox 01/24/19 08:33 98 01/24/19 08:00 98.3 F 89 19 169/96 91 L 01/24/19 04:00 98.1 F 82 23 149/89 95 01/24/19 03:40 13 01/24/19 02:00 82 13 157/84 93 L 01/24/19 00:00 97.5 F L 81 20 140/86 94 L 01/23/19 23:12 25 H 01/23/19 22:00 86 22 159/90 93 L 01/23/19 20:27 92 01/23/19 20:14 94 01/23/19 20:00 97.9 F 95 25 H 151/79 95 01/23/19 16:42 90 01/23/19 16:30 96 96 01/23/19 16:00 98.9 F 92 31 H 131/75 93 L 01/23/19 13:19 83 01/23/19 13:03 79 01/23/19 12:00 98.3 F 84 29 H 115/70 93 L Intake and Output 01/23/19 01/24/19 01/24/19 22:59 06:59 14:59 Intake Total 350 Output Total 275 700 Balance -275 -350 Intake: Oral 350 Output: Urine 275 700 Other: Voiding Method Urinal Urinal # Voids 1 ABP, PAP, CO, CI - Last 8 Hours Cardiac Output 6.4 Cardiac Index 2.9 Skin: Good color, texture, turgor. General: Medium build and comfortable appearance. Head: Normocephalic, atraumatic. Eyes: Symmetric. Pupils equal round. Ears: Symmetric. Hearing within normal limits. Mouth: Clear. Neck: Supple. Carotid without bruit. Cardiac: Regular rate and rhythm. Midline sternotomy clean and dressed. Wearing a elastic torso body jacket. Lungs: Clear anteriorly and posteriorly. Abdomen: Soft active nontender. Extremities: Normal tone. Neurological: Mental status: Alert, cooperative, pleasant. Cranial nerves: Symmetric facial tone and trapezius. Motor: Can actively elevate all 4 limbs. Sensation: Intact throughout. DTRs: Symmetric and equal throughout. Mobility: Requires two-person assistance for functional mobility. Results CBC & Chem 7: 01/24/19 04:19 01/24/19 04:19 Labs: Abnormal Lab Results - Last 24 Hours (Table) 01/23/19 01/23/19 01/24/19 Range/Units 12:00 17:08 04:19 RBC 2.69 L (4.30-5.90) m/uL Hgb 7.8 L (13.0-17.5) gm/dL Hct 24.1 L (39.0-53.0) % Chloride (98-107) mmol/L Glucose (74-99) mg/dL POC Glucose (mg/dL) 119 H 114 H (75-99) mg/dL Calcium (8.4-10.2) mg/dL 01/24/19 Range/Units 04:19 RBC (4.30-5.90) m/uL Hgb (13.0-17.5) gm/dL Hct (39.0-53.0) % Chloride 108 H (98-107) mmol/L Glucose 100 H (74-99) mg/dL POC Glucose (mg/dL) (75-99) mg/dL Calcium 8.3 L (8.4-10.2) mg/dL Assessment and Plan (1) Status post aorto-coronary artery bypass graft Current Visit: Yes Status: Acute Code(s): Z95.1 - PRESENCE OF AORTOCORONARY BYPASS GRAFT SNOMED Code(s): 269979634 Plan: Impression: 1. Cardiac debility. 2. Non-STEMI, status post three-vessel cord bypass and amputation atrial appendage. 3. Panic/anxiety. 4. Hypertension. 5. Osteoarthritis. 6. CHF. Comments and plan: At this time PT and OT are ongoing. Patient noted to be two- person assistance of endurance would be question for full inpatient rotation. Have discussed possible inpatient rehab with patient and he seems agreeable if necessary. We'll follow therapies closely to make sure that patient will not be overmanaged by possible inpatient rehab, versus SNF.
--- NOTE | 2019-01-24 14:23 | P.PN ---
Subjective Progress Note Date: 01/24/19 (Delayed charting seen at 9:30 AM) Principal diagnosis: chest pain Patient is a 58-year-old male with a past medical history of systolic congestive heart failure with an ejection fraction 35-40%, coronary artery disease status post prior stenting, dyslipidemia, and hypertension who presented to the ER with complaints of chest pain. Patient underwent stenting of the LAD with 2 drug-eluting stents on 01/11/18. Per the patient he has been unable to afford his plavix and therefore hasn't been taking anything. In the ER he underwent an extensive evaluation. On arrival his blood pressures are found be 190/107. Laboratory analysis is essentially unremarkable and troponin was negative. He was given aspirin and admitted for cardiac evaluation. Initial EKG did have some ST segment depression. His second troponin was positive at 0.96 and trended to 1.6. Cardiology was contacted. Underwent cardiac catheterization on 01/13, found to have critical disease and plan is for urgent bypass surgery on 01/18. Echo with moderate MR and CORDELL done 01/16 and needed mitral ring as well. EF low at 45-50%. Struggles with heart burn and regiment optimized. Patient underwent triple vessel bypass with mitral valve repair on 01/18. He tolerated the procedure well and was in the ICU intubated afterwards. He subsequently was extubated. Hemoglobin dropped and 1 unit of packed red blood cells transfused. Hemoglobin remained low on 01/21 he was ordered an additional unit of packed red blood cells. He was also noted to have increasing lethargy and Xanax was down titrated. He went into atrial flutter and amiodarone was started on 01/21. He converted to sinus rhythm with amio gtt and now converted to oral amio. Started on cymbalta to help with anxiety. Patient seen and examined at bedside. States that his anxiety feels much better, no longer feels like he's been having panic attacks. He states that his breathing is somewhat better but still not back to baseline. He is still having some incisional pain. Had a bowel movement yesterday. Objective - Vital Signs Vital signs: Vital Signs Temp 98.3 F 01/24/19 08:00 Pulse 89 01/24/19 08:00 Resp 19 01/24/19 08:00 BP 169/96 01/24/19 08:00 Pulse Ox 98 01/24/19 08:33 Intake & Output 01/23/19 01/24/19 01/24/19 18:59 06:59 18:59 Intake Total 400 350 Output Total 275 700 Balance 125 -350 Weight 102 kg Intake: Oral 400 350 Output: Urine 275 700 Other: Voiding Method Urinal Urinal # Voids 1 # Bowel Movements 1 ABP, PAP, CO, CI - Last Documented Arterial Blood Pressure 151/66 Pulmonary Artery Pressure 33/16 Cardiac Output 6.4 Cardiac Index 2.9 - Exam General: non toxic, no distress, appears at stated age Derm: midline incision covered with dressing, warm, dry Head: atraumatic, normocephalic, symmetric Eyes: EOMI, no lid lag, anicteric sclera Cardiovascular: S1S2 reg, no murmur, positive posterior tibial pulse bilateral Lungs: rhonchi left base, no wheeze, no accessory muscle use Abdominal: soft, nontender to palpation, no guarding, no appreciable organomegaly Ext: no gross muscle atrophy, 1+ edema, no contractures Neuro: CN II-XI grossly intact, no focal neuro deficits Psych: Awake, alert, flat affect - Labs CBC & Chem 7: 01/24/19 04:19 01/24/19 04:19 Labs: Abnormal Lab Results - Last 24 Hours (Table) 01/23/19 01/24/19 01/24/19 Range/Units 17:08 04:19 04:19 RBC 2.69 L (4.30-5.90) m/uL Hgb 7.8 L (13.0-17.5) gm/dL Hct 24.1 L (39.0-53.0) % Chloride 108 H (98-107) mmol/L Glucose 100 H (74-99) mg/dL POC Glucose (mg/dL) 114 H (75-99) mg/dL Calcium 8.3 L (8.4-10.2) mg/dL Assessment and Plan Assessment: Non-STEMI with CAD status post three-vessel cardiac bypass surgery with mitral repair on 01/18 -On Lopressor, norvasc, lisinopril -Follow blood pressures -Management per cardiothoracic surgery - Lipitor -Aspirin and Plavix Acute blood loss anemia, anticipated outcome of surgery -Status post 2 unit packed red blood cells, stable -ferrous sulfate X 30 days -Follow CBC Anxiety with history of panic attacks - Cymbalta started on 01/21 low dose at 30mg daily, can increase to 30 BID if tolerates and then can increase weekly. -Would benefit from outpatient psychiatry on discharge as per psych consult. - Xanax off due to lethargy GERD -PPI daily -prn maalox Atrial fib, resolved - on amio Ischemic cardiomyopathy, EF 45-50%- improved from last echo -Echo reviewed -Metoprolol, lisinopril Carotid stenosis - asymptomatic LICA 50-69% and DAVIDE 50% Dyslipidemia -Statin -Shows elevated lipid profile Hypertension, urgency on arrival -Improved -Continue current medications -Follow BP Increased Cr, resolved thrombocytopenia, resolved Toxic encephalopathy, improved DVT prophylaxis: early ambulation Discussed with: Patient, nursing, [place] Arceo Anticipated discharge: 1-[address]: rehab A total of 25 minutes was spent on the care of this complex patient more than 50% of the time was spent in counseling and care coordination.
--- NOTE | 2019-01-24 15:14 | P.DS ---
Providers Date of admission: 01/13/19 06:50 Expected date of discharge: 01/24/19 Attending physician: Bert Hodges Consults: 01/12/19 21:10 Consult Physician Urgent Consulting Provider: Elgni Morse Consult Reason/Comments: cp Do you want consulting provider notified?: Yes 01/13/19 12:48 Consult Physician Routine Consulting Provider: Anish Chandra Consult Reason/Comments: anixety, panick attack Do you want consulting provider notified?: Yes 01/13/19 14:36 Consult Physician Urgent Consulting Provider: Jose Hope Consult Reason/Comments: triple vessel disease Do you want consulting provider notified?: Already Contacted 01/14/19 08:10 Consult Physician Routine Consulting Provider: Case Ndiaye Consult Reason/Comments: Pulmonary management Do you want consulting provider notified?: Yes Consult to Anesthesia Routine Consulting Provider: Anesthesia,Services Consult Reason/Comments: Cardiac Surgery Pre-Op 01/16/19 10:41 Consult Physician Urgent Consulting Provider: Nancie Barnes Consult Reason/Comments: dental clearance for mitral valve surgery Do you want consulting provider notified?: Yes 01/18/19 14:47 Consult Physician Routine Consulting Provider: Bernice Valente Consult Reason/Comments: med mgmt Do you want consulting provider notified?: Already Contacted 01/24/19 08:42 Consult Physician Urgent Consulting Provider: Chas Alvarez Consult Reason/Comments: IPR eval. Do you want consulting provider notified?: Yes Primary care physician: Stated None Hospital Course: FINAL DIAGNOSIS: 1. Triple-vessel coronary artery disease with extensive [id number] collaterals to the distal right coronary artery with previous stent placement to the LAD and circumflex 2. Non-STEMI 3. Moderate to severe mitral regurgitation 4. Previous tobacco dependence 5. Mild COPD with preoperative FEV1 was 61% of predicted 6. Hypertension 7. Hyperlipidemia 8. Ischemic cardiomyopathy, chronic systolic heart failure with EF 45-50% 9. GERD 10. Anxiety 11. Noncompliance 12. Left internal carotid artery stenosis 50-70% 13. Postoperative acute blood loss anemia, expected 14. Postoperative paroxysmal atrial fibrillation, unexpected PRINCIPAL PROCEDURE: 1. Left heart catheterization 2. Urgent coronary artery bypass graft surgery, left internal mammary artery to the left anterior descending artery, radial artery to the obtuse marginal artery, reverse saphenous vein graft to the posterior descending artery 3. Endoscopic vein harvest of the left greater saphenous vein 4. Endoscopic harvesting of the left radial artery 5. Mitral valve repair with 28 mm AnnuloFlex ring 6. Epi-aortic ultrasound 7. Intraoperative transesophageal echocardiogram 8. Ligation of the left atrial appendage with 35 mm AtriCure clip HISTORY OF PRESENT ILLNESS: This is a 58-year-old gentleman who does not follow with a primary care physician on a regular basis. Prior to admission he had developed chest tightness associated with progressive shortness of breath, nausea, numbness to his left arm, and lightheadedness. He presented to [facility] emergency room, a 12-lead EKG demonstrated ST depressions in the inferior leads. Troponins were elevated and the patient was ruled in for non- STEMI. The patient underwent heart catheterization and was discovered to have triple-vessel coronary artery disease. In addition the patient underwent transthoracic echocardiogram demonstrating impaired LV function with EF 45-50% with hypokinetic LV wall motion, and moderate to severe mitral regurgitation. Transesophageal echocardiogram was also completed confirming impaired LV function with EF 40%, and moderate to severe central mitral regurgitation. Consultation was placed for Dr. Hope from cardiothoracic surgery. He was recommended to undergo urgent coronary artery bypass surgery and mitral valve repair. The usual perioperative course was discussed in detail with the patient and his family, all risks and benefits were explained, all questions were answered, and consent was obtained to proceed with surgery. The patient was kept inpatient due to the nature of his disease process and to allow for Plavix metabolism. HOSPITAL COURSE: The patient was brought to the preoperative area on 01/18/2019, prepared in the usual fashion, and subsequently taken to the operating room where Dr. Hodges performed urgent coronary artery bypass graft surgery, left internal mammary artery to the left anterior descending artery, radial artery to the obtuse marginal artery, reverse saphenous vein graft to the posterior descending artery, endoscopic vein harvest of the left greater saphenous vein, endoscopic harvesting of the left radial artery, mitral valve repair with 28 mm AnnuloFlex ring, epi-aortic ultrasound, intraoperative transesophageal echocardiogram, and ligation of the left atrial appendage with 35 mm AtriCure clip. Upon completion of surgery the patient was transferred to the cardiovascular intensive care unit where he was recovered, monitored hemodynamically, and where he progressed to cardiac rehabilitation phase 1. He was extubated, all lines, tubes, and drips were discontinued when appropriate, and transfer orders were placed for 3 S. cardiac stepdown unit, however there was no bed availability and the patient remained on ICU as a stepdown patient until discharge. He did experience postoperative acute blood loss anemia requiring blood transfusion, as well as paroxysmal atrial fibrillation requiring initiation of amiodarone and subsequent conversion to normal sinus rhythm. His oxygen was titrated down, he continued to work with physical and occupational therapy, he was tolerating oral diet, his pain was controlled, and he was ready to be discharged to [facility] inpatient rehab on postoperative day #6. He received written and verbal instruction regarding his medications, activity restrictions, signs and symptoms requiring physician notification, and follow-up appointments. COMPLICATIONS: The patient experienced postoperative complications of anemia requiring blood transfusion, and paroxysmal atrial fibrillation with conversion to normal sinus rhythm with initiation of amiodarone. Patient Condition at Discharge: Stable Plan - Discharge Summary Discharge Rx Participant: Yes New Discharge Prescriptions: New Aspirin 325 mg PO DAILY tab Amiodarone [Cordarone] 400 mg PO BID tab DULoxetine HCL [Cymbalta] 30 mg PO DAILY capsule. Ipratropium-Albuterol Nebulize [Duoneb 0.5 mg-3 mg/3 ml Soln] 3 ml INHALATION RT-QID ampul.obdulia Ipratropium-Albuterol Nebulize [Duoneb 0.5 mg-3 mg/3 ml Soln] 3 ml INHALATION RT-Q2H PRN ampul.neb PRN Reason: Shortness Of Breath Or Wheezing Heparin Sodium,Porcine [Heparin Sodium] 5,000 unit SQ Q8HR vial Ferrous Sulfate [Iron (65 MG Elemental)] 325 mg PO BID-W/MEALS tab Metoprolol Tartrate [Lopressor] 25 mg PO BID tab Melatonin 6 mg PO HS tablet Magnesium Hydroxide [Milk of Magnesia Concentrate] 2,400 mg PO BID PRN ml PRN Reason: Constipation amLODIPine [Norvasc] 5 mg PO DAILY@1200 tab Pantoprazole [Protonix] 40 mg PO AC-BRKFST tablet. Senmary-Docusate Sodium [Senokot-S] 2 each PO HS PRN tab PRN Reason: Constipation Acetaminophen Tab [Tylenol] 1,000 mg PO Q6HR PRN tab PRN Reason: Fever And/ Or Pain Ascorbic Acid [Vitamin C] 500 mg PO BID-W/MEALS tab Lisinopril [Zestril] 5 mg PO DAILY tab Continue Atorvastatin [Lipitor] 80 mg PO HS Changed Clopidogrel [Plavix] 75 mg PO DAILY #0 Discontinued Aspirin 81 mg PO DAILY #30 chew Nitroglycerin Sl Tabs [Nitrostat] 0.4 mg SUBLINGUAL Q5M PRN #100 tab PRN Reason: Chest Pain Ranitidine HCl [Zantac] 150 mg PO TID Ibuprofen [Motrin Ib] 600 mg PO Q6H PRN PRN Reason: Pain Lisinopril [Zestril] 10 mg PO HS Discharge Medication List Atorvastatin [Lipitor] 80 mg PO HS 01/12/19 [History] Acetaminophen Tab [Tylenol] 1,000 mg PO Q6HR PRN tab 01/24/19 [Rx] Amiodarone [Cordarone] 400 mg PO BID tab 01/24/19 [Rx] Ascorbic Acid [Vitamin C] 500 mg PO BID-W/MEALS tab 01/24/19 [Rx] Aspirin 325 mg PO DAILY tab 01/24/19 [Rx] Clopidogrel [Plavix] 75 mg PO DAILY #0 01/24/19 [Rx] DULoxetine HCL [Cymbalta] 30 mg PO DAILY capsule. 01/24/19 [Rx] Ferrous Sulfate [Iron (65 MG Elemental)] 325 mg PO BID-W/MEALS tab 01/24/19 [Rx] Heparin Sodium,Porcine [Heparin Sodium] 5,000 unit SQ Q8HR vial 01/24/19 [Rx] Ipratropium-Albuterol Nebulize [Duoneb 0.5 mg-3 mg/3 ml Soln] 3 ml INHALATION RT-Q2H PRN ampul.neb 01/24/19 [Rx] Ipratropium-Albuterol Nebulize [Duoneb 0.5 mg-3 mg/3 ml Soln] 3 ml INHALATION RT-QID ampul.neb 01/24/19 [Rx] Lisinopril [Zestril] 5 mg PO DAILY tab 01/24/19 [Rx] Magnesium Hydroxide [Milk of Magnesia Concentrate] 2,400 mg PO BID PRN ml 01/24/19 [Rx] Melatonin 6 mg PO HS tablet 01/24/19 [Rx] Metoprolol Tartrate [Lopressor] 25 mg PO BID tab 01/24/19 [Rx] Pantoprazole [Protonix] 40 mg PO AC-BRKFST tablet. 01/24/19 [Rx] Sennosides-Docusate Sodium [Senokot-S] 2 each PO HS PRN tab 01/24/19 [Rx] amLODIPine [Norvasc] 5 mg PO DAILY@1200 tab 01/24/19 [Rx] Follow up Appointment(s)/Referral(s): Case Ndiaye MD [STAFF PHYSICIAN] - 1 Week (Please make appointment upon discharge from rehab) None,Stated [Primary Care Provider] - 1-2 days Bert Hodges MD [STAFF PHYSICIAN] - 02/25/19 10:00 am Braulio Espinoza MD [STAFF PHYSICIAN] - 1 Week (Please make appointment upon discharge from rehab) Ambulatory/Diagnostic Orders: XR chest 2V [RAD.AMB] Time Frame: 1 Day, Location: None Selected Activity/Diet/Wound Care/Special Instructions: CONSULTS AT [facility]: 1. Dr. Espinoza for cardiology 2. Dr. Ndiaye for pulmonology Continue AMIODARONE 400 mg twice daily until 01/29/19, then 200 mg twice daily until 02/05/19, then 200 mg daily until 02/12/19, then stop DISCHARGE INSTRUCTIONS: 1. No driving for 4 weeks, or until physician gives their ok. 2. The patient should sleep in their own bed, no medical bed needed. 3. Stairs are not an issue. If the bedroom is upstairs, it is advised that the patient go up at night and down in the morning for the first week. Go slowly, using handrail and take 1 step at a time. 4. KUN hose are to be worn for 30 days or until physician discontinues. 5. Heart hugger is to be worn 100% of the time until physician discontinues.(except when showering) 6. No lifting, pushing, or pulling more than 10 pounds for 12 weeks. The physician will advise of any restriction changes. 7. The patient is expected to continue the prescribed walking program. 8. Continue pain control per as needed orders. 9. Continue with incentive spirometry and splinting/heart hugger until otherwise directed by the physician. 10. Must shower daily using liquid antibacterial soap and a separate white washcloth for each individual incision. 11. Routine sternal incision care. No powders, lotions, ointments on incisions. 12. Please call surgeon/ORDNANCE MECHANIC for temp greater than 101 F or purulent drainage from incisions. 13. All prescriptions refills need to be filled through veneer taping machine offbearer/primary care physician. 14. A Red armband has been placed on the patient. It should be worn for 30 days post surgery and will be removed by the cardiac surgeons. If an ER visit is necessary, please make sure the number on the Red armband is called. Rehab/HOME HEALTH SERVICES TO PROVIDE: RN SKILLED HOME CARE SERVICES FOR POST-OP SURGICAL PATIENTS WITH THE FOLLOWING: Coronary Artery Bypass Surgery (CABG), Mitral Valve Replacement/Repair ( MVR), Aortic Valve Replacement/Repair (AVR) RN TO CONTINUE EDUCATION FROM ``ROAD TO A HEALTH HEART PATIENT EDUCATION MANUAL (GIVEN TO PATIENT IN THE HOSPITAL) MEDICATION RECONCILIATION WITH EDUCATION NEEDED ON FIRST HOME VISIT EMPHASIZE IMPORTANCE OF WEARING BREAST SUPPORT/HEART HUGGER ENCOURAGE USE OF INCENTIVE SPIROMETER 10 X EVERY HOUR WHILE AWAKE ENCOURAGE UTILIZATION OF LOWER EXTREMITY COMPRESSION STOCKINGS/KUN HOSE and ELEVATE LEGS ABOVE LEVEL OF HEART WHILE AT REST. ENCOURAGE AMBULATION 3-5x/day INCREASING TOLERATES, WHILE AVOID EXTREMES IN TEMPERATURE FREQUENCY: RN TO OPEN THE PATIENT WITHIN 24 HOURS OF DISCHARGE FROM REHAB WITH [place]HEALTH [place] [facility] [place] TO VISIT 2-3 X A WEEK FOR 4 WEEKS ESTABLISHED BY PATIENT NEEDS. LABORATORY: CBC, CMP TO BE DRAWN ON THE THIRD DAY AT REHAB, (RAN STAT) FAX RESULTS TO [phone], THEN DRAWN PER PROTOCOL. TELEHEALTH PARAMETERS: WEIGHT: NOTIFY MD OF WEIGHT GAIN OF 2 LBS IN 24 HOURS OR 5 LBS IN ONE WEEK HR: NOTIFY MD OF HR <55 BPM OR HR>100 BPM BP: NOTIFY MD IF BP <90/55 OR BP>140/100 O2 SAT: NOTIFY MD IF PO2<93% ON ROOM AIR SEND TELEHEALTH REPORT TO INSTRUMENT AND CONTROLS TECHNICIAN AND CARDIOVASCULAR SURGEON THE FIRST WEEK OF CARE AND THEN BI-WEEKLY. PLEASE ADDITIONALLY COMMUNICATE ANY ABNORMALS AND NEW FINDINGS TO THE SURGEONS OFFICE. Discharge Disposition: DC/TRNS INTERMEDIATE CARE FAC
--- NOTE | 2019-01-24 15:55 | P.PN ---
Subjective Progress Note Date: 01/24/19 58-year-old male patient with triple-vessel disease was underwent urgent coronary artery bypass surgery and in addition to that the patient had a mitral valve repair as the patient was found to have moderate to severe degree of mitral regurgitation. Note that the patient is status post non-STEMI. The patient came into the hospital where he was found to have elevated troponins consistent with non-STEMI. Cardiac catheterization was done and the patient was found to have triple-vessel disease and the surgery was done without any complication. Preop ejection fraction is 45-50% and the patient had a moderate to severe mitral regurgitation. The patient did well postop. Today's in intensive care unit. All of the chest is a been removed. No chest pain. No nausea or vomiting. No abdominal pain. On and off is having some limited cough and. Surgical wound site is dry clean and intact over the sternal area. He has umbilical hernia which is currently easily reducible. Cardiac rhythm is sinus. All of the lines have been removed and all of the tubes have been discontinued. The patient did experience some postop blood loss which is anticipated after surgery and he required blood transfusion. He also had approximately atrial fibrillation requiring initiation of amiodarone and is back to normal sinus rhythm. He is currently postop day #6 and the patient is being transferred to rehabilitation. Objective - Vital Signs Vital signs: Vital Signs Temp 98.3 F 01/24/19 08:00 Pulse 89 01/24/19 08:00 Resp 19 01/24/19 08:00 BP 169/96 01/24/19 08:00 Pulse Ox 98 01/24/19 08:33 Intake & Output 01/23/19 01/24/19 01/24/19 18:59 06:59 18:59 Intake Total 400 350 Output Total 275 700 Balance 125 -350 Weight 102 kg Intake: Oral 400 350 Output: Urine 275 700 Other: Voiding Method Urinal Urinal # Voids 1 # Bowel Movements 1 ABP, PAP, CO, CI - Last Documented Arterial Blood Pressure 151/66 Pulmonary Artery Pressure 33/16 Cardiac Output 6.4 Cardiac Index 2.9 - Exam Gen. appearance, comfortable likely distress Head exam was generally normal. There was no scleral icterus or corneal arcus. Mucous membranes were moist. Neck was supple and without jugular venous distension, thyromegaly, or carotid bruits. Carotids were easily palpable bilaterally. There was no adenopathy. Lungs sounds are diminished in lung bases bilaterally otherwise clear. Cardiac exam revealed the PMI to be normally situated and sized. The rhythm was regular and no extrasystoles were noted during several minutes of auscultation. The first and second heart sounds were normal and physiologic splitting of the second heart sound was noted. There were no murmurs, rubs, clicks, or gallops. Sternum intact and the patient has a dry sternal wound and there is no sign of any infection. Abdominal exam revealed normal bowel sounds. The abdomen was soft, non-tender, and without masses, organomegaly, or appreciable enlargement of the abdominal aorta. The patient has an umbilical hernia which is easily reducible. Examination of the extremities revealed easily palpable radial, femoral and pedal pulses. There was no cyanosis, clubbing or edema. Examination of the skin revealed no evidence of significant rashes, suspicious appearing nevi or other concerning lesions. Neurologically the patient is awake and alert and there is no focal neurological deficits. He has some motor weakness for which she is to undergo rehabilitation. Is able to ambulate. - Labs CBC & Chem 7: 01/24/19 04:19 01/24/19 04:19 Labs: Abnormal Lab Results - Last 24 Hours (Table) 01/23/19 01/24/19 01/24/19 Range/Units 17:08 04:19 04:19 RBC 2.69 L (4.30-5.90) m/uL Hgb 7.8 L (13.0-17.5) gm/dL Hct 24.1 L (39.0-53.0) % Chloride 108 H (98-107) mmol/L Glucose 100 H (74-99) mg/dL POC Glucose (mg/dL) 114 H (75-99) mg/dL Calcium 8.3 L (8.4-10.2) mg/dL Assessment and Plan Plan: 1 triple-vessel coronary artery disease status post non-ST segment elevation torin cardial infarction status post two-vessel bypass surgery and the patient is postop day #6. 2 moderate to severe mitral regurgitation the patient has undergone mitral valve repair 3 ischemic cardiomyopathy with a preop ejection fraction of 45-50% 4 postop atelectatic changes in lung bases bilaterally using incentive spirometer, expected outcome of surgery 5 COPD with a preop FEV1 of 61% of predicted 6 paroxysmal atrial fibrillation current rhythm is sinus 7 left internal carotid disease in the order of 50-70% 8 postoperative acute blood loss anemia, expected 9 acid reflux 10 Anxiety 11 hypertension 12 hyperlipidemia 13 history of smoking Plan We will pulmonary status is stable. Cardiac status is stable. Cardiac rhythm is sinus. The patient which hasn't to rehabilitation today. Medication was reviewed. Case was discussed with cardiology and the surgical group. No pul monary issues. The patient can be released to rehabilitation today.
[2019-01-24] MEDS ORDERED: ASCORBIC ACID 500 MG TAB PO SCH (17:30)
[2019-01-24 18:27] VITALS: BP 148/81; PULSE 83; RESP 23; TEMP 98.4
[2019-01-24] MEDS ORDERED: MELATONIN 3 MG TABLET PO SCH (21:00)
[2019-01-25] MEDS ORDERED: LISINOPRIL 10 MG TAB PO SCH (09:00)
== END 2019-01-24 20:46 | DRG 216 ==
LOC: EC 18:12 → 1SOBS 21:10 → OBSVTOIN 01-13 06:50 → 3SCARD 01-13 16:02 → 2SICU 01-18 06:36
PROVIDERS: ADMIT Surgery; ATTEND Surgery
PROC: 4A023N7 Measurement of Cardiac Sampling and Pressure, Left Heart, Percutaneous Approach (ICD-10-PCS; 2019-01-13)
PROC: B2111ZZ Fluoroscopy of Multiple Coronary Arteries using Low Osmolar Contrast (ICD-10-PCS; 2019-01-13)
PROC: 021009W Bypass Coronary Artery, One Artery from Aorta with Autologous Venous Tissue, Open Approach (ICD-10-PCS; 2019-01-18)
PROC: 06BQ4ZZ Excision of Left Saphenous Vein, Percutaneous Endoscopic Approach (ICD-10-PCS; 2019-01-18)
PROC: 03BC4ZZ Excision of Left Radial Artery, Percutaneous Endoscopic Approach (ICD-10-PCS; 2019-01-18)
PROC: 5A1221Z Performance of Cardiac Output, Continuous (ICD-10-PCS; 2019-01-18)
PROC: 02L70CK Occlusion of Left Atrial Appendage with Extraluminal Device, Open Approach (ICD-10-PCS; 2019-01-18)
PROC: B24BZZ4 Ultrasonography of Heart with Aorta, Transesophageal (ICD-10-PCS; 2019-01-18)
PROC: 02UG08Z Supplement Mitral Valve with Zooplastic Tissue, Open Approach (ICD-10-PCS; principal; 2019-01-18 08:00)
PROC: 02100Z9 Bypass Coronary Artery, One Artery from Left Internal Mammary, Open Approach (ICD-10-PCS; 2019-01-18 08:00)
PROC: 02100AW Bypass Coronary Artery, One Artery from Aorta with Autologous Arterial Tissue, Open Approach (ICD-10-PCS; 2019-01-18 08:00)
PROC: 30243N1 Transfusion of Nonautologous Red Blood Cells into Central Vein, Percutaneous Approach (ICD-10-PCS; 2019-01-20)
DX: I21.4 Non-ST elevation (NSTEMI) myocardial infarction (principal); G92 Toxic encephalopathy; D62 Acute posthemorrhagic anemia; E87.2 Acidosis; I97.190 Other postprocedural cardiac functional disturbances following cardiac surgery; I50.22 Chronic systolic (congestive) heart failure; J98.11 Atelectasis; I25.5 Ischemic cardiomyopathy; I95.9 Hypotension, unspecified; I27.20 Pulmonary hypertension, unspecified; D69.6 Thrombocytopenia, unspecified; I11.0 Hypertensive heart disease with heart failure; I65.23 Occlusion and stenosis of bilateral carotid arteries; G62.9 Polyneuropathy, unspecified; I08.1 Rheumatic disorders of both mitral and tricuspid valves; I25.10 Atherosclerotic heart disease of native coronary artery without angina pectoris; E78.5 Hyperlipidemia, unspecified; F41.0 Panic disorder [episodic paroxysmal anxiety]; I25.2 Old myocardial infarction; I48.0 Paroxysmal atrial fibrillation; J44.9 Chronic obstructive pulmonary disease, unspecified; K21.9 Gastro-esophageal reflux disease without esophagitis; K42.9 Umbilical hernia without obstruction or gangrene; K43.9 Ventral hernia without obstruction or gangrene; M19.90 Unspecified osteoarthritis, unspecified site; I16.0 Hypertensive urgency; I10 Essential (primary) hypertension; R25.2 Cramp and spasm; T42.4X5A Adverse effect of benzodiazepines, initial encounter; Z79.02 Long term (current) use of antithrombotics/antiplatelets; Z79.82 Long term (current) use of aspirin; Z79.899 Other long term (current) drug therapy; Z88.5 Allergy status to narcotic agent; Z91.19 Patient's noncompliance with other medical treatment and regimen; Z87.891 Personal history of nicotine dependence; Z87.01 Personal history of pneumonia (recurrent); Z95.5 Presence of coronary angioplasty implant and graft; Z82.49 Family history of ischemic heart disease and other diseases of the circulatory system; Z82.3 Family history of stroke; Z80.7 Family history of other malignant neoplasms of lymphoid, hematopoietic and related tissues
CPT/HCPCS: 36415; 70486; 71045; 71046; 71275; 80048; 80053; 80061; 80074; 81003; 82330; 82805; 83036; 83735; 83880; 84100; 84443; 84484; 85025; 85027; 85379; 85520; 85610; 85730; 86850; 86891; 86900; 86901; 86920; 87070; 87086; 93005; 93306; 93312; 93320; 93325; 93454; 93880; 93922; 93923; 93930; 93970; 94002; 94150; 94640; 96361; 96374; 99285

== ENCOUNTER 2019-02-08 22:17 | Emergency (ER) | payer MEDICARE ==
[2019-02-08 22:24] VITALS: BP 117/74; PULSE 97; RESP 20; TEMP 100.8
[2019-02-08] MEDS ORDERED: ACETAMINOPHEN TAB 500 MG TAB PO STA (22:32)
--- NOTE | 2019-02-08 22:38 | ED ---
Chest Pain HPI - General Chief Complaint: Chest Pain Stated Complaint: Pain in surgical site Time Seen by Provider: 02/08/19 22:32 Source: patient, EMS Mode of arrival: EMS Limitations: no limitations - History of Present Illness Initial Comments: Deborah Gay) is a 58 yo M who underwent a CABG procedure on January 19 of this year. Patient reports that since the time of the procedure he has had persistent pain at the incision site however home health care nursing stops by his house daily for wound checks and reports that the wound is healing well. Patient reports that currently the air conditioning unit has broken his home and is very hot. He reports he's been having hot flashes but also episodes of chills, generalized weakness and isn't feeling well. Patient states that after his CABG she was discharged to a rehab facility and subsequently discharged home. Patient states that his bedroom and full bath on the second floor of his home and he has been too weak to walk up the stairs yet. Patient reports he's been sponge bathing in the sink downstairs and that he just feels too weak to go about his activities of daily living. Patient denies any exertional chest pain, palpitations or shortness of breath. Patient is scheduled to follow-up with his plaster mechanic on of this week and scheduled to see his cardiovascular surgeon next week as well. - Related Data Home Medications Medication Instructions Recorded Confirmed Atorvastatin [Lipitor] 80 mg PO HS 01/12/19 02/08/19 Hydrocodone/Acetaminophen [[place] 1 tab PO HS 02/08/19 02/08/19 10-325] Previous Rx's Medication Instructions Recorded Acetaminophen Tab [Tylenol] 1,000 mg PO Q6HR PRN tab 01/24/19 Amiodarone [Cordarone] 400 mg PO BID tab 01/24/19 Ascorbic Acid [Vitamin C] 500 mg PO BID-W/MEALS tab 01/24/19 Aspirin 325 mg PO DAILY tab 01/24/19 Clopidogrel [Plavix] 75 mg PO DAILY #0 01/24/19 DULoxetine HCL [Cymbalta] 30 mg PO DAILY capsule. 01/24/19 Lisinopril [Zestril] 5 mg PO DAILY tab 01/24/19 Magnesium Hydroxide [Milk of 2,400 mg PO BID PRN ml 01/24/19 Magnesia Concentrate] Melatonin 6 mg PO HS tablet 01/24/19 Metoprolol Tartrate [Lopressor] 25 mg PO BID tab 01/24/19 Pantoprazole [Protonix] 40 mg PO AC-BRKFST tablet. 01/24/19 Sennosides-Docusate Sodium 2 each PO HS PRN tab 01/24/19 [Senokot-S] amLODIPine [Norvasc] 5 mg PO DAILY@1200 tab 01/24/19 Allergies Allergy/AdvReac Type Severity Reaction Status Date / Time codeine Allergy Anaphylaxis Verified 02/08/19 22:46 Review of Systems ROS Statement: Those systems with pertinent positive or pertinent negative responses have been documented in the HPI. ROS Other: All systems not noted in ROS Statement are negative. EKG Findings - EKG Comments: EKG Findings:: EKG was obtained at 2302 rate is 93 rhythm is sinus tachycardia normal axis there are normal intervals, KS 162, QRS 100, QTC is [address] elevations or depressions there is no evidence of acute ischemia or infarction. Past Medical History Past Medical History: Coronary Artery Disease (CAD), Chest Pain / Angina, Heart Failure, GERD/Reflux, Hypertension, Myocardial Infarction ([place]), Osteoarthritis (OA), Pneumonia Additional Past Medical History / Comment(s): Coronary artery disease, previous myocardial infarction, previous coronary intervention and stenting to his left anterior descending coronary artery in 2004, 2006 and 2017, and to his circumflex coronary artery in 2010, chronic systolic congestion heart failure with an ejection fraction of 35-40%, moderate global hypokinesis, mild concentric LVH, moderate degree of mitral regurgitation, peripheral neuropathy, hypertension, osteoarthritis Last Myocardial Infarction Date:: unk History of Any Multi-Drug Resistant Organisms: None Reported Past Surgical History: Heart Catheterization With Stent Additional Past Surgical History / Comment(s): HEART CATH WITH STENTS X8. triple bypass Past Anesthesia/Blood Transfusion Reactions: No Reported Reaction Date of Last Stent Placement:: 2017 Past Psychological History: Anxiety, Panic Disorder Smoking Status: Former smoker Past Alcohol Use History: None Reported Past Drug Use History: None Reported - Past Family History Father Family Medical History: Cancer Additional Family Medical History / Comment(s): Lymphoma Mother Family Medical History: Pulmonary Embolus General Exam - General Exam Comments Initial Comments: Physical Exam GENERAL: He'll, appears older than stated age HENT: Normocephalic, Atraumatic. EYES: PERRL, EOMI Conjunctival pallor PULMONARY: Unlabored respirations. No audible rales rhonchi or wheezing was noted. CARDIOVASCULAR: There is a regular rate and rhythm without any murmurs gallops or rubs. Well-healing midline sternotomy incision with no surrounding erythema or signs of infection ABDOMEN: Soft and nontender with normal bowel sounds. SKIN: Skin is clear with no lesions or rashes and otherwise unremarkable. : Deferred NEUROLOGIC: Patient is alert and oriented x3. Moving all extremities spontaneously MUSCULOSKELETAL: Normal extremities with adequate strength and full range of motion. No lower extremity swelling or edema. No calf tenderness. PSYCHIATRIC: Normal psychiatric evaluation Limitations: no limitations Course Vital Signs 02/08/19 22:20 Temperature 100.8 F H Pulse Rate 97 Respiratory 20 Rate Blood Pressure 117/74 O2 Sat by Pulse 96 Oximetry Chest Pain MDM - MDM The patient was seen and evaluated, history is obtained from the patient, medical record and family at bedside Patient with multiple complaints mostly generalized malaise since returning home from rehab after a CABG procedure. Patient also reports hot flashes and chills however does not currently have air conditioning his home and it was >80F outside today. Upon arrival patient does have an oral temp. This is workup was initiated. Labs resulted with no leukocytosis, no lactic acidosis, patient does have anemia with hemoglobin of 7.7 in addition his troponin is 0.05 these results were discussed with patient's cardiothoracic surgeon Dr. Hodges who is comfortable with seeing the patient in office later today. This plan was discussed with the patient and family at bedside, patient is agreeable with plan for discharge home at this time. Patient states he's uncertain if he will go to the follow-up visit with Dr. Hodges today but that he will see Dr. Avila on . All questions pertaining care were answered return parameters were discussed patient was discharged home in stable condition. Disposition Clinical Impression: Incisional pain, Postoperative anemia Disposition: HOME SELF-CARE Is patient prescribed a controlled substance at d/c from ED?: No Referrals: None,Stated [Primary Care Provider] - 1-2 days
[2019-02-08] MEDS: SODIUM CHLORIDE 0.9% 500 ML 500 ML IV SCH (22:55)
--- NOTE | 2019-02-09 03:52 | XR ---
EXAM: XR Chest, 2 Views CLINICAL HISTORY: fever, post open heart, previous on synapse TECHNIQUE: Frontal and lateral views of the chest. COMPARISON: Chest radiograph on 01/23/2018 FINDINGS: Hardware: None. Lungs/pleura: Decreased right basilar opacity. Atelectasis versus external artifacts projected in the right upper lobe. Persistent left basilar opacity likely represents combination of pleural effusion with atelectasis versus pneumonia. Heart/mediastinum: Stable enlargement of the cardiomediastinal silhouette. Left atrial appendage clip. Median sternotomy changes. Atherosclerotic calcification aorta. Soft tissues: Unremarkable. Bones: No acute fracture. Mild right convex curvature of the thoracic spine. Upper abdomen: Normal. IMPRESSION: Decreased right basilar opacity. Persistent left basilar opacity likely represents combination of pleural effusion with atelectasis versus pneumonia.
[2019-02-09 04:42] LABS: Basophils % (A) 1 %; Eosinophils # (A) 0.5 k/uL (0-0.7); Eosinophils % (A) 8 %; HCT 24.5 % (39.0-53.0); HGB 7.7 gm/dL (13.0-17.5); Hypochromasia Moderate; Lymphocytes # (A) 0.8 k/uL (1.0-4.8); Lymphocytes % (A) 13 %; MCH 27.4 pg (25.0-35.0); MCHC 31.3 g/dL (31.0-37.0); MCV 87.4 fL (80.0-100.0); Mean Platelet Volume 7.5; Monocytes # (A) 0.4 k/uL (0-1.0); Monocytes % (A) 8 %; Neutrophils # (A) 3.9 k/uL (1.3-7.7); Neutrophils % (A) 67 %; Platelet Count 315 k/uL (150-450); Poikilocytosis Slight; RBC 2.81 m/uL (4.30-5.90); RDW 15.2 % (11.5-15.5); WBC 5.9 k/uL (3.8-10.6)
[2019-02-09 04:43] LABS: Albumin 3.8 g/dL (3.5-5.0); Calcium 8.6 mg/dL (8.4-10.2); Potassium 4.9 mmol/L (3.5-5.1); Total Bilirubin 0.6 mg/dL (0.2-1.3); Total Protein 6.8 g/dL (6.3-8.2)
[2019-02-09 04:44] LABS: Partial Thromboplastin Time 25.6 sec (22.0-30.0); Prothrombin Time 10.9 sec (9.0-12.0)
[2019-02-09 06:03] LABS: Appearance,Urine Clear (Clear); Bilirubin,Urine Negative (Negative); Blood,Urine Moderate (Negative); Color,Urine Yellow; Glucose,Urine (UA) Negative (Negative); Granular Casts,Urine 4 /lpf (0); Ketones,Urine Negative (Negative); Leukocyte Esterase,Urine Negative (Negative); Mucus,Urine Rare /hpf; Nitrite,Urine Negative (Negative); PH, Urine 5.5 (5.0-8.0); Protein,Urine 1+ (Negative); RBC,Urine >182 /hpf (0-5); Specific Gravity,Urine 1.021 (1.001-1.035)
== END 2019-02-09 03:28 | disposition home or self-care (01) ==
LOC: EC 22:17
DX: L76.82 Other postprocedural complications of skin and subcutaneous tissue (principal); R07.9 Chest pain, unspecified; D64.89 Other specified anemias; I25.119 Atherosclerotic heart disease of native coronary artery with unspecified angina pectoris; I11.0 Hypertensive heart disease with heart failure; I50.22 Chronic systolic (congestive) heart failure; I25.2 Old myocardial infarction; Z79.899 Other long term (current) drug therapy; Z88.5 Allergy status to narcotic agent; Z95.5 Presence of coronary angioplasty implant and graft; Z95.1 Presence of aortocoronary bypass graft
CPT/HCPCS: 36415; 71046; 80053; 81001; 83605; 84484; 85025; 85610; 85730; 87040; 87086; 93005; 99285

== ENCOUNTER 2019-10-22 17:40 | Emergency (ER) | payer MEDICARE ==
[2019-10-22 17:46] VITALS: RESP 18
[2019-10-22] MEDS ORDERED: SODIUM CHLORIDE 0.9% 500 ML 500 ML IV STA (17:47)
--- NOTE | 2019-10-22 18:08 | ED ---
General Adult HPI - General Chief complaint: Nausea/Vomiting/Diarrhea Stated complaint: Dizzy Time Seen by Provider: 10/22/19 17:41 Source: patient, RN notes reviewed, old records reviewed Mode of arrival: EMS Limitations: no limitations - History of Present Illness Initial comments: 59-year-old male history diabetes, hypertension, coronary artery disease status post coronary artery bypass graft approximately 4 months ago. Patient presenting with dizziness, vertigo, nausea vomiting. He had 2 episodes of vomiting prior to arrival. Denies central chest pain. Reports some mild dyspnea. No abdominal pain. No diarrhea. No fever or chills. He had recent contacts with individuals with flulike symptoms. He does report mild cough and rhinorrhea. Denies focal numbness or weakness. Denies headache. Denies vision changes. Denies lower extremity pain or swelling. - Related Data Home Medications Medication Instructions Recorded Confirmed Atorvastatin [Lipitor] 80 mg PO HS 01/12/19 02/08/19 Hydrocodone/Acetaminophen [[place] 1 tab PO HS 02/08/19 02/08/19 10-325] Previous Rx's Medication Instructions Recorded Acetaminophen Tab [Tylenol] 1,000 mg PO Q6HR PRN tab 01/24/19 Amiodarone [Cordarone] 400 mg PO BID tab 01/24/19 Ascorbic Acid [Vitamin C] 500 mg PO BID-W/MEALS tab 01/24/19 Aspirin 325 mg PO DAILY tab 01/24/19 Clopidogrel [Plavix] 75 mg PO DAILY #0 01/24/19 DULoxetine HCL [Cymbalta] 30 mg PO DAILY capsule. 01/24/19 Lisinopril [Zestril] 5 mg PO DAILY tab 01/24/19 Magnesium Hydroxide [Milk of 2,400 mg PO BID PRN ml 01/24/19 Magnesia Concentrate] Melatonin 6 mg PO HS tablet 01/24/19 Metoprolol Tartrate [Lopressor] 25 mg PO BID tab 01/24/19 Pantoprazole [Protonix] 40 mg PO AC-BRKFST tablet. 01/24/19 Sennosides-Docusate Sodium 2 each PO HS PRN tab 01/24/19 [Senokot-S] amLODIPine [Norvasc] 5 mg PO DAILY@1200 tab 01/24/19 Meclizine [Antivert] 25 mg PO TID PRN #12 tab 10/22/19 Allergies Allergy/AdvReac Type Severity Reaction Status Date / Time codeine Allergy Anaphylaxis Verified 02/08/19 22:46 Review of Systems ROS Statement: Those systems with pertinent positive or pertinent negative responses have been documented in the HPI. ROS Other: All systems not noted in ROS Statement are negative. Past Medical History Past Medical History: Coronary Artery Disease (CAD), Chest Pain / Angina, Heart Failure, GERD/Reflux, Hypertension, Myocardial Infarction ([place]), Osteoarthritis (OA), Pneumonia Additional Past Medical History / Comment(s): Coronary artery disease, previous myocardial infarction, previous coronary intervention and stenting to his left anterior descending coronary artery in 2004, 2006 and 2017, and to his circumflex coronary artery in 2010, chronic systolic congestion heart failure with an ejection fraction of 35-40%, moderate global hypokinesis, mild concentric LVH, moderate degree of mitral regurgitation, peripheral neuropathy, hypertension, osteoarthritis Last Myocardial Infarction Date:: unk History of Any Multi-Drug Resistant Organisms: None Reported Past Surgical History: Heart Catheterization With Stent Additional Past Surgical History / Comment(s): HEART CATH WITH STENTS X8. triple bypass Past Anesthesia/Blood Transfusion Reactions: No Reported Reaction Date of Last Stent Placement:: 2017 Past Psychological History: Anxiety, Panic Disorder Smoking Status: Former smoker Past Alcohol Use History: None Reported Past Drug Use History: None Reported - Past Family History Father Family Medical History: Cancer Additional Family Medical History / Comment(s): Lymphoma Mother Family Medical History: Pulmonary Embolus General Exam Limitations: no limitations General appearance: alert, in no apparent distress Head exam: Present: atraumatic, normocephalic Eye exam: Present: normal appearance, PERRL, EOMI. Absent: nystagmus ENT exam: Present: mucous membranes dry Neck exam: Present: normal inspection. Absent: tenderness, meningismus Respiratory exam: Present: normal lung sounds bilaterally. Absent: respiratory distress, wheezes, rales Cardiovascular Exam: Present: regular rate, normal rhythm GI/Abdominal exam: Present: soft. Absent: distended, tenderness, guarding Extremities exam: Present: normal inspection, normal capillary refill. Absent: pedal edema Neurological exam: Present: alert, oriented X3, CN II-XII intact, other (No atax ia). Absent: motor sensory deficit Psychiatric exam: Present: normal affect, normal mood Skin exam: Present: warm, dry, intact. Absent: cyanosis, diaphoretic Course Vital Signs 10/22/19 10/22/19 10/22/19 17:41 17:50 18:30 Temperature 98.8 F 99.2 F Pulse Rate 94 90 Respiratory 18 18 Rate Blood Pressure 189/121 181/117 O2 Sat by Pulse 96 98 Oximetry 10/22/19 19:08 Temperature Pulse Rate 90 Respiratory 18 Rate Blood Pressure 165/121 O2 Sat by Pulse 96 Oximetry EKG Findings - EKG Comments: EKG Findings:: EKG: Normal sinus rhythm, rate of 87, MD interval 140, QRS duration 102, QTC 459, no ST segment elevation, T-wave inversion in V2 and V3 Medical Decision Making - Medical Decision Making 59-year-old male, after initial symptom control, feeling much better, further history obtained, patient did have symptoms consistent with vertigo with nausea and vomiting. He has a nonfocal neurologic exam, no ataxia. He has a CT of the brain which is negative for intracranial hemorrhage or mass effect. Chest x- ray negative for acute cardiopulmonary disease, clearing of previously fusions. He has a normal white blood cell count, improved hemoglobin at 12.8 from prior. He has a creatinine 1.27 which is down trending. He has a negative troponin, normal electrolytes. EKG is sinus rhythm. Patient feeling better, offered admi ssion for symptom control, patient prefers discharge and will return with worsening or changing symptoms. - Lab Data Result diagrams: 10/22/19 17:52 10/22/19 17:52 Lab Results 10/22/19 10/22/19 10/22/19 Range/Units 17:52 17:52 17:52 WBC 6.8 (3.8-10.6) k/uL RBC 4.54 (4.30-5.90) m/uL Hgb 12.8 L (13.0-17.5) gm/dL Hct 38.9 L (39.0-53.0) % MCV 85.7 (80.0-100.0) fL MCH 28.1 (25.0-35.0) pg MCHC 32.8 (31.0-37.0) g/dL RDW 13.7 (11.5-15.5) % Plt Count 319 (150-450) k/uL Neutrophils % 57 % Lymphocytes % 27 % Monocytes % 8 % Eosinophils % 4 % Basophils % 1 % Neutrophils # 3.9 (1.3-7.7) k/uL Lymphocytes # 1.8 (1.0-4.8) k/uL Monocytes # 0.5 (0-1.0) k/uL Eosinophils # 0.3 (0-0.7) k/uL Basophils # 0.1 (0-0.2) k/uL PT 10.2 (9.0-12.0) sec INR 1.0 (<1.2) APTT 23.8 (22.0-30.0) sec Sodium 140 (137-145) mmol/L Potassium 4.4 (3.5-5.1) mmol/L Chloride 103 (98-107) mmol/L Carbon Dioxide 27 (22-30) mmol/L Anion Gap 10 mmol/L BUN 17 (9-20) mg/dL Creatinine 1.27 H (0.66-1.25) mg/dL Est GFR (CKD-EPI)AfAm 71 (>60 ml/min/1.73 sqM) Est GFR (CKD-EPI)NonAf 61 (>60 ml/min/1.73 sqM) Glucose 89 (74-99) mg/dL Plasma Lactic Acid Rick (0.7-2.0) mmol/L Calcium 9.5 (8.4-10.2) mg/dL Magnesium 2.0 (1.6-2.3) mg/dL Total Bilirubin 0.4 (0.2-1.3) mg/dL AST 22 (17-59) U/L ALT 17 (4-49) U/L Alkaline Phosphatase 87 (38-126) U/L Troponin I (0.000-0.034) ng/mL NT-Pro-B Natriuret Pep pg/mL Total Protein 8.5 H (6.3-8.2) g/dL Albumin 4.9 (3.5-5.0) g/dL Influenza Type A RNA (Not Detectd) Influenza Type B (PCR) (Not Detectd) 10/22/19 10/22/19 10/22/19 Range/Units 17:52 17:52 17:52 WBC (3.8-10.6) k/uL RBC (4.30-5.90) m/uL Hgb (13.0-17.5) gm/dL Hct (39.0-53.0) % MCV (80.0-100.0) fL MCH (25.0-35.0) pg MCHC (31.0-37.0) g/dL RDW (11.5-15.5) % Plt Count (150-450) k/uL Neutrophils % % Lymphocytes % % Monocytes % % Eosinophils % % Basophils % % Neutrophils # (1.3-7.7) k/uL Lymphocytes # (1.0-4.8) k/uL Monocytes # (0-1.0) k/uL Eosinophils # (0-0.7) k/uL Basophils # (0-0.2) k/uL PT (9.0-12.0) sec INR (<1.2) APTT (22.0-30.0) sec Sodium (137-145) mmol/L Potassium (3.5-5.1) mmol/L Chloride (98-107) mmol/L Carbon Dioxide (22-30) mmol/L Anion Gap mmol/L BUN (9-20) mg/dL Creatinine (0.66-1.25) mg/dL Est GFR (CKD-EPI)AfAm (>60 ml/min/1.73 sqM) Est GFR (CKD-EPI)NonAf (>60 ml/min/1.73 sqM) Glucose (74-99) mg/dL Plasma Lactic Acid Rick 1.5 (0.7-2.0) mmol/L Calcium (8.4-10.2) mg/dL Magnesium (1.6-2.3) mg/dL Total Bilirubin (0.2-1.3) mg/dL AST (17-59) U/L ALT (4-49) U/L Alkaline Phosphatase (38-126) U/L Troponin I <0.012 (0.000-0.034) ng/mL NT-Pro-B Natriuret Pep 1100 pg/mL Total Protein (6.3-8.2) g/dL Albumin (3.5-5.0) g/dL Influenza Type A RNA (Not Detectd) Influenza Type B (PCR) (Not Detectd) 10/22/19 Range/Units 18:10 WBC (3.8-10.6) k/uL RBC (4.30-5.90) m/uL Hgb (13.0-17.5) gm/dL Hct (39.0-53.0) % MCV (80.0-100.0) fL MCH (25.0-35.0) pg MCHC (31.0-37.0) g/dL RDW (11.5-15.5) % Plt Count (150-450) k/uL Neutrophils % % Lymphocytes % % Monocytes % % Eosinophils % % Basophils % % Neutrophils # (1.3-7.7) k/uL Lymphocytes # (1.0-4.8) k/uL Monocytes # (0-1.0) k/uL Eosinophils # (0-0.7) k/uL Basophils # (0-0.2) k/uL PT (9.0-12.0) sec INR (<1.2) APTT (22.0-30.0) sec Sodium (137-145) mmol/L Potassium (3.5-5.1) mmol/L Chloride (98-107) mmol/L Carbon Dioxide (22-30) mmol/L Anion Gap mmol/L BUN (9-20) mg/dL Creatinine (0.66-1.25) mg/dL Est GFR (CKD-EPI)AfAm (>60 ml/min/1.73 sqM) Est GFR (CKD-EPI)NonAf (>60 ml/min/1.73 sqM) Glucose (74-99) mg/dL Plasma Lactic Acid Rick (0.7-2.0) mmol/L Calcium (8.4-10.2) mg/dL Magnesium (1.6-2.3) mg/dL Total Bilirubin (0.2-1.3) mg/dL AST (17-59) U/L ALT (4-49) U/L Alkaline Phosphatase (38-126) U/L Troponin I (0.000-0.034) ng/mL NT-Pro-B Natriuret Pep pg/mL Total Protein (6.3-8.2) g/dL Albumin (3.5-5.0) g/dL Influenza Type A RNA Not Detected (Not Detectd) Influenza Type B (PCR) Not Detected (Not Detectd) Disposition Clinical Impression: Dehydration, Vertigo Disposition: HOME SELF-CARE Condition: Fair Instructions (If sedation given, give patient instructions): Acute Nausea and Vomiting (ED), Vertigo (ED) Additional Instructions: Please maintain hydration, please return with worsening or changing symptoms. Prescriptions: Meclizine [Antivert] 25 mg PO TID PRN #12 tab PRN Reason: Vertigo Is patient prescribed a controlled substance at d/c from ED?: No Referrals: Arelis Hickman MD [Primary Care Provider] - 1-2 days Time of Disposition: 20:02
[2019-10-22 18:10] LABS: Basophils # (A) 0.1 k/uL (0-0.2); Basophils % (A) 1 %; Eosinophils # (A) 0.3 k/uL (0-0.7); Eosinophils % (A) 4 %; HCT 38.9 % (39.0-53.0); HGB 12.8 gm/dL (13.0-17.5); Lymphocytes # (A) 1.8 k/uL (1.0-4.8); Lymphocytes % (A) 27 %; MCH 28.1 pg (25.0-35.0); MCHC 32.8 g/dL (31.0-37.0); MCV 85.7 fL (80.0-100.0); Mean Platelet Volume 8.1; Monocytes # (A) 0.5 k/uL (0-1.0); Monocytes % (A) 8 %; Neutrophils # (A) 3.9 k/uL (1.3-7.7); Neutrophils % (A) 57 %; Platelet Count 319 k/uL (150-450); RBC 4.54 m/uL (4.30-5.90); RDW 13.7 % (11.5-15.5); WBC 6.8 k/uL (3.8-10.6)
[2019-10-22 18:18] LABS: Partial Thromboplastin Time 23.8 sec (22.0-30.0); Prothrombin Time 10.2 sec (9.0-12.0)
[2019-10-22 18:25] LABS: Albumin 4.9 g/dL (3.5-5.0); Calcium 9.5 mg/dL (8.4-10.2); Potassium 4.4 mmol/L (3.5-5.1); Total Bilirubin 0.4 mg/dL (0.2-1.3); Total Protein 8.5 g/dL (6.3-8.2)
--- NOTE | 2019-10-22 18:47 | XR ---
EXAMINATION TYPE: XR chest 2V DATE OF EXAM: 10/22/2019 COMPARISON: 02/08/2019 HISTORY: Fever TECHNIQUE: 2 views FINDINGS: There is no heart failure nor confluent pneumonic infiltrate. There are sternal wires. Cost ophrenic angles are clear. Heart is borderline enlarged. IMPRESSION: No active cardiopulmonary disease. There is clearing to large extent of the pleural react ion and atelectasis at the left lung base compared to old exam. No heart failure.
--- NOTE | 2019-10-22 18:59 | CT ---
EXAMINATION TYPE: CT brain wo con DATE OF EXAM: 10/22/2019 COMPARISON: None HISTORY: headache CT DLP: 1099.4 mGycm Automated exposure control for dose reduction was used. Multiple axial sections were obtained of the brain without contrast. Ventricles have normal size. There is no mass effect nor midline shift. There is no sign of intracran ial hemorrhage. The calvarium is intact. There is no evidence of cerebral edema. IMPRESSION: Negative CT scan of the brain.
[2019-10-22] MEDS ORDERED: hydrALAZINE HCL 20 MG/ML 1 ML VIAL IVP STA (19:34)
[2019-10-22 20:29] VITALS: BP 158/94; PULSE 89; TEMP 98.4
== END 2019-10-22 20:15 | disposition home or self-care (01) ==
LOC: EC 17:40
DX: E86.0 Dehydration (principal); R42 Dizziness and giddiness; I25.119 Atherosclerotic heart disease of native coronary artery with unspecified angina pectoris; I11.0 Hypertensive heart disease with heart failure; I50.22 Chronic systolic (congestive) heart failure; I25.2 Old myocardial infarction; E11.40 Type 2 diabetes mellitus with diabetic neuropathy, unspecified; F41.0 Panic disorder [episodic paroxysmal anxiety]; M19.90 Unspecified osteoarthritis, unspecified site; K21.9 Gastro-esophageal reflux disease without esophagitis; Z79.899 Other long term (current) drug therapy; Z88.5 Allergy status to narcotic agent; Z87.891 Personal history of nicotine dependence; Z95.1 Presence of aortocoronary bypass graft
CPT/HCPCS: 36415; 93005; 83880; 80053; 83605; 83735; 84484; 85025; 85610; 85730; 87502; 71046; 70450; 99285; 96374; J0360

== ENCOUNTER 2021-12-13 15:01 | Inpatient (IN) | payer MEDICARE ==
[2021-12-13] MEDS ORDERED: SODIUM CHLORIDE 0.9% 500 ML 500 ML IV STA (15:26)
--- NOTE | 2021-12-13 15:49 | CT ---
EXAMINATION TYPE: CT brain wo con DATE OF EXAM: 12/13/2021 COMPARISON: 10/22/2019 HISTORY: stroke like symptoms CT DLP: 1150.8 mGycm Automated exposure control for dose reduction was used. FINDINGS: The ventricles, basal cisterns and sulci over the convexities are mildly enlarged consistent with mil d generalized atrophy. No abnormal density is seen throughout the brain parenchyma and there is no acute intra or extra-axia l hemorrhage. The posterior fossa including the brainstem, fourth ventricle and cerebellar pontine angles appear gr ossly normal. Intraorbital contents appear normal and symmetric. Visualized paranasal sinuses and mastoid air cells are well aerated. The calvarium is intact. IMPRESSION: Mild atrophy without acute bleed or mass effect.
[2021-12-13 15:50] LABS: Albumin 4.5 g/dL (3.5-5.0); Calcium 9.7 mg/dL (8.4-10.2); Potassium 4.3 mmol/L (3.5-5.1); Total Bilirubin 0.6 mg/dL (0.2-1.3)
[2021-12-13 15:59] LABS: Partial Thromboplastin Time 24.8 sec (22.0-30.0); Prothrombin Time 10.7 sec (9.0-12.0)
--- NOTE | 2021-12-13 16:06 | CT ---
EXAMINATION TYPE: CT angio head neck DATE OF EXAM: 12/13/2021 HISTORY: stroke like symptoms COMPARISON: None CT DLP: 565.1 mGycm. Automated Exposure Control for Dose Reduction was Utilized. TECHNIQUE: CTA scan of the neck is performed with IV Contrast, patient injected with 65 mL of Isovue 370, axial images are obtained, coronal and sagittal reformatted images are reviewed. 3D reconstruct ed images are created on an independent workstation and reviewed. FINDINGS: There are mild scattered calcified plaques the brachiocephalic origins but no significant stenosis. Common carotid arteries are widely patent within the neck. There is moderate calcified plaque at the carotid bifurcations bilaterally resulting in mild to moderate right internal carotid artery stenosis and a mild left internal carotid artery stenosis. Intracranially, there is no significant stenosis and no segmental occlusions of the intracerebral vas culature. There is no sizable aneurysm sac or vascular malformation. IMPRESSION: 1. Scattered calcified plaques involving the brachiocephalic origins and carotid bifurcations within the neck. 2. Mild positive moderate stenosis of the right internal carotid artery and mild left internal caroti d artery stenosis at the bifurcation. 3. No significant abnormality of the intracranial arterial circulation. NASCET criteria was used in interpretation of this exam?
--- NOTE | 2021-12-13 16:12 | XR ---
EXAMINATION TYPE: XR chest 2V DATE OF EXAM: 12/13/2021 COMPARISON: 10/22/2019 HISTORY: Mental status change. TECHNIQUE: Frontal and lateral views of the chest are obtained. FINDINGS: There is marked cardiomegaly, pulmonary vascular congestion and interstitial edema. There are no pleural effusion or pneumothorax. There are postsurgical changes with median sternotomy wires and prosthetic heart valve. IMPRESSION: Findings most consistent with moderate CHF.
[2021-12-13] MEDS ORDERED: LORazepam 2 MG/ML INJ IV STA (16:37)
[2021-12-13 16:44] LABS: Basophils # (A) 0.1 k/uL (0-0.2); Basophils % (A) 2 %; Eosinophils # (A) 0.2 k/uL (0-0.7); Eosinophils % (A) 5 %; HGB 13.3 gm/dL (13.0-17.5); Lymphocytes # (A) 1.6 k/uL (1.0-4.8); Lymphocytes % (A) 34 %; MCH 27.4 pg (25.0-35.0); MCHC 30.8 g/dL (31.0-37.0); MCV 88.9 fL (80.0-100.0); Mean Platelet Volume 8.6; Monocytes # (A) 0.4 k/uL (0-1.0); Monocytes % (A) 8 %; Neutrophils # (A) 2.3 k/uL (1.3-7.7); Neutrophils % (A) 48 %; Platelet Count 231 k/uL (150-450); RBC 4.84 m/uL (4.30-5.90); RDW 15.3 % (11.5-15.5); WBC 4.8 k/uL (3.8-10.6)
--- NOTE | 2021-12-13 16:52 | ED ---
Neuro HPI - General Chief Complaint: Neuro Symptoms/Deficit Stated Complaint: R sided numbness Time Seen by Provider: 12/13/21 15:05 Source: patient Mode of arrival: ambulatory Limitations: no limitations - History of Present Illness Is the patient presenting with stroke symptoms?: Yes Last Known Well Date: 12/12/21 Last Known Well Time: 21:30 Initial Comments: 61-year-old male with past history of coronary artery disease, heart failure, hypertension presents to emergency department with strokelike symptoms. He reports that starting at 10:00 last night he began having sensory changes to the right side of his face, arm and leg. He also felt weak in the arm and leg. Sisters at bedside and reports that he has had some difficulties with his speech. No previous history of stroke. Is not on any anticoagulation. Does have a history of triple bypass. Patient reports that he does not take much of the medications that he was previously prescribed. He denies any headaches. Does admit to bilateral vision changes including flashes of light. No chest pain. Does admit to some shortness of breath. No abdominal pain. 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 ROS Other: All systems not noted in ROS Statement are negative. General Exam Limitations: no limitations General appearance: alert, anxious Head exam: Present: atraumatic, normocephalic, normal inspection Eye exam: Present: normal appearance, PERRL, EOMI. Absent: scleral icterus, conjunctival injection, periorbital swelling ENT exam: Present: normal exam, mucous membranes moist Respiratory exam: Present: rales, accessory muscle use, decreased breath sounds Cardiovascular Exam: Present: regular rate GI/Abdominal exam: Present: soft, normal bowel sounds. Absent: distended, tenderness, guarding, rebound, rigid Extremities exam: Present: other (weakness 4/5 right upper extremity and right lower extremity. Sensation decreased in these extremities. ) Neurological exam: Present: alert, oriented X3, other (mild dysarthria) Psychiatric exam: Present: anxious Skin exam: Present: warm, dry, intact, normal color. Absent: rash Stroke MDM - Lab Data Result diagrams: 12/15/21 08:06 12/15/21 08:06 Lab Results 12/13/21 12/13/21 12/13/21 Range/Units 15:33 15:33 15:33 WBC 4.8 (3.8-10.6) k/uL RBC 4.84 (4.30-5.90) m/uL Hgb 13.3 (13.0-17.5) gm/dL Hct 43.0 (39.0-53.0) % MCV 88.9 (80.0-100.0) fL MCH 27.4 (25.0-35.0) pg MCHC 30.8 L (31.0-37.0) g/dL RDW 15.3 (11.5-15.5) % Plt Count 231 (150-450) k/uL MPV 8.6 Neutrophils % 48 % Lymphocytes % 34 % Monocytes % 8 % Eosinophils % 5 % Basophils % 2 % Neutrophils # 2.3 (1.3-7.7) k/uL Lymphocytes # 1.6 (1.0-4.8) k/uL Monocytes # 0.4 (0-1.0) k/uL Eosinophils # 0.2 (0-0.7) k/uL Basophils # 0.1 (0-0.2) k/uL PT 10.7 (9.0-12.0) sec INR 1.0 (<1.2) APTT 24.8 (22.0-30.0) sec Sodium 141 (137-145) mmol/L Potassium 4.3 (3.5-5.1) mmol/L Chloride 107 (98-107) mmol/L Carbon Dioxide 24 (22-30) mmol/L Anion Gap 10 mmol/L BUN 13 (9-20) mg/dL Creatinine 1.23 (0.66-1.25) mg/dL Est GFR (CKD-EPI)AfAm 73 (>60 ml/min/1.73 sqM) Est GFR (CKD-EPI)NonAf 63 (>60 ml/min/1.73 sqM) Glucose 100 H (74-99) mg/dL Calcium 9.7 (8.4-10.2) mg/dL Total Bilirubin 0.6 (0.2-1.3) mg/dL AST 21 (17-59) U/L ALT 13 (4-49) U/L Alkaline Phosphatase 64 (38-126) U/L Troponin I (0.000-0.034) ng/mL NT-Pro-B Natriuret Pep pg/mL Total Protein 8.0 (6.3-8.2) g/dL Albumin 4.5 (3.5-5.0) g/dL 12/13/21 12/13/21 Range/Units 15:33 15:33 WBC (3.8-10.6) k/uL RBC (4.30-5.90) m/uL Hgb (13.0-17.5) gm/dL Hct (39.0-53.0) % MCV (80.0-100.0) fL MCH (25.0-35.0) pg MCHC (31.0-37.0) g/dL RDW (11.5-15.5) % Plt Count (150-450) k/uL MPV Neutrophils % % Lymphocytes % % Monocytes % % Eosinophils % % Basophils % % Neutrophils # (1.3-7.7) k/uL Lymphocytes # (1.0-4.8) k/uL Monocytes # (0-1.0) k/uL Eosinophils # (0-0.7) k/uL Basophils # (0-0.2) k/uL PT (9.0-12.0) sec INR (<1.2) APTT (22.0-30.0) sec Sodium (137-145) mmol/L Potassium (3.5-5.1) mmol/L Chloride (98-107) mmol/L Carbon Dioxide (22-30) mmol/L Anion Gap mmol/L BUN (9-20) mg/dL Creatinine (0.66-1.25) mg/dL Est GFR (CKD-EPI)AfAm (>60 ml/min/1.73 sqM) Est GFR (CKD-EPI)NonAf (>60 ml/min/1.73 sqM) Glucose (74-99) mg/dL Calcium (8.4-10.2) mg/dL Total Bilirubin (0.2-1.3) mg/dL AST (17-59) U/L ALT (4-49) U/L Alkaline Phosphatase (38-126) U/L Troponin I 0.016 (0.000-0.034) ng/mL NT-Pro-B Natriuret Pep 3970 pg/mL Total Protein (6.3-8.2) g/dL Albumin (3.5-5.0) g/dL - Medical Decision Making Upon arrival patient was placed into trauma 1. Thorough history and physical exam was performed. A code stroke was activated as the patient does have symptoms within 12 hours. Patient is not a candidate for alteplase as symptoms are greater than 4.5 hours old. NIH is 6. He does go over for CT of his head and cervical spine. Laboratory studies are conducted which are all within normal limits. BNP is 3970. Chest x-ray does demonstrate signs of CHF. CT of the brain demonstrates mild atrophy without acute bleed or mass effect. CT angiography demonstrates scattered calcified plaques involving the brachiocephalic origins and carotid bifurcations. Mild positive moderate stenosis of the right internal carotid and mild left internal carotid. The patient is reevaluated and does have some sudden onset shortness of breath. Pressure is markedly high. Because of this the patient is given a sublingual nitro and 60 mg of Lasix. Patient is additionally given a full dose aspirin and atorvastatin because of his strokelike symptoms. I spoke with Dr. Blanco and there is no large vessel occlusion therefore patient not a thrombectomy candidate. Recommend admission for hypertensive emergency, acute exacerbation of CHF and possible CVA for which he did agree to. Spoke with Dr. Dr. Mendoza who accepted admission. Cardiology and neurology are placed on consult. Patient was transferred in stable condition 12/13/21 18:27 EKG done at 1521 demonstrates a sinus rhythm with a rate of 89. MA interval 147. QRS 11. QTC of 406. Inverted T waves with ST depression V4 through V6. No acute ST segment elevations Repeat EKG performed at 1547 continues to demonstrate a sinus rhythm with ST depression V4 through V6, 2, 3 and aVF Past Medical History Past Medical History: Coronary Artery Disease (CAD), Chest Pain / Angina, Heart Failure, GERD/Reflux, Hypertension, Myocardial Infarction ([place]), Osteoarthritis (OA), Pneumonia Additional Past Medical History / Comment(s): Coronary artery disease, previous myocardial infarction, previous coronary intervention and stenting to his left anterior descending coronary artery in 2004, 2006 and 2017, and to his circumflex coronary artery in 2010, chronic systolic congestion heart failure with an ejection fraction of 35-40%, moderate global hypokinesis, mild concentric LVH, moderate degree of mitral regurgitation, peripheral neuropathy, hypertension, osteoarthritis Last Myocardial Infarction Date:: unk History of Any Multi-Drug Resistant Organisms: None Reported Past Surgical History: Heart Catheterization With Stent Additional Past Surgical History / Comment(s): HEART CATH WITH STENTS X8. triple bypass Past Anesthesia/Blood Transfusion Reactions: No Reported Reaction Date of Last Stent Placement:: 2017 Past Psychological History: Anxiety, Panic Disorder Smoking Status: Current every day smoker Past Alcohol Use History: Occasional Past Drug Use History: None Reported - Past Family History Father Family Medical History: Cancer Additional Family Medical History / Comment(s): Lymphoma Mother Family Medical History: Pulmonary Embolus Course Vital Signs 12/13/21 12/13/21 12/13/21 15:04 15:25 15:42 Temperature 97.6 F 97.1 F L 98.0 F Pulse Rate 88 86 81 Respiratory 20 16 16 Rate Blood Pressure 207/138 174/116 184/116 O2 Sat by Pulse 97 97 93 L Oximetry 12/13/21 12/13/21 12/13/21 15:55 16:00 16:30 Temperature 97.6 F 97.9 F 98.0 F Pulse Rate 89 102 H 103 H Respiratory 16 18 16 Rate Blood Pressure 181/110 180/108 190/126 O2 Sat by Pulse 94 L 94 L 96 Oximetry 12/13/21 12/13/21 16:41 18:35 Temperature Pulse Rate 102 H 89 Respiratory 24 16 Rate Blood Pressure 198/128 147/89 O2 Sat by Pulse 98 97 Oximetry Critical Care Time Critical Care Time: Yes Critical Care Time: 32 minutes Disposition Clinical Impression: Acute pulmonary edema, Congestive heart failure, Right sided weakness, Cerebrovascular accident (CVA) Disposition: ADMITTED IP TO THIS [facility] Condition: Stable Is patient prescribed a controlled substance at d/c from ED?: No Decision to Admit Reason: Admit from EC Decision Date: 12/13/21 Decision Time: 17:50
[2021-12-13] MEDS ORDERED: NITROGLYCERIN SL TABS 0.4 MG TAB SUBLINGUAL STA (17:08)
[2021-12-13] MEDS ORDERED: FUROSEMIDE 10 MG/ML 10 ML VIAL IV STA (17:08)
[2021-12-13] MEDS ORDERED: ATORVASTATIN 40 MG TAB PO STA (17:09)
[2021-12-13] MEDS ORDERED: ASPIRIN 325 MG TAB PO STA (17:09)
[2021-12-13] MEDS ORDERED: NALOXONE 0.4 MG/ML 1 ML VIAL IV PRN (17:51)
[2021-12-13] MEDS: amLODIPine 5 MG TAB PO SCH (21:50)
[2021-12-14 09:00] LABS: Basophils # (A) 0.1 k/uL (0-0.2); Basophils % (A) 1 %; Eosinophils # (A) 0.3 k/uL (0-0.7); Eosinophils % (A) 5 %; HCT 43.1 % (39.0-53.0); HGB 13.6 gm/dL (13.0-17.5); Hypochromasia Slight; Lymphocytes # (A) 1.6 k/uL (1.0-4.8); Lymphocytes % (A) 29 %; MCH 28.1 pg (25.0-35.0); MCHC 31.6 g/dL (31.0-37.0); MCV 88.7 fL (80.0-100.0); Mean Platelet Volume 8.3; Monocytes # (A) 0.4 k/uL (0-1.0); Monocytes % (A) 6 %; Neutrophils # (A) 3.1 k/uL (1.3-7.7); Neutrophils % (A) 56 %; Platelet Count 251 k/uL (150-450); RBC 4.86 m/uL (4.30-5.90); RDW 15.6 % (11.5-15.5); WBC 5.6 k/uL (3.8-10.6)
[2021-12-14] MEDS: amLODIPine 5 MG TAB PO SCH ×2 (09:05→20:45)
[2021-12-14] MEDS: FUROSEMIDE 10 MG/ML 4 ML VIAL IV SCH ×2 (09:05→20:45)
[2021-12-14] MEDS: METOPROLOL TARTRATE 12.5 MG TAB PO SCH ×2 (09:05→20:45)
[2021-12-14] MEDS: LOSARTAN 25 MG TAB PO STA ×2 (09:05→10:35)
[2021-12-14] MEDS: FAMOTIDINE 20 MG TAB PO SCH ×2 (09:05→20:45)
[2021-12-14] MEDS: ATORVASTATIN 40 MG TAB PO SCH (09:05)
[2021-12-14 09:09] LABS: Calcium 9.2 mg/dL (8.4-10.2); Potassium 4.1 mmol/L (3.5-5.1)
[2021-12-14] MEDS ORDERED: LORazepam 0.5 MG TAB PO ONE (10:22)
--- NOTE | 2021-12-14 10:29 | CONS ---
CONSULTATION CHIEF COMPLAINT: Right-sided weakness. Deborah is a 61-year-old gentleman with history of coronary artery disease, status post CABG, hypertension and dyslipidemia who has not been taking his medications at home regularly and presented to hospital with changes of numbness involving the right side of his face, arm and leg. He also had weakness involving the right arm and right leg. He had some difficulty with his speech, came to the hospital, and is admitted to hospital for the same. He underwent an CT angiogram of the brain that revealed scattered atherosclerotic plaque with a moderate right internal carotid artery stenosis. Patient had poorly controlled blood pressure, was given IV Lasix and sublingual nitroglycerin. His EKG showed sinus rhythm with inferolateral ST-T wave changes, probably secondary to left ventricular hypertrophy. His troponins were 0.01, 0.02 and 0.04. Creatinine is slightly elevated at 1.2 and the hemoglobin is normal. He did not have any episodes of chest pain but had some shortness of breath. There is no history of leg edema, PND or orthopnea. At the time of my evaluation this morning, he continues to have numbness and weakness involving the right side of his body. Neurology has not evaluated him yet. I am going to obtain a 2D echo to evaluate his LV function, continue to watch him on telemetry to rule out atrial fibrillation, aggressively manage his hypertension and dyslipidemia, and optimally control the blood pressure. It is still elevated at 159/89, but he has not been on any medications prior to coming in. PAST MEDICAL HISTORY: Significant for coronary artery disease, for which he underwent multiple angioplasties and ended up going for bypass surgery in 2019. He has not been following this on a regular basis and has not really been taking any of his medications. MEDICATIONS: At home he was on Tylenol and Pepcid. ALLERGIC: CODEINE. FAMILY HISTORY: Negative for premature coronary artery disease. SOCIAL HISTORY: Significant for smoking. He denies ETOH abuse or drug abuse. REVIEW OF SYSTEMS: HEENT is unremarkable. CARDIAC: As described above. RESPIRATORY: Negative. GI: Negative. GENITOURINARY: Negative. ALLERGY/IMMUNOLOGY: Negative. SKIN: Negative. MUSCULOSKELETAL: Significant for arthritis. PSYCHOSOCIAL: Negative. DERMATOLOGY: Negative. CONSTITUTIONAL: Negative. 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 Rest of the system review is not relevant. PHYSICAL EXAMINATION: Comfortable at rest. Afebrile. Heart rate is 73 beats per minute. Blood pressure is 159/89, respiratory rate is 17, O2 saturation is 99% on room air. There is no jugular venous distention. Chest exam reveals good air entry bilaterally. I do not hear any crackles or rhonchi. Heart exam reveals first and second heart sounds. Systolic murmur at the left lower sternal border. Abdomen is soft. Examination of extremities did not reveal any edema. Peripheral pulses are felt. A chest x-ray revealed cardiomegaly with pulmonary congestion consistent with congestive heart failure. BNP is elevated at 3970. Troponins are in the mcgrath zone and are probably related to the heart failure. ASSESSMENT: 1. Acute right-sided cerebrovascular accident. 2. Acute-onset congestive heart failure, probably systolic. 3. Coronary artery disease, status post coronary artery bypass grafting. 4. Severe uncontrolled hypertension, which is probably the reason why the patient went into heart failure. PLAN: I will obtain a 2D echo. Continue the IV Lasix, beta blockers, statins and add an CHAN inhibitor to what he is on. Will further optimize therapy based on his response. MMODL / IJN: [id number] /
[2021-12-14] MEDS: LOSARTAN 25 MG TAB PO SCH (10:36)
--- NOTE | 2021-12-14 10:53 | P.HPIM ---
History of Present Illness H&P Date: 12/14/21 HISTORY OF PRESENT ILLNESS 61-year-old male one of Dr. Hickman's patient who has not been seen or practice for the last 3 years she was lost hospitalized in 2019 for open heart surgery had 4 vessel bypass surgery along with mitral valve repair, patient apparently has not been seen by cardiology or primary care since and has not seen anybody since Covid started. According to him had COVID-19 in June 2021 and had rough time with it for a few weeks but was not hospitalized. Patient developed to have significant right-sided weakness along with droopy face and speech problem the day before his presentation he presented to [facility] department on 12/13 2021 continue to have significant weakness in the right side not been able to control his arm and legs become extremely weak. Patient CAT scan of the brain did not show any major bleed at the time, CTA showed mild atherosclerotic change in the carotid area, surprisingly his chest x-ray showed significant sign and symptom of congestive heart failure at the time. With his current symptoms patient surprisingly had mildly elevated troponin otherwise his lab including BNP was normal, his EKG showed normal sinus rhythm with non- specific ST abnormality mostly consistent with left ventricular hypertrophy. Patient was admitted for CVA we'll consult neurology, MRI of the brain will be done we'll continue secondary prevention with dual antiplatelet agent patient be started back on antihypertensive management along with antilipid management as well. Also with his noncompliance CHF echocardiogram will be order along with consult cardiology for better management of his symptom from here on. REVIEW OF SYSTEMS Constitutional: No fever, no chills, no night sweats. No weight change. No weakness, fatigue or lethargy. No daytime sleepiness. EENT: No headache. No blurred vision or double vision, no loss of vision. No loss of Hearing, no ringing in the ears, no dizziness. No nasal drainage or congestion. No epistaxis. No sore throat. Lungs: No shortness of breath, cough, no sputum production. No wheezing. Cardiovascular: Mild dyspnea with PND and orthopnea. Abdominal: No abdominal pain. No nausea, vomiting. No diarrhea. No constipation. No bloody or tarry stools.. No loss of appetite. Genitourinary: No dysuria, increased frequency, urgency. No urinary retention. Musculoskeletal: Mild muscle and joint pain and slight weakness in the right side. Integumentary: No wounds, no lesions. No rash or pruritus. No unusual bruising. No change in hair or nails. Neurologic: Mild aphasia with significant droopy face and right-sided weakness. Psychiatric: No depression. No anxiety. No mood swings. Endocrine: No abnormal blood sugars. No weight change. No excessive sweating or thirst. No cold intolerance. 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 FAMILY HISTORY Patient has 1 child who is living and well, had 1 brother with eye from Shira Gehrig's disease at age 40, 3 sister with no major medical problem. Both parents passed at age 63 for his father from stomach cancer and mother age 36 from acute urinary PHYSICAL EXAMINATION Gen: This is a well-developed looks older than his age laying in bed does not look in any respiratory distress. HEENT: Head is atraumatic, normocephalic. Pupils equal, round. Sclerae is ani cteric. NECK: Supple. No JVD. No lymphadenopathy. No thyromegaly. LUNGS: Clear to auscultation. No wheezes or rhonchi. No intercostal retractions. HEART: Regular rate and rhythm. No murmur. ABDOMEN: Soft. Bowel sounds are present. No masses. No tenderness. EXTREMITIES: No pedal edema. No calf tenderness. NEUROLOGICAL: Patient is awake, alert and oriented x3. Cranial nerves 2 through 12 are grossly intact. Still have slight droopy face the right side, had significant right-sided weakness the lower extremity only 2 out of 5 upper extremity 3 out of 5, had significantly abnormal balance and gait not been able to walk and needed help when ambulate with the right-sided weakness. ASSESSMENT AND PLAN 1. CVA with right-sided weakness: Patient was admitted to the hospital consult neurology, CTA was review had showed mild stenosis of the carotid artery, patient has significant history of atherosclerosis make.possibilities very high, echocardiogram will be done with bubble study to see if there is any patent ni ovale or any other abnormality might explain his stroke, also patient be watch for any atypical A. fib and if no explanation to his stroke was found patient might require to go for transesophageal echocardiogram. 2 atherosclerotic heart disease: Post CABG 3 years ago, patient had adequate SECONDARY prevention with no medication since according to him has not seen cardiology or primary since. Resume smaller dose of losartan along with me toprolol statin and patient will be on dual antiplatelet agent with aspirin. 3 mild congestive heart failure: Without any clinical finding of heart failure at this point with BNP has been normal the patient had significant finding and his chest x-ray will do conservative management with smaller dose of furosemide beside his current cardiac medication. 4 elevated troponin: Is possibly non-ST OR echocardiogram will be done if any wall motion abnormality patient might require to have further intervention with cardiology. 5 mitral regurgitation: Post mitral valve repair back in 2019 when he did his open heart surgery has been stable and doing well. 6 significantly elevated blood pressure with urgent hypertension: Patient has been off all medications according to him had significant problem with CHAN inhibitor from his open heart surgery but is willing to try amlodipine to control his pressure Will add losartan 25-50 mg a day titrate dose higher also start him on metoprolol titrate 25 mg twice a day. 7 hyperlipidemia: Patient will be started on atorvastatin 40 mg daily. 8 GI prophylaxis: Patient will be on Pepcid 20 mg daily. 9 DVT prophylaxis: Patient will be on anticoagulation, early mobilization and knee-high KUN hose. CODE STATUS: Full code Patient will be admitted to the hospital for a minimum of 2 night stay. Past Medical History Past Medical History: Coronary Artery Disease (CAD), Chest Pain / Angina, Heart Failure, GERD/Reflux, Hypertension, Myocardial Infarction ([place]), Osteoarthritis (OA), Pneumonia Additional Past Medical History / Comment(s): Coronary artery disease, previous myocardial infarction, previous coronary intervention and stenting to his left anterior descending coronary artery in 2004, 2006 and 2017, and to his circumflex coronary artery in 2010, chronic systolic congestion heart failure with an ejection fraction of 35-40%, moderate global hypokinesis, mild concentric LVH, moderate degree of mitral regurgitation, peripheral neuropathy, hypertension, osteoarthritis Last Myocardial Infarction Date:: unk History of Any Multi-Drug Resistant Organisms: None Reported Past Surgical History: Heart Catheterization With Stent Additional Past Surgical History / Comment(s): HEART CATH WITH STENTS X8. triple bypass Past Anesthesia/Blood Transfusion Reactions: No Reported Reaction Date of Last Stent Placement:: 2017 Past Psychological History: Anxiety, Panic Disorder Smoking Status: Current every day smoker Past Alcohol Use History: Occasional Past Drug Use History: None Reported - Past Family History Father Family Medical History: Cancer Additional Family Medical History / Comment(s): Lymphoma Mother Family Medical History: Pulmonary Embolus Medications and Allergies Home Medications Medication Instructions Recorded Confirmed Type Acetaminophen Tab [Tylenol Tab] 500 mg PO Q6HR PRN 12/13/21 12/13/21 History Famotidine [Pepcid] 20 mg PO BID PRN 12/13/21 12/13/21 History Tums Extra Strength 750mg 750 mg PO ACHS PRN 12/13/21 12/13/21 History Allergies Allergy/AdvReac Type Severity Reaction Status Date / Time codeine Allergy Anaphylaxis Verified 12/13/21 17:07 Physical Exam Vitals: Vital Signs Temp Pulse Pulse Resp BP BP Pulse Ox 12/14/21 04:00 98.1 F 73 17 159/89 99 12/14/21 02:00 73 17 12/14/21 00:00 98.3 F 73 17 162/89 99 12/13/21 23:42 154/82 12/13/21 21:57 98.2 F 74 17 167/100 99 12/13/21 20:00 98.2 F 74 17 167/100 99 12/13/21 18:35 89 16 147/89 97 12/13/21 16:41 102 H 24 198/128 98 12/13/21 16:30 98.0 F 103 H 16 190/126 96 12/13/21 16:00 97.9 F 102 H 18 180/108 94 L 12/13/21 15:55 97.6 F 89 16 181/110 94 L 12/13/21 15:42 98.0 F 81 16 184/116 93 L 12/13/21 15:25 97.1 F L 86 16 174/116 97 12/13/21 15:04 97.6 F 88 20 207/138 97 Intake and Output 12/13/21 12/14/21 12/14/21 22:59 06:59 14:59 Output Total 1100 830 Balance -1100 -830 Output: Urine 1100 830 Other: Voiding Method Urinal Urinal # Voids 1 Weight 93.44 kg 89.2 kg Results CBC & Chem 7: 12/14/21 08:15 12/14/21 08:15 Labs: Abnormal Lab Results - Last 24 Hours (Table) 12/13/21 12/13/21 12/13/21 Range/Units 15:33 15:33 21:00 MCHC 30.8 L (31.0-37.0) g/dL RDW (11.5-15.5) % Glucose 100 H (74-99) mg/dL Troponin I 0.040 H* (0.000-0.034) ng/mL 12/14/21 Range/Units 08:15 MCHC (31.0-37.0) g/dL RDW 15.6 H (11.5-15.5) % Glucose (74-99) mg/dL Troponin I (0.000-0.034) ng/mL Thrombosis Risk Factor Assmnt - Choose All That Apply Any of the Below Risk Factors Present?: No Other Risk Factors: Yes Each Risk Factor Represents 2 Points: Age 61-74 years Other congenital or acquired thrombophilia - If yes, enter type in comment: No Thrombosis Risk Factor Assessment Total Risk Factor Score: 2 Thrombosis Risk Factor Assessment Level: Low Risk
--- NOTE | 2021-12-14 12:33 | CA ---
Transthoracic Echo Report Name: Deborah Calderon Age: 61 Gender: M : 1960 Exam Date: 12/14/2021 09:21 Exam Location: [facility] Ht (in): 72 Wt (lb): 196 Ordering Physician: Ferny Mendoza MD Attending/Referring Phys: Sleep Lab Technologist America Valverde RDCS Procedure CPT: Indications: lvfunction Cardiac Hx: Hx of cardiac bypass and stents. Technical Quality: Fair Contrast 1: Total Dose (mL): Contrast 2: Total Dose (mL): MEASUREMENTS (Male / Female) Normal Values 2D ECHO LV Diastolic Diameter PLAX 5.3 cm 4.2 - 5.9 / 3.9 - 5.3 cm LV Systolic Diameter PLAX 4.5 cm IVS Diastolic Thickness 1.4 cm 0.6 - 1.0 / 0.6 - 0.9 cm LVPW Diastolic Thickness 1.7 cm 0.6 - 1.0 / 0.6 - 0.9 cm LV Relative Wall Thickness 0.6 RV Internal Dim ED PLAX 2.7 cm M-MODE Aortic Root Diameter MM 3.3 cm LA Systolic Diameter MM 4.0 cm LA Ao Ratio MM 1.2 MV E Point Septal Separation 1.2 cm AV Cusp Separation MM 2.3 cm DOPPLER AV Peak Velocity 103.4 cm/s AV Peak Gradient 4.3 mmHg MV Peak Velocity 126.2 cm/s MV Peak Gradient 6.4 mmHg MV Mean Velocity 82.0 cm/s MV Mean Gradient 3.0 mmHg MV Velocity Time Integral 31.0 cm MV Area PHT 2.7 cm MR Peak Velocity 298.7 cm/s MR Peak Gradient 35.7 mmHg Mitral E Point Velocity 115.2 cm/s Mitral A Point Velocity 59.4 cm/s Mitral E to A Ratio 1.9 MV Deceleration Time 269.0 ms TR Peak Velocity 227.9 cm/s TR Peak Gradient 20.8 mmHg Right Ventricular Systolic Press 23.8 mmHg FINDINGS Left Ventricle Mod LVH. Normal Left ventricular size. Left ventricular ejection fraction is estimated at 40-45 %. Right Ventricle The right ventricle is normal in size and function. Right Atrium The right atrium is normal in size. Left Atrium The left atrium is normal in size. Mitral Valve There is mild mitral regurgitation. Mitral valve thickened. Aortic Valve Structurally normal aortic valve without significant sclerosis or stenosis. There is no aortic regurgitation. Tricuspid Valve Structurally normal tricuspid valve without significant stenosis. Pulmonary artery systolic pressure is normal. Mild tricuspid regurgitation. Pulmonic Valve Structurally normal pulmonic valve without significant stenosis. There is no pulmonic regurgitation. Pericardium Normal pericardium without effusion. Aorta Normal aortic root dimension. CONCLUSIONS Moderate LV dysfunction with an ejection fraction of 40% atypical septal motion secondary to prior bypass surgery mild mitral and tricuspid regurgitation with hypokinesis involving septum and anteroapical wall Previewed by: Dr. Braulio Espinoza MD (Electronically Signed) Final Date: 14 December 2021 12:32
--- NOTE | 2021-12-14 14:14 | MR ---
EXAMINATION TYPE: MR brain wo/w con DATE OF EXAM: 12/14/2021 COMPARISON: CT brain 12/13/2021 HISTORY: CVA, weakness CONTRAST: Performed utilizing 9 mL intravenous Gadavist gadolinium contrast. TECHNIQUE: Multiplanar, multiecho imaging on a 3.0 Torri magnet is performed through the brain. Stud y is performed within 24 hours of arrival to the hospital. The craniovertebral junction is normal. The pituitary is normal. Diffusion-weighted imaging is performed. There appear to be 2 small hyperintensities within the left thalamus compatible some acute ischemic change. On T2 and inversion recovery weighted sequences there is subtle hyperintensity in the left thalamus c orresponding to the acute ischemic area suggesting these are new. Cerebellar pontine angles are normal. Internal artery canals appear unremarkable. There is some hyper intensity in the periventricular white matter on inversion recovery weighted sequences. Findings can be related to chronic white matter ischemic change. Differential diagnosis could include multiple scl erosis and vasculitis. No abnormal enhancement is within these regions or elsewhere within the visual ized brain. Ventricles and sulci are appropriate for the patient age. IMPRESSIONS: 1. Couple of small round hyperintensities on diffusion weighted imaging within the left thalamus comp atible with acute ischemic change. 2. Chronic white matter ischemic changes in the periventricular white matter.
--- NOTE | 2021-12-14 15:17 | P.CNNES ---
History of Present Illness Consult date: 12/14/21 Reason for Consult: right sided weakness, CVA History of Present Illness: The patient is a 61-year-old, right-handed male who is seen in neurologic consultation on December 14, 2021, via teleneurology. The patient is being seen because of right-sided weakness and concern for stroke. The patient reports that at approximately 9:30 or 10 PM yesterday night, he had the sudden onset of numbness and weakness involving his "entire right side". He reports that the symptoms went from the top of his head all the way down to his foot, including his chest and abdomen. The patient also reports numbness involving the right side of his tongue. He reports feeling as if he will "tip over" if he stands because he reports having "no control of the whole right side" The patient denies loss of vision. He does report feeling as if his right eye lid is heavy. He says his symptoms are worse when he is not wearing oxygen. Patient does not use oxygen at home. The patient denies difficulty swallowing and hearing. He feels as if his speech is "slower". Patient denies difficulty with urination. He does report having no bowel movement as of yet today. The patient denies a history of stroke. Workup in the emergency department reveals a normal CT scan of the brain. CT angiogram of the head and neck reveals right internal carotid artery stenosis. The patient was markedly hypertensive when he came into the emergency department, with a blood pressure of 207/138. Past Medical History Past Medical History: Coronary Artery Disease (CAD), Chest Pain / Angina, Heart Failure, GERD/Reflux, Hypertension, Myocardial Infarction (ME), Osteoarthritis (OA), Pneumonia Additional Past Medical History / Comment(s): Coronary artery disease, previous myocardial infarction, previous coronary intervention and stenting to his left anterior descending coronary artery in 2004, 2006 and 2017, and to his circumflex coronary artery in 2010, chronic systolic congestion heart failure with an ejection fraction of 35-40%, moderate global hypokinesis, mild concentric LVH, moderate degree of mitral regurgitation, peripheral neuropathy, hypertension, osteoarthritis Last Myocardial Infarction Date:: unk History of Any Multi-Drug Resistant Organisms: None Reported Past Surgical History: Heart Catheterization With Stent Additional Past Surgical History / Comment(s): HEART CATH WITH STENTS X8. triple bypass Past Anesthesia/Blood Transfusion Reactions: No Reported Reaction Date of Last Stent Placement:: 2017 Past Psychological History: Anxiety, Panic Disorder Smoking Status: Current every day smoker Past Alcohol Use History: Occasional Past Drug Use History: None Reported - Past Family History Father Family Medical History: Cancer Additional Family Medical History / Comment(s): Lymphoma Mother Family Medical History: Pulmonary Embolus Medications and Allergies Home Medications Medication Instructions Recorded Confirmed Type Acetaminophen Tab [Tylenol Tab] 500 mg PO Q6HR PRN 12/13/21 12/13/21 History Famotidine [Pepcid] 20 mg PO BID PRN 12/13/21 12/13/21 History Tums Extra Strength 750mg 750 mg PO ACHS PRN 12/13/21 12/13/21 History Allergies Allergy/AdvReac Type Severity Reaction Status Date / Time codeine Allergy Anaphylaxis Verified 12/13/21 17:07 Physical Examination - Vital Signs Vital Signs: Vital Signs Temp Pulse Pulse Resp BP BP Pulse Ox 12/14/21 08:00 98.0 F 80 18 154/81 94 L 12/14/21 04:00 98.1 F 73 17 159/89 99 12/14/21 02:00 73 17 12/14/21 00:00 98.3 F 73 17 162/89 99 12/13/21 23:42 154/82 12/13/21 21:57 98.2 F 74 17 167/100 99 12/13/21 20:00 98.2 F 74 17 167/100 99 12/13/21 18:35 89 16 147/89 97 12/13/21 16:41 102 H 24 198/128 98 12/13/21 16:30 98.0 F 103 H 16 190/126 96 12/13/21 16:00 97.9 F 102 H 18 180/108 94 L 12/13/21 15:55 97.6 F 89 16 181/110 94 L 12/13/21 15:42 98.0 F 81 16 184/116 93 L 12/13/21 15:25 97.1 F L 86 16 174/116 97 12/13/21 15:04 97.6 F 88 20 207/138 97 Intake and Output 12/13/21 12/14/21 12/14/21 22:59 06:59 14:59 Intake Total 240 Output Total 1100 830 Balance -1100 -830 240 Intake: Oral 240 Output: Urine 1100 830 Other: Voiding Method Urinal Urinal Urinal # Voids 1 Weight 93.44 kg 89.2 kg Gen.: The patient is reclining in the bed. He is well-nourished. He is in no acute distress. HEENT: Head is atraumatic, normocephalic. Fundus not visualized. There is no scleral icterus. Mucous membranes are moist. Neck: Supple without carotid bruits Heart: Regular rate and rhythm without murmur Lungs: Clear to auscultation Extremities: Without edema Neurological examination Mental status: The patient is awake, alert and oriented 3. His speech is clear. There is no dysarthria or aphagia. The patient is able to accurately repeat phrases. He is able to follow two-step commands. There is no right/left confusion. Cranial nerves: Pupils are equal, round and reactive to light. Visual quiroz are full to confrontation. Extraocular movements are intact. There is no facial asymmetry. Facial sensation is reportedly intact. Hearing is grossly intact. Uvula and palate are midline. Shoulder shrug is diminished on the right. Tongue protrudes midline. Motor: Left upper and lower extremity strength is 5/5. Right upper and lower extremity strength testing is inconsistent. The patient has difficulty holding his right lower extremity up from the bed. He is able to flex his right knee and hold it in place. Right-sided strength is 3-4/5. Sensation: Intact to light touch throughout. There is no extinction with double simultaneous stimulation. Deep tendon reflexes: 2+/4+ throughout. Plantar responses are flexor bilaterally. Coordination: Finger to nose testing is intact bilaterally. There is slowing of rapid alternating movements. The patient has difficulty performing right sided heel to bernal testing. Gait: Not assessed Results - Laboratory Findings CBC and BMP: 12/14/21 08:15 12/14/21 08:15 Abnormal Lab Findings: Abnormal Labs 12/13/21 12/13/21 12/13/21 15:33 15:33 21:00 MCHC 30.8 L RDW Carbon Dioxide Glucose 100 H Troponin I 0.040 H* 12/14/21 12/14/21 08:15 08:15 MCHC RDW 15.6 H Carbon Dioxide 33 H Glucose Troponin I - Diagnostic Findings Comments: MRI of the brain images have been personally reviewed. I agree with the radio logist's report of evidence of acute ischemia involving the left thalamus. Assessment and Plan Assessment: 1. Inconsistent neurological examination. Although the patient's right sided strength does seem to vary, it is weaker than the left for the most part. There is no reflex asymmetry. Plantar responses are flexor bilaterally. MRI of the brain is positive for acute ischemia involving the left thalamus 2. Hypertensive urgency 3. Right internal carotid artery stenosis Plan: 1. The patient should be started on aspirin 81 mg and Plavix 75 mg, dual antiplatelet therapy for 21 days. Following this, the patient should be continued on aspirin monotherapy 2. Stroke orders should be placed [id number] echocardiogram, lipid panel, hemoglobin A1c, TSH, PT, OT and speech therapy consultations 3. High intensity statin should be initiated 4. Consider transfer to acute inpatient rehabilitation, when medically stable Thank you for allowing us to participate in the care of this patient Time with Patient: Greater than 30 (Spent 40 minutes with patient via tele- medicine)
[2021-12-14] MEDS: CLOPIDOGREL 75 MG TAB PO SCH (18:34)
[2021-12-14] MEDS: ACETAMINOPHEN TAB 500 MG TAB PO PRN (20:48)
[2021-12-14 22:58] LABS: Chol/HDL Ratio 6.55 Ratio; LDL Cholesterol,Calculated 168.2 mg/dL (0.0-131.0)
[2021-12-15 06:44] LABS: Glucose,Whole Blood 113 mg/dL (75-99)
[2021-12-15] MEDS ORDERED: ASPIRIN 325 MG TAB PO STA (07:05)
--- NOTE | 2021-12-15 07:10 | CT ---
EXAM: CT Head Without Intravenous Contrast CLINICAL HISTORY: ITS.REASON CT Reason: Neuro deficit, acute, stroke suspected TECHNIQUE: Axial computed tomography images of the head/brain without intravenous contrast. CTDI is 60.27 mGy and DLP is 1252.9 mGy-cm. This CT exam was performed using one or more of the following dose reduction techniques: automated exposure control, adjustment of the mA and/or kV according to patient size, and/or use of iterative reconstruction technique. COMPARISON: 12/13/2021 FINDINGS: Brain: Small evolving lacunar infarct in the left thalamus. There is some stable chronic low-attenuation in the cerebral white matter. No hemorrhage. Ventricles: No acute findings. No ventriculomegaly. Bones/joints: Unremarkable. No acute fracture. Soft tissues: Unremarkable. Sinuses: Unremarkable as visualized. No acute sinusitis. Mastoid air cells: Unremarkable as visualized. No mastoid effusion. IMPRESSION: 1. Small evolving lacunar infarct in the left thalamus. 2. No intracranial hemorrhage. 3. Chronic small vessel ischemic disease.
[2021-12-15] MEDS: METOPROLOL TARTRATE 12.5 MG TAB PO SCH ×2 (08:35→20:22)
[2021-12-15] MEDS: CLOPIDOGREL 75 MG TAB PO SCH (08:35)
[2021-12-15] MEDS: FAMOTIDINE 20 MG TAB PO SCH ×2 (08:35→20:22)
[2021-12-15] MEDS: amLODIPine 5 MG TAB PO SCH ×2 (08:35→20:22)
[2021-12-15] MEDS: ATORVASTATIN 40 MG TAB PO SCH (08:35)
[2021-12-15] MEDS: LOSARTAN 25 MG TAB PO SCH (08:35)
[2021-12-15] MEDS: FUROSEMIDE 10 MG/ML 4 ML VIAL IV SCH ×2 (08:36→20:22)
[2021-12-15 08:55] LABS: HCT 42.2 % (39.0-53.0); HGB 13.4 gm/dL (13.0-17.5); Hypochromasia Slight; MCH 27.9 pg (25.0-35.0); MCHC 31.7 g/dL (31.0-37.0); MCV 88.1 fL (80.0-100.0); Mean Platelet Volume 8.3; Platelet Count 257 k/uL (150-450); RBC 4.79 m/uL (4.30-5.90); RDW 15.6 % (11.5-15.5); WBC 5.7 k/uL (3.8-10.6)
[2021-12-15 09:15] LABS: Albumin 4.4 g/dL (3.5-5.0); Calcium 8.8 mg/dL (8.4-10.2); Potassium 4.1 mmol/L (3.5-5.1); Total Bilirubin 0.9 mg/dL (0.2-1.3); Total Protein 7.9 g/dL (6.3-8.2)
--- NOTE | 2021-12-15 12:18 | P.PN ---
Subjective Progress Note Date: 12/15/21 The patient is seen in neurologic follow-up on 12/15/2021, via teleneurology. A code stroke was called and the patient this morning. He reports feeling as if his right arm was much heavier than it had been. He was also feeling sweaty and nauseated. At the time of my evaluation, patient feels as if his right arm is back to how it was feeling yesterday. He is no longer nauseated or diaphoretic. Objective - Vital Signs Vital signs: Vital Signs Temp 149 F H 12/15/21 06:39 Pulse 71 12/15/21 07:45 Resp 16 12/15/21 07:45 BP 144/89 12/15/21 07:45 Pulse Ox 94 L 12/15/21 07:45 Intake & Output 12/14/21 12/15/21 12/15/21 18:59 06:59 18:59 Intake Total 838 300 480 Output Total 720 350 Balance 838 -420 130 Weight 89 kg Intake: Oral 838 300 480 Output: Urine 720 350 Other: Voiding Method Urinal Urinal - Exam Gen.: The patient is reclining in the bed. He is in no acute distress. HEENT: Head is atraumatic, normocephalic. Fundus not visualized. There is no scleral icterus. Mucous membranes are moist. Neurologic examination Mental status: The patient is awake, alert and oriented 3. Speech is clear. Cranial nerves: 2-12 grossly intact Motor: Right photo retoucher strength 4/5. Biceps 3+/5. Deltoid 3/5. Right hip flexors 3-/5. Right plantar flexors 3-/5. Right ankle dorsiflexors 5/5. Left-sided strength 5/5. Deep tendon reflexes: 2+/4+ throughout - Labs CBC & Chem 7: 12/15/21 08:06 12/15/21 08:06 Labs: Abnormal Lab Results - Last 24 Hours (Table) 12/14/21 12/15/21 12/15/21 Range/Units 08:15 06:42 08:06 RDW 15.6 H (11.5-15.5) % BUN (9-20) mg/dL Creatinine (0.66-1.25) mg/dL Glucose (74-99) mg/dL POC Glucose (mg/dL) 113 H (75-99) mg/dL Cholesterol 232.00 H (0.00-200.00) mg/dL LDL Cholesterol, Calc 168.2 H (0.0-131.0) mg/dL HDL Cholesterol 35.40 L (40.00-60.00) mg/dL 12/15/21 Range/Units 08:06 RDW (11.5-15.5) % BUN 26 H (9-20) mg/dL Creatinine 1.27 H (0.66-1.25) mg/dL Glucose 102 H (74-99) mg/dL POC Glucose (mg/dL) (75-99) mg/dL Cholesterol (0.00-200.00) mg/dL LDL Cholesterol, Calc (0.0-131.0) mg/dL HDL Cholesterol (40.00-60.00) mg/dL Assessment and Plan Assessment: 1. Right hemiparesis, unchanged from yesterday. There is no reflex asymmetry. Plantar responses are flexor bilaterally. CT scan the brain reveals the previously noted left thalamic infarct. There is no reported edema or hemorrhage. 2. Hypertensive urgency 3. Right internal carotid artery stenosis Plan: 1. The patient should be started on aspirin 81 mg and Plavix 75 mg, dual antiplatelet therapy for 21 days. Following this, the patient should be continued on aspirin monotherapy 2. Stroke orders should be placed [id number] echocardiogram, lipid panel, hemoglobin A1c, TSH, PT, OT and speech therapy consultations 3. High intensity statin should be initiated 4. Consider transfer to acute inpatient rehabilitation, when medically stable. This was discussed with the patient. He is concerned about how he will "live my life", now that he has had a stroke. Thank you for allowing us to participate in the care of this patient Time with Patient: Less than 30 (Spent 20 minutes with patient via telemedicine)
--- NOTE | 2021-12-15 13:27 | P.PN ---
Subjective Progress Note Date: 12/15/21 HISTORY OF PRESENT ILLNESS 61-year-old male one of Dr. Hickman's patient who has not been seen or practice for the last 3 years she was lost hospitalized in 2019 for open heart surgery had 4 vessel bypass surgery along with mitral valve repair, patient apparently has not been seen by cardiology or primary care since and has not seen anybody since Covid started. According to him had COVID-19 in June 2021 and had rough time with it for a few weeks but was not hospitalized. Patient developed to have significant right-sided weakness along with droopy face and speech problem the day before his presentation he presented to [facility] department on 12/13 2021 continue to have significant weakness in the right side not been able to control his arm and legs become extremely weak. Patient CAT scan of the brain did not show any major bleed at the time, CTA showed mild atherosclerotic change in the carotid area, surprisingly his chest x-ray showed significant sign and symptom of congestive heart failure at the time. With his current symptoms patient surprisingly had mildly elevated troponin otherwise his lab including BNP was normal, his EKG showed normal sinus rhythm with non- specific ST abnormality mostly consistent with left ventricular hypertrophy. Patient was admitted for CVA we'll consult neurology, MRI of the brain will be done we'll continue secondary prevention with dual antiplatelet agent patient be started back on antihypertensive management along with antilipid management as well. Also with his noncompliance CHF echocardiogram will be order along with consult cardiology for better management of his symptom from here on. 12/15: Patient had extended symptom of right-sided weakness started acting up and extension of stroke. The stroke team was called patient was seen by telemetry neurology, he settled down no worsening symptoms since. Review MRI of the brain showed couple of small round of hyper intensity or diffuse weighted imaging of the left thalamus compatible with acute ischemic change also had a chronic white matter changes well. CT of the brain was done again early this morning when the stroke team was called and showed small evolving lacunar infarct in the left thalamus with no change from the MRI result. Patient feels slightly but better this morning continued to have significant weakness in the right side, been assist and help with physical therapy will consult physiatry for possible inpatient rehab. REVIEW OF SYSTEMS Constitutional: No fever, no chills, no night sweats. No weight change. No weakness, fatigue or lethargy. No daytime sleepiness. EENT: No headache. No blurred vision or double vision, no loss of vision. No loss of Hearing, no ringing in the ears, no dizziness. No nasal drainage or congestion. No epistaxis. No sore throat. Lungs: No shortness of breath, cough, no sputum production. No wheezing. Cardiovascular: Mild dyspnea with PND and orthopnea. Abdominal: No abdominal pain. No nausea, vomiting. No diarrhea. No constipation. No bloody or tarry stools.. No loss of appetite. Genitourinary: No dysuria, increased frequency, urgency. No urinary retention. Musculoskeletal: Mild muscle and joint pain and slight weakness in the right side. Integumentary: No wounds, no lesions. No rash or pruritus. No unusual bruising. No change in hair or nails. Neurologic: Mild aphasia with significant droopy face and right-sided weakness. Psychiatric: No depression. No anxiety. No mood swings. Endocrine: No abnormal blood sugars. No weight change. No excessive sweating or thirst. No cold intolerance. PHYSICAL EXAMINATION Gen: This is a well-developed looks older than his age laying in bed does not look in any respiratory distress. HEENT: Head is atraumatic, normocephalic. Pupils equal, round. Sclerae is anicteric. NECK: Supple. No JVD. No lymphadenopathy. No thyromegaly. LUNGS: Clear to auscultation. No wheezes or rhonchi. No intercostal retractions. HEART: Regular rate and rhythm. No murmur. ABDOMEN: Soft. Bowel sounds are present. No masses. No tenderness. EXTREMITIES: No pedal edema. No calf tenderness. NEUROLOGICAL: Patient is awake, alert and oriented x3. Cranial nerves 2 through 12 are grossly intact. Still have slight droopy face the right side, had significant right-sided weakness the lower extremity only 2 out of 5 upper extremity 3 out of 5, had significantly abnormal balance and gait not been able to walk and needed help when ambulate with the right-sided weakness. ASSESSMENT AND PLAN 1. CVA with right-sided weakness: Complete testing so far with CTA, CT of the brain, MRI of the brain, and neuro consultation, continue current treatment management still recommended by neurology to do Plavix along with aspirin and better management and blood pressure along with keeping patient on atorvastatin for better management of lipid disease. 2 atherosclerotic heart disease: Post CABG 3 years ago, patient had adequate SECONDARY prevention with no medication since according to him has not seen cardiology or primary since. Resume smaller dose of losartan along with metopr olol statin and patient will be on dual antiplatelet agent with aspirin. 3 mild congestive heart failure: Without any clinical finding of heart failure at this point with BNP has been normal the patient had significant finding and his chest x-ray will do conservative management with smaller dose of furosemide beside his current cardiac medication. 4 elevated troponin: Is possibly non-ST CT echocardiogram will be done if any wall motion abnormality patient might require to have further intervention with cardiology. 5 mitral regurgitation: Post mitral valve repair back in 2019 when he did his open heart surgery has been stable and doing well. 6 urgent hypertension: Much better management amlodipine 5 mg twice a day, metoprolol 12.5 mg twice a day and losartan 25 mg daily. 7 hyperlipidemia: Patient will be started on atorvastatin 40 mg daily. Will require quick follow-up as an outpatient for testing and further management. CODE STATUS: Full code We'll consult physiatry for possible inpatient rehab. Objective - Vital Signs Vital signs: Vital Signs Temp 149 F H 12/15/21 06:39 Pulse 71 12/15/21 07:45 Resp 16 12/15/21 07:45 BP 144/89 12/15/21 07:45 Pulse Ox 94 L 12/15/21 07:45 Intake & Output 12/14/21 12/15/21 12/15/21 18:59 06:59 18:59 Intake Total 838 300 480 Output Total 720 350 Balance 838 -420 130 Weight 89 kg Intake: Oral 838 300 480 Output: Urine 720 350 Other: Voiding Method Urinal Urinal - Labs CBC & Chem 7: 12/15/21 08:06 12/15/21 08:06 Labs: Abnormal Lab Results - Last 24 Hours (Table) 12/14/21 12/15/21 12/15/21 Range/Units 08:15 06:42 08:06 RDW 15.6 H (11.5-15.5) % BUN (9-20) mg/dL Creatinine (0.66-1.25) mg/dL Glucose (74-99) mg/dL POC Glucose (mg/dL) 113 H (75-99) mg/dL Cholesterol 232.00 H (0.00-200.00) mg/dL LDL Cholesterol, Calc 168.2 H (0.0-131.0) mg/dL HDL Cholesterol 35.40 L (40.00-60.00) mg/dL 12/15/21 Range/Units 08:06 RDW (11.5-15.5) % BUN 26 H (9-20) mg/dL Creatinine 1.27 H (0.66-1.25) mg/dL Glucose 102 H (74-99) mg/dL POC Glucose (mg/dL) (75-99) mg/dL Cholesterol (0.00-200.00) mg/dL LDL Cholesterol, Calc (0.0-131.0) mg/dL HDL Cholesterol (40.00-60.00) mg/dL
--- NOTE | 2021-12-15 18:46 | PN ---
PROGRESS NOTE Deborah is a 61-year-old gentleman with history of CAD, status post CABG, hypertension, dyslipidemia, who has not been taking his medications at home. He came into hospital with sudden-onset right-sided numbness and weakness and is currently being evaluated and treated for CVA. From cardiac standpoint, patient is doing well, has not had any episodes of chest pain or difficulty in breathing since yesterday. An echocardiogram revealed moderate LV systolic dysfunction with an ejection fraction of 40%. On exam, heart rate is 70 beats per minute. Blood pressure is 140/89, respiratory rate is 16. There is no jugular venous distention. Chest exam reveals good air entry bilaterally. Heart exam reveals first and second heart sounds and a systolic murmur at the left lower sternal border. Abdomen is soft. Examination of extremities did not reveal any edema. Right-sided weakness has improved. Patient had a Telehealth visit and patient is to undergo inpatient rehab. ASSESSMENT AND PLAN: 1. Cerebrovascular accident with right-sided hemiparesis. 2. Coronary artery disease, status post coronary artery bypass grafting. 3. Ischemic cardiomyopathy. Patient will continue current medications. MMODL / IJN: [id number] /
--- NOTE | 2021-12-16 05:36 | P.CONS ---
History of Present Illness - Chief Complaint Gait disturbance, right hemiparesthesias - History of Present Illness I had the opportunity to see patient for inpatient rehab consultation with regard to gait disturbance. He is admitted to [facility] December 13 acute onset right-sided numbness and weakness. Seen by neurology, Dr. Moreno. Initial head CT demonstrates only mild atrophy but a follow-up head CT demonstrates left thalamic infarct and chronic change. Brain MRI demonstrates left thalamic infarct and chronic changes well. Chest x-ray with moderate CHF. Angiogram CT with mild stenosis right and left internal carotid. PT and OT prescribed. Previous functional history as elicited from patient: 61-year-old right-handed white male who lives in a first-floor apartment with significant other of 30 years. Both do with her own cooking and laundry. He depends on his sister for driving. Independent with standing shower. Had a 4 wheeled walker that he uses for gait with his open heart surgery 3 or 4 years ago, infected rehab at [facility]. Admits to occasional smoke. Review of Systems Review of systems: ENT: Denies sneezes or discharge. Eyes: Denies discharge or photophobia. Cardiac: Denies chest pain or palpitation. Pulmonary: Denies cough or shortness of breath. Gastrointestinal: Denies nausea, emesis, constipation, diarrhea. Genitourinary: Denies discharge or frequency. Musculoskeletal: Denies muscle or bone aches. Neurologic: Right-sided weakness and numbness. Endocrine: Denies shakes or sweats. Oncology: Denies cancers. Dermatologic: Denies rash, itching, pruritus. ALLERGY/immunology: Denies sneezes, rashes. Past Medical History Past Medical History: Coronary Artery Disease (CAD), Chest Pain / Angina, Heart Failure, GERD/Reflux, Hypertension, Myocardial Infarction (MT), Osteoarthritis (OA), Pneumonia Additional Past Medical History / Comment(s): Coronary artery disease, previous myocardial infarction, previous coronary intervention and stenting to his left anterior descending coronary artery in 2004, 2006 and 2017, and to his circumflex coronary artery in 2010, chronic systolic congestion heart failure with an ejection fraction of 35-40%, moderate global hypokinesis, mild concentric LVH, moderate degree of mitral regurgitation, peripheral neuropathy, hypertension, osteoarthritis Last Myocardial Infarction Date:: unk History of Any Multi-Drug Resistant Organisms: None Reported Past Surgical History: Heart Catheterization With Stent Additional Past Surgical History / Comment(s): HEART CATH WITH STENTS X8. triple bypass Past Anesthesia/Blood Transfusion Reactions: No Reported Reaction Date of Last Stent Placement:: 2017 Past Psychological History: Anxiety, Panic Disorder Smoking Status: Current every day smoker Past Alcohol Use History: Occasional Past Drug Use History: None Reported - Past Family History Father Family Medical History: Cancer Additional Family Medical History / Comment(s): Lymphoma Mother Family Medical History: Pulmonary Embolus Medications and Allergies Home Medications Medication Instructions Recorded Confirmed Type Acetaminophen Tab [Tylenol Tab] 500 mg PO Q6HR PRN 12/13/21 12/13/21 History Famotidine [Pepcid] 20 mg PO BID PRN 12/13/21 12/13/21 History Tums Extra Strength 750mg 750 mg PO ACHS PRN 12/13/21 12/13/21 History Allergies Allergy/AdvReac Type Severity Reaction Status Date / Time codeine Allergy Anaphylaxis Verified 12/13/21 17:07 Physical Exam Vitals: Vital Signs Temp Pulse Pulse Resp BP BP Pulse Ox 12/16/21 04:00 98.3 F 80 17 128/81 95 12/16/21 02:00 74 16 12/16/21 00:00 98.1 F 74 16 123/74 94 L 12/15/21 20:00 98.7 F 73 16 131/82 93 L 12/15/21 15:58 98.2 F 80 18 154/94 94 L 12/15/21 14:00 78 16 12/15/21 08:00 78 16 12/15/21 07:45 71 16 144/89 94 L 12/15/21 07:30 72 16 131/84 96 12/15/21 07:15 70 16 138/84 93 L 12/15/21 06:47 71 16 162/90 93 L 12/15/21 06:39 149 F H 77 16 149/89 77 L Intake and Output 12/15/21 12/15/21 12/16/21 14:59 22:59 06:59 Intake Total 720 600 320 Output Total 350 300 600 Balance 370 300 -280 Intake: Oral 720 600 320 Output: Urine 350 300 600 Other: Voiding Method Urinal Urinal Urinal Skin: Good color, texture, turgor. General: Medium build and comfortable appearance. Head: Normocephalic, atraumatic. Eyes: Symmetric. Pupils equal round. Ears: Symmetric. Hearing within normal limits. Mouth: Clear. Neck: Supple. Carotid without bruit. Cardiac: Regular rate and rhythm. Lungs: Clear anteriorly and posteriorly. Abdomen: Soft active nontender. Extremities: Normal tone. Neurological: Mental status: Alert, cooperative, pleasant. Cranial nerves: Symmetric facial tone and trapezius. Motor: Normal strength and isolation left side. Right-sided weakness. Sensation: Intact left side. Diminished right side. DTRs: Symmetric and equal throughout. Mobility: Sits with assistance. Results CBC & Chem 7: 12/15/21 08:06 12/15/21 08:06 Labs: Abnormal Lab Results - Last 24 Hours (Table) 12/15/21 12/15/21 12/15/21 Range/Units 06:42 08:06 08:06 RDW 15.6 H (11.5-15.5) % BUN 26 H (9-20) mg/dL Creatinine 1.27 H (0.66-1.25) mg/dL Glucose 102 H (74-99) mg/dL POC Glucose (mg/dL) 113 H (75-99) mg/dL Assessment and Plan (1) Cerebrovascular accident (CVA) Current Visit: Yes Status: Acute Code(s): I63.9 - CEREBRAL INFARCTION, UNSPECIFIED SNOMED Code(s): 011216459 (2) Right sided weakness Current Visit: Yes Status: Acute Code(s): R53.1 - WEAKNESS SNOMED Code(s): 962134763 (3) Acute exacerbation of chronic obstructive airways disease Current Visit: No Status: Acute Code(s): J44.1 - CHRONIC OBSTRUCTIVE PULMONARY DISEASE W (ACUTE) EXACERBATION SNOMED Code(s): 935976070 (4) Panic anxiety syndrome Current Visit: No Status: Acute Priority: High Code(s): F41.0 - PANIC DIS ORDER [EPISODIC PAROXYSMAL ANXIETY] SNOMED Code(s): 429010257 Plan: Comments and plan: At this time patient has obvious safety concerns would anticipate the need and benefit in rehab. Patient however require PT and OT note demonstrate this as well. Patient advised to participate with therapies so that he can return to rehab. Previously there for cardiac reason.
[2021-12-16] MEDS: ACETAMINOPHEN TAB 500 MG TAB PO PRN (06:35)
[2021-12-16 08:04] LABS: Albumin 4.4 g/dL (3.5-5.0); Calcium 9.2 mg/dL (8.4-10.2); Potassium 4.2 mmol/L (3.5-5.1); Total Bilirubin 0.9 mg/dL (0.2-1.3); Total Protein 8.1 g/dL (6.3-8.2)
[2021-12-16 08:15] LABS: HCT 44.8 % (39.0-53.0); HGB 13.7 gm/dL (13.0-17.5); Hypochromasia Slight; MCH 27.2 pg (25.0-35.0); MCHC 30.5 g/dL (31.0-37.0); MCV 89.1 fL (80.0-100.0); Mean Platelet Volume 8.5; Platelet Count 249 k/uL (150-450); RBC 5.03 m/uL (4.30-5.90); WBC 7.3 k/uL (3.8-10.6)
--- NOTE | 2021-12-16 08:40 | P.DS ---
Providers Date of admission: 12/13/21 17:51 Expected date of discharge: 12/16/21 Attending physician: Ferny Mendoza Consults: 12/13/21 17:53 Consult Physician Urgent Consulting Provider: Bert Sarah Consult Reason/Comments: right sided weakness, possible cva Do you want consulting provider notified?: Yes Consult Physician Urgent Consulting Provider: [facility] Consult Reason/Comments: AECHF Do you want consulting provider notified?: Yes 12/15/21 12:17 Consult Physician Routine Consulting Provider: Chas Alvarez Consult Reason/Comments: CVA Do you want consulting provider notified?: Yes Primary care physician: Arelis Hickman [facility] Course: HISTORY OF PRESENT ILLNESS 61-year-old male one of Dr. Hickman's patient who has not been seen or practice for the last 3 years she was lost hospitalized in 2019 for open heart surgery had 4 vessel bypass surgery along with mitral valve repair, patient apparently has not been seen by cardiology or primary care since and has not seen anybody since Covid started. According to him had COVID-19 in June 2021 and had rough time with it for a few weeks but was not hospitalized. Patient developed to have significant right-sided weakness along with droopy face and speech problem the day before his presentation he presented to demurs department on 12/13 2021 continue to have significant weakness in the right side not been able to control his arm and legs become extremely weak. Patient CAT scan of the brain did not show any major bleed at the time, CTA showed mild atherosclerotic change in the carotid area, surprisingly his chest x-ray showed significant sign and symptom of congestive heart failure at the time. With his current symptoms patient surprisingly had mildly elevated troponin otherwise his lab including BNP was normal, his EKG showed normal sinus rhythm with non- specific ST abnormality mostly consistent with left ventricular hypertrophy. Patient was admitted for CVA we'll consult neurology, MRI of the brain will be done we'll continue secondary prevention with dual antiplatelet agent patient be started back on antihypertensive management along with antilipid management as well. Also with his noncompliance CHF echocardiogram will be order along with consult cardiology for better management of his symptom from here on. 12/15: Patient had extended symptom of right-sided weakness started acting up and extension of stroke. The stroke team was called patient was seen by telemetry neurology, he settled down no worsening symptoms since. Review MRI of the brain showed couple of small round of hyper intensity or diffuse weighted imaging of the left thalamus compatible with acute ischemic change also had a chronic white matter changes well. CT of the brain was done again early this morning when the stroke team was called and showed small evolving lacunar infarct in the left thalamus with no change from the MRI result. Patient feels slightly but better this morning continued to have significant weakness in the right side, been assist and help with physical therapy will consult physiatry for possible inpatient rehab. 12/16: Patient is seen today on the cardiac stepdown unit, he has been awake alert, mild weakness on the right side. Patient has been seen by neurology with recommendations for aspirin 81 mg and Plavix 75 mg daily, dual platelet therapy for 21 days and then should be continued on aspirin monotherapy. Repeat blood work reveals CBC is unremarkable. BUN 32 creatinine 1.44. Triglycerides 142, cholesterol 232, LDL 168, HDL 35. TSH 1.850. Hemoglobin A1c was 5.7. Patient has been afebrile, heart rate in the 70s and 80s, blood pressure 128/81, pulse ox 95% on room air. monitoring coordinator has been a sinus rhythm. He has been seen by cardiology and IV Lasix changed to oral and Aldactone added. Echocardiogram reveals EF of 40%, mild mitral and tricuspid regurgitation. Patient has been seen by Dr. Alvarez for inpatient rehab. Patient will be discharged to inpatient rehab once all arrangements are completed. DISCHARGE DIAGNOSES 1. Acute ischemic CVA with right-sided weakness 2 atherosclerotic heart disease: Post CABG 3 years ago, patient had adequate SECONDARY prevention with no medication since according to him has not seen cardiology or primary since. 3 mild chronic systolic heart failure with ischemic cardiomyopathy 4 elevated troponin, acute myocardial infarction ruled out by cardiology 5 mitral regurgitation: Post mitral valve repair back in 2019 6 urgent hypertension 7 hyperlipidemia DISCHARGE PLAN INPT Rehab Greater than 35 minutes was utilized and coordinating patient's discharge. Impression and plan of care have been directed as dictated by the jamiaing manolo louis. Samantha Carrasco nurse practitioner acting as scribe for signing physician. Patient Condition at Discharge: Stable Plan - Discharge Summary Discharge Rx Participant: No New Discharge Prescriptions: New Atorvastatin [Lipitor] 40 mg PO DAILY #30 tab Metoprolol Tartrate [Lopressor] 12.5 mg PO BID #60 tab amLODIPine [Norvasc] 5 mg PO BID #60 tab Spironolactone [Aldactone] 25 mg PO DAILY #30 tab Losartan [Cozaar] 50 mg PO DAILY #30 tab Furosemide [Lasix] 40 mg PO BID@0900,1600 #60 tab Clopidogrel [Plavix] 75 mg PO DAILY #21 tab Continue Tums Extra Strength 750mg 750 mg PO ACHS PRN PRN Reason: Gi Upset Acetaminophen Tab [Tylenol] 500 mg PO Q6HR PRN PRN Reason: Pain Or Fever > 100.5 Famotidine [Pepcid] 20 mg PO BID PRN PRN Reason: acid reflux Discharge Medication List Acetaminophen Tab [Tylenol] 500 mg PO Q6HR PRN 12/13/21 [History] Famotidine [Pepcid] 20 mg PO BID PRN 12/13/21 [History] Tums Extra Strength 750mg 750 mg PO ACHS PRN 12/13/21 [History] Atorvastatin [Lipitor] 40 mg PO DAILY #30 tab 12/16/21 [Rx] Clopidogrel [Plavix] 75 mg PO DAILY #21 tab 12/16/21 [Rx] Furosemide [Lasix] 40 mg PO BID@0900,1600 #60 tab 12/16/21 [Rx] Losartan [Cozaar] 50 mg PO DAILY #30 tab 12/16/21 [Rx] Metoprolol Tartrate [Lopressor] 12.5 mg PO BID #60 tab 12/16/21 [Rx] Spironolactone [Aldactone] 25 mg PO DAILY #30 tab 12/16/21 [Rx] amLODIPine [Norvasc] 5 mg PO BID #60 tab 12/16/21 [Rx] Follow up Appointment(s)/Referral(s): [facility] Visiting Nurse, [NON-STAFF] - Arelis Hickman MD [Primary Care Provider] - 1 Week lEgin Morse MD [STAFF PHYSICIAN] - 1 Week Discharge Disposition: OTHER INSTITUTION NOT DEFINED
[2021-12-16] MEDS ORDERED: LOSARTAN 50 MG TAB PO SCH (09:00)
[2021-12-16] MEDS: ATORVASTATIN 40 MG TAB PO SCH (09:36)
[2021-12-16] MEDS: FAMOTIDINE 20 MG TAB PO SCH (09:36)
[2021-12-16] MEDS: CLOPIDOGREL 75 MG TAB PO SCH (09:36)
[2021-12-16] MEDS: FUROSEMIDE 10 MG/ML 4 ML VIAL IV SCH (09:37)
[2021-12-16] MEDS ORDERED: SPIRONOLACTONE 25 MG TAB PO SCH (09:45)
--- NOTE | 2021-12-16 11:50 | P.PN ---
Subjective Progress Note Date: 12/16/21 The patient is a 61-year-old right-handed male, who came to the hospital at around 3 PM on 12/12/2021. Patient developed at approximately 9:30 or 10 PM the night prior, on 12/11/2021, with sudden onset of numbness and weakness involving his "entire right side". He reports that the symptoms went from the top of his head all the way down to his foot, including his chest and abdomen. The patient also reports numbness involving the right side of his tongue. He reports feeling as if he will "tip over" if he stands because he reports having "no control of the whole right side" The patient denies loss of vision. He does report feeling as if his right eyelid is heavy. He says his symptoms are worse when he is not wearing oxygen. Patient does not use oxygen at home. The patient denies difficulty swallowing and hearing. He feels as if his speech is "slower". Patient denies difficulty with urination. He does report having no bowel movement as of yet today. The patient denies a history of stroke. Workup in the emergency department reveals a normal CT scan of the brain. CT angiogram of the head and neck reveals right internal carotid artery stenosis. The patient was markedly hypertensive when he came into the emergency department, with a blood pressure of 207/138. Patient's blood pressure right now is 128/81. Patient mentions that he used to take aspirin and Plavix for bypass surgery that he had in the past. He ran out of his medications and then could not afford it. He has been off antiplatelet medication for last 2 years. He was also having problems with lisinopril, his blood pressure medication, therefore stopped taking it about over a year ago. He was only taking famotidine and Tylenol 500 mg as needed. Patient stated that his blood pressure was fairly well contro lled, just recently shot up. Objective - Vital Signs Vital signs: Vital Signs Temp 98.3 F 12/16/21 04:00 Pulse 80 12/16/21 04:00 Resp 17 12/16/21 04:00 BP 128/81 12/16/21 04:00 Pulse Ox 95 12/16/21 04:00 Intake & Output 12/15/21 12/16/21 12/16/21 18:59 06:59 18:59 Intake Total 1320 560 330 Output Total 650 1225 Balance 670 -665 330 Weight 88.2 kg Intake: Oral 1320 560 330 Output: Urine 650 1225 Other: Voiding Method Urinal Urinal - Exam Patient is a late middle aged male, in no acute distress. Patient is alert awake oriented to time place and person. Speech and language functions are normal. Speech initially appeared slightly dysarthric, but after he took off the mass, appears fairly clear. Attention, concentration and fund of knowledge is adequate. No aphasia. On cranial examination, pupils are round and reacting to light, visual quiroz are full on confrontation, with no neglect. His extraocular muscles are intact with no nystagmus. Face is symmetric, tongue protrudes to the midline. Palatal elevation and sensation normal, hearing and shoulder shrug normal, facial sensation slightly decreased on the right as compared to left. Shoulder shrug normal. On muscle strength testing, there is mild right pronator drift and the strength is normal in the left arm and leg distally and proximally. On the right side, deltoid is 4 with significant pain in the shoulder. Biceps is 4+, triceps 4+, g rip 5-4+. In the lower limb, hip flexion is 4+, knee extension 5, ankle dorsiflexion 5. Deep tendon reflexes are 1+ to 2 and symmetric and plantars are downgoing bilaterally. Sensory to touch is decreased in the right arm and leg as compared to the left. Cerebellar function showed very significant ataxia for [id number], and [id number] testing only on the right side. Tone and bulk of muscles normal. Gait deferred. On general examination, there is no carotid bruit or murmur, S1-S2 audible. Abdomen is soft nontender. Chest is clear. Peripheral pulses are present. No edema. - Labs CBC & Chem 7: 12/16/21 07:13 12/16/21 07:13 Labs: Abnormal Lab Results - Last 24 Hours (Table) 12/16/21 12/16/21 Range/Units 07:13 07:13 MCHC 30.5 L (31.0-37.0) g/dL Chloride 97 L (98-107) mmol/L BUN 32 H (9-20) mg/dL Creatinine 1.44 H (0.66-1.25) mg/dL Glucose 103 H (74-99) mg/dL Assessment and Plan Assessment: 1. Acute left thalamic lacunar stroke. Patient has presented with right hemiparesis. There is no reflex asymmetry. Plantar responses are flexor bilaterally. MRI of the brain confirmed acute left thalamic lacunar infarct. 2. Hypertensive urgency 3. Right internal carotid artery stenosis (moderate), left ICA stenosis, mild degree. 4. Hyperlipidemia 5. Coronary artery disease history of bypass surgery 6. Chronic low back pain. 7. Light smoker of 5-7 cigarettes per day for over 25 years. Plan: 1. Per Dr. Moreno recommendations, patient should be started on aspirin 81 mg and Plavix 75 mg, dual antiplatelet therapy for 21 days. Following this, the patient should be continued on aspirin monotherapy 2. 2-D echocardiogram revealed moderate left-ventricular dysfunction with EF of 40%, atypical septal motion secondary to prior bypass surgery mild mitral and tricuspid regurgitation with hypokinesis involving septum and anterior apical wall. Cardiology on board. Telemetry monitoring showing no significant arrhythmia. Only sinus rhythm. May consider 48 hours Holter monitoring or a more prolonged event monitor to rule out paroxysmal atrial fibrillation. 3. Lipid panel with cholesterol 232, LDL 168, HDL 35 triglycerides 142. Continue high-dose statins. We will increase Lipitor from 40 mg to 80 mg daily. Hemoglobin A1c 5.7, TSH normal 1.85 3. PT, OT and speech therapy consultations 4. Consider transfer to acute inpatient rehabilitation, when medically stable. 5. Patient has moderate right ICA stenosis, mild stenosis of the left side noted on CTA of head and neck. Suggest repeat carotid ultrasound in 6 months to evaluate stability. 6. Continue famotidine for gastric ulcer prophylaxis. 7. Recommend complete tobacco cessation. 8. Optimize control of blood pressure. 9. Recommend patient follow up with neurologist in 2-4 weeks after discharge.
[2021-12-16] MEDS ORDERED: ASPIRIN 81 MG PO SCH (12:00)
[2021-12-16] MEDS ORDERED: CALCIUM CARBONATE 500 MG CHEWABLE PO PRN (12:58)
[2021-12-16] MEDS ORDERED: PANTOPRAZOLE 40 MG TABLET PO SCH (13:00)
--- NOTE | 2021-12-16 14:29 | P.PN ---
Subjective This is a 61 year old male with a past medical history of coronary artery disease status post prior multivessel stenting and 4vessel CABG in 2019, Mitral valve repair 2019, hypertension, dyslipidemia, ischemic cardiomyopathy with improved EF. He usually follows in the office with Dr. Espinoza, but has not followed up since 2019. We're following the patient for congestive heart failure. Patient presents emergency department with acute right-sided weakness. Patient developed to have significant right-sided weakness along with right sided facial droop and difficulty with speech on 12/12/21. He presented to the emergency department on 12/13 2021 continued to have significant weakness in the right side not been able to control his arm and legs. MRI of Brain revealed acute ischemic stroke left thalamus. Patient seen and examined at bedside, no acute distress. Vitals signs are stable. Patient appears euvolemic on exam. Echocardiogram revealed EF of 4045 percent, atypical septal motion secondary to prior bypass surgery, mild mitral and tricuspid regurgitation. sCr 1.44 today. BUN 32. Sodium 138, K 4.2 GENERAL: Well-appearing, well-nourished and in no acute distress. NECK: Supple without JVD or thyromegaly. LUNGS: Breath sounds clear to auscultation bilaterally. Respiration equal and unlabored. No wheezes, rales or rhonchi. HEART: Regular rate and rhythm systolic murmur at apex noted. No rubs or gallops. S1 and S2 heard. EXTREMITIES: Normal range of motion, no edema. No clubbing or cyanosis. Peripheral pulses intact. ASSESSMENT Acute CVA Coronary artery disease status post prior multivessel stenting and 4vessel CABG in 2019 Hypertension Dyslipidemia Ischemic cardiomyopathy EF 40-45% Acute heart failure with preserved EF, borderline 40-45% PLAN Transition to PO Lasix 40mg BID Start spironolactone 25mg daily Continue Losartan, metoprolol Continue aspirin, statin Plavix started per neurology Follow up outpatient with Dr. Espinoza Nurse Practitioner note has been reviewed, I agree with a documented findings and plan of care. Patient was seen and examined. Objective - Vital Signs Vital signs: Vital Signs Temp 98.3 F 12/16/21 04:00 Pulse 80 12/16/21 04:00 Resp 17 12/16/21 04:00 BP 128/81 12/16/21 04:00 Pulse Ox 95 12/16/21 04:00 Intake & Output 12/15/21 12/16/21 12/16/21 18:59 06:59 18:59 Intake Total 1320 560 330 Output Total 650 1225 Balance 670 -665 330 Weight 88.2 kg Intake: Oral 1320 560 330 Output: Urine 650 1225 Other: Voiding Method Urinal Urinal - Labs CBC & Chem 7: 12/16/21 07:13 12/16/21 07:13 Labs: Abnormal Lab Results - Last 24 Hours (Table) 12/16/21 12/16/21 Range/Units 07:13 07:13 MCHC 30.5 L (31.0-37.0) g/dL Chloride 97 L (98-107) mmol/L BUN 32 H (9-20) mg/dL Creatinine 1.44 H (0.66-1.25) mg/dL Glucose 103 H (74-99) mg/dL
[2021-12-16 15:46] VITALS: PULSE 90; RESP 16; TEMP 98.1
[2021-12-16 15:48] VITALS: BP 122/78
[2021-12-16] MEDS ORDERED: FUROSEMIDE 40 MG TAB PO SCH (16:00)
[2021-12-16] MEDS: amLODIPine 5 MG TAB PO SCH (16:44)
[2021-12-16] MEDS: METOPROLOL TARTRATE 12.5 MG TAB PO SCH (16:45)
[2021-12-17] MEDS ORDERED: ATORVASTATIN 80 MG TAB PO SCH (09:00)
--- NOTE | 2021-12-19 09:34 | CDI ---
Documentation Clarification Form Date: 12/19/2021 09:26:48 AM From: Benson Balderrama Admit Date: 12/13/2021 05:51:00 PM Patient Name: Deborah Calderon Visit Number: [id number] Discharge Date: 12/16/2021 03:42:00 PM ATTENTION: The Clinical Documentation Specialists (CDI) and [facility] Coding Staff appreciate your assistance in clarifying documentation. Please respond to the clarification below the line at the bottom and electronically sign. The CDI & [facility] Coding staff will review the response and follow-up if needed. Please note: Queries are made part of the Legal Health Record. If you have any questions, please contact the author of this message via ITS. Dr. Ferny Mendoza Conflicting documentation has been found in the medical record. As attending physician, please provide clarification. ED notes indicate acute CHF exacerbaton Discharge summary indicates mild chronic systolic CHF History/Risk Factors: chronic CHF, CVA Clinical Indicators: CXR-CHF, elevated troponin, BNP normal Treatment: Please clarify which diagnosis is most appropriate: [ ] acute on chronic systolic CHF [ ] Other (please specify) [ ] Unable to determine [xx ] chronic systolic CHF MTDD
== END 2021-12-16 15:42 | disposition home or self-care (01) | DRG 65 ==
LOC: EC 15:01 → 3SCARD 17:51
PROVIDERS: ADMIT Internal Medicine Geriatric Medicine; ATTEND Internal Medicine Geriatric Medicine
DX: I63.81 Other cerebral infarction due to occlusion or stenosis of small artery (principal); G81.91 Hemiplegia, unspecified affecting right dominant side; J44.1 Chronic obstructive pulmonary disease with (acute) exacerbation; I50.22 Chronic systolic (congestive) heart failure; E78.5 Hyperlipidemia, unspecified; F17.210 Nicotine dependence, cigarettes, uncomplicated; F41.0 Panic disorder [episodic paroxysmal anxiety]; G89.29 Other chronic pain; I16.0 Hypertensive urgency; R29.706 NIHSS score 6; I25.10 Atherosclerotic heart disease of native coronary artery without angina pectoris; I25.2 Old myocardial infarction; I25.5 Ischemic cardiomyopathy; I11.0 Hypertensive heart disease with heart failure; I34.0 Nonrheumatic mitral (valve) insufficiency; I65.21 Occlusion and stenosis of right carotid artery; Z79.02 Long term (current) use of antithrombotics/antiplatelets; Z79.899 Other long term (current) drug therapy; Z80.0 Family history of malignant neoplasm of digestive organs; Z80.7 Family history of other malignant neoplasms of lymphoid, hematopoietic and related tissues; Z86.16 Personal history of COVID-19; Z91.14 Patient's other noncompliance with medication regimen; Z91.19 Patient's noncompliance with other medical treatment and regimen; Z95.1 Presence of aortocoronary bypass graft; Z95.5 Presence of coronary angioplasty implant and graft; R77.8 Other specified abnormalities of plasma proteins
CPT/HCPCS: 36415; 70450; 70496; 70498; 70553; 71046; 80048; 80053; 80061; 83036; 83880; 84443; 84484; 85025; 85027; 85610; 85730; 93005; 93306; 96374; 96375; 99291

== ENCOUNTER 2022-06-03 12:49 | Observation (INO) | payer MEDICARE ==
[2022-06-03] MEDS ORDERED: SODIUM CHLORIDE 0.9% 500 ML 500 ML IV STA (13:29)
[2022-06-03] MEDS ORDERED: ONDANSETRON 4 MG/2 ML VIAL IVP STA (13:29)
--- NOTE | 2022-06-03 13:47 | ED ---
General Adult HPI - General Chief complaint: Weakness Stated complaint: vomiting, neuro symptoms Time Seen by Provider: 06/03/22 13:15 Source: patient, RN notes reviewed, old records reviewed Mode of arrival: ambulatory Limitations: no limitations - History of Present Illness Initial comments: This is a 61-year-old male who presents emergency Department complaining of being very dizzy for the last half an hour and becoming very nauseated and vomiting. Patient states he had a stroke about 6 months ago and he feels as though his right side which or he has a deficit might be a little weaker than it has been. Patient also states he feels like it's tingling and he doesn't have as much sensation. Patient denies any facial droop or facial numbness. Patient denies any slurred speech. Patient denies any chest pain difficulty breathing shortness of breath per patient denies any palpitations. Patient denies any recent fever chills or cough. - Related Data Home Medications Medication Instructions Recorded Confirmed Famotidine [Pepcid] 20 mg PO BID 12/13/21 06/03/22 Furosemide [Lasix] 40 mg PO DAILY 06/03/22 06/03/22 Metoprolol Tartrate [Lopressor] 12.5 mg PO BID 06/03/22 06/03/22 Previous Rx's Medication Instructions Recorded Aspirin EC [Ecotrin Low Dose] 81 mg PO DAILY #30 tab 12/16/21 Atorvastatin [Lipitor] 40 mg PO DAILY #30 tab 12/16/21 Clopidogrel [Plavix] 75 mg PO DAILY #21 tab 12/16/21 Losartan [Cozaar] 50 mg PO DAILY #30 tab 12/16/21 Spironolactone [Aldactone] 25 mg PO DAILY #30 tab 12/16/21 amLODIPine [Norvasc] 5 mg PO BID #60 tab 12/16/21 Allergies Allergy/AdvReac Type Severity Reaction Status Date / Time codeine AdvReac "cardiac Verified 06/03/22 14:47 arrest" Review of Systems ROS Statement: Those systems with pertinent positive or pertinent negative responses have been documented in the HPI. ROS Other: All systems not noted in ROS Statement are negative. Past Medical History Past Medical History: Coronary Artery Disease (CAD), Chest Pain / Angina, Heart Failure, GERD/Reflux, Hypertension, Myocardial Infarction ([place]), Osteoarthritis (OA), Pneumonia Additional Past Medical History / Comment(s): Coronary artery disease, previous myocardial infarction, previous coronary intervention and stenting to his left anterior descending coronary artery in 2004, 2006 and 2017, and to his circumflex coronary artery in 2010, chronic systolic congestion heart failure with an ejection fraction of 35-40%, moderate global hypokinesis, mild concentric LVH, moderate degree of mitral regurgitation, peripheral neuropathy, hypertension, osteoarthritis Last Myocardial Infarction Date:: unk History of Any Multi-Drug Resistant Organisms: None Reported Past Surgical History: Heart Catheterization With Stent Additional Past Surgical History / Comment(s): HEART CATH WITH STENTS X8. triple bypass Past Anesthesia/Blood Transfusion Reactions: No Reported Reaction Date of Last Stent Placement:: 2017 Past Psychological History: Anxiety, Panic Disorder Smoking Status: Current every day smoker Past Alcohol Use History: Occasional Past Drug Use History: None Reported - Past Family History Father Family Medical History: Cancer Additional Family Medical History / Comment(s): Lymphoma Mother Family Medical History: Pulmonary Embolus General Exam - General Exam Comments Initial Comments: GENERAL: Patient is well-developed and well-nourished. Patient is nontoxic and well- hydrated and is in no acute distress. ENT: Neck is soft and supple. No significant lymphadenopathy is noted. Oropharynx is clear. Moist mucous membranes. Neck has full range of motion without eliciting any pain. EYES: The sclera were anicteric and conjunctiva were pink and moist. Extraocular movements were intact and pupils were equal round and reactive to light. Eyelids were unremarkable. PULMONARY: Unlabored respirations. Good breath sounds bilaterally. No audible rales rhonchi or wheezing was noted. CARDIOVASCULAR: There is a regular rate and rhythm without any murmurs gallops or rubs. ABDOMEN: Soft and nontender with normal bowel sounds. SKIN: Skin is clear with no lesions or rashes and otherwise unremarkable. NEUROLOGIC: Patient is alert and oriented x3. Cranial nerves II through XII are grossly intact. Patient has decreased casing tier strength on the right compared to the left and decreased dorsi and plantar flexion on the right but patient does have baseline deficit on that side from a previous stroke. MUSCULOSKELETAL: Normal extremities with adequate strength and full range of motion. No lower extremity swelling or edema. No calf tenderness. LYMPHATICS: No significant lymphadenopathy is noted PSYCHIATRIC: Normal psychiatric evaluation. Limitations: no limitations Course Vital Signs 06/03/22 06/03/22 06/03/22 13:04 14:22 16:29 Temperature 98.1 F Pulse Rate 71 64 65 Respiratory 18 17 17 Rate Blood Pressure 130/88 142/89 135/85 O2 Sat by Pulse 99 99 99 Oximetry Medical Decision Making - Medical Decision Making EKG shows sinus rhythm at 63 bpm VA interval 250 QRS is under 1 Q-T intervals 423 QTC is 4:30. Patient's EKG shows no ST segment elevation or depression Patient initially stated he couldn't move his arm at all but then he moved his arm with quite a bit of the Ease and was able to casing tier my hand so his story was quite inconsistent with the actual physical exam findings. CT head shows no acute abnormality I spoke with Dr. Sheehan he agreed to admit the patient admitted the patient I wrote admitting orders I consulted neurology - Lab Data Result diagrams: 06/03/22 13:40 06/03/22 13:40 Lab Results 06/03/22 06/03/22 06/03/22 Range/Units 13:40 13:40 13:40 WBC 5.3 (3.8-10.6) k/uL RBC 4.69 (4.30-5.90) m/uL Hgb 14.4 (13.0-17.5) gm/dL Hct 42.3 (39.0-53.0) % MCV 90.2 (80.0-100.0) fL MCH 30.8 (25.0-35.0) pg MCHC 34.2 (31.0-37.0) g/dL RDW 12.9 (11.5-15.5) % Plt Count 221 (150-450) k/uL MPV 9.0 Neutrophils % 63 % Lymphocytes % 23 % Monocytes % 6 % Eosinophils % 4 % Basophils % 1 % Neutrophils # 3.3 (1.3-7.7) k/uL Lymphocytes # 1.2 (1.0-4.8) k/uL Monocytes # 0.3 (0-1.0) k/uL Eosinophils # 0.2 (0-0.7) k/uL Basophils # 0.1 (0-0.2) k/uL PT 12.0 (9.0-12.0) sec INR 1.1 (<1.2) APTT 25.7 (22.0-30.0) sec Sodium 141 (137-145) mmol/L Potassium 3.8 (3.5-5.1) mmol/L Chloride 102 (98-107) mmol/L Carbon Dioxide 25 (22-30) mmol/L Anion Gap 14 mmol/L BUN 16 (9-20) mg/dL Creatinine 1.12 (0.66-1.25) mg/dL Est GFR (CKD-EPI)AfAm 82 (>60 ml/min/1.73 sqM) Est GFR (CKD-EPI)NonAf 71 (>60 ml/min/1.73 sqM) Glucose 99 (74-99) mg/dL Calcium 8.9 (8.4-10.2) mg/dL Total Bilirubin 0.6 (0.2-1.3) mg/dL AST 19 (17-59) U/L ALT 16 (4-49) U/L Alkaline Phosphatase 77 (38-126) U/L Troponin I (0.000-0.034) ng/mL Total Protein 7.9 (6.3-8.2) g/dL Albumin 4.7 (3.5-5.0) g/dL 06/03/22 Range/Units 13:40 WBC (3.8-10.6) k/uL RBC (4.30-5.90) m/uL Hgb (13.0-17.5) gm/dL Hct (39.0-53.0) % MCV (80.0-100.0) fL MCH (25.0-35.0) pg MCHC (31.0-37.0) g/dL RDW (11.5-15.5) % Plt Count (150-450) k/uL MPV Neutrophils % % Lymphocytes % % Monocytes % % Eosinophils % % Basophils % % Neutrophils # (1.3-7.7) k/uL Lymphocytes # (1.0-4.8) k/uL Monocytes # (0-1.0) k/uL Eosinophils # (0-0.7) k/uL Basophils # (0-0.2) k/uL PT (9.0-12.0) sec INR (<1.2) APTT (22.0-30.0) sec Sodium (137-145) mmol/L Potassium (3.5-5.1) mmol/L Chloride (98-107) mmol/L Carbon Dioxide (22-30) mmol/L Anion Gap mmol/L BUN (9-20) mg/dL Creatinine (0.66-1.25) mg/dL Est GFR (CKD-EPI)AfAm (>60 ml/min/1.73 sqM) Est GFR (CKD-EPI)NonAf (>60 ml/min/1.73 sqM) Glucose (74-99) mg/dL Calcium (8.4-10.2) mg/dL Total Bilirubin (0.2-1.3) mg/dL AST (17-59) U/L ALT (4-49) U/L Alkaline Phosphatase (38-126) U/L Troponin I <0.012 (0.000-0.034) ng/mL Total Protein (6.3-8.2) g/dL Albumin (3.5-5.0) g/dL Disposition Clinical Impression: TIA (transient ischemic attack) Disposition: ADMITTED IP TO THIS HOSP Referrals: Albert Sheehan MD [Primary Care Provider] - 1-2 days Time of Disposition: 17:12
[2022-06-03 13:49] LABS: Basophils # (A) 0.1 k/uL (0-0.2); Basophils % (A) 1 %; Eosinophils # (A) 0.2 k/uL (0-0.7); Eosinophils % (A) 4 %; HCT 42.3 % (39.0-53.0); HGB 14.4 gm/dL (13.0-17.5); Lymphocytes # (A) 1.2 k/uL (1.0-4.8); Lymphocytes % (A) 23 %; MCH 30.8 pg (25.0-35.0); MCHC 34.2 g/dL (31.0-37.0); MCV 90.2 fL (80.0-100.0); Monocytes # (A) 0.3 k/uL (0-1.0); Monocytes % (A) 6 %; Neutrophils # (A) 3.3 k/uL (1.3-7.7); Neutrophils % (A) 63 %; Platelet Count 221 k/uL (150-450); RBC 4.69 m/uL (4.30-5.90); RDW 12.9 % (11.5-15.5); WBC 5.3 k/uL (3.8-10.6)
[2022-06-03 13:58] LABS: Albumin 4.7 g/dL (3.5-5.0); Calcium 8.9 mg/dL (8.4-10.2); Potassium 3.8 mmol/L (3.5-5.1); Total Bilirubin 0.6 mg/dL (0.2-1.3); Total Protein 7.9 g/dL (6.3-8.2)
--- NOTE | 2022-06-03 14:01 | XR ---
EXAMINATION TYPE: XR chest 2V DATE OF EXAM: 06/03/2022 COMPARISON: 12/13/2021 HISTORY: 61-year-old male confusion, altered mental status TECHNIQUE: AP and lateral views FINDINGS: Median sternotomy wires are present post-CABG clips in the mediastinum. Heart upper limits of normal in size. Interstitial/vascular prominence. Similar hazy density at the cardiac apex likely epicardial fat pad. No consolidation or pleural effusion. Coronary stent is noted. IMPRESSION: Chronic changes. No acute process seen.
[2022-06-03 14:05] LABS: INR 1.1 (<1.2); Partial Thromboplastin Time 25.7 sec (22.0-30.0)
--- NOTE | 2022-06-03 14:39 | CT ---
EXAMINATION TYPE: CT brain wo con DATE OF EXAM: 06/03/2022 COMPARISON: 12/15/2021 HISTORY: 61-year-old male with neurologic deficit, acute, stroke suspected weakness TECHNIQUE: Examination was done in axial plane without intravenous contrast. Coronal and sagittal r econstructions performed. CT DLP: 1166.4 mGycm Automated exposure control for dose reduction was used. FINDINGS: There is no evidence of acute intracranial hemorrhage, acute ischemic changes, mass, mass-effect, or extra-axial fluid collection. There is no effacement of cerebral sulci or basal subarachnoid cister ns. There is no hydrocephalus. There is no midline shift. Amezquita-white matter distinction is preserv ed. Moderate patchy white matter hypodensities in both cerebral hemispheres. Progression of the lacunar i nfarct seen within the left thalamus compared to 12/15/2021 with a formation of encephalomalacia. Rightward nasal septal deviation. Paranasal sinuses and mastoid air cells well pneumatized. Orbits an d globes are intact. IMPRESSION: Progression to now chronic lacunar infarct left thalamus compared to 12/15/2021. Moderate patchy burden of chronic small vessel ischemic disease. No acute intracranial abnormality seen.
[2022-06-03] MEDS ORDERED: ACETAMINOPHEN TAB 500 MG TAB PO PRN (14:40)
[2022-06-03] MEDS ORDERED: FAMOTIDINE 20 MG TAB PO STA (14:47)
--- NOTE | 2022-06-04 09:55 | P.HPIM ---
History of Present Illness H&P Date: 06/04/22 Chief Complaint: Dizziness This is a 61-year-old male patient who presented with symptoms of dizziness and vomiting. Patient reports that symptoms started yesterday were similar to his episode with his previous stroke 6 months ago. Patient reports that he was dizzy with increased right-sided weakness and episodes of vomiting bile. Patient reports the symptoms lasted a couple hours. Patient does have a past medical history of coronary artery disease, heart failure, GERD, hypertension, osteoporosis, pneumonia, anxiety and current every day smoker. Patient does report he has right-sided residual from stroke 6 months ago. Chest x-ray completed showing chronic changes no acute findings. Head CT completed showing progression to now chronic lacunar infarct left thumb as compared to 12/15/2021. Moderate patchy burden of chronic small vessel ischemic disease no acute intracranial abnormality seen. Lab work unremarkable. Vital signs temp 97.6, heart rate 69, respiratory rate 16, blood pressure 147/99 with a pulse ox of 99% on room air. At this time patient will be admitted neurology services. Patient reports improvement with dizziness. Still reports some generalized weakness on the right side. Patient denies chest pain or shortness breath. Patient denies nausea vomiting or diarrhea. Patient denies any urinary burning or frequency Review of Systems Please refer to HPI otherwise unremarkable Past Medical History Past Medical History: Coronary Artery Disease (CAD), Chest Pain / Angina, Heart Failure, GERD/Reflux, Hypertension, Myocardial Infarction ([place]), Osteoarthritis (OA), Pneumonia Additional Past Medical History / Comment(s): Coronary artery disease, previous myocardial infarction, previous coronary intervention and stenting to his left anterior descending coronary artery in 2004, 2006 and 2017, and to his circumflex coronary artery in 2010, chronic systolic congestion heart failure with an ejection fraction of 35-40%, moderate global hypokinesis, mild concentric LVH, moderate degree of mitral regurgitation, peripheral neuropathy, hypertension, osteoarthritis Last Myocardial Infarction Date:: unk History of Any Multi-Drug Resistant Organisms: None Reported Past Surgical History: Heart Catheterization With Stent Additional Past Surgical History / Comment(s): HEART CATH WITH STENTS X8. triple bypass Past Anesthesia/Blood Transfusion Reactions: No Reported Reaction Date of Last Stent Placement:: 2017 Past Psychological History: Anxiety, Panic Disorder Smoking Status: Current every day smoker Past Alcohol Use History: Occasional Past Drug Use History: None Reported - Past Family History Father Family Medical History: Cancer Additional Family Medical History / Comment(s): Lymphoma Mother Family Medical History: Pulmonary Embolus Medications and Allergies Home Medications Medication Instructions Recorded Confirmed Type Famotidine [Pepcid] 20 mg PO BID 12/13/21 06/03/22 History Aspirin EC [Ecotrin Low Dose] 81 mg PO DAILY #30 tab 12/16/21 06/03/22 Rx Atorvastatin [Lipitor] 40 mg PO DAILY #30 tab 12/16/21 06/03/22 Rx Clopidogrel [Plavix] 75 mg PO DAILY #21 tab 12/16/21 06/03/22 Rx Losartan [Cozaar] 50 mg PO DAILY #30 tab 12/16/21 06/03/22 Rx Spironolactone [Aldactone] 25 mg PO DAILY #30 tab 12/16/21 06/03/22 Rx amLODIPine [Norvasc] 5 mg PO BID #60 tab 12/16/21 06/03/22 Rx Furosemide [Lasix] 40 mg PO DAILY 06/03/22 06/03/22 History Metoprolol Tartrate [Lopressor] 12.5 mg PO BID 06/03/22 06/03/22 History Allergies Allergy/AdvReac Type Severity Reaction Status Date / Time codeine AdvReac "cardiac Verified 06/03/22 14:47 arrest" Physical Exam Vitals: Vital Signs Temp Pulse Pulse Resp BP BP Pulse Ox 06/04/22 07:00 98.6 F 80 18 132/56 94 L 06/04/22 02:00 69 16 06/03/22 23:40 97.6 F 69 16 147/89 99 06/03/22 23:00 60 16 137/91 95 06/03/22 20:00 97.6 F 69 16 147/89 99 06/03/22 17:31 60 17 130/78 99 06/03/22 17:28 61 17 129/81 100 06/03/22 16:29 65 17 135/85 99 06/03/22 14:22 64 17 142/89 99 06/03/22 13:04 98.1 F 71 18 130/88 99 Intake and Output 06/03/22 06/04/22 06/04/22 22:59 06:59 14:59 Other: Voiding Method Toilet Toilet Urinal Urinal # Voids 1 Weight 86.4 kg 77.111 kg Head normocephalic Neck supple Lungs clear to auscultation bilaterally no wheezing or crackles Heart regular rate and rhythm S1-S2, no rub or gallop Abdomen is soft nontender nondistended positive bowel sounds no hepatosplenomegaly Extremities no edema Neuro alert and orientated to 3. Right-sided weakness this could be residual from previous stroke Results CBC & Chem 7: 06/03/22 13:40 06/03/22 13:40 Thrombosis Risk Factor Assmnt - Choose All That Apply Each Risk Factor Represents 2 Points: Age 61-74 years Thrombosis Risk Factor Assessment Total Risk Factor Score: 2 Thrombosis Risk Factor Assessment Level: Low Risk Assessment and Plan Assessment: 1. Dizziness and vomiting secondary to possible TIA 2. Previous CVA with right-sided weakness and may 3. Coronary artery disease with coronary artery bypass graft surgery 3 years ago 4. Chronic systolic heart failure with ischemic cardiomyopathy 5. Essential hypertension 6. Hyperlipidemia maintained on statin 7. Ongoing nicotine dependence. Patient reports he smokes approximately half pack a day. Patient educated at length in regards to complete smoking cessation due to stroke and coronary artery risk. At this time patient will be admitted Neurology service is consulted 2-D echo and carotid Doppler ordered Repeat labs ordered Time with Patient: Greater than 30 (Greater than 60% of the total time spent in counseling and coordination of care)
[2022-06-04] MEDS ORDERED: ATORVASTATIN 40 MG TAB PO SCH (10:00)
--- NOTE | 2022-06-04 10:31 | US ---
EXAMINATION TYPE: US carotid duplex BILAT DATE OF EXAM: 06/04/2022 COMPARISON: US 2019 CLINICAL HISTORY: tia. TECHNIQUE: Carotid duplex ultrasound examination. Indirect Doppler criteria was utilized. FINDINGS: EXAM MEASUREMENTS: RIGHT: Peak Systolic Velocity (PSV) cm/sec ----- Right CCA: 105.0 ----- Right ICA: 113.0 ----- Right ECA: 124.0 ICA/CCA ratio: 1.1 RIGHT: End Diastole cm/sec ----- Right CCA: 26.0 ----- Right ICA: 38.4 ----- Right ECA: 17.9 LEFT: Peak Systolic Velocity (PSV) cm/sec ----- Left CCA: 107.0 ----- Left ICA: 126.0 ----- Left ECA: 119.0 ICA/CCA ratio: 1.2 LEFT: End Diastole cm/sec ----- Left CCA: 27.1 ----- Left ICA: 45.9 ----- Left ECA: 12.0 VERTEBRALS (direction of flow): Right Vertebral: Antegrade Left Vertebral: Antegrade Rhythm: Normal No significant stenosis IMPRESSION: 1. Atherosclerotic plaque with no significant hemodynamic stenosis by carotid Doppler ultrasound. Criteria for Assigning % of Stenosis / Diameter reduction (Estimation based on the indirect measurements of the internal carotid artery velocities (ICA PSV). 1. Normal (no stenosis)=ICA PSV < 125 cm/s: ratio < 2.0: ICA EDV<40 cm/s. 2. Less than 50% stenosis=ICA PSV < 125 cm/s: ratio < 2.0: ICA EDV<40 cm/s. 3. 50 to 69% stenosis=ICA PSV of 125 to 230 cm/s: ration 2.0 ? 4.0: ICA EDV 40-100 cm/s. 4. Greater than 70% stenosis to near occlusion= ICA PSV > 230 cm/s: ratio > 4.0: ICA EDV > 100 cm/s. 5. Near occlusion= ICA PSV velocities may be low or undetectable: variable ratio and ICA EDV. 6. Total occlusion=unable to detect flow.
[2022-06-04] MEDS ORDERED: FAMOTIDINE 20 MG TAB PO STA (10:36)
[2022-06-04] MEDS: METOPROLOL TARTRATE 12.5 MG TAB PO SCH ×2 (10:37→20:59)
[2022-06-04] MEDS: amLODIPine 5 MG TAB PO SCH ×2 (10:37→20:59)
[2022-06-04] MEDS: FUROSEMIDE 40 MG TAB PO SCH (10:37)
[2022-06-04] MEDS: LOSARTAN 50 MG TAB PO SCH (10:37)
[2022-06-04] MEDS ORDERED: CLOPIDOGREL 75 MG TAB PO STA (10:48)
[2022-06-04 11:09] LABS: Chol/HDL Ratio 4.56 Ratio; LDL Cholesterol,Calculated 81.7 mg/dL (0.0-131.0)
--- NOTE | 2022-06-04 14:42 | P.CNNES ---
History of Present Illness Consult date: 06/04/22 Requesting physician: Eric Benitez Reason for Consult: TIA History of Present Illness: Patient is a 61-year-old male came to the hospital yesterday at 12:49 PM. Vital signs arrival blood pressure 1:30/88% [address] head showed progression to now chronic lacunar infarct left thalamus compared to 12/15/2021. Moderate patchy burden of chronic small vessel ischemic disease. No acute intracranial abnormality seen. EKG shows sinus rhythm. Chest x-ray showed chronic changes. No acute process. Patient was seen by myself on 12/16/2021 for acute left thalamic lacunar infarct. Patient was discharged on aspirin and Plavix for 21 days followed by continuing aspirin 81 mg daily. Patient at present taking Pepcid, Lipitor 40 g, amlodipine 5 mg twice a day, spironolactone 25 mg, losartan, Plavix 75 mg, aspirin 81 mg, metoprolol and Lasix 40 mg. Past Medical History Past Medical History: Coronary Artery Disease (CAD), Chest Pain / Angina, Heart Failure, GERD/Reflux, Hypertension, Myocardial Infarction ([place]), Osteoarthritis (OA), Pneumonia Additional Past Medical History / Comment(s): Coronary artery disease, previous myocardial infarction, previous coronary intervention and stenting to his left anterior descending coronary artery in 2004, 2006 and 2017, and to his circumflex coronary artery in 2010, chronic systolic congestion heart failure with an ejection fraction of 35-40%, moderate global hypokinesis, mild concentric LVH, moderate degree of mitral regurgitation, peripheral neuropathy, hypertension, osteoarthritis Last Myocardial Infarction Date:: unk History of Any Multi-Drug Resistant Organisms: None Reported Past Surgical History: Heart Catheterization With Stent Additional Past Surgical History / Comment(s): HEART CATH WITH STENTS X8. triple bypass Past Anesthesia/Blood Transfusion Reactions: No Reported Reaction Date of Last Stent Placement:: 2017 Past Psychological History: Anxiety, Panic Disorder Smoking Status: Current every day smoker Past Alcohol Use History: Occasional Past Drug Use History: None Reported - Past Family History Father Family Medical History: Cancer Additional Family Medical History / Comment(s): Lymphoma Mother Family Medical History: Pulmonary Embolus Medications and Allergies Home Medications Medication Instructions Recorded Confirmed Type Famotidine [Pepcid] 20 mg PO BID 12/13/21 06/03/22 History Aspirin EC [Ecotrin Low Dose] 81 mg PO DAILY #30 tab 12/16/21 06/03/22 Rx Atorvastatin [Lipitor] 40 mg PO DAILY #30 tab 12/16/21 06/03/22 Rx Clopidogrel [Plavix] 75 mg PO DAILY #21 tab 12/16/21 06/03/22 Rx Losartan [Cozaar] 50 mg PO DAILY #30 tab 12/16/21 06/03/22 Rx Spironolactone [Aldactone] 25 mg PO DAILY #30 tab 12/16/21 06/03/22 Rx amLODIPine [Norvasc] 5 mg PO BID #60 tab 12/16/21 06/03/22 Rx Furosemide [Lasix] 40 mg PO DAILY 06/03/22 06/03/22 History Metoprolol Tartrate [Lopressor] 12.5 mg PO BID 06/03/22 06/03/22 History Allergies Allergy/AdvReac Type Severity Reaction Status Date / Time codeine AdvReac "cardiac Verified 06/03/22 14:47 arrest" Physical Examination - Vital Signs Vital Signs: Vital Signs Temp Pulse Pulse Resp BP BP Pulse Ox 06/04/22 07:00 98.6 F 80 18 132/56 94 L 06/04/22 02:00 69 16 06/03/22 23:40 97.6 F 69 16 147/89 99 06/03/22 23:00 60 16 137/91 95 06/03/22 20:00 97.6 F 69 16 147/89 99 06/03/22 17:31 60 17 130/78 99 06/03/22 17:28 61 17 129/81 100 06/03/22 16:29 65 17 135/85 99 06/03/22 14:22 64 17 142/89 99 06/03/22 13:04 98.1 F 71 18 130/88 99 Intake and Output 06/03/22 06/04/22 06/04/22 22:59 06:59 14:59 Other: Voiding Method Toilet Toilet Urinal Urinal # Voids 1 Weight 86.4 kg 77.111 kg Results - Laboratory Findings CBC and BMP: 06/03/22 13:40 06/03/22 13:40 Abnormal Lab Findings: Abnormal Labs 06/04/22 07:32 Triglycerides 185.00 H HDL Cholesterol 33.30 L Assessment and Plan Assessment: * Transient episode of dizziness, nausea vomiting, headache, that lasted for about 45 minutes and then resolved. Exact etiology unclear. TIA is definitely a possibility. No lateralizing signs with the spell. Patient denies any worsening of his baseline right hemiparesis on new focal deficits since this event. * History of left thalamic lacunar infarct on 12/13/2021, with right hemiparesis and hypoesthesia. 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 * Hypertension * Hyperlipidemia * Coronary artery disease, with history of bypass surgery * Chronic low back pain * Light smoker of 5-7 cigarettes per day for over 25 years, quit for 3 months after CVA, but still smoking half pack per day since last 3 months. Plan: * Continue aspirin 81 mg and Plavix 75 mg daily. * Await 2-D echo to rule out embolic source. * Carotid Doppler revealed atherosclerotic plaque with no significant hemodynamic stenosis by carotid Doppler. Antegrade flow in both vertebral arteries. * Lipid panel with cholesterol 152, LDL 81, HDL 33 and triglycerides 185. We will increase Lipitor from 40 mg to 80 mg to target LDL <70. * Strongly recommend complete tobacco cessation * Continue telemetry monitoring. Suggest event monitor rule out arrhythmia. * Patient has significant post thalamic pain syndrome. We will start gabapentin 200 mg 3 times a day. May increase the dose gradually to 600 mg 3 times a day. Lyrica is the alternative, if fails gabapentin. May try Cymbalta as well in future. * Neurology will follow. Thank you for the consult.
[2022-06-04] MEDS: GABAPENTIN 100 MG CAP PO SCH ×2 (17:20→20:59)
[2022-06-04] MEDS: buPROPion SR 150 MG TABLET.ER PO SCH (17:22)
[2022-06-04] MEDS: FAMOTIDINE 20 MG TAB PO SCH (17:24)
[2022-06-05 07:56] LABS: Basophils # (A) 0.1 k/uL (0-0.2); Basophils % (A) 1 %; Eosinophils # (A) 0.3 k/uL (0-0.7); Eosinophils % (A) 5 %; HCT 41.2 % (39.0-53.0); HGB 13.6 gm/dL (13.0-17.5); Lymphocytes # (A) 1.7 k/uL (1.0-4.8); Lymphocytes % (A) 30 %; MCHC 33.1 g/dL (31.0-37.0); MCV 90.6 fL (80.0-100.0); Mean Platelet Volume 9.2; Monocytes # (A) 0.4 k/uL (0-1.0); Monocytes % (A) 7 %; Neutrophils % (A) 53 %; Platelet Count 199 k/uL (150-450); RBC 4.54 m/uL (4.30-5.90); RDW 13.2 % (11.5-15.5); WBC 5.6 k/uL (3.8-10.6)
[2022-06-05 08:28] LABS: Albumin 4.7 g/dL (3.5-5.0); Calcium 8.5 mg/dL (8.4-10.2); Potassium 4.4 mmol/L (3.5-5.1); Total Bilirubin 0.5 mg/dL (0.2-1.3); Total Protein 7.7 g/dL (6.3-8.2)
[2022-06-05] MEDS ORDERED: SPIRONOLACTONE 25 MG TAB PO SCH (09:00)
[2022-06-05] MEDS ORDERED: ATORVASTATIN 80 MG TAB PO SCH (09:00)
[2022-06-05] MEDS ORDERED: ASPIRIN 81 MG PO SCH (09:00)
[2022-06-05] MEDS ORDERED: CLOPIDOGREL 75 MG TAB PO SCH (09:00)
--- NOTE | 2022-06-05 10:11 | P.CRDCN ---
History of Present Illness Consult date: 06/05/22 History of present illness: patient is ambulating in the hallway. Did not wish to have a transesophageal echo. The prior TE did not reveal PFO. We are going to obtain an event monitor to rule out episodes of atrial fibrillation. He is agreeable to following up in the office. HISTORY OF PRESENT ILLNESS: This is a 61 year old male with a past medical history significant for coronary artery disease with previous 3 vessel CABG ( SANTAMARIA to LAD, radial artery to obtuse marginal artery, SVG to posterior descending artery ) and mitral valve repair in December of 2018, hypertension, hyperlipidemia, CVA in December 2021, and nicotine dependence. Patient used to follow with Dr. Espinoza but has not been to the office since 2019. We have been asked to see the patient in consultation for CVA. Patient examined at the bedside. Patient presented to the hospital with a chief complaint of right sided weakness, dizziness, and presyncope. Patient states his symptoms have resolved and he feels he is back to his baseline. He denies chest pain or pressure. Denies SOB. Vital signs are stable. It is noted the patient underwent CORDELL in 2019 which was negative for PFO. * EKG reveals sinus mechanism with no signs of acute ischemia * Chest xray chronic changes. No acute process seen. * CT of the brain progression to now chronic lacunar infarct left thalamus compared to 12/15/2021. Moderate patchy burden of chronic small vessel ischemic changes. * Laboratory data: WBC 5.6. Hemoglobin 13.6. Platelet count 199. Sodium 141. Potassium 4.4. BUN 21. Creatinine 1.35. Troponin negative 1. * Current home cardiac medications include Plavix 75 mg daily, Lasix 40 mg daily, losartan 50 mg daily, aspirin 81 mg daily, Lipitor 40 mg daily, metoprolol tartrate 12.5 mg twice a day, Aldactone 25 mg daily, and amlodipine 5 mg twice a day * Most recent echocardiogram obtained in November 2021 revealed ejection fraction 40-45%, mild mitral regurgitation, mild tricuspid regurgitation * Carotid Doppler: negative for hemodynamically significant stenosis bilaterally * Patient underwent CORDELL in 2019 which was negative for PFO. REVIEW OF SYSTEMS: At the time of my exam: CONSTITUTIONAL: Denies fever or chills. HEENT: Denies blurred vision, vision changes, or eye pain. Denies hemoptysis CARDIOVASCULAR: Denies chest pain. Denies orthopnea. Denies PND. Denies palpitations RESPIRATORY: Denies shortness of breath. GASTROINTESTINAL: Denies abdominal pain. Denies nausea or vomiting. HEMATOLOGIC: Denies bleeding disorders. GENITOURINARY: Denies any blood in urine. SKIN: Denies pruitis. Denies rash. PHYSICAL EXAM: VITAL SIGNS: Reviewed. GENERAL: Well-developed in no acute distress. HEENT: Head is normocephalic. Pupils are equal, round. Sclerae anicteric. Mucous membranes of the mouth are moist. Neck supple. No JVD or thyromegaly LUNGS: Respirations even and unlabored. Lungs essentially clear to auscultation bilaterally. HEART: Regular rate and rhythm. S1 and S2 heard. ABDOMEN: Soft. Nondistended. Nontender. EXTREMITIES: Normal range of motion. No clubbing or cyanosis. Peripheral pulses intact. No lower extremity edema NEUROLOGIC: Awake and alert. Oriented x 3. ASSESSMENT: Right sided weakness, possible TIA History of CVA, December 2021 Coronary artery disease with 3V CABG, 2018 Mitral valve repair, 2018 Hypertension Hyperlipidemia Nicotine dependence PLAN: 2D echo ordered. Await results. Continue current cardiac medications It is noted the patient underwent CORDELL in 2019 which was negative for PFO. Recommend 30 day event monitor at discharge to rule out arrhythmia Neurology following Further recommendations pending patient's course Nurse practitioner note has been reviewed by physician. Signing provider agrees with the documented findings, assessment, and plan of care. Past Medical History Past Medical History: Coronary Artery Disease (CAD), Chest Pain / Angina, Heart Failure, GERD/Reflux, Hypertension, Myocardial Infarction (RI), Osteoarthritis (OA), Pneumonia Additional Past Medical History / Comment(s): Coronary artery disease, previous myocardial infarction, previous coronary intervention and stenting to his left anterior descending coronary artery in 2004, 2006 and 2017, and to his circumflex coronary artery in 2010, chronic systolic congestion heart failure with an ejection fraction of 35-40%, moderate global hypokinesis, mild concentric LVH, moderate degree of mitral regurgitation, peripheral neuropathy, hypertension, osteoarthritis Last Myocardial Infarction Date:: unk History of Any Multi-Drug Resistant Organisms: None Reported Past Surgical History: Heart Catheterization With Stent Additional Past Surgical History / Comment(s): HEART CATH WITH STENTS X8. triple bypass Past Anesthesia/Blood Transfusion Reactions: No Reported Reaction Date of Last Stent Placement:: 2017 Past Psychological History: Anxiety, Panic Disorder Smoking Status: Current every day smoker Past Alcohol Use History: Occasional Past Drug Use History: None Reported - Past Family History Father Family Medical History: Cancer Additional Family Medical History / Comment(s): Lymphoma Mother Family Medical History: Pulmonary Embolus Medications and Allergies Home Medications Medication Instructions Recorded Confirmed Type Famotidine [Pepcid] 20 mg PO BID 12/13/21 06/03/22 History Aspirin EC [Ecotrin Low Dose] 81 mg PO DAILY #30 tab 12/16/21 06/03/22 Rx Atorvastatin [Lipitor] 40 mg PO DAILY #30 tab 12/16/21 06/03/22 Rx Clopidogrel [Plavix] 75 mg PO DAILY #21 tab 12/16/21 06/03/22 Rx Losartan [Cozaar] 50 mg PO DAILY #30 tab 12/16/21 06/03/22 Rx Spironolactone [Aldactone] 25 mg PO DAILY #30 tab 12/16/21 06/03/22 Rx amLODIPine [Norvasc] 5 mg PO BID #60 tab 12/16/21 06/03/22 Rx Furosemide [Lasix] 40 mg PO DAILY 06/03/22 06/03/22 History Metoprolol Tartrate [Lopressor] 12.5 mg PO BID 06/03/22 06/03/22 History Gabapentin [Neurontin] 200 mg PO TID cap 06/05/22 Rx buPROPion SR [Wellbutrin SR] 150 mg PO DAILY tab 06/05/22 Rx Allergies Allergy/AdvReac Type Severity Reaction Status Date / Time codeine AdvReac "cardiac Verified 06/03/22 14:47 arrest" Physical Exam Vitals: Vital Signs Temp Pulse Resp BP BP Pulse Ox 06/05/22 08:38 98.4 F 66 18 123/75 97 06/05/22 02:00 61 18 06/05/22 01:40 98.2 F 61 18 96/65 96 06/04/22 20:00 98.6 F 71 18 143/84 98 06/04/22 14:03 98.4 F 18 97 06/04/22 14:02 98.4 F 68 18 120/71 97 Intake and Output 06/04/22 06/05/22 06/05/22 22:59 06:59 14:59 Intake Total 237 0 Balance 237 0 Intake: Oral 237 0 Other: Voiding Method Toilet Urinal # Voids 2 2 Results 06/05/22 07:30 06/05/22 07:30 Cardiac Enzymes 06/05/22 Range/Units 07:30 AST 19 (17-59) U/L Lipids 06/04/22 Range/Units 07:32 Triglycerides 185.00 H (0.00-149.00) mg/dL Cholesterol 152.00 (0.00-200.00) mg/dL HDL Cholesterol 33.30 L (40.00-60.00) mg/dL Cholesterol/HDL Ratio 4.56 Ratio CBC 06/05/22 Range/Units 07:30 WBC 5.6 (3.8-10.6) k/uL RBC 4.54 (4.30-5.90) m/uL Hgb 13.6 (13.0-17.5) gm/dL Hct 41.2 (39.0-53.0) % Plt Count 199 (150-450) k/uL Comprehensive Metabolic Panel 06/05/22 Range/Units 07:30 Sodium 141 (137-145) mmol/L Potassium 4.4 (3.5-5.1) mmol/L Chloride 104 (98-107) mmol/L Carbon Dioxide 23 (22-30) mmol/L BUN 21 H (9-20) mg/dL Creatinine 1.35 H (0.66-1.25) mg/dL Glucose 109 H (74-99) mg/dL Calcium 8.5 (8.4-10.2) mg/dL AST 19 (17-59) U/L ALT 14 (4-49) U/L Alkaline Phosphatase 68 (38-126) U/L Total Protein 7.7 (6.3-8.2) g/dL Albumin 4.7 (3.5-5.0) g/dL Current Medications Generic Name Dose Route Start Last Admin Trade Name Freq PRN Reason Stop Dose Admin Acetaminophen 1,000 mg 06/03/22 14:40 06/03/22 14:45 Acetaminophen Tab 500 Mg Tab PO 1,000 mg ONCE PRN Administration Fever and/ or Pain Amlodipine Besylate 5 mg 06/04/22 10:00 06/04/22 20:59 Amlodipine 5 Mg Tab PO 5 mg BID EVETTE Administration Aspirin 81 mg 06/05/22 09:00 Aspirin 81 Mg PO DAILY [facility] Atorvastatin Calcium 80 mg 06/05/22 09:00 Atorvastatin 80 Mg Tab PO DAILY [facility] Bupropion HCl 150 mg 06/04/22 17:00 06/04/22 17:22 Bupropion Sr 150 Mg Tablet.Er PO 150 mg DAILY EVETTE Administration Clopidogrel Bisulfate 75 mg 06/05/22 09:00 Clopidogrel 75 Mg Tab PO DAILY [facility] Famotidine 20 mg 06/04/22 21:00 06/04/22 17:24 Famotidine 20 Mg Tab PO 20 mg BID EVETTE Administration Furosemide 40 mg 06/04/22 10:00 06/04/22 10:37 Furosemide 40 Mg Tab PO 40 mg DAILY [facility] Administration Gabapentin 200 mg 06/04/22 16:00 06/04/22 20:59 Gabapentin 100 Mg Cap PO 200 mg TID EVETTE Administration Losartan Potassium 50 mg 06/04/22 10:00 06/04/22 10:37 Losartan 50 Mg Tab PO 50 mg DAILY [facility] Administration Metoprolol Tartrate 12.5 mg 06/04/22 10:00 06/04/22 20:59 Metoprolol Tartrate 12.5 Mg Tab PO 12.5 mg BID [facility] Administration Spironolactone 25 mg 06/05/22 09:00 Spironolactone 25 Mg Tab PO DAILY [facility] Intake and Output 06/04/22 06/05/22 06/05/22 22:59 06:59 14:59 Intake Total 237 0 Balance 237 0 Intake: Oral 237 0 Other: Voiding Method Toilet Urinal # Voids 2 2 06/05/22 07:30 06/05/22 07:30
[2022-06-05] MEDS: buPROPion SR 150 MG TABLET.ER PO SCH (11:00)
[2022-06-05] MEDS: amLODIPine 5 MG TAB PO SCH (11:00)
[2022-06-05] MEDS: GABAPENTIN 100 MG CAP PO SCH (11:00)
[2022-06-05] MEDS: LOSARTAN 50 MG TAB PO SCH (11:00)
[2022-06-05] MEDS: METOPROLOL TARTRATE 12.5 MG TAB PO SCH (11:01)
[2022-06-05] MEDS: FAMOTIDINE 20 MG TAB PO SCH (11:01)
[2022-06-05] MEDS: FUROSEMIDE 40 MG TAB PO SCH (11:01)
--- NOTE | 2022-06-05 11:46 | CA ---
Transthoracic Echo Report Name: Deborah Calderon Age: 61 Gender: M : 1960 Exam Date: 06/04/2022 11:13 Exam Location: [place] [facility] Ht (in): 74 Wt (lb): 170 Ordering Physician: Albert Sheehan MD Attending/Referring Phys: [employer] Worker Neda Mckeon RDCS Procedure CPT: Indications: follow up TIA Cardiac Hx: Technical Quality: Good Contrast 1: Total Dose (mL): Contrast 2: Total Dose (mL): MEASUREMENTS (Male / Female) Normal Values 2D ECHO LV Diastolic Diameter PLAX 4.7 cm 4.2 - 5.9 / 3.9 - 5.3 cm LV Systolic Diameter PLAX 3.2 cm IVS Diastolic Thickness 1.4 cm 0.6 - 1.0 / 0.6 - 0.9 cm LVPW Diastolic Thickness 1.3 cm 0.6 - 1.0 / 0.6 - 0.9 cm LV Relative Wall Thickness 0.6 RV Internal Dim ED PLAX 4.0 cm LA Systolic Diameter LX 4.5 cm 3.0 - 4.0 / 2.7 - 3.8 cm LA Volume 54.6 cm??? 18 - 58 / 22 - 52 cm??? M-MODE Aortic Root Diameter MM 3.2 cm MV E Point Septal Separation 0.7 cm AV Cusp Separation MM 2.1 cm DOPPLER AV Peak Velocity 129.8 cm/s AV Peak Gradient 6.7 mmHg MV Area PHT 2.0 cm??? Mitral E Point Velocity 105.8 cm/s Mitral A Point Velocity 89.1 cm/s Mitral E to A Ratio 1.2 MV Deceleration Time 370.5 ms MV E' Velocity 5.8 cm/s Mitral E to MV E' Ratio 18.3 TR Peak Velocity 231.2 cm/s TR Peak Gradient 21.4 mmHg Right Ventricular Systolic Press 25.7 mmHg FINDINGS Left Ventricle Left ventricular ejection fraction is estimated at 50-55 %. Left ventricular cavity size normal. Moderate concentric left ventricular hypertrophy. Right Ventricle Mild right ventricular dilatation. Right ventricular systolic pressure within normal limits. Right Atrium Normal right atrial size. Left Atrium Normal left atrial size. Mitral Valve Mitral valve thickened. Mild mitral annular calcification. Mild mitral regurgitation. MV repair Aortic Valve Trileaflet aortic valve. No aortic valve stenosis or regurgitation. Tricuspid Valve Mild tricuspid regurgitation. Pulmonic Valve Structurally normal pulmonic valve. Pericardium Normal pericardium. No pericardial effusion. Aorta Normal size aortic root and proximal ascending aorta. CONCLUSIONS Left ventricular ejection fraction 50-55% Moderately increased left ventricular wall thickness Mild right ventricular dilation RVSP 25 Mild mitral calcification Mild mitral regurgitation Status post mitral valve repair No pericardial effusion Previewed by: Dr. Juaquin Quiroz DO (Electronically Signed) Final Date: 05 June 2022 11:46
[2022-06-05 12:12] VITALS: BP 137/75; PULSE 63; RESP 16; TEMP 97.9
--- NOTE | 2022-06-07 07:33 | P.DS ---
Providers Date of admission: 06/03/22 17:12 Expected date of discharge: 06/05/22 Attending physician: Albert Sheehan Consults: 06/03/22 17:13 Consult Physician Routine Consulting Provider: Tereza Olsen Consult Reason/Comments: TIA Do you want consulting provider notified?: Yes 06/04/22 16:39 Consult Physician Routine Consulting Provider: Sonia Hubbard Consult Reason/Comments: stroke Do you want consulting provider notified?: Yes Primary care physician: Albert Sheehan [facility] Course: Discharge Diagnosis 1. Dizziness and vomiting secondary to possible TIA 2. Previous CVA with right-sided weakness and december 3. Coronary artery disease with coronary artery bypass graft surgery 3 years ago 4. Chronic systolic heart failure with ischemic cardiomyopathy 5. Essential hypertension 6. Hyperlipidemia maintained on statin 7. Ongoing nicotine dependence. Patient reports he smokes approximately half pack a day. Patient educated at length in regards to complete smoking cessation due to stroke and coronary artery risk. Hospital Course This is a 61-year-old male patient who presented with symptoms of dizziness and vomiting. Patient reports that symptoms started yesterday were similar to his episode with his previous stroke 6 months ago. Patient reports that he was dizzy with increased right-sided weakness and episodes of vomiting bile. Patient reports the symptoms lasted a couple hours. Patient does have a past medical history of coronary artery disease, heart failure, GERD, hypertension, osteoporosis, pneumonia, anxiety and current every day smoker. Patient does report he has right-sided residual from stroke 6 months ago. Chest x-ray completed showing chronic changes no acute findings. Head CT completed showing progression to now chronic lacunar infarct left thumb as compared to 12/15/2021. Moderate patchy burden of chronic small vessel ischemic disease no acute intracranial abnormality seen. Lab work unremarkable. Vital signs temp 97.6, heart rate 69, respiratory rate 16, blood pressure 147/99 with a pulse ox of 99% on room air. At this time patient will be admitted neurology services. Patient reports improvement with dizziness. Still reports some generalized weakness on the right side. Patient denies chest pain or shortness breath. Patient denies nausea vomiting or diarrhea. Patient denies any urinary burning or frequency On 06/05/2022 Patient is alert and oriented x 3. Evaluated by neurology and cardiology services. Event monitor upon discharge. Patient started on neurotin per neurology recommendation. Patient to follow up with with PCP and consulting providers for further management. 2decho 50-55%. carotid doppler negative Patient Condition at Discharge: Stable Plan - Discharge Summary Discharge Rx Participant: No New Discharge Prescriptions: New buPROPion SR [Wellbutrin SR] 150 mg PO DAILY tab Gabapentin [Neurontin] 200 mg PO TID cap Continue Atorvastatin [Lipitor] 40 mg PO DAILY #30 tab amLODIPine [Norvasc] 5 mg PO BID #60 tab Famotidine [Pepcid] 20 mg PO BID Spironolactone [Aldactone] 25 mg PO DAILY #30 tab Losartan [Cozaar] 50 mg PO DAILY #30 tab Clopidogrel [Plavix] 75 mg PO DAILY #21 tab Aspirin EC [Ecotrin Low Dose] 81 mg PO DAILY #30 tab Metoprolol Tartrate [Lopressor] 12.5 mg PO BID Furosemide [Lasix] 40 mg PO DAILY Discharge Medication List Famotidine [Pepcid] 20 mg PO BID 12/13/21 [History] Aspirin EC [Ecotrin Low Dose] 81 mg PO DAILY #30 tab 12/16/21 [Rx] Atorvastatin [Lipitor] 40 mg PO DAILY #30 tab 12/16/21 [Rx] Clopidogrel [Plavix] 75 mg PO DAILY #21 tab 12/16/21 [Rx] Losartan [Cozaar] 50 mg PO DAILY #30 tab 12/16/21 [Rx] Spironolactone [Aldactone] 25 mg PO DAILY #30 tab 12/16/21 [Rx] amLODIPine [Norvasc] 5 mg PO BID #60 tab 12/16/21 [Rx] Furosemide [Lasix] 40 mg PO DAILY 06/03/22 [History] Metoprolol Tartrate [Lopressor] 12.5 mg PO BID 06/03/22 [History] Gabapentin [Neurontin] 200 mg PO TID cap 06/05/22 [Rx] buPROPion SR [Wellbutrin SR] 150 mg PO DAILY tab 06/05/22 [Rx] Follow up Appointment(s)/Referral(s): Nemo Pearson MD [Medical Doctor] - 1 Week (local neurologist. If you choose to follow with him call to schedule appointment.) Albert Sheehan MD [Primary Care Provider] - 06/13/22 11:15 am [facility] Visiting Nurse, [NON-STAFF] - (they will call you once youre home to schedule follow up. ) Patient Instructions/Handouts: Transient Ischemic Attack (DC) Activity/Diet/Wound Care/Special Instructions: your event monitor report will be sent to Dr Mathur office. Discharge/Stand Alone Forms: Who Do I Call?, Community Resources Discharge Disposition: HOME SELF-CARE
== END 2022-06-05 14:52 | disposition home or self-care (01) ==
LOC: EC 12:49 → 6NMEDSUR 17:12 → 3SCARD 22:16
PROVIDERS: ADMIT Internal Medicine; ATTEND Internal Medicine
DX: R42 Dizziness and giddiness (principal); R11.2 Nausea with vomiting, unspecified; R53.1 Weakness; I25.10 Atherosclerotic heart disease of native coronary artery without angina pectoris; I11.0 Hypertensive heart disease with heart failure; I50.9 Heart failure, unspecified; K21.9 Gastro-esophageal reflux disease without esophagitis; I25.2 Old myocardial infarction; I50.22 Chronic systolic (congestive) heart failure; G62.9 Polyneuropathy, unspecified; M81.0 Age-related osteoporosis without current pathological fracture; F32.A Depression, unspecified; G89.0 Central pain syndrome; M54.50 Low back pain, unspecified; G89.29 Other chronic pain; F17.210 Nicotine dependence, cigarettes, uncomplicated; F41.0 Panic disorder [episodic paroxysmal anxiety]; I69.351 Hemiplegia and hemiparesis following cerebral infarction affecting right dominant side; I08.1 Rheumatic disorders of both mitral and tricuspid valves; E78.5 Hyperlipidemia, unspecified; Z79.02 Long term (current) use of antithrombotics/antiplatelets; Z88.6 Allergy status to analgesic agent; Z95.5 Presence of coronary angioplasty implant and graft; Z79.899 Other long term (current) drug therapy; Z79.82 Long term (current) use of aspirin; Z80.7 Family history of other malignant neoplasms of lymphoid, hematopoietic and related tissues; Z83.2 Family history of diseases of the blood and blood-forming organs and certain disorders involving the immune mechanism
CPT/HCPCS: 96361; 96374; 99285; 36415; 93005; 93306; 93270; 97110; 97162; 97166; 92523; 80061; 80053 ×2; 82607; 82746; 84484; 85025 ×2; 85610; 85730; 71046; 93880; 70450; G0378 ×4; S0106 ×2; J2405